=== PATIENT | male | born 1950 | race Caucasian/White ===

== ENCOUNTER 2020-03-20 08:06 | Inpatient (IN) ==
--- OUTSIDE RECORDS SUMMARY | 2020-03-20 08:11 | External Medical Summary | Continuity of Care Document ---
:1950 Author Name Alexandrea Cedillo Address Unavailable Unavailable , Care Team Providers Name Role Phone Unavailable Unavailable Unavailable GABINSKIY Unavailable Unavailable Problems Active medical history not documented Allergies and Adverse Reactions Allergy history not documented Medications Medications not documented Procedures Procedures not documented Immunizations Immunizations not documented Plan of Treatment Planned Observations Planned Goals not documented Results No Known Results Results not documented
[2020-03-20] MEDS ORDERED: FUROSEMIDE 40 MG/4 ML VIAL IV STA ×2 (08:22→10:37)
--- NOTE | 2020-03-20 08:41 | Emergency Department Note ---
Impression & Plan CHF (congestive heart failure), Atrial fibrillation, Elevated troponin I level, Acute hyperglycemia, Hyperkalemia ED Provider Note NAME: MICKEY DAWKINS AGE: 69 SEX: M : 1950 ARRIVES VIA: Ambulance INFORMANT: Patient, ED PROVIDER(S): Gurvinder Mae MD Chief Complaint: Shortness of breath HPI: He does present with shortness of breath. The patient states this is been ongoing for about 2 months. Progressively worsening over that time. The patient states it is worse with exertion and with activity. The patient does complain of mild orthopnea and lower extremity swelling as well as well as weight gain. The symptoms improved with rest. The patient has not been taking his medications for proximally 6 months. Patient states he was very depressed and just did not care. The patient denies history of DVT or PE. The patient did have a very mild nonproductive cough. It happens when he lays flat. P atient does not use any oxygen. Patient does not complain of any chest pains. He has seen Dr. Gonzalez with [facility] cardiology in the past. Patient does not present with cough, fevers, chills, coronavirus contacts, coronavirus testing, or recent travel. Patient sugar in route was greater than 400. The reason that the patient presented today is when he was bringing up a little while she got increasingly short of breath and then at rest it did not feel it would improve. Thus, he called 911. He states upon arrival he no longer felt short of breath. ROS: See HPI for pertinent positives and negatives. A total of 10 systems were reviewed and otherwise negative. Past medical history: See below Surgical history: See below Social history: See below Physical Exam: GENERAL: Well appearing, well nourished, NAD, non-toxic. Wearing glasses and a mask. EYE EXAM: Normal conjunctiva. PERRL, no anisocoria and EOM's grossly intact w/o pain. NECK: Supple, no nuchal rigidity, no adenopathy, non-tender. No signs of meningismus. LUNGS: Bibasilar crackles bilaterally. Normal chest wall mechanics. HEART: Irregularly irregular, no MRG. ABDOMEN: Abdomen soft, non-tender, normo-active bowel sounds, no masses, no rebound or guarding. BACK: No CVA TTP. SKIN: No rashes and no bruising. UPPER EXTREMITIES: Upper extremities are grossly normal. LOWER EXTREMITIES: Grossly normal, 1-2+ bilateral lower extremity edema without erythema. Negative Homans sign bilaterally. NEURO EXAM: A&O x3, cranial nerves II-XII grossly intact, normal speech, moves all 4 extremities on command w/o issue. Differential diagnoses: Reactive airway disease, pneumonia, pneumothorax, COPD, CHF, infections, cardiac ischemia, pulmonary embolism, musculoskeletal, gastrointestinal, as well as other pathologies. Course: Patient was seen and evaluated the bedside. Full history physical exam was performed. EKG: Indication: Shortness of breath Atrial fibrillation, rate of 91, borderline QRS. T wave inversion in the lateral and high lateral leads, Q waves inferiorly and anteriorly. No ST elevations. Comparison EKG December 03, 2018. The patient at that time with sinus bradycardia with first-degree AV block. The A. fib is a recurrence. The patient did have T wave inversions in the lateral and high lateral leads which appear old. Imaging Studies: Radiology results as stated below per my review in the radiologist's interpretation: Cardiac monitoring: An order was placed for continuous cardiac monitoring. The monitor shows a rate of 85 with irregularly irregular rhythm. MDM: Patient does present with concern for shortness of breath. Patient did a blood work completed along with EKG troponin chest x-ray and BNP. The patient was ordered Lasix 20 mg IV. Patient's sugar in route was greater than 400. Patient does have a normal white count H&H. Platelet count is slightly low. The patient's kidney function shows essentially BOLA versus CKD. Last creatinine was 1.2 today is 1.4. Potassium 5.2 with an elevated blood glucose of 450. Patient does have an elevated troponin and BNP. The patient is currently asymptomatic. Believe that this was likely demand. Patient does have some T wave inversions in the lateral leads. EKG G changes appear chronic with regard to the T wave inversions. A. fib is a recurrence. Heparin was ordered given the A. fib. Given the relative asymptomatic and lack of chest pain at this time will just do heparin without aspirin. Patient blood glucose was elevated so was given some IV insulin. Fluid helps at this time given the concern for CHF with A. fib. I did speak with the on-call hospitalist Dr. Sanchez MD [place] [facility] who agreed to further evaluate treat the patient. Critical Care: I have personally spent 42 minutes of critical care time in direct management of this patient. This includes bedside care, interpretation of diagnostic studies, and testing, discussion with consultants, patient, and family members, and other require inpatient management activities. This 42 minutes is in excess of all separately billable procedures. Past Med/Surg History Medical History CAD (coronary artery disease) (Chronic) "03/2009 - STEMI, s/p PTCA and stenting RCA, chronic LAD occlusion, 40% left main lesion" CVA (cerebral vascular accident) (Chronic) DM type 2 (diabetes mellitus, type 2) (Chronic) Dyslipidemia (Chronic) HTN (hypertension) (Chronic) Hypothyroidism (Chronic) Paroxysmal atrial fibrillation (Chronic) STEMI (ST elevation myocardial infarction) (Resolved) Systolic and diastolic CHF, chronic (Chronic) Thrombocytopenia (Chronic) Surgical History H/O colonoscopy (Resolved) 06/2018 - diverticulosis - Dr Samreen Suárez Hx of cardiac cath (Resolved) 2008 - multivessel disease s/p stent RCA with residual chronic occlusion LAD with collaterals and 40% narrowing left main Family History Other Coronary heart disease Diabetes Social History Preferred Language: Slovenian Communication Ability: Effective Steam Gigger Required: No Beliefs That Will Affect Care: None Current Living Situation: Alone Other Information That Helps Us Care for You: No Feels Safe at Home: Yes Safety Concerns: Feels Safe At This Time Smoking Status: Never smoker Do You Dip or Chew Tobacco: No ; Second Hand Exposure: Yes ; Tobacco Cessation Education Requested by Patient: No Hx Alcohol Use: Yes Alcohol type: beer and wine Hx Substance Use: No Allergies Allergies Allergy/AdvReac Type Severity Reaction Status Date / Time lisinopril AdvReac Intermediate COUGH Verified 03/20/20 08:26 alendronate sodium AdvReac Mild NONE Unverified 03/20/20 08:26 atorvastatin AdvReac Muscle Pain Verified 03/20/20 08:26 Home Meds Home Medications Medication Instructions Recorded Confirmed Lantus Solostar U-100 Insulin 45 unit SUBCUT HS 12/03/18 03/20/20 Tradjenta 5 mg PO DAILY 12/03/18 03/20/20 aspirin 81 mg PO DAILY 12/03/18 03/20/20 furosemide 20 mg PO DAILY 12/03/18 03/20/20 isosorbide mononitrate 60 mg PO DAILY 12/03/18 03/20/20 levothyroxine 25 mcg PO DAILY 12/03/18 03/20/20 losartan 25 mg PO DAILY 12/03/18 03/20/20 sotalol [Sotalol AF] 80 mg PO Q12H 12/03/18 03/20/20 spironolactone 12.5 mg PO DAILY 12/03/18 03/20/20 Previous Rx's Medication Instructions Recorded apixaban [Eliquis] 5 mg PO BID #60 tab 12/04/18 clopidogrel 75 mg PO QAM #30 tab 12/04/18 Results & Data (ED) Vital Signs Vital Signs - 24 hr 03/20/20 07:53 03/20/20 08:00 03/20/20 08:30 Temperature 36.7 C Temperature Source Oral Pulse Rate 94 H 88 91 H Pulse Rate from SpO2 Sensor 97 H Pulse Rhythm Irregular Irregular Respiratory Rate 18 18 20 Respiratory Effort / Characteristics Non-Labored Spontaneous Respiratory Depth Normal Respiratory Pattern Regular Blood Pressure 109/85 119/91 Blood Pressure Mean 93 96 Pulse Oximetry 97 97 95 Oxygen Delivery Method Room Air Room Air Sepsis Recent Fever Within 48 Hours No Sepsis New/Unexplained Change in Mental Status No Sepsis Action Taken by Nursing No Action Required 03/20/20 09:30 Temperature Temperature Source Pulse Rate 92 H Pulse Rate from SpO2 Sensor 97 H Pulse Rhythm Respiratory Rate 25 H Respiratory Effort / Characteristics Respiratory Depth Respiratory Pattern Blood Pressure 111/89 Blood Pressure Mean 94 Pulse Oximetry 93 Oxygen Delivery Method Sepsis Recent Fever Within 48 Hours Sepsis New/Unexplained Change in Mental Status Sepsis Action Taken by Long-Term Medications Current Medication List: was personally reviewed by me Laboratory Data Attestation: I reviewed the patient's lab results. Result diagrams: 03/20/20 08:00 03/20/20 11:50 Lab Results 03/20/20 03/20/20 03/20/20 Range/Units 08:00 08:00 08:00 WBC 9.50 (4.8-10.8) K/uL RBC 5.45 (4.7-6.1) M/uL Hgb 16.9 (14.0-18.0) g/dL Hct 49.9 (42-52) % MCV 91.6 (80-100) fL MCH 31.0 (25-34) pg MCHC 33.9 (32-36) g/dL RDW Std Deviation 47.8 H (36.4-46.3) fL RDW Coeff of Erik 14.2 (11.5-14.5) % Plt Count 103 L (130-400) K/uL Immature Gran % (Auto) 0.1 % Neut % (Auto) 60.1 % Lymph % (Auto) 28.8 % Rains % (Auto) 7.8 % Eos % (Auto) 2.7 % Baso % (Auto) 0.5 % Immature Gran # (Auto) 0.01 (0.00-0.02) K/uL Neut # (Auto) 5.70 (1.4-6.5) K/uL Lymph # (Auto) 2.74 (1.2-3.4) K/uL Rains # (Auto) 0.74 H (0.11-0.59) K/uL Eos # (Auto) 0.26 (0-0.5) K/uL Baso # (Auto) 0.05 (0-0.2) K/uL Platelet Estimate Decreased L (Normal) Giant Platelets 2+ PT 12.2 H (9.0-12.0) Seconds INR 1.2 H (0.9-1.1) APTT 25.6 (21.0-31.0) Seconds PTT Ratio 0.9 Sodium 135 L (136-145) mmol/L Potassium 5.2 H (3.5-5.1) mmol/L Chloride 103 (98-107) mmol/L Carbon Dioxide 23 (21-32) mmol/L Anion Gap 9.0 (3-11) BUN 20 H (7-18) mg/dl Creatinine 1.41 H (0.6-1.4) mg/dl Est Cr Clr Drug Dosing 58.1 ml/min Est GFR ( Amer) 57.7 Est GFR (Non-Af Amer) 49.8 BUN/Creatinine Ratio 14.0 (10-20) Glucose 455 H* (70-99) mg/dl Estimat Average Glucose mg/dl Hemoglobin A1c (4.5-5.6) % Calcium 8.3 L (8.5-10.1) mg/dl Phosphorus 3.6 (2.5-4.9) mg/dl Magnesium 1.9 (1.8-2.4) mg/dl Total Bilirubin 0.8 (0.2-1) mg/dl AST 61 H (15-37) U/L ALT 66 (12-78) U/L Alkaline Phosphatase 96 (45-117) U/L Troponin I 0.079 H* (0-0.045) ng/ml NT-Pro-B Natriuret Pep 3215 H (0-900) pg/ml Total Protein 6.6 (6.4-8.2) gm/dl Albumin 3.0 L (3.4-5.0) gm/dl Globulin 3.6 (2.5-4.0) gm/dl Albumin/Globulin Ratio 0.8 L (0.9-2) Beta-Hydroxybutyric Acd 1.75 (0.2-2.81) mg/dl TSH (0.300-4.500) uIu/ml 03/20/20 03/20/20 Range/Units 08:00 08:00 WBC (4.8-10.8) K/uL RBC (4.7-6.1) M/uL Hgb (14.0-18.0) g/dL Hct (42-52) % MCV (80-100) fL MCH (25-34) pg MCHC (32-36) g/dL RDW Std Deviation (36.4-46.3) fL RDW Coeff of Erik (11.5-14.5) % Plt Count (130-400) K/uL Immature Gran % (Auto) % Neut % (Auto) % Lymph % (Auto) % Rains % (Auto) % Eos % (Auto) % Baso % (Auto) % Immature Gran # (Auto) (0.00-0.02) K/uL Neut # (Auto) (1.4-6.5) K/uL Lymph # (Auto) (1.2-3.4) K/uL Rains # (Auto) (0.11-0.59) K/uL Eos # (Auto) (0-0.5) K/uL Baso # (Auto) (0-0.2) K/uL Platelet Estimate (Normal) Giant Platelets PT (9.0-12.0) Seconds INR (0.9-1.1) APTT (21.0-31.0) Seconds PTT Ratio Sodium (136-145) mmol/L Potassium (3.5-5.1) mmol/L Chloride (98-107) mmol/L Carbon Dioxide (21-32) mmol/L Anion Gap (3-11) BUN (7-18) mg/dl Creatinine (0.6-1.4) mg/dl Est Cr Clr Drug Dosing ml/min Est GFR ( Amer) Est GFR (Non-Af Amer) BUN/Creatinine Ratio (10-20) Glucose (70-99) mg/dl Estimat Average Glucose 335 mg/dl Hemoglobin A1c 13.3 H (4.5-5.6) % Calcium (8.5-10.1) mg/dl Phosphorus (2.5-4.9) mg/dl Magnesium (1.8-2.4) mg/dl Total Bilirubin (0.2-1) mg/dl AST (15-37) U/L ALT (12-78) U/L Alkaline Phosphatase (45-117) U/L Troponin I (0-0.045) ng/ml NT-Pro-B Natriuret Pep (0-900) pg/ml Total Protein (6.4-8.2) gm/dl Albumin (3.4-5.0) gm/dl Globulin (2.5-4.0) gm/dl Albumin/Globulin Ratio (0.9-2) Beta-Hydroxybutyric Acd (0.2-2.81) mg/dl TSH 9.110 H (0.300-4.500) uIu/ml Administered Medications Aspirin (Aspirin Chew) 81 mg PO DAILY [facility] Stop: 04/19/20 11:38 Last Admin: 03/20/20 13:00 Dose: 81 mg Documented by: [id number] Heparin Sodium/Dextrose (Heparin Sodium/Dextrose) 25,000 units in 500 mls @ 31 mls/hr IV .Q16H8M [facility]; Protocol Stop: 04/19/20 10:44 Last Admin: 03/20/20 11:50 Dose: 1,550 units/hr, 31 mls/hr Documented by: [id number] Cosigned by: [id number] Insulin Aspart (Novolog Flexpen) 0 units SC ACHS LIN; Protocol Stop: 04/19/20 11:29 Last Admin: 03/20/20 12:59 Dose: 9 units Documented by: [id number] Cosigned by: [id number] Insulin Glargine (Lantus Solostar Pen) 45 units SC DAILY LIN; Protocol Stop: 04/19/20 11:29 Last Admin: 03/20/20 12:58 Dose: 45 units Documented by: [id number] Cosigned by: [id number] Sotalol HCl (Betapace) 80 mg PO BID LIN Stop: 04/19/20 11:38 Last Admin: 03/20/20 13:00 Dose: 80 mg Documented by: [id number] Discontinued Medications Furosemide (Lasix) 20 mg IV NOW STA Stop: 03/20/20 08:23 Last Admin: 03/20/20 08:48 Dose: 20 mg Documented by: [id number] Furosemide (Lasix) 20 mg IV NOW STA Stop: 03/20/20 10:38 Last Admin: 03/20/20 10:47 Dose: 20 mg Documented by: [id number] Heparin Sodium/Dextrose () 1 ea IV ONE ONE; Protocol Stop: 03/20/20 09:14 Last Admin: 03/20/20 11:49 Dose: Not Given Documented by: [id number] Heparin Sodium/Dextrose (Heparin Sodium/Dextrose) 25,000 units in 500 mls @ 0.02 mls/hr IV .Q24H LIN; Protocol Stop: 04/19/20 09:14 Last Titration: 03/20/20 11:50 Dose: 0 units/hr, 0 mls/hr Documented by: [id number] Cosigned by: [id number] Admin: 03/20/20 10:01 Dose: 1,550 units/hr, 31 mls/hr Documented by: [id number] Cosigned by: [id number] Insulin Human Regular (Novolin R U-100 Per Unit) 5 units IV NOW STA Stop: 03/20/20 09:13 Last Admin: 03/20/20 10:02 Dose: 5 units Documented by: [id number] Cosigned by: [id number] Miscellaneous Information (Consult Glycemic Management Pharmacy) 1 ea N/A NOW STA Stop: 03/20/20 10:38 Last Admin: 03/20/20 11:50 Dose: Not Given Documented by: [id number] Blood Pressure Blood Pressure Findings: Normal blood pressure Blood Pressure Disposition: did not require urgent referral Discharge Plan Visit Data *Final* Discharge Date/Time: 03/20/20 11:15 Chief Complaint: Shortness of Breath/Dyspnea ED Provider: Gurvinder Mae Discharge Problem: CHF (congestive heart failure), Atrial fibrillation, Elevated troponin I level, Acute hyperglycemia, Hyperkalemia Patient Disposition: Admitted As Inpatient Discharge Instructions Interventions: ED Discharge Assessment Last Done: 03/20/20 11:15 Discharge Problem: CHF (congestive heart failure) Qualifiers: Heart failure type: unspecified Heart failure chronicity: acute Qualified Code(s): I50.9 - Heart failure, unspecified Atrial fibrillation Qualifiers: Atrial fibrillation type: paroxysmal Qualified Code(s): I48.0 - Paroxysmal atrial fibrillation
[2020-03-20 08:48] LABS: INR 1.2 (0.9-1.1); Partial Thromboplastin Ratio 0.9; Partial Thromboplastin Time 25.6 Seconds (21.0-31.0); Prothrombin Time 12.2 Seconds (9.0-12.0)
[2020-03-20 08:53] LABS: Hematocrit (blood only) 49.9 % (42-52); Hemoglobin 16.9 g/dL (14.0-18.0); Mean Corpuscular Hgb Conc 33.9 g/dL (32-36); Mean Corpuscular Volume 91.6 fL (80-100); Platelet Count 103 K/uL (130-400); RDW Coefficient of Variation 14.2 % (11.5-14.5); RDW Standard Deviation 47.8 fL (36.4-46.3); Red Blood Count 5.45 M/uL (4.7-6.1)
[2020-03-20 08:54] LABS: Basophils # (auto) 0.05 K/uL (0-0.2); Basophils % (auto) 0.5 %; Eosinophils # (auto) 0.26 K/uL (0-0.5); Eosinophils % (auto) 2.7 %; Giant Platelets 2+; Immature Granulocytes # (auto) 0.01 K/uL (0.00-0.02); Immature Granulocytes % (auto) 0.1 %; Lymphocytes # (auto) 2.74 K/uL (1.2-3.4); Lymphocytes % (auto) 28.8 %; Monocytes # (auto) 0.74 K/uL (0.11-0.59); Monocytes % (auto) 7.8 %; Neutrophils % (auto) 60.1 %; Platelet Estimate Decreased (Normal)
[2020-03-20 08:57] LABS: Albumin Globulin Ratio 0.8 (0.9-2); Bilirubin,Total 0.8 mg/dl (0.2-1); Calcium 8.3 mg/dl (8.5-10.1); Creatinine Clr Calc Pharmacy 58.1 ml/min; Est GFR (African American) 57.7; Est GFR (Non-African American) 49.8; Globulin 3.6 gm/dl (2.5-4.0); Magnesium 1.9 mg/dl (1.8-2.4); Phosphorus 3.6 mg/dl (2.5-4.9); Potassium 5.2 mmol/L (3.5-5.1); Total Protein 6.6 gm/dl (6.4-8.2); Troponin I 0.079 ng/ml (0-0.045)
--- NOTE | 2020-03-20 09:00 | XRay Report ---
XR chest 1V portable CLINICAL HISTORY: 69 years-old Male presenting with Dyspnea. TECHNIQUE: Portable upright AP view of the chest was obtained. COMPARISON: 09/19/2016. FINDINGS: Atherosclerosis of the aortic arch. Cardiac silhouette enlarged. Pulmonary vascular and interstitial prominence. Extensive bibasilar hazy opacities. Small pleural effusions may be present. No pneumothor ax. Degenerative changes of the thoracic spine. IMPRESSION: 1. Cardiomegaly with findings most characteristic of volume overload and advanced congestive change. 2. Bibasilar infiltrates likely represent mild to moderate pulmonary edema. Differential considerati ons include aspiration or infection. 3. Small bilateral pleural effusions. ACT 112: Negative or not required by law. Electronically signed by: Gokul Phan M.D. 03/20/2020 8:59 AM
[2020-03-20 09:11] LABS: Beta-Hydroxybutyrate 1.75 mg/dl (0.2-2.81)
[2020-03-20] MEDS ORDERED: NovoLIN-R INSULIN PER UNIT CHARGE IV STA (09:12)
[2020-03-20] MEDS ORDERED: Heparin IV Standard *NO* Bolus IV ONE (09:13)
[2020-03-20] MEDS ORDERED: HEPARIN SODIUM/DEXTROSE 25,000 UNITS/500 ML BAG IV SCH (09:15)
--- NOTE | 2020-03-20 10:23 | History & Physical Report ---
Date of Service March 20, 2020 Assessment & Plan (1) Atrial fibrillation: presented with Afib RVR has not been taking his medications for sometime HR improved after resuming Sotalol 80 mg PO BID iV heparin wt based protocol repeat ECHO cardiology consulted (2) CHF (congestive heart failure): presented with Vol overload acute decompensation of diastolic heart faillure started on IV Lasix continue diuresis ECHO to assess LV function cardiology consulted (3) Hyperkalemia: possible due to Acute renal failure given IV 10 U insulin repeat BMP started on IV lasix for diuresis (4) S/P cardiac catheterization: 12/03/18: -Status post successful coronary intervention drug-eluting stent to the proximal left circumflex. 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 presented with chest heaviness , SOB , due to decompensated CHF /vol overload , not taking meds , lack of self care ordered for echo serial cardiac markers resumed out patient cardiac meds cardiolgy consulted (5) CAD (coronary artery disease): NSTEMI elevation of troponin /NSTEMI IV heparin,cardiac meds follow serial troponin trends cardiology eval (6) HTN (hypertension): (7) Dyslipidemia: (8) DM type 2 (diabetes mellitus, type 2): Type 2 diabetes mellitus with peripheral neuropathy, insulin-dependent. presented with hyperglycemia has not taken meds for months pharmacy consulted for glycemic managment BSG > 444 , not in DKA , normal beta hydroxybutyrate , bicarb /normal anion gap (9) Thrombocytopenia: chronic cont Aspirin,plavix on IV heparin wt based protocol for NSTEMI/afib follow CBC (10) CVA (cerebral vascular accident): History of embolic cerebrovascular infarct, right basal ganglia in 04/2016. no focal deficit noted cont aspirin , plavix , statin CODE STATUS: FULL CODE DVT PROPHYLAXIS : iv heparin wt based protocol History of Present Illness Primary Care Provider: Christopher Bella, this is a 69 yo Male with past medical hx of CHF with chronic diastolic heart failure , CKD stage 3 , A fib , type 2 DM has stopped taking meds for last 6 months - pt has lost several family members became severely depressed , has not see any medical advice or treatment for depression denies suicidial ideation presented with worseing of SOB , chest heaviness , increased lower extremity swelling , Allergies Allergy/AdvReac Type Severity Reaction Status Date / Time lisinopril AdvReac Intermediate COUGH Verified 03/20/20 08:26 alendronate sodium AdvReac Mild NONE Unverified 03/20/20 08:26 atorvastatin AdvReac Muscle Pain Verified 03/20/20 08:26 Home Medications Home Medications Medication Instructions Recorded Confirmed Type Lantus Solostar U-100 Insulin 45 unit SUBCUT HS 12/03/18 03/20/20 History Tradjenta 5 mg PO DAILY 12/03/18 03/20/20 History aspirin 81 mg PO DAILY 12/03/18 03/20/20 History furosemide 20 mg PO DAILY 12/03/18 03/20/20 History isosorbide mononitrate 60 mg PO DAILY 12/03/18 03/20/20 History levothyroxine 25 mcg PO DAILY 12/03/18 03/20/20 History losartan 25 mg PO DAILY 12/03/18 03/20/20 History sotalol [Sotalol AF] 80 mg PO Q12H 12/03/18 03/20/20 History spironolactone 12.5 mg PO DAILY 12/03/18 03/20/20 History apixaban [Eliquis] 5 mg PO BID #60 tab 12/04/18 03/20/20 Rx clopidogrel 75 mg PO QAM #30 tab 12/04/18 03/20/20 Rx Past Med/Surg History Medical History CAD (coronary artery disease) (Chronic) "03/2009 - STEMI, s/p PTCA and stenting RCA, chronic LAD occlusion, 40% left main lesion" CVA (cerebral vascular accident) (Chronic) DM type 2 (diabetes mellitus, type 2) (Chronic) Dyslipidemia (Chronic) HTN (hypertension) (Chronic) Hypothyroidism (Chronic) Paroxysmal atrial fibrillation (Chronic) STEMI (ST elevation myocardial infarction) (Resolved) Systolic and diastolic CHF, chronic (Chronic) Thrombocytopenia (Chronic) Surgical History H/O colonoscopy (Resolved) 06/2018 - diverticulosis - Dr Samreen Suárez Hx of cardiac cath (Resolved) 2008 - multivessel disease s/p stent RCA with residual chronic occlusion LAD with collaterals and 40% narrowing left main Family History Other Coronary heart disease Diabetes Social History Preferred Language: Upper Sorbian Communication Ability: Effective Forensic Materials Engineer Required: No Beliefs That Will Affect Care: None marital status: Single Current Living Situation: Alone Other Information That Helps Us Care for You: No Feels Safe at Home: Yes Safety Concerns: Feels Safe At This Time Smoking Status: Never smoker Do You Dip or Chew Tobacco: No ; Second Hand Exposure: Yes ; Tobacco Cessation Education Requested by Patient: No Hx Alcohol Use: Yes Alcohol type: beer and wine Hx Substance Use: No Review of Systems Review of Systems: All systems reviewed & are unremarkable except as noted in HPI & below Constitutional: as per Subjective / HPI, + fatigue and + weakness; no fever and no chills Eyes: as per Subjective / HPI Respiratory: + cough and + dyspnea Cardiovascular: + dyspnea, + dyspnea at rest, + orthopnea, + syncope and + edema Physical Exam Constitutional: WD/WN, vitals as above + acute distress and + ill appearing Eyes: PERRL, conjunctivae normal, anicteric sclerae ENMT: external ear and nose normal, oropharynx normal Neck: trachea midline, no thyromegaly Respiratory: + cough; no respiratory distress Auscultation: + diminished lung sounds, + crackles, + rales, + rhonchi, + wheezes and + pleural rub present Cardiovascular: Rate/Rhythm: + abnormal rhythm Extremities: + pedal edema and + edema Musculoskeletal: Extremities: + abnormal strength (generalized weakness ) Neurologic: PERRL, EOMI, accommodation nl, no face palsy, no dysarthria Psychiatric: A+Ox3, euthymic affect Results & Data Results & Data ([facility]) Vital Signs (Past 12 Hours) Vital Signs Temp Pulse Resp BP Pulse Ox 03/20/20 10:14 84 20 97 03/20/20 08:30 91 H 20 119/91 95 03/20/20 08:00 88 18 97 03/20/20 07:53 36.7 C 94 H 18 109/85 97 Diagnostic Findings (1) DM type 2 (diabetes mellitus, type 2) Diabetes mellitus complication detail: with other circulatory complications Diabetes mellitus complication status: with circulatory complication Diabetes mellitus fci insulin use: with assistant terminal manager use Qualified Code(s): E11.59 - Type 2 diabetes mellitus with other circulatory complications; Z79.4 - shelter (current) use of insulin (2) CAD (coronary artery disease) Associated angina: without angina Coronary Disease-Associated Artery/Lesion type: [place] artery [place] vs. transplanted heart: [place] heart Qualified Code(s): I25.10 - Atherosclerotic heart disease of [place] coronary artery without angina pectoris (3) CHF (congestive heart failure) Heart failure chronicity: acute Heart failure type: unspecified Qualified Code(s): I50.9 - Heart failure, unspecified (4) Atrial fibrillation Atrial fibrillation type: paroxysmal Qualified Code(s): I48.0 - Paroxysmal atrial fibrillation (5) HTN (hypertension) Hypertension type: essential hypertension Qualified Code(s): I10 - Essential (primary) hypertension (6) CVA (cerebral vascular accident) CVA mechanism: embolism Precerebral and cerebral artery: basilar artery Qualified Code(s): 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
[2020-03-20] MEDS ORDERED: PHARMACY GLYCEMIC MGMT CONSULT STA (10:37)
[2020-03-20] MEDS ORDERED: Heparin IV Standard *NO* Bolus IV SCH (10:45)
--- NOTE | 2020-03-20 10:55 | Electrocardiogram Report ---
Test Reason : Blood Pressure : / mmHG Vent. Rate : 091 BPM Atrial Rate : 159 BPM P-R Int : 000 ms QRS Dur : 118 ms QT Int : 422 ms P-R-T Axes : 000 -50 129 degrees QTc Int : 519 ms Atrial fibrillation Left axis deviation Anteroseptal infarct , age undetermined T wave abnormality, consider lateral ischemia Prolonged QT Abnormal ECG When compared with ECG of 03-DEC-2018 12:49, Atrial fibrillation has replaced Sinus rhythm Vent. rate has increased BY 36 BPM Left bundle branch block is no longer Present Anteroseptal infarct is now Present Confirmed by Alex Yung ([id number]) on 03/20/2020 10:54:42 AM Referred By: ED Confirmed By:Richardson Yung
[2020-03-20 10:59] LABS: Estimated Average Glucose 335 mg/dl; Hemoglobin A1C 13.3 % (4.5-5.6)
[2020-03-20] MEDS ORDERED: PHARMACY GLYCEMIC MGMT CONSULT SCH (11:00)
--- NOTE | 2020-03-20 11:12 | Pharmacy Report ---
Glycemic Control Consultation - Date of Service March 20, 2020 - Scope Scope: Glycemic Pharmacist consulted for glycemic control and to write orders per [facility] inpatient glycemic control protocol. - Objective Weight: 104.3 kg Accuchecks BSG (last 24hrs): 03/20/20 03/20/20 08:00 10:54 Glucose 455 H* POC Glucose 327 H* Laboratory Data (last 24hrs): 03/20/20 08:00 Potassium 5.2 H Carbon Dioxide 23 Anion Gap 9.0 Creatinine 1.41 H Est Cr Clr Drug Dosing 58.1 Beta-Hydroxybutyric Acd 1.75 HbA1c: Hemoglobin A1c 13.3 % (4.5-5.6) H 03/20/20 08:00 - Recent Pertinent Medications Outpatient Anti-diabetic Regimen: * Not taking x 6 months, previously on Lantus 45 units daily and Tradjenta 5mg PO daily * A1c = 13.3 % 03/20/19 Risk Factors for Insulin Resistance: * IVF: Heparin drip * Diet: Type 2 DM - Assessment & Plan Assessment & Plan: ASSESSMENT: * 69 year old male admitted with SOB, CHF exacerbation, AF, started on Heparin drip. Type 2 diabetic, not taking medications x 6 months. * Blood sugar 455mg/dl on admission, given 5units IV x1 in ED at 1015am, now 327mg/dl. * Will begin patient on old home dose of Lantus and CF/CR based on basal needs and titrate to goal. PLAN FOR INPATIENT GLYCEMIC CONTROL: * Basal insulin * Lantus 45 units SQ daily starting now * Bolus insulin * NovoLog per scale ACHS or Q6hrs while NPO * Goal Range: Low 110 mg/dL - High 140 mg/dL * Correction Factor: 20 mg/dL/unit * Nutritional / Prandial insulin per carb ratio of 1 unit per 7 grams CHO consumed * Please note that the plan above was derived based on current level of insulin resistance and hospital stress. These recommendations are appropriate for inpatient admission only. Plan of care upon discharge will need to be reassessed to avoid potential outpatient hypo/hyperglycemia. Thank you.
[2020-03-20] MEDS ORDERED: GLUCOSE 40% GEL 15 GM TUBE PO PRN (11:15)
[2020-03-20] MEDS ORDERED: CARBOHYDRATES FOR HYPOGLYCEMIA PO PRN (11:15)
[2020-03-20] MEDS ORDERED: GLUCOSE 10 TABS/TUBE PO PRN (11:15)
[2020-03-20] MEDS ORDERED: DEXTROSE 50% 50 ML SYRINGE IV PRN (11:15)
[2020-03-20] MEDS ORDERED: GLUCAGON FOR INJ 1 MG VIAL SQ PRN (11:15)
[2020-03-20] MEDS ORDERED: POLYETHYLENE (MIRALAX) 17 GM PACK PO PRN (11:39)
[2020-03-20] MEDS ORDERED: MAGNESIUM HYDROXIDE SUSP 30 ML UDC PO PRN (11:39)
[2020-03-20] MEDS ORDERED: ALUMINUM/MAGNESIUM SUSP 30 ML UDC PO PRN (11:39)
[2020-03-20] MEDS ORDERED: NITROGLYCERIN SL 0.4 MG/TAB TAB SL PRN (11:39)
[2020-03-20] MEDS ORDERED: ACETAMINOPHEN 325 MG TAB PO PRN (11:39)
[2020-03-20] MEDS: HEPARIN SODIUM/DEXTROSE 25,000 UNITS/500 ML BAG IV SCH (11:50)
[2020-03-20 12:24] LABS: BUN Creatinine Ratio 14.6 (10-20); Calcium 8.3 mg/dl (8.5-10.1); Creatinine Clr Calc Pharmacy 59.8 ml/min; Est GFR (African American) 60.2; Potassium 4.2 mmol/L (3.5-5.1)
[2020-03-20] MEDS: INSULIN GLARGINE SOLOSTAR 100 UNITS/ML 3 ML PEN SC SCH (12:58)
[2020-03-20] MEDS: INSULIN ASPART 100 UNITS/ML 3 ML PEN SC SCH ×3 (12:59→20:15)
[2020-03-20] MEDS: ASPIRIN 81 MG CHEW PO SCH (13:00)
[2020-03-20] MEDS: SOTALOL HCL 80 MG TAB PO SCH ×2 (13:00→20:20)
[2020-03-20 14:55] LABS: Calcium 8.5 mg/dl (8.5-10.1); Creatinine Clr Calc Pharmacy 59.8 ml/min; Est GFR (African American) 60.2; Potassium 4.3 mmol/L (3.5-5.1)
[2020-03-20 15:03] LABS: Troponin I 0.058 ng/ml (0-0.045)
[2020-03-20] MEDS ORDERED: LORazepam 0.5 MG TAB PO STA (16:24)
[2020-03-20] MEDS ORDERED: LORazepam 0.5 MG TAB PO PRN (16:24)
[2020-03-20] MEDS: FUROSEMIDE 40 MG in SYRINGE 0 ML IV SCH (16:50)
[2020-03-20 20:05] LABS: Partial Thromboplastin Ratio 2.6
[2020-03-20 20:14] LABS: Partial Thromboplastin Time 72.5 Seconds (21.0-31.0)
[2020-03-21 02:37] LABS: BUN Creatinine Ratio 19.3 (10-20); Calcium 8.2 mg/dl (8.5-10.1); Creatinine Clr Calc Pharmacy 54.9 ml/min; Est GFR (African American) 54.4; Est GFR (Non-African American) 46.9; Magnesium 1.8 mg/dl (1.8-2.4); Partial Thromboplastin Ratio 3.1
[2020-03-21 02:54] LABS: Partial Thromboplastin Time 87.3 Seconds (21.0-31.0)
[2020-03-21] MEDS: HEPARIN SODIUM/DEXTROSE 25,000 UNITS/500 ML BAG IV SCH (03:03)
[2020-03-21] MEDS: LEVOTHYROXINE SODIUM 25 MCG TABLET PO SCH (06:08)
--- NOTE | 2020-03-21 08:31 | Cardiology Consultation ---
Date of Consultation March 21, 2020 Assessment & Plan (1) CHF (congestive heart failure): (2) Atrial fibrillation: (3) Elevated troponin I level: (4) Systolic and diastolic CHF, chronic: (5) CAD (coronary artery disease): (6) DM type 2 (diabetes mellitus, type 2): (7) Depression: Clinically the patient is improved. I would continue his diuretics as I believe he is still in congestive heart failure. This event may have been brought on by clinical depression and possible non-compliance with medications. I will have psychiatry see him for recommendations. His other medications should be continued including the sotalol which he takes for paroxysmal atrial fibrillation. He is currently in a rate controlled atrial fibrillation hopefully after we treat his heart failure he will convert on his own back to sinus rhythm. Troponins are most likely elevated due to stress and not ACS. His echocardiogram is essentially unchanged. He has very poor LV function due to an ischemic cardiomyopathy. In the past he has refused an ICD. History of Present Illness Attending Physician: Teetee Bradford MD History of Present Illness This is a 69-year-old patient who usually follows with Dr. Goznalez. He has a complex past cardiac history as outlined below. He has had a rough year. He has had several family members along with a good friend. 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 He admits that he has been depressed. States that life is not worth living. He may or may not have been taking his medications. Over the past several days he has noticed some increasing lower extremity edema as well as abdominal girth. He became suddenly very short of breath yesterday after climbing some stairs. He became very frightened and called a friend. He was brought to the hospital where he has been found to be in congestive heart failure. I reviewed his echocardiogram and it is essentially unchanged. He has an ischemic cardiomyopathy with an estimated left ventricular ejection fraction of around 25%. In the past he has refused an ICD. His last hospital admission was in November 2018 when he received a drug-eluting stent within the circumflex artery. After that admission from a cardiac standpoint he has done well. On admission his pro natruretic peptide is elevated. He has had borderline elevation in cardiac troponin which I do not believe is due to ACS but secondary to strain from heart failure. He has a history of paroxysmal atrial fibrillation and is currently in a controlled rate atrial fibrillation. Since being admitted he has received several doses of IV diuretics and is feeling improved. He was emotional in the room today during my exam which I believe is related to his depression. Past medical history: 1.Atherosclerotic coronary disease status post ST-elevation myocardial infarction March of 2009. 2.Catheterization at that time revealed multivessel disease, s/p PTCA and stenting of right coronary artery urgently with residual chronic occlusion of the LADwith collaterals and a 40% narrowing of the left main. 3.Paroxysmal atrial fibrillation. 4.History of embolic cerebrovascular infarct, right basal ganglia, April of 2016. 5.Decompensated acute systolic and diastolic congestive heart failure in the setting of atrial fibrillation with rapid ventricular response, 09/20/2016, s sequent hospitalization. 6.Status post synchronized electrical cardioversion, 10/31/2016. 7.Hyperlipidemia 8.Hypertension. 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 Abnormal stress testing leading to diagnostic cardiac catheterization December 03, 2018 demonstrating patent right coronary stent chronic proximal LAD occlusion and high-grade proximal circumflex stenosis receiving drug-eluting stent to circumflex Allergies Allergy/AdvReac Type Severity Reaction Status Date / Time lisinopril AdvReac Intermediate COUGH Verified 03/20/20 08:26 alendronate sodium AdvReac Mild NONE Unverified 03/20/20 08:26 atorvastatin AdvReac Muscle Pain Verified 03/20/20 08:26 Home Medications Home Medications Medication Instructions Recorded Confirmed Type Lantus Solostar U-100 Insulin 45 unit SUBCUT HS 12/03/18 03/20/20 History Tradjenta 5 mg PO DAILY 12/03/18 03/20/20 History aspirin 81 mg PO DAILY 12/03/18 03/20/20 History furosemide 20 mg PO DAILY 12/03/18 03/20/20 History isosorbide mononitrate 60 mg PO DAILY 12/03/18 03/20/20 History levothyroxine 25 mcg PO DAILY 12/03/18 03/20/20 History losartan 25 mg PO DAILY 12/03/18 03/20/20 History sotalol [Sotalol AF] 80 mg PO Q12H 12/03/18 03/20/20 History spironolactone 12.5 mg PO DAILY 12/03/18 03/20/20 History apixaban [Eliquis] 5 mg PO BID #60 tab 12/04/18 03/20/20 Rx clopidogrel 75 mg PO QAM #30 tab 12/04/18 03/20/20 Rx Patient History Medical History CAD (coronary artery disease) (Chronic) "03/2009 - STEMI, s/p PTCA and stenting RCA, chronic LAD occlusion, 40% left main lesion" CVA (cerebral vascular accident) (Chronic) DM type 2 (diabetes mellitus, type 2) (Chronic) Dyslipidemia (Chronic) HTN (hypertension) (Chronic) Hypothyroidism (Chronic) Paroxysmal atrial fibrillation (Chronic) STEMI (ST elevation myocardial infarction) (Resolved) Systolic and diastolic CHF, chronic (Chronic) Thrombocytopenia (Chronic) Surgical History H/O colonoscopy (Resolved) 06/2018 - diverticulosis - Dr Samreen Suárez Hx of cardiac cath (Resolved) 2008 - multivessel disease s/p stent RCA with residual chronic occlusion LAD with collaterals and 40% narrowing left main Family History Other Coronary heart disease Diabetes Social History Preferred Language: Citizen Of [place] Communication Ability: Effective 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 Beliefs That Will Affect Care: None marital status: Single Current Living Situation: Alone Other Information That Helps Us Care for You: No Feels Safe at Home: Yes Safety Concerns: Feels Safe At This Time Smoking Status: Never smoker Do You Dip or Chew Tobacco: No ; Second Hand Exposure: Yes ; Tobacco Cessation Education Requested by Patient: No Hx Alcohol Use: Yes Alcohol type: beer and wine Hx Substance Use: No Review of Systems Review of Systems: All systems reviewed & are unremarkable except as noted in HPI & below Nothing additional Physical Exam Physical Exam: General: no acute distress and stated age Head: normocephalic, no masses, lesions, tenderness or abnormalities Eyes: conjunctiva are pink and non-injected, sclera clear Neck: supple, no adenopathy, no bruits, normal jugular venous pulse, no hepatojugular reflux Chest: normal shape and normal respiratory effort Lungs: Rales at the bases bilaterally Cardiac Exam: -Regular rhythm, no murmurs gallops or rubs - normal S1, normal S2 Pulses: 2(+) throughout Abdomen: abdomen soft, non-tender, no abnormal masses and no hepatosplenomegaly Musculoskeletal: no gait disturbance, no joint inflammation, no deforming arthritis Extremities: Edema to the ankles bilaterally Neuro: grossly normal exam Results & Data ([facility]) Vital Signs (Past 12 Hours) Vital Signs Temp Pulse Resp BP Pulse Ox 03/21/20 07:40 36.3 C L 86 16 116/82 92 03/21/20 04:01 36.4 C L 86 16 100/56 L 98 03/20/20 23:45 36.5 C 91 H 18 117/77 96 Laboratory Results Laboratory Results - last 24 hr 03/20/20 03/20/20 03/20/20 08:00 08:00 10:54 APTT PTT Ratio Sodium Potassium Chloride Carbon Dioxide Anion Gap BUN Creatinine Est Cr Clr Drug Dosing Est GFR ( Amer) Est GFR (Non-Af Amer) BUN/Creatinine Ratio Glucose POC Glucose 327 H* Estimat Average Glucose 335 Hemoglobin A1c 13.3 H Calcium Magnesium Troponin I TSH 9.110 H Free T4 03/20/20 03/20/20 03/20/20 11:33 11:50 14:06 APTT PTT Ratio Sodium 138 137 Potassium 4.2 D 4.3 Chloride 107 105 Carbon Dioxide 24 23 Anion Gap 8.0 9.0 BUN 20 H 20 H Creatinine 1.36 1.36 Est Cr Clr Drug Dosing 59.8 59.8 Est GFR ( Amer) 60.2 60.2 Est GFR (Non-Af Amer) 52.0 52.0 BUN/Creatinine Ratio 14.6 15.0 Glucose 212 H 298 H POC Glucose 226 H Estimat Average Glucose Hemoglobin A1c Calcium 8.3 L 8.5 Magnesium Troponin I 0.058 H* TSH Free T4 03/20/20 03/20/20 03/20/20 16:15 16:29 19:19 APTT PTT Ratio Sodium Potassium Chloride Carbon Dioxide Anion Gap BUN Creatinine Est Cr Clr Drug Dosing Est GFR ( Amer) Est GFR (Non-Af Amer) BUN/Creatinine Ratio Glucose POC Glucose 184 H Estimat Average Glucose Hemoglobin A1c Calcium Magnesium Troponin I 0.061 H* TSH Free T4 0.99 03/20/20 03/20/20 03/21/20 19:19 20:05 02:04 APTT 72.5 H* PTT Ratio 2.6 Sodium Potassium Chloride Carbon Dioxide Anion Gap BUN Creatinine Est Cr Clr Drug Dosing Est GFR ( Amer) Est GFR (Non-Af Amer) BUN/Creatinine Ratio Glucose POC Glucose 133 H Estimat Average Glucose Hemoglobin A1c Calcium Magnesium Troponin I 0.056 H* TSH Free T4 03/21/20 03/21/20 03/21/20 02:04 02:04 07:35 APTT 87.3 H* PTT Ratio 3.1 Sodium 139 Potassium 4.0 Chloride 105 Carbon Dioxide 24 Anion Gap 10.0 BUN 29 H Creatinine 1.48 H Est Cr Clr Drug Dosing 54.9 Est GFR ( Amer) 54.4 Est GFR (Non-Af Amer) 46.9 BUN/Creatinine Ratio 19.3 Glucose 109 H POC Glucose 115 H Estimat Average Glucose Hemoglobin A1c Calcium 8.2 L Magnesium 1.8 Troponin I TSH Free T4 Medications Administered Current Inpatient Medications Acetaminophen (Tylenol) 650 mg PO Q4H PRN PRN Reason: Pain or Fever Stop: 04/19/20 11:38 Al Hydrox/Mg Hydrox/Simethicone (Maalox) 15 ml PO Q4H PRN PRN Reason: Dyspepsia Stop: 04/19/20 11:38 Aspirin (Aspirin Chew) 81 mg PO DAILY [facility] Stop: 04/19/20 11:38 Last Admin: 03/21/20 08:44 Dose: 81 mg Documented by: Clopidogrel Bisulfate (Plavix) 75 mg PO QAM [facility] Stop: 04/20/20 08:59 Last Admin: 03/21/20 08:45 Dose: 75 mg Documented by: Dextrose (Dextrose 50%) 25 - 50 ml IV UD PRN; Protocol PRN Reason: Hypoglycemia Protocol Stop: 04/19/20 11:14 Glucagon (Glucagen) 1 mg SQ UD PRN; Protocol PRN Reason: Hypoglycemia Protocol Stop: 04/19/20 11:14 Glucose (Glucose 40%) 15 - 30 gm PO UD PRN; Protocol PRN Reason: Hypoglycemia Protocol Stop: 04/19/20 11:14 Glucose (Dex4 Glucose) 4 - 8 tabs PO UD PRN; Protocol PRN Reason: Hypoglycemia Protocol Stop: 04/19/20 11:14 Heparin Sodium/Dextrose (Heparin Sodium/Dextrose) 25,000 units in 500 mls @ 26 mls/hr IV .[id number] [facility]; Protocol Stop: 04/19/20 10:44 Last Titration: 03/21/20 06:54 Dose: 1,300 units/hr, 26 mls/hr Documented by: Furosemide 40 mg/ Syringe 4 mls @ 4 mls/min IV [id number] [facility] Stop: 04/19/20 16:59 Last Admin: 03/21/20 08:44 Dose: 4 mls/min Documented by: Insulin Aspart (Novolog Flexpen) 0 units SC ACHS [facility]; Protocol Stop: 04/19/20 11:29 Last Admin: 03/21/20 08:44 Dose: 8 units Documented by: Insulin Glargine (Lantus Solostar Pen) 45 units SC DAILY [facility]; Protocol Stop: 04/19/20 11:29 Last Admin: 03/21/20 08:44 Dose: 45 units Documented by: Isosorbide Mononitrate (Imdur Extended Rel) 60 mg PO DAILY [facility] Stop: 04/20/20 08:59 Last Admin: 03/21/20 08:44 Dose: 60 mg Documented by: Levothyroxine Sodium (Synthroid) 25 mcg PO DAILYBB [facility] Stop: 04/20/20 06:29 Last Admin: 03/21/20 06:08 Dose: 25 mcg Documented by: Lorazepam (Ativan) 0.5 mg PO Q8 PRN PRN Reason: Anxiety Stop: 04/19/20 16:23 Magnesium Hydroxide (Milk Of Magnesia) 30 ml PO Q12H PRN PRN Reason: Constipation Stop: 04/19/20 11:38 Miscellaneous (Carbohydrates For Hypoglycemia) 15 - 30 gm PO UD PRN PRN Reason: Hypoglycemia Treatment Stop: 04/19/20 11:14 Miscellaneous Information (Consult Glycemic Management Pharmacy) 1 ea N/A UD [facility] Stop: 04/19/20 10:59 Nitroglycerin (Nitrostat) 0.4 mg SL UD PRN PRN Reason: Chest Pain Stop: 04/19/20 11:38 Polyethylene Glycol (Miralax Powder Packet) 17 gm PO DAILY PRN PRN Reason: Constipation Stop: 04/19/20 11:38 Sotalol HCl (Betapace) 80 mg PO BID [facility] Stop: 04/19/20 11:38 Last Admin: 05/17/20 08:45 Dose: 80 mg Documented by: (1) DM type 2 (diabetes mellitus, type 2) Diabetes mellitus complication detail: with other circulatory complications Diabetes mellitus complication status: with circulatory complication Diabetes mellitus fpc insulin use: with fpc use Qualified Code(s): E11.59 - Type 2 diabetes mellitus with other circulatory complications; Z79.4 - snf (current) use of insulin (2) CAD (coronary artery disease) Associated angina: without angina Coronary Disease-Associated Artery/Lesion type: [place] artery [place] vs. transplanted heart: [place] heart Qualified Code(s): I25.10 - Atherosclerotic heart disease of [place] coronary artery without angina pectoris (3) CHF (congestive heart failure) Heart failure chronicity: acute Heart failure type: unspecified Qualified Code(s): I50.9 - Heart failure, unspecified (4) Atrial fibrillation Atrial fibrillation type: paroxysmal Qualified Code(s): I48.0 - Paroxysmal atrial fibrillation
[2020-03-21] MEDS: FUROSEMIDE 40 MG in SYRINGE 0 ML IV SCH ×2 (08:44→17:46)
[2020-03-21] MEDS: INSULIN ASPART 100 UNITS/ML 3 ML PEN SC SCH ×4 (08:44→20:23)
[2020-03-21] MEDS: INSULIN GLARGINE SOLOSTAR 100 UNITS/ML 3 ML PEN SC SCH (08:44)
[2020-03-21] MEDS: ASPIRIN 81 MG CHEW PO SCH (08:44)
[2020-03-21] MEDS: ISOSORBIDE MONO EXTENDED REL 60 MG TABCR PO SCH (08:44)
[2020-03-21] MEDS: CLOPIDOGREL BISULFATE 75 MG TAB PO SCH (08:45)
[2020-03-21] MEDS: SOTALOL HCL 80 MG TAB PO SCH ×2 (08:45→20:23)
--- NOTE | 2020-03-21 10:10 | Pharmacy Report ---
Pharmacy Glycemic Short Note 2 - Date of Service March 21, 2020 - Glycemic Short BSG Results (Last 24 hours): 03/20/20 03/20/20 03/20/20 10:54 11:33 11:50 Glucose 212 H POC Glucose 327 H* 226 H 03/20/20 03/20/20 03/20/20 14:06 16:15 20:05 Glucose 298 H POC Glucose 184 H 133 H 03/21/20 03/21/20 02:04 07:35 Glucose 109 H POC Glucose 115 H OUTPATIENT ANTIDIABETIC REGIMEN: * Not taking x 6 months, previously on Lantus 45 units daily and Tradjenta 5mg PO daily * A1c = 13.3 % 03/20/19 ASSESSMENT: 03/21/20 * Blood sugars at goal, continue insulin doses. 03/20/20 * 69 year old male admitted with SOB, CHF exacerbation, AF, started on Heparin drip. Type 2 diabetic, not taking medications x 6 months. * Blood sugar 455mg/dl on admission, given 5units IV x1 in ED at 1015am, now 327mg/dl. * Will begin patient on old home dose of Lantus and CF/CR based on basal needs and titrate to goal. PLAN FOR INPATIENT GLYCEMIC CONTROL: * Basal insulin * Lantus 45 units SQ daily * Bolus insulin * NovoLog per scale ACHS or Q6hrs while NPO * Goal Range: Low 110 mg/dL - High 140 mg/dL * Correction Factor: 20 mg/dL/unit * Nutritional / Prandial insulin per carb ratio of 1 unit per 7 grams CHO consumed PLAN FOR DISCHARGE: * A1c 13.3% d/t noncompliance. * A1c is greater than or equal to 10% consider triple therapy with metformin + basal insulin + prandial insulin Recommend: oMetformin XR 500mg PO daily with evening meal. Typically the XR formulation of metformin is better tolerated than the immediate release formulation. Continue t o titrate metformin dosing upwards as recommended. Dosage increases should be made in increments of 500 mg weekly, up to 2,000 mg/day PO, given in divided doses. Doses above 2000 mg/day may be better tolerated if divided and given 3 times per day with meals. Max: 2,550 mg/day PO, in divided doses B12 supplementation may be necessary with retirement metformin oBasal insulin: Glargine 45 units SQ daily oPrandial insulin: Novolog insulin 8 units SQ with meals oCorrectional insulin per scale given in addition to prandial insulin above: Blood Sugar 70-150 administer 0 units Blood Sugar 151-200 administer 1 units Blood Sugar 201-250 administer 3 units Blood Sugar 251-300 administer 5 units Blood Sugar 301-350 administer 7 units Blood Sugar 351-400 administer 9 units Blood Sugar >400 administer 11 units and call MD
[2020-03-21 11:18] LABS: Partial Thromboplastin Ratio 2.8
[2020-03-21 11:19] LABS: Partial Thromboplastin Time 76.8 Seconds (21.0-31.0)
--- NOTE | 2020-03-21 11:19 | Electrocardiogram Report ---
Test Reason : Blood Pressure : / mmHG Vent. Rate : 091 BPM Atrial Rate : 104 BPM P-R Int : 000 ms QRS Dur : 124 ms QT Int : 444 ms P-R-T Axes : 000 -54 146 degrees QTc Int : 546 ms Atrial fibrillation Left axis deviation Left anterior fascicular block Anteroseptal infarct (cited on or before 20-MAR-2020) T wave abnormality, consider lateral ischemia Abnormal ECG When compared with ECG of 20-MAR-2020 08:14, No significant change was found Confirmed by Alex Yung ([id number]) on 03/21/2020 11:18:45 AM Referred By: REFERRED SELF Confirmed By:Richardson Yung
[2020-03-21 17:49] LABS: Partial Thromboplastin Ratio 2.4
[2020-03-21 17:52] LABS: Partial Thromboplastin Time 65.9 Seconds (21.0-31.0)
--- NOTE | 2020-03-21 18:52 | Hospitalist Progress Note ---
Date of Service March 21, 2020 Assessment & Plan (1) Atrial fibrillation: presented with Afib RVR has not been taking his medications for sometime HR improved after resuming Sotalol 80 mg PO BID at present rate controlled iV heparin wt based protocol d cardiology consulted -appreciate input (2) CHF (congestive heart failure): acute decompensation of CHF with severe LV dysfunction : ECHO shows large plural effusion , EF 20-25 % with global hypokinesis on on IV lasix clinically improved after diuresis cardiology consulted (3) Hyperkalemia: resolved (4) S/P cardiac catheterization: 12/03/18: -Status post successful coronary intervention drug-eluting stent to the proximal left circumflex. 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 presented with chest heaviness , SOB , due to decompensated CHF /vol overload , not taking meds , lack of self care due to decompensated CHF symptoms improved after diuresis serial cardiac markers -shows mild elevation with flattened trend resumed out patient cardiac meds cardiology consult appreciated , no evidence of ACS continue management for decomensated CHF (5) CAD (coronary artery disease): NSTEMI elevation of troponin /NSTEMI Type 2 -demand ischemia due to rapid Afib /decompensated CHF ECHO shows global hypokinesis with reduced EF 20-25% on IV heparin,cardiac meds : aspirin , plavix , imdur , sotalol resumed cardiology eval appreciated (6) HTN (hypertension): (7) Dyslipidemia: (8) DM type 2 (diabetes mellitus, type 2): Type 2 diabetes mellitus with peripheral neuropathy, insulin-dependent. presented with hyperglycemia has not taken meds for months pharmacy consulted for glycemic management BSG > 444 , not in DKA , normal beta hydroxybutyrate , bicarb /normal anion gap BSG improved with basal lantus and insulin SSI HB A1c> 13 poker in consulted DEPRESSION : pt reports of feeling depressed ,had multiple family members this year pt reports hopelessness, lack of interest , fatigue decreased appetite , concentration , unable to self care stopped taking meds for 6 months denies of suicidal ideation , hallucination Psych consult requested (9) Thrombocytopenia: chronic cont Aspirin,plavix on IV heparin wt based protocol for NSTEMI/afib follow CBC (10) CVA (cerebral vascular accident): History of embolic cerebrovascular infarct, right basal ganglia in 04/2016. no focal deficit noted cont aspirin , plavix , statin CODE STATUS: FULL CODE DVT PROPHYLAXIS : iv heparin wt based protocol Admission and Anticipated Discharge Date Admission Date: March 20, 2020 Subjective sitting up on chair breathing has improved denies of any sob , chest pain no fever or chills Physical Exam Constitutional: WD/WN, vitals as above + acute distress and + ill appearing Eyes: PERRL, conjunctivae normal, anicteric sclerae ENMT: external ear and nose normal, oropharynx normal Neck: trachea midline, no thyromegaly Respiratory: + cough; no respiratory distress Auscultation: + diminished lung sounds, + crackles, + rales and + wheezes Cardiovascular: Rate/Rhythm: + abnormal rhythm Extremities: + pedal edema and + edema Musculoskeletal: Extremities: + abnormal strength (generalized weakness ) Neurologic: PERRL, EOMI, accommodation nl, no face palsy, no dysarthria Psychiatric: A+Ox3, euthymic affect Results & Data Results & Data ([facility]) Vital Signs (Past 12 Hours) Vital Signs Temp Pulse Resp BP Pulse Ox 03/21/20 15:56 62 16 99/68 L 95 03/21/20 11:22 36.4 C L 52 L 18 96/62 L 93 03/21/20 07:40 36.3 C L 86 16 116/82 92 (1) DM type 2 (diabetes mellitus, type 2) Diabetes mellitus complication detail: with other circulatory complications Diabetes mellitus complication status: with circulatory complication Diabetes mellitus nursing home insulin use: with nursing home use Qualified Code(s): E11.59 - Type 2 diabetes mellitus with other circulatory complications; Z79.4 - [facility] (current) use of insulin (2) CAD (coronary artery disease) Associated angina: without angina Coronary Disease-Associated Artery/Lesion type: [place] artery [place] vs. transplanted heart: [place] heart Qualified Code(s): I25.10 - Atherosclerotic heart disease of [place] coronary artery witho ut angina pectoris (3) CHF (congestive heart failure) Heart failure chronicity: acute Heart failure type: unspecified Qualified Code(s): I50.9 - Heart failure, unspecified (4) Atrial fibrillation Atrial fibrillation type: paroxysmal Qualified Code(s): I48.0 - Paroxysmal atrial fibrillation (5) HTN (hypertension) Hypertension type: essential hypertension Qualified Code(s): I10 - Essential (primary) hypertension (6) CVA (cerebral vascular accident) CVA mechanism: embolism Precerebral and cerebral artery: basilar artery Qualified Code(s): 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
[2020-03-22] MEDS: HEPARIN SODIUM/DEXTROSE 25,000 UNITS/500 ML BAG IV SCH ×2 (00:23→20:56)
[2020-03-22 05:56] LABS: BUN Creatinine Ratio 20.9 (10-20); Calcium 8.2 mg/dl (8.5-10.1); Creatinine Clr Calc Pharmacy 52.9 ml/min; Est GFR (African American) 51.8; Est GFR (Non-African American) 44.7; Magnesium 1.8 mg/dl (1.8-2.4); Potassium 3.6 mmol/L (3.5-5.1)
[2020-03-22 06:03] LABS: Partial Thromboplastin Ratio 2.1
[2020-03-22] MEDS: LEVOTHYROXINE SODIUM 25 MCG TABLET PO SCH (06:18)
[2020-03-22 06:36] LABS: Partial Thromboplastin Time 59.2 Seconds (21.0-31.0)
[2020-03-22] MEDS: ISOSORBIDE MONO EXTENDED REL 60 MG TABCR PO SCH (08:02)
[2020-03-22] MEDS: CLOPIDOGREL BISULFATE 75 MG TAB PO SCH (08:02)
[2020-03-22] MEDS: FUROSEMIDE 40 MG in SYRINGE 0 ML IV SCH ×2 (08:03→17:09)
[2020-03-22] MEDS: ASPIRIN 81 MG CHEW PO SCH (08:03)
[2020-03-22] MEDS: SOTALOL HCL 80 MG TAB PO SCH ×2 (08:03→20:56)
[2020-03-22] MEDS: INSULIN ASPART 100 UNITS/ML 3 ML PEN SC SCH ×4 (08:34→20:56)
[2020-03-22] MEDS: INSULIN GLARGINE SOLOSTAR 100 UNITS/ML 3 ML PEN SC SCH (08:35)
[2020-03-22] MEDS ORDERED: INSULIN GLARGINE SOLOSTAR 100 UNITS/ML 3 ML PEN SC SCH (09:00)
--- NOTE | 2020-03-22 09:53 | Psychiatric Consultation ---
Date of Consultation March 22, 2020 Impression / Recommendations Impression Dr. Ivy Huerta was directly involved in review and discussion of the patient's case and participated in medical decision making regarding treatment recommendations. RECOMMENDATIONS: 03/22 - Pt reports increased sadness, anger, and anxiety in the last ~6 months, but states he has had episodes of this intermittently for most of his life. Differential includes complicated bereavement, major depressive disorder, dysthymic disorder, among other possible diagnoses. Pt admits he has rarely been "happy" with life, but does feel having several recent losses has greatly contributed to increased depression. - Pt is willing for outpatient therapy referral to process grief and other contributing stressors. Has seen Dr. John Lawler in the past, but believes this was for therapy. Will request ROIs from patient to make appropriate referrals. - Pt is agreeable with initiation of an antidepressant medication. Reviewed sertraline along with risks, benefits, and potential side effects. Pt asked appropriate questions and verbalized he was agreeable with initiation of the medication. Would suggest trial of a 25mg dose of sertraline today, then could increase to 50mg as soon as tomorrow if the medication is tolerated. Suggest ongoing outpatient psychiatric follow-up in order to make appropriate medication adjustments after discharge. - Pt denies active SI or any safety concerns. No indication for inpatient psychiatric treatment. Reviewed crisis resources, with patient verbalizing understanding and willingness to utilize if needed. - Appreciate opportunity to participate in the care of this patient. Please contact our service with any additional questions or updates. Risk Factors Assessment Do You Have Access To A Gun?: Yes ("but I don't even know where it is") Psych History Identifying Data 69-year-old male admitted medically on 03/20/2020 after presenting to the ED with shortness of breath, lower extremity swelling, and chest tightness. Pt had reportedly been noncompliant with a number of his medications for several months. Psychiatric consultation was requested to evaluate patient for depression. Chief Complaint "Pretty good actually. I slept well last night." History of Present Illness Armando Benavidez is a 69-year-old male admitted medically on 03/20/2020 after presenting to the ED with complaints of shortness of breath, lower extremity swelling, and chest tightness. Pt reports awareness that his symptoms were likely exacerbation of CHF, so he presented to the hospital. Pt states he was surprised to find that he was also in atrial fibrillation. PMH is significant for CHF, type-II diabetes, hypothyroidism, CAD, hypertension, dyslipidemia, and history of CVA. Documentation suggests the patient may not have been compliant with his medications for about 6 months, and it was questioned if depression may be contributing to this. Psychiatric consultation was requested to evaluate patient for depression. Pt is cooperative with psychiatric evaluation. He states that today he is feeling "pretty good actually", reporting that he "slept well last night." Pt states that he initially presented to the ED as "I was having trouble breathing, then I was getting anxious which made the breathing harder. When I realized I couldn't sleep if I laid flat, I realized it must have been the congestive heart failure." Pt states he presented to the ED and was subsequently admitted. Pt states that he has always been a rather busy person, but that a lot has changed for him in the past few years. Pt states "after I had my heart attack, I've had a lot of people I care about ." Pt states that within the past 1.5 - 2 years he has lost his younger brother, his mother (who had lived with him), a very close neighbor, a good friend, and some pets. Pt states "I think I was too busy to process the ." Pt becomes emotional when discussing this. 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 Pt states "I think I was angry. All these people right at the time I would have had time to spend with them." Pt admits to a lot of guilt surrounding these losses and belief that he had been "too busy" for the people in his life. Pt states he has been struggling most of his life with some level of "anger." Pt states "I always had the 'the world is my oyster' mentality, but I was never really happy. I noticed I was angry, even outraged, that I had everything I wanted but I wasn't happy with it." Pt states he began meeting with an outpatient therapist when these thoughts developed. He states therapy had been helpful for him in the past, and that even lately he has been attempting to speak with his orthodox chemical equipment controller at least once a week. Pt states, "people are noticing, people around me are saying I'm not myself. They want me to get help." Pt states that he has never been prescribed medications for his mood or anxiety in the past. He states, "I was always worried about my job. I didn't want medications to affect my judgment or my compassion for my clients." Pt does report having taken QUINTON-e in the past, but stopped the supplement after he began to notice some emotional blunting. Pt does report he would be interested in trying medication now that he is retired, but remains concerned about falls or cognitive changes related to medications. Pt states he would be willing for referrals for outpatient therapy and medication management. We discussed a trial fo sertraline to target his low mood and anxiety. Risks, benefits, and potential side effects were reviewed. Pt verbalized understanding and is agreeable with the medication trial. He denies SI, but does endorse loneliness and guilt. He denies other needs or concerns from our service at this time. Past Psychiatric History Previous Psych History: Pt does admit to outpatient therapy in the past to target "inwardly directed anger". Denies recent treatment. Outpatient Services: Denies current outpatient psychiatric services. No present therapist, but does meet occasionally with the chemical equipment controller of his orthodox. Previous Psych Admissions: Denied Do You Have Access To A Gun?: Yes ("but I don't even know where it is") History of Previous Suicide Attempt: No Past Medication Trials: Pt reports having taken QUINTON-e supplements in the past. Stopped taking the supplements when he noticed emotional blunting. Denies history of formal medication trials for anxiety or depression. Allergies Allergy/AdvReac Type Severity Reaction Status Date / Time lisinopril AdvReac Intermediate COUGH Verified 03/20/20 08:26 alendronate sodium AdvReac Mild NONE Unverified 03/20/20 08:26 atorvastatin AdvReac Muscle Pain Verified 03/20/20 08:26 Home Medications Home Medications Medication Instructions Recorded Confirmed Type Lantus Solostar U-100 Insulin 45 unit SUBCUT HS 12/03/18 03/20/20 History Tradjenta 5 mg PO DAILY 12/03/18 03/20/20 History aspirin 81 mg PO DAILY 12/03/18 03/20/20 History furosemide 20 mg PO DAILY 12/03/18 03/20/20 History isosorbide mononitrate 60 mg PO DAILY 12/03/18 03/20/20 History levothyroxine 25 mcg PO DAILY 12/03/18 03/20/20 History losartan 25 mg PO DAILY 12/03/18 03/20/20 History sotalol [Sotalol AF] 80 mg PO Q12H 12/03/18 03/20/20 History spironolactone 12.5 mg PO DAILY 12/03/18 03/20/20 History apixaban [Eliquis] 5 mg PO BID #60 tab 12/04/18 03/20/20 Rx clopidogrel 75 mg PO QAM #30 tab 12/04/18 03/20/20 Rx Family History Denies known family history of mental health conditions. Substance Abuse History Denies tobacco or alcohol use. Denies use of illicit substances. 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[employer]) Marital Status: Single Number Of Children: None Beliefs That Will Affect Care: Religion History of Legal Problems: Denied Psychological Trauma History Comment: Denied Patient History Medical History CAD (coronary artery disease) (Chronic) "03/2009 - STEMI, s/p PTCA and stenting RCA, chronic LAD occlusion, 40% left main lesion" CVA (cerebral vascular accident) (Chronic) DM type 2 (diabetes mellitus, type 2) (Chronic) Dyslipidemia (Chronic) HTN (hypertension) (Chronic) Hypothyroidism (Chronic) Paroxysmal atrial fibrillation (Chronic) STEMI (ST elevation myocardial infarction) (Resolved) Systolic and diastolic CHF, chronic (Chronic) Thrombocytopenia (Chronic) Surgical History H/O colonoscopy (Resolved) 06/2018 - diverticulosis - Dr Samreen Suárez Hx of cardiac cath (Resolved) 2008 - multivessel disease s/p stent RCA with residual chronic occlusion LAD with collaterals and 40% narrowing left main Family History Other Coronary heart disease Diabetes Social History Preferred Language: Italian Communication Ability: Effective Wool Classer Required: No Beliefs That Will Affect Care: None marital status: Single Current Living Situation: Alone Other Information That Helps Us Care for You: No Feels Safe at Home: Yes Safety Concerns: Feels Safe At This Time Smoking Status: Never smoker Do You Dip or Chew Tobacco: No ; Second Hand Exposure: Yes ; Tobacco Cessation Education Requested by Patient: No Hx Alcohol Use: Yes Alcohol type: beer and wine Hx Substance Use: No Physical Exam Psychiatric: Orientation: alert, oriented x 3 and cooperative (and pleasant) Apperance: appropriately dressed, appropriately groomed and appeared stated age Obese-appearing male, reclined in bed in no acute distress. Pt is appropriately dressed, wearing hospital gown. He appears appropriately groomed and is wearing corrective lenses. Level of hygiene appears adequate. Eye Contact: good eye contact Motor Behavior: no abnormal motor movements (observed while laying in bed ) Speech: normal rate/rhythm/volume of speech Affect: + depressed affect and + tearful affect (intermittently tearful) Mood: + depressed mood Thought Process: goal directed thought process, clear/coherent thought process and thought association intact Thought Content: reality based without delusions, + loneliness and + guilt Suicidal Thoughts: denies suicidal thoughts, denies suicidal plan and denies suicidal intent Homicidal Thoughts: denies homicidal thoughts Hallucinations: no auditory hallucinations and no visual hallucinations Cognition: recent memory grossly intact, attention grossly intact and language grossly intact Insight: + fair insight Judgement: + fair judgement Vital Signs (Past 24 Hours): Last Vital Signs Temp 36.3 C L 03/22/20 07:13 Pulse 71 03/22/20 07:22 Resp 20 03/22/20 07:13 BP 124/86 03/22/20 07:13 Pulse Ox 95 03/22/20 07:13 Review of Systems Constitutional: reports improved sleep last evening Cardiovascular: denied Respiratory: reports occasional SOB, but significant improvement since admission Gastrointestinal: denied Genitourinary: reports frequent urination (related to Lasix) Neurological: denied Psychiatric: denies symptoms other than stated above Total of at least 10 systems reviewed, pertinent positives as above and in HPI. Results & Data (PSY) Medications Administered Aspirin (Aspirin Chew) 81 mg PO DAILY LIN Stop: 04/19/20 11:38 Last Admin: 03/22/20 08:03 Dose: 81 mg Documented by: [id number] Admin: 03/21/20 08:44 Dose: 81 mg Documented by: [id number] Admin: 03/20/20 13:00 Dose: 81 mg Documented by: [id number] Cl[facility]idog[facility]) [facility] [place] Stop: 04/20/20 08:59 Last Admin: 03/22/20 08:02 Dose: 75 mg Documented by: [id number] Admin: 03/21/20 08:45 Dose: 75 mg Documented by: [id number] Heparin Sodium/Dextrose (Heparin Sodium/Dextrose) 25,000 units in 500 mls @ 23 mls/hr IV .[id number] [facility]; Protocol Stop: 04/19/20 10:44 Last Titration: 03/22/20 06:55 Dose: 1,150 units/hr, 23 mls/hr Documented by: [id number] Cosigned by: [id number] Admin: 03/22/20 00:23 Dose: 1,150 units/hr, 23 mls/hr Documented by: [id number] Cosigned by: [id number] Titration: 03/22/20 00:17 Dose: 1,150 units/hr, 23 mls/hr Documented by: [id number] Cosigned by: [id number] Titration: 03/21/20 19:02 Dose: 1,150 units/hr, 23 mls/hr Documented by: [id number] Cosigned by: [id number] Titration: 03/21/20 18:01 Dose: 1,150 units/hr, 23 mls/hr Documented by: [id number] Cosigned by: [id number] Titration: 03/21/20 11:19 Dose: 1,150 units/hr, 23 mls/hr Documented by: [id number] Cosigned by: [id number] Titration: 03/21/20 06:54 Dose: 1,300 units/hr, 26 mls/hr Documented by: [id number] Cosigned by: [id number] Titration: 03/21/20 03:37 Dose: 1,300 units/hr, 26 mls/hr Documented by: [id number] Cosigned by: [id number] Titration: 03/21/20 03:07 Dose: 0 units/hr, 0 mls/hr Documented by: [id number] Cosigned by: [id number] Admin: 03/21/20 03:03 Dose: 1,450 units/hr, 29 mls/hr Documented by: [id number] Cosigned by: [id number] Titration: 03/21/20 03:03 Dose: 0 units/hr, 0 mls/hr Documented by: [id number] Cosigned by: [id number] Titration: 03/20/20 22:55 Dose: 1,450 units/hr, 29 mls/hr Documented by: [id number] Cosigned by: [id number] Titration: 03/20/20 20:15 Dose: 1,450 units/hr, 29 mls/hr Documented by: [id number] Cosigned by: [id number] Admin: 03/20/20 11:50 Dose: 1,550 units/hr, 31 mls/hr Documented by: [id number] Cosigned by: [id number] Furosemide 40 mg/ Syringe 4 mls @ 4 mls/min IV [id number] LIN Stop: 04/19/20 16:59 Last Admin: 03/22/20 08:03 Dose: 4 mls/min Documented by: [id number] Admin: 03/21/20 17:46 Dose: 4 mls/min Documented by: [id number] Admin: 03/21/20 08:44 Dose: 4 mls/min Documented by: [id number] Admin: 03/20/20 16:50 Dose: 4 mls/min Documented by: [id number] Insulin Aspart (Novolog Flexpen) 0 units SC ACHS [facility]; Protocol Stop: 04/19/20 11:29 Last Admin: 03/22/20 08:34 Dose: 6 units Documented by: [id number] Cosigned by: [id number] Admin: 03/21/20 20:23 Dose: 3 units Documented by: [id number] Cosigned by: [id number] Admin: 03/21/20 17:45 Dose: 4 units Documented by: [id number] Cosigned by: [id number] Admin: 03/21/20 12:35 Dose: 4 units Documented by: [id number] Cosigned by: [id number] Admin: 03/21/20 08:44 Dose: 8 units Documented by: [id number] Cosigned by: [id number] Admin: 03/20/20 20:15 Dose: Not Given Documented by: [id number] Cosigned by: [id number] Admin: 03/20/20 17:27 Dose: 10 units Documented by: [id number] Cosigned by: [id number] Admin: 03/20/20 12:59 Dose: 9 units Documented by: [id number] Cosigned by: [id number] Insulin Glargine (Lantus Solostar Pen) 35 units SC DAILY [facility]; Protocol Stop: 04/21/20 08:59 Last Admin: 03/22/20 08:35 Dose: 35 units Documented by: [id number] Cosigned by: [id number] Isosorbide Mononitrate (Imdur Extended Rel) 60 mg PO DAILY [facility] Stop: 04/20/20 08:59 Last Admin: 03/22/20 08:02 Dose: 60 mg Documented by: [id number] Admin: 03/21/20 08:44 Dose: 60 mg Documented by: [id number] [facility]: 04/20/20 06:29 Last Admin: 03/22/20 06:18 Dose: 25 mcg Documented by: [id number] Admin: 03/21/20 06:08 Dose: 25 mcg Documented by: [id number] Sotalol HCl (Betapace) 80 mg PO BID [facility] Stop: 04/19/20 11:38 Last Admin: 03/22/20 08:03 Dose: 80 mg Documented by: [id number] Admin: 03/21/20 20:23 Dose: 80 mg Documented by: [id number] Admin: 03/21/20 08:45 Dose: 80 mg Documented by: [id number] Admin: 03/20/20 20:20 Dose: 80 mg Documented by: [id number] Admin: 03/20/20 13:00 Dose: 80 mg Documented by: [id number] Coding Level of Care Code 29532 U Intl Hosp Care Lvl 3
--- NOTE | 2020-03-22 10:04 | Pharmacy Report ---
Pharmacy Glycemic Short Note 2 - Date of Service March 22, 2020 - Glycemic Short BSG Results (Last 24 hours): 03/21/20 03/21/20 03/21/20 11:35 15:57 20:18 Glucose POC Glucose 112 H 74 184 H 03/22/20 03/22/20 05:24 07:01 Glucose 118 H POC Glucose 98 OUTPATIENT ANTIDIABETIC REGIMEN: * Not taking x 6 months, previously on Lantus 45 units daily and Tradjenta 5mg PO daily * A1c = 13.3 % 03/20/19 ASSESSMENT: * Fasting BSG of 98 mg/dL this morning - will decrease basal to approximately full weight-based stress of 2 dosing (i.e. 35 units) * BSGs low throughout the day yesterday - will slightly loosen CF and insulin:carb ratio * Continues on heparin gtt - currently running at 23 mL/hr PLAN FOR INPATIENT GLYCEMIC CONTROL: * Basal insulin - decrease * Lantus 35 units SQ daily * Bolus insulin - loosen * NovoLog per scale ACHS or Q6hrs while NPO * Goal Range: Low 110 mg/dL - High 140 mg/dL * Correction Factor: 25 mg/dL/unit * Nutritional / Prandial insulin per carb ratio of 1 unit per 8 grams CHO consumed PLAN FOR DISCHARGE: * A1c 13.3% d/t noncompliance. * A1c is greater than or equal to 10% consider triple therapy with metformin + basal insulin + prandial insulin Recommend: * Metformin XR 500mg PO daily with evening meal. Typically the XR formulation of metformin is better tolerated than the immediate release formulation. Continue to titrate metformin dosing upwards as recommended. Dosage increases should be made in increments of 500 mg weekly, up to 2,000 mg/day PO, given in divided doses. Doses above 2000 mg/day may be better tolerated if divided and given 3 times per day with meals. Max: 2,550 mg/day PO, in divided doses * B12 supplementation may be necessary with group home metformin * SCr slightly elevated at 1.54 mg/dL w/ estimated GFR of 44 - baseline GFR of 52 - will continue to monitor renal function * Patient will also require insulin upon discharge - insulin requirements TBD * Patient agreeable to once daily Lantus - per certified breastfeeding educator
[2020-03-22] MEDS ORDERED: SERTRALINE HCL 50 MG TABLET PO ONE (12:00)
--- NOTE | 2020-03-22 12:05 | Cardiology Progress Note ---
Date of Service March 22, 2020 Assessment & Plan (1) CHF (congestive heart failure): (2) Atrial fibrillation: (3) Elevated troponin I level: (4) Systolic and diastolic CHF, chronic: (5) CAD (coronary artery disease): (6) DM type 2 (diabetes mellitus, type 2): (7) Depression: Clinically the patient has improved. He has been restarted on antidepressants by psychiatry and I believe his mood is better. He has a history of atrial fibrillation and in the past was taking Eliquis. He states he ran out and did not restart the medicine. I think he is at risk for an embolic event. Currently he is on IV heparin which should be continued however, when he returns home he should be restarted on the Eliquis. The latest recommendations regarding triple therapy are for the patient to take Eliquis with Plavix and hold the aspirin. I will reassess him tomorrow for consideration of when the patient can be discharged. Subjective The patient is feeling improvement. Since psychiatry consult is appreciated. Review of Systems Review of Systems: All systems reviewed & are unremarkable except as noted in HPI & below Nothing additional to add. Physical Exam Physical Exam: General: no acute distress and stated age Head: normocephalic, no masses, lesions, tenderness or abnormalities Eyes: conjunctiva are pink and non-injected, sclera clear Neck: supple, no adenopathy, no bruits, normal jugular venous pulse, no hepatojugular reflux Chest: normal shape and normal respiratory effort Lungs: clear to auscultation and percussion Cardiac Exam: - irregular rate & rhythm, no murmurs gallops or rubs - normal S1, normal S2 Pulses: 2(+) throughout Abdomen: abdomen soft, non-tender, no abnormal masses and no hepatosplenomegaly Musculoskeletal: no gait disturbance, no joint inflammation, no deforming arthritis Extremities: no edema and no cyanosis Neuro: grossly normal exam Results & Data Vital Signs (Past 12 Hours) Vital Signs Temp Pulse Pulse Resp BP BP Pulse Ox 03/22/20 11:17 36.8 C 101 H 20 133/77 97 03/22/20 07:22 71 03/22/20 07:13 36.3 C L 88 20 124/86 95 03/22/20 03:52 36.9 C 78 22 104/72 93 Laboratory Results Laboratory Results - last 24 hr 03/21/20 03/21/20 03/21/20 15:57 17:10 20:18 APTT 65.9 H* PTT Ratio 2.4 Sodium Potassium Chloride Carbon Dioxide Anion Gap BUN Creatinine Est Cr Clr Drug Dosing Est GFR ( Amer) Est GFR (Non-Af Amer) BUN/Creatinine Ratio Glucose POC Glucose 74 184 H Calcium Magnesium 03/22/20 03/22/20 03/22/20 05:24 05:24 07:01 APTT 59.2 H* PTT Ratio 2.1 Sodium 141 Potassium 3.6 Chloride 104 Carbon Dioxide 29 Anion Gap 8.0 BUN 32 H Creatinine 1.54 H Est Cr Clr Drug Dosing 52.9 Est GFR ( Amer) 51.8 Est GFR (Non-Af Amer) 44.7 BUN/Creatinine Ratio 20.9 H Glucose 118 H POC Glucose 98 Calcium 8.2 L Magnesium 1.8 03/22/20 11:30 APTT PTT Ratio Sodium Potassium Chloride Carbon Dioxide Anion Gap BUN Creatinine Est Cr Clr Drug Dosing Est GFR ( Amer) Est GFR (Non-Af Amer) BUN/Creatinine Ratio Glucose POC Glucose 118 H Calcium Magnesium Medications Administered Current Inpatient Medications Acetaminophen (Tylenol) 650 mg PO Q4H PRN PRN Reason: Pain or Fever Stop: 04/19/20 11:38 Al Hydrox/Mg Hydrox/Simethicone (Maalox) 15 ml PO Q4H PRN PRN Reason: Dyspepsia Stop: 04/19/20 11:38 Aspirin (Aspirin Chew) 81 mg PO DAILY [facility] Stop: 04/19/20 11:38 Last Admin: 03/22/20 08:03 Dose: 81 mg Documented by: [facility]idog[facility] ([facility]ix) [facility] Stop: 04/20/20 08:59 Last Admin: 03/22/20 08:02 Dose: 75 mg Documented by: Dextrose (Dextrose 50%) 25 - 50 ml IV UD PRN; Protocol PRN Reason: Hypoglycemia Protocol Stop: 04/19/20 11:14 Glucagon (Glucagen) 1 mg SQ UD PRN; Protocol PRN Reason: Hypoglycemia Protocol Stop: 04/19/20 11:14 Glucose (Glucose 40%) 15 - 30 gm PO UD PRN; Protocol PRN Reason: Hypoglycemia Protocol Stop: 04/19/20 11:14 Glucose (Dex4 Glucose) 4 - 8 tabs PO UD PRN; Protocol PRN Reason: Hypoglycemia Protocol Stop: 04/19/20 11:14 Heparin Sodium/Dextrose (Heparin Sodium/Dextrose) 25,000 units in 500 mls @ 23 mls/hr IV .[id number] [facility]; Protocol Stop: 04/19/20 10:44 Last Titration: 03/22/20 06:55 Dose: 1,150 units/hr, 23 mls/hr Documented by: Furosemide 40 mg/ Syringe 4 mls @ 4 mls/min IV BID17 [facility] Stop: 04/19/20 16:59 Last Admin: 03/22/20 08:03 Dose: 4 mls/min Documented by: Insulin Aspart (Novolog Flexpen) 0 units SC ACHS [facility]; Protocol Stop: 04/19/20 11:29 Last Admin: 03/22/20 08:34 Dose: 6 units Documented by: Insulin Glargine (Lantus Solostar Pen) 35 units SC DAILY [facility]; Protocol Stop: 04/21/20 08:59 Last Admin: 03/22/20 08:35 Dose: 35 units Documented by: Isosorbide Mononitrate (Imdur Extended Rel) 60 mg PO DAILY [facility] Stop: 04/20/20 08:59 Last Admin: 03/22/20 08:02 Dose: 60 mg Documented by: Levothyroxine Sodium (Synthroid) 25 mcg PO DAILYBB [facility] Stop: 04/20/20 06:29 Last Admin: 03/22/20 06:18 Dose: 25 mcg Documented by: Lorazepam (Ativan) 0.5 mg PO Q8 PRN PRN Reason: Anxiety Stop: 04/19/20 16:23 Magnesium Hydroxide (Milk Of Magnesia) 30 ml PO Q12H PRN PRN Reason: Constipation Stop: 04/19/20 11:38 Miscellaneous (Carbohydrates For Hypoglycemia) 15 - 30 gm PO UD PRN PRN Reason: Hypoglycemia Treatment Stop: 04/19/20 11:14 Miscellaneous Information (Consult Glycemic Management Pharmacy) 1 ea N/A UD [facility] Stop: 04/19/20 10:59 Nitroglycerin (Nitrostat) 0.4 mg SL UD PRN PRN Reason: Chest Pain Stop: 04/19/20 11:38 Polyethylene Glycol (Miralax Powder Packet) 17 gm PO DAILY PRN PRN Reason: Constipation Stop: 04/19/20 11:38 Sertraline HCl (Zoloft) 50 mg PO QAM [facility] Stop: 04/22/20 08:59 Sotalol HCl (Betapace) 80 mg PO BID [facility] Stop: 04/19/20 11:38 Last Admin: 03/22/20 08:03 Dose: 80 mg Documented by: (1) DM type 2 (diabetes mellitus, type 2) Diabetes mellitus complication detail: with other circulatory complications Diabetes mellitus complication status: with circulatory complication Diabetes mellitus drafting technician insulin use: with longterm use Qualified Code(s): E11.59 - Type 2 diabetes mellitus with other circulatory complications; Z79.4 - care home (current) use of insulin (2) CAD (coronary artery disease) Associated angina: without angina Coronary Disease-Associated Artery/Lesion type: [place] artery [place] vs. transplanted heart: [place] heart Qualified Code(s): I25.10 - Atherosclerotic heart disease of [place] coronary artery without angina pectoris (3) CHF (congestive heart failure) Heart failure chronicity: acute Heart failure type: unspecified Qualified Code(s): I50.9 - Heart failure, unspecified (4) Atrial fibrillation Atrial fibrillation type: paroxysmal Qualified Code(s): I48.0 - Paroxysmal atrial fibrillation
--- NOTE | 2020-03-22 14:52 | XRay Report ---
XR chest 1V portable CLINICAL HISTORY: CHF/pleural effusion COMPARISON STUDY: Chest radiograph March 20, 2020. FINDINGS: There is no pneumothorax. Small left pleural effusion has slightly increased in size since prior exam. There is a trace right pleural effusion. Mild pulmonary edema is noted. This has slightly improved. Left basilar opacity persists. Mild cardiomegaly is again noted. IMPRESSION: 1. Persistent, but improved, pulmonary edema. 2. Slight increase in size of a small left pleural effusion. Persistent left basilar opacity which fa vors atelectasis. ACT 112: Negative or not required by law. Electronically signed by: Hong Delong M.D. 03/22/2020 2:50 PM
--- NOTE | 2020-03-22 16:56 | Electrocardiogram Report ---
Test Reason : Blood Pressure : / mmHG Vent. Rate : 084 BPM Atrial Rate : 104 BPM P-R Int : 000 ms QRS Dur : 128 ms QT Int : 450 ms P-R-T Axes : 000 -61 129 degrees QTc Int : 531 ms Atrial fibrillation Left axis deviation old anterior SC Old inferior SC Abnormal ECG Confirmed by Alex Yung ([id number]) on 03/22/2020 4:56:00 PM Referred By: REFERRED SELF Confirmed By:Richardson Yung
--- NOTE | 2020-03-22 17:13 | Hospitalist Progress Note ---
Date of Service March 22, 2020 Assessment & Plan (1) Atrial fibrillation: presented with Afib RVR has not been taking his medications for sometime HR improved after resuming Sotalol 80 mg PO BID at present rate controlled iV heparin wt based protocol d cardiology consulted -appreciate input pt remains very high risk for thromboembolic event Eliquis will be resumed on dischage (2) CHF (congestive heart failure): acute decompensation of CHF with severe LV dysfunction : ECHO shows large plural effusion , EF 20-25 % with global hypokinesis on on IV lasix clinically improved after diuresis cardiology following Cxray shows progression of left pleural effusion will D/w Pulmonology regarding role of throracenthesis hold aspirin and Plavix for now (3) Hyperkalemia: resolved (4) S/P cardiac catheterization: 12/03/18: -Status post successful coronary intervention drug-eluting stent to the proximal left circumflex. 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 presented with chest heaviness , SOB , due to decompensated CHF /vol overload , not taking meds , lack of self care due to decompensated CHF symptoms improved after diuresis serial cardiac markers -shows mild elevation with flattened trend resumed out patient cardiac meds cardiology consult appreciated , no evidence of ACS continue management for decomensated CHF (5) CAD (coronary artery disease): NSTEMI elevation of troponin /NSTEMI Type 2 -demand ischemia due to rapid Afib /decompensated CHF ECHO shows global hypokinesis with reduced EF 20-25% on IV heparin,cardiac meds : aspirin , plavix , imdur , sotalol resumed cardiology eval appreciated (6) HTN (hypertension): (7) Dyslipidemia: (8) DM type 2 (diabetes mellitus, type 2): Type 2 diabetes mellitus with peripheral neuropathy, insulin-dependent. presented with hyperglycemia has not taken meds for months pharmacy consulted for glycemic management BSG > 444 , not in DKA , normal beta hydroxybutyrate , bicarb /normal anion gap BSG improved with basal lantus and insulin SSI HB A1c> 13 certified diabetes educator consulted DEPRESSION : pt reports of feeling depressed ,had multiple family members this year pt reports hopelessness, lack of interest , fatigue decreased appetite , concentration , unable to self care stopped taking meds for 6 months denies of suicidal ideation , hallucination Psych consult appreciated started on Zoloft will need out pt Psych follow up (9) Thrombocytopenia: (10) CVA (cerebral vascular accident): History of embolic cerebrovascular infarct, right basal ganglia in 04/2016. on IV heparin CODE STATUS: FULL CODE DVT PROPHYLAXIS : iv heparin wt based protocol DISPOSITION : DC home when medically stable Admission and Anticipated Discharge Date Admission Date: March 20, 2020 Subjective pt noted to be in better spirit reports of feeling fine no cough /SOB or JANSEN lower ext edema has improved Physical Exam Constitutional: WD/WN, vitals as above + acute distress and + ill appearing Eyes: PERRL, conjunctivae normal, anicteric sclerae ENMT: external ear and nose normal, oropharynx normal Neck: trachea midline, no thyromegaly Respiratory: + cough; no respiratory distress Auscultation: + diminished lung sounds, + crackles, + rales and + wheezes Cardiovascular: Rate/Rhythm: + abnormal rhythm Extremities: + pedal edema and + edema Musculoskeletal: Extremities: + abnormal strength (generalized weakness ) Neurologic: PERRL, EOMI, accommodation nl, no face palsy, no dysarthria Psychiatric: A+Ox3, euthymic affect Results & Data Results & Data ([facility]) Vital Signs (Past 12 Hours) Vital Signs Temp Pulse Pulse Resp BP BP Pulse Ox 03/22/20 15:15 36.7 C 82 22 104/70 94 03/22/20 14:46 83 03/22/20 11:17 36.8 C 101 H 20 133/77 97 03/22/20 07:22 71 03/22/20 07:13 36.3 C L 88 20 124/86 95 (1) DM type 2 (diabetes mellitus, type 2) Diabetes mellitus complication detail: with other circulatory complications Diabetes mellitus complication status: with circulatory complication Diabetes mellitus intermediate project manager insulin use: with nursing home use Qualified Code(s): E11.59 - Type 2 diabetes mellitus with other circulatory complications; Z79.4 - longterm (current) use of insulin (2) CAD (coronary artery disease) Associated angina: without angina Coronary Disease-Associated Artery/Lesion type: [place] artery [place] vs. transplanted heart: [place] heart Qualified Code(s): I25.10 - Atherosclerotic heart disease of [place] coronary artery without angina pectoris (3) CHF (congestive heart failure) Heart failure chronicity: acute Heart failure type: unspecified Qualified Code(s): I50.9 - Heart failure, unspecified (4) Atrial fibrillation Atrial fibrillation type: paroxysmal Qualified Code(s): I48.0 - Paroxysmal atrial fibrillation (5) HTN (hypertension) Hypertension type: essential hypertension Qualified Code(s): I10 - Essential (primary) hypertension (6) CVA (cerebral vascular accident) CVA mechanism: embolism Precerebral and cerebral artery: basilar artery Qualified Code(s): 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
[2020-03-23] MEDS: LEVOTHYROXINE SODIUM 25 MCG TABLET PO SCH (05:38)
[2020-03-23 05:59] LABS: Partial Thromboplastin Ratio 2.3
[2020-03-23 06:00] LABS: Partial Thromboplastin Time 63.2 Seconds (21.0-31.0)
[2020-03-23] MEDS: ISOSORBIDE MONO EXTENDED REL 60 MG TABCR PO SCH (08:20)
[2020-03-23] MEDS: SERTRALINE HCL 50 MG TABLET PO SCH (08:20)
[2020-03-23] MEDS: SOTALOL HCL 80 MG TAB PO SCH ×2 (08:20→20:39)
[2020-03-23] MEDS: INSULIN GLARGINE SOLOSTAR 100 UNITS/ML 3 ML PEN SC SCH (08:21)
[2020-03-23] MEDS: INSULIN ASPART 100 UNITS/ML 3 ML PEN SC SCH ×4 (08:21→22:23)
--- NOTE | 2020-03-23 08:35 | Pharmacy Report ---
Pharmacy Glycemic Short Note 2 - Date of Service March 23, 2020 - Glycemic Short BSG Results (Last 24 hours): OUTPATIENT ANTIDIABETIC REGIMEN: * Not taking x 6 months, previously on Lantus 45 units daily and Tradjenta 5mg PO daily * A1c = 13.3 % 03/20/19 ASSESSMENT: * BSGs continue to be on the low side during the day - will slightly loosen CF and insulin:carb ratio * Low of 65 mg/dL observed overnight * Continues on heparin gtt - currently running at 23 mL/hr PLAN FOR INPATIENT GLYCEMIC CONTROL: * Basal insulin - continue * Lantus 35 units SQ daily * Bolus insulin - loosen * NovoLog per scale ACHS or Q6hrs while NPO * Goal Range: Low 110 mg/dL - High 140 mg/dL * Correction Factor: 30 mg/dL/unit * Nutritional / Prandial insulin per carb ratio of 1 unit per 10 grams CHO consumed PLAN FOR DISCHARGE: * A1c 13.3% d/t noncompliance. * A1c is greater than or equal to 10% consider triple therapy with metformin + basal insulin + prandial insulin Recommend: * Metformin XR 500mg PO daily with evening meal. Typically the XR formulation of metformin is better tolerated than the immediate release formulation. Continue to titrate metformin dosing upwards as recommended. Dosage increases should be made in increments of 500 mg weekly, up to 2,000 mg/day PO, given in divided doses. Doses above 2000 mg/day may be better tolerated if divided and given 3 times per day with meals. Max: 2,550 mg/day PO, in divided doses * B12 supplementation may be necessary with supervisor intermediates metformin * SCr slightly elevated at 1.54 mg/dL w/ estimated GFR of 44 - baseline GFR of 52 - will continue to monitor renal function * Patient will also require insulin upon discharge * Patient agreeable to once daily Lantus - per certified nurse informatics educator * At this point Lantus 45 units SC daily would be a reasonable place to start
[2020-03-23] MEDS: FUROSEMIDE 40 MG in SYRINGE 0 ML IV SCH ×2 (08:49→17:06)
--- NOTE | 2020-03-23 11:45 | Cardiology Progress Note ---
Date of Service March 23, 2020 Assessment & Plan (1) CHF (congestive heart failure): (2) Atrial fibrillation: (3) Elevated troponin I level: (4) Systolic and diastolic CHF, chronic: (5) CAD (coronary artery disease): (6) DM type 2 (diabetes mellitus, type 2): (7) Depression: The patient still has edema and rales at the bases of his lungs, so I would continue his IV diuretics through today. Unfortunately fluid balance and weights have not been accurate for this patient. His creatinine has been stable and I believe he can tolerate additional diuresis. We are going to stop his IV heparin and restart the Eliquis. He should return home on Eliquis and Plavix only. Aspirin should be discontinued. Subjective The patient had an event of hypoglycemia last night. He is doing better today. He states that he is unsteady on his feet and may benefit from some physical therapy. Review of Systems Review of Systems: All systems reviewed & are unremarkable except as noted in HPI & below Nothing additional to add Physical Exam Physical Exam: General: no acute distress and stated age Head: normocephalic, no masses, lesions, tenderness or abnormalities Eyes: conjunctiva are pink and non-injected, sclera clear Neck: supple, no adenopathy, no bruits, normal jugular venous pulse, no hepatojugular reflux Chest: normal shape and normal respiratory effort Lungs: Rales at the bases. Cardiac Exam: - regular rate & rhythm, no murmurs gallops or rubs - normal S1, normal S2 Pulses: 2(+) throughout Abdomen: abdomen soft, non-tender, no abnormal masses and no hepatosplenomegaly Musculoskeletal: no gait disturbance, no joint inflammation, no deforming arthritis Extremities: Still has some edema bilaterally. Neuro: grossly normal exam Results & Data Vital Signs (Past 12 Hours) Vital Signs Temp Pulse Pulse Resp BP BP Pulse Ox 03/23/20 07:48 36.5 C 83 18 126/83 95 03/23/20 07:42 77 03/23/20 03:28 36.8 C 71 18 125/81 90 03/22/20 23:50 37.0 C 70 18 112/58 L 94 Laboratory Results Laboratory Results - last 24 hr 03/22/20 03/22/20 03/23/20 16:11 20:09 01:34 APTT PTT Ratio POC Glucose 86 134 H 65 L* 03/23/20 03/23/20 03/23/20 01:47 05:27 07:40 APTT 63.2 H* PTT Ratio 2.3 POC Glucose 102 H 120 H 03/23/20 11:38 APTT PTT Ratio POC Glucose 211 H Medications Administered Current Inpatient Medications Acetaminophen (Tylenol) 650 mg PO Q4H PRN PRN Reason: Pain or Fever Stop: 04/19/20 11:38 Al Hydrox/Mg Hydrox/Simethicone (Maalox) 15 ml PO Q4H PRN PRN Reason: Dyspepsia Stop: 04/19/20 11:38 Apixaban (Eliquis) 5 mg PO BID [facility] Stop: 04/22/20 20:59 Apixaban (Eliquis) 5 mg PO NOW ONE Stop: 03/23/20 12:01 Clopidogrel Bisulfate (Plavix) 75 mg PO QAM [facility] Stop: 04/20/20 08:59 Last Admin: 03/22/20 08:02 Dose: 75 mg Documented by: Dextrose (Dextrose 50%) 25 - 50 ml IV UD PRN; Protocol PRN Reason: Hypoglycemia Protocol Stop: 04/19/20 11:14 Glucagon (Glucagen) 1 mg SQ UD PRN; Protocol PRN Reason: Hypoglycemia Protocol Stop: 04/19/20 11:14 Glucose (Glucose 40%) 15 - 30 gm PO UD PRN; Protocol PRN Reason: Hypoglycemia Protocol Stop: 04/19/20 11:14 Glucose (Dex4 Glucose) 4 - 8 tabs PO UD PRN; Protocol PRN Reason: Hypoglycemia Protocol Stop: 04/19/20 11:14 Furosemide 40 mg/ Syringe 4 mls @ 4 mls/min IV BID17 [facility] Stop: 04/19/20 16:59 Last Admin: 03/23/20 08:49 Dose: 4 mls/min Documented by: Insulin Aspart (Novolog Flexpen) 0 units SC ACHS [facility]; Protocol Stop: 04/19/20 11:29 Last Admin: 03/23/20 08:21 Dose: 6 units Documented by: Insulin Glargine (Lantus Solostar Pen) 35 units SC DAILY [facility]; Protocol Stop: 04/21/20 08:59 Last Admin: 03/23/20 08:21 Dose: 35 units Documented by: Isosorbide Mononitrate (Imdur Extended Rel) 60 mg PO DAILY [facility] Stop: 04/20/20 08:59 Last Admin: 03/23/20 08:20 Dose: 60 mg Documented by: Levothyroxine Sodium (Synthroid) 25 mcg PO DAILYBB [facility] Stop: 04/20/20 06:29 Last Admin: 03/23/20 05:38 Dose: 25 mcg Documented by: Lorazepam (Ativan) 0.5 mg PO Q8 PRN PRN Reason: Anxiety Stop: 04/19/20 16:23 Magnesium Hydroxide (Milk Of Magnesia) 30 ml PO Q12H PRN PRN Reason: Constipation Stop: 04/19/20 11:38 Miscellaneous (Carbohydrates For Hypoglycemia) 15 - 30 gm PO UD PRN PRN Reason: Hypoglycemia Treatment Stop: 04/19/20 11:14 Last Admin: 03/23/20 01:37 Dose: 15 gm Documented by: Miscellaneous Information (Consult Glycemic Management Pharmacy) 1 ea N/A UD [facility] Stop: 04/19/20 10:59 Nitroglycerin (Nitrostat) 0.4 mg SL UD PRN PRN Reason: Chest Pain Stop: 04/19/20 11:38 Polyethylene Glycol (Miralax Powder Packet) 17 gm PO DAILY PRN PRN Reason: Constipation Stop: 04/19/20 11:38 Sertraline HCl (Zoloft) 50 mg PO QAM [facility] Stop: 04/22/20 08:59 Last Admin: 03/23/20 08:20 Dose: 50 mg Documented by: Sotalol HCl (Betapace) 80 mg PO BID [facility] Stop: 04/19/20 11:38 Last Admin: 03/23/20 08:20 Dose: 80 mg Documented by: (1) DM type 2 (diabetes mellitus, type 2) Diabetes mellitus complication detail: with other circulatory complications Diabetes mellitus complication status: with circulatory complication 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 transplanted heart: [place] heart Qualified Code(s): I25.10 - Atherosclerotic heart disease of [place] coronary artery without angina pectoris (3) CHF (congestive heart failure) Heart failure chronicity: acute Heart failure type: unspecified Qualified Code(s): I50.9 - Heart failure, unspecified (4) Atrial fibrillation Atrial fibrillation type: paroxysmal Qualified Code(s): I48.0 - Paroxysmal atrial fibrillation
[2020-03-23] MEDS ORDERED: APIXABAN 5 MG TABLET PO ONE (12:00)
[2020-03-23] MEDS: HEPARIN SODIUM/DEXTROSE 25,000 UNITS/500 ML BAG IV SCH (12:09)
--- NOTE | 2020-03-23 16:45 | Hospitalist Progress Note ---
Date of Service March 23, 2020 Assessment & Plan (1) Atrial fibrillation: presented with Afib RVR has not been taking his medications for sometime HR improved after resuming Sotalol 80 mg PO BID at present rate controlled cardiology consulted -appreciate input pt remains very high risk for thromboembolic event Eliquis resumed (2) CHF (congestive heart failure): acute decompensation of CHF with severe LV dysfunction : ECHO shows large plural effusion , EF 20-25 % with global hypokinesis on IV lasix clinically improved after diuresis cardiology following (3) Hyperkalemia: resolved (4) S/P cardiac catheterization: 12/03/18: -Status post successful coronary intervention drug-eluting stent to the proximal left circumflex. 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 presented with chest heaviness , SOB , due to decompensated CHF /vol overload , not taking meds , lack of self care due to decompensated CHF symptoms improved after diuresis serial cardiac markers -shows mild elevation with flattened trend resumed out patient cardiac meds cardiology consult appreciated , no evidence of ACS continue management for decomensated CHF (5) CAD (coronary artery disease): NSTEMI elevation of troponin /NSTEMI Type 2 -demand ischemia due to rapid Afib /d ecompensated CHF ECHO shows global hypokinesis with reduced EF 20-25% ,cardiac meds : aspirin , plavix , imdur , sotalol resumed cardiology eval appreciated (6) HTN (hypertension): (7) Dyslipidemia: (8) DM type 2 (diabetes mellitus, type 2): Type 2 diabetes mellitus with peripheral neuropathy, insulin-dependent. presented with hyperglycemia has not taken meds for months pharmacy consulted for glycemic management BSG > 444 , not in DKA , normal beta hydroxybutyrate , bicarb /normal anion gap BSG improved with basal lantus and insulin SSI HB A1c> 13 certified breastfeeding educator consulted DEPRESSION : pt reports of feeling depressed ,had multiple family members this year pt reports hopelessness, lack of interest , fatigue decreased appetite , concentration , unable to self care stopped taking meds for 6 months denies of suicidal ideation , hallucination Psych consult appreciated started on Zoloft will need out pt Psych follow up (9) Thrombocytopenia: chronic cont Aspirin,plavix follow CBC (10) CVA (cerebral vascular accident): History of embolic cerebrovascular infarct, right basal ganglia in 04/2016. Eliquis CODE STATUS: FULL CODE DVT PROPHYLAXIS : Eliquis DISPOSITION : DC home when medically stable Admission and Anticipated Discharge Date Admission Date: March 20, 2020 Subjective pt sitting up on chair offers no complain no SOB , or JANSEN , vitals stable improved lower extremity edema Review of Systems Constitutional: as per Subjective / HPI, + fatigue and + weakness; no fever and no chills Eyes: as per Subjective / HPI Cardiovascular: + dyspnea, + dyspnea at rest, + orthopnea, + syncope and + edema Physical Exam Constitutional: WD/WN, vitals as above + acute distress and + ill appearing Eyes: PERRL, conjunctivae normal, anicteric sclerae ENMT: external ear and nose normal, oropharynx normal Neck: trachea midline, no thyromegaly Respiratory: + cough; no respiratory distress Auscultation: + diminished lung sounds, + crackles, + rales and + wheezes Cardiovascular: Rate/Rhythm: + abnormal rhythm Extremities: + pedal edema and + edema Musculoskeletal: Extremities: + abnormal strength (generalized weakness ) Neurologic: PERRL, EOMI, accommodation nl, no face palsy, no dysarthria Psychiatric: A+Ox3, euthymic affect Results & Data Results & Data ([facility]) Vital Signs (Past 12 Hours) Vital Signs Temp Pulse Pulse Resp BP BP Pulse Ox 03/23/20 15:45 36.6 C 61 20 109/69 97 03/23/20 13:36 96 03/23/20 11:45 36.4 C L 77 18 99/70 L 99 03/23/20 07:48 36.5 C 83 18 126/83 95 03/23/20 07:42 77 (1) DM type 2 (diabetes mellitus, type 2) Diabetes mellitus complication detail: with other circulatory complications Diabetes mellitus complication status: with circulatory complication Diabetes mellitus emt intermediate insulin use: with emt intermediate use Qualified Code(s): E11.59 - Type 2 diabetes mellitus with other circulatory complications; Z79.4 - retirement (current) use of insulin (2) CAD (coronary artery disease) Associated angina: without angina Coronary Disease-Associated Artery/Lesion type: [place] artery [place] vs. transplanted heart: [place] heart Qualified Code(s): I25.10 - Atherosclerotic heart disease of [place] coronary artery without angina pectoris (3) CHF (congestive heart failure) Heart failure chronicity: acute Heart failure type: unspecified Qualified Code(s): I50.9 - Heart failure, unspecified (4) Atrial fibrillation Atrial fibrillation type: paroxysmal Qualified Code(s): I48.0 - Paroxysmal atrial fibrillation (5) HTN (hypertension) Hypertension type: essential hypertension Qualified Code(s): I10 - Essential (primary) hypertension (6) CVA (cerebral vascular accident) CVA mechanism: embolism Precerebral and cerebral artery: basilar artery Qualified Code(s): 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
[2020-03-23] MEDS ORDERED: INSULIN ASPART 100 UNITS/ML 3 ML PEN SC SCH (20:20)
[2020-03-23] MEDS: APIXABAN 5 MG TABLET PO SCH (20:39)
[2020-03-24] MEDS: LEVOTHYROXINE SODIUM 25 MCG TABLET PO SCH (05:37)
[2020-03-24] MEDS: INSULIN ASPART 100 UNITS/ML 3 ML PEN SC SCH ×4 (08:16→20:23)
--- NOTE | 2020-03-24 08:19 | Pharmacy Report ---
Pharmacy Glycemic Short Note 2 - Date of Service March 24, 2020 - Glycemic Short BSG Results (Last 24 hours): OUTPATIENT ANTIDIABETIC REGIMEN: * Not taking x 6 months, previously on Lantus 45 units daily and Tradjenta 5mg PO daily * A1c = 13.3 % 03/20/19 ASSESSMENT: * Heparin gtt discontinued * BSGs trending down throughout the day yesterday - will loosen CF * Elevated BSG at lunchtime today - patient refused AM Novolog PLAN FOR INPATIENT GLYCEMIC CONTROL: * Basal insulin - continue * Lantus 35 units SQ daily * Bolus insulin - loosen CF * NovoLog per scale ACHS or Q6hrs while NPO * Goal Range: Low 110 mg/dL - High 150 mg/dL * Correction Factor: 35 mg/dL/unit * Nutritional / Prandial insulin per carb ratio of 1 unit per 10 grams CHO consumed PLAN FOR DISCHARGE: * A1c 13.3% d/t noncompliance. Recommend: * Metformin XR 500mg PO daily with evening meal. Typically the XR formulation of metformin is better tolerated than the immediate release formulation. Continue to titrate metformin dosing upwards as recommended. Dosage increases should be made in increments of 500 mg weekly, up to 2,000 mg/day PO, given in divided doses. Doses above 2000 mg/day may be better tolerated if divided and given 3 times per day with meals. Max: 2,550 mg/day PO, in divided doses * B12 supplementation may be necessary with feather duster winder metformin * Patient will also require insulin upon discharge * Patient agreeable to once daily Lantus - per certified coding educator * At this point Lantus 35 units SC daily would be a reasonable place to start
[2020-03-24] MEDS: SOTALOL HCL 80 MG TAB PO SCH ×2 (08:37→20:25)
[2020-03-24] MEDS: SERTRALINE HCL 50 MG TABLET PO SCH (08:37)
[2020-03-24] MEDS: CLOPIDOGREL BISULFATE 75 MG TAB PO SCH (08:37)
[2020-03-24] MEDS: APIXABAN 5 MG TABLET PO SCH ×2 (08:37→20:26)
[2020-03-24] MEDS: INSULIN GLARGINE SOLOSTAR 100 UNITS/ML 3 ML PEN SC SCH (08:38)
[2020-03-24] MEDS: FUROSEMIDE 40 MG in SYRINGE 0 ML IV SCH (09:09)
--- NOTE | 2020-03-24 10:58 | Cardiology Progress Note ---
Date of Service March 24, 2020 Assessment & Plan (1) CHF (congestive heart failure): (2) Atrial fibrillation: (3) Elevated troponin I level: (4) Systolic and diastolic CHF, chronic: (5) CAD (coronary artery disease): (6) DM type 2 (diabetes mellitus, type 2): (7) Depression: The patient I believe is no longer in congestive heart failure. I decrease his diuretics by stopping the IV Lasix and putting him on an oral dose of Lasix 40 mg twice daily for now. I believe he would benefit from an ROBERTO inhibitor however, he has a cough allergy to lisinopril and therefore I will start him on an ARB. He has been on losartan in the past and tolerated this medication. He is having difficulty with the start of insulin and I think a least 1 more day in the hospital would benefit him. Subjective The patient is still having trouble adjusting the insulin. Otherwise he is doing well and has been ambulated in the hallway by physical therapy without difficulty. Review of Systems Review of Systems: All systems reviewed & are unremarkable except as noted in HPI & below Nothing additional to add. Physical Exam Physical Exam: General: no acute distress and stated age Head: normocephalic, no masses, lesions, tenderness or abnormalities Eyes: conjunctiva are pink and non-injected, sclera clear Neck: supple, no adenopathy, no bruits, normal jugular venous pulse, no hepatojugular reflux Chest: normal shape and normal respiratory effort Lungs: clear to auscultation and percussion Cardiac Exam: - regular rate & rhythm, no murmurs gallops or rubs - normal S1, normal S2 Pulses: 2(+) throughout Abdomen: abdomen soft, non-tender, no abnormal masses and no hepatosplenomegaly Musculoskeletal: no gait disturbance, no joint inflammation, no deforming arthritis Extremities: no edema and no cyanosis Neuro: grossly normal exam Results & Data Vital Signs (Past 12 Hours) Vital Signs Temp Pulse Pulse Resp BP BP Pulse Ox 03/24/20 07:46 74 03/24/20 07:16 36.4 C L 70 16 109/81 98 03/24/20 03:36 65 19 108/69 94 03/23/20 23:28 36.4 C L 79 19 105/69 95 Laboratory Results Laboratory Results - last 24 hr 03/23/20 03/23/20 03/23/20 11:38 16:14 20:03 POC Glucose 211 H 88 89 03/23/20 03/24/20 23:22 07:28 POC Glucose 115 H 83 Medications Administered Current Inpatient Medications Acetaminophen (Tylenol) 650 mg PO Q4H PRN PRN Reason: Pain or Fever Stop: 04/19/20 11:38 Al Hydrox/Mg Hydrox/Simethicone (Maalox) 15 ml PO Q4H PRN PRN Reason: Dyspepsia Stop: 04/19/20 11:38 Apixaban (Eliquis) 5 mg PO BID [facility] Stop: 04/22/20 20:59 Last Admin: 03/24/20 08:37 Dose: 5 mg Documented by: Clopidogrel Bisulfate (Plavix) 75 mg PO QAM [facility] Stop: 04/20/20 08:59 Last Admin: 03/24/20 08:37 Dose: 75 mg Documented by: Dextrose (Dextrose 50%) 25 - 50 ml IV UD PRN; Protocol PRN Reason: Hypoglycemia Protocol Stop: 04/19/20 11:14 Furosemide (Lasix) 40 mg PO BID17 [facility] Stop: 04/23/20 16:59 Glucagon (Glucagen) 1 mg SQ UD PRN; Protocol PRN Reason: Hypoglycemia Protocol Stop: 04/19/20 11:14 Glucose (Glucose 40%) 15 - 30 gm PO UD PRN; Protocol PRN Reason: Hypoglycemia Protocol Stop: 04/19/20 11:14 Glucose (Dex4 Glucose) 4 - 8 tabs PO UD PRN; Protocol PRN Reason: Hypoglycemia Protocol Stop: 04/19/20 11:14 Insulin Aspart (Novolog Flexpen) 0 units SC ACHS [facility]; Protocol Stop: 04/19/20 11:29 Last Admin: 03/24/20 08:16 Dose: Not Given Documented by: Insulin Glargine (Lantus Solostar Pen) 35 units SC DAILY [facility]; Protocol Stop: 04/21/20 08:59 Last Admin: 03/24/20 08:38 Dose: 35 units Documented by: Isosorbide Mononitrate (Imdur Extended Rel) 60 mg PO DAILY [facility] Stop: 04/20/20 08:59 Last Admin: 03/23/20 08:20 Dose: 60 mg Documented by: Levothyroxine [facility] ([facility]throid) [facility] Stop: 04/20/20 06:29 Last Admin: 03/24/20 05:37 Dose: 25 mcg Documented by: Lorazepam (Ativan) 0.5 mg PO Q8 PRN PRN Reason: Anxiety Stop: 04/19/20 16:23 Losartan Potassium (Cozaar) 25 mg PO QAM [facility] Stop: 04/23/20 10:44 Magnesium Hydroxide (Milk Of Magnesia) 30 ml PO Q12H PRN PRN Reason: Constipation Stop: 04/19/20 11:38 Miscellaneous (Carbohydrates For Hypoglycemia) 15 - 30 gm PO UD PRN PRN Reason: Hypoglycemia Treatment Stop: 04/19/20 11:14 Last Admin: 03/23/20 01:37 Dose: 15 gm Documented by: Miscellaneous Information (Consult Glycemic Management Pharmacy) 1 ea N/A UD [facility] Stop: 04/19/20 10:59 Nitroglycerin (Nitrostat) 0.4 mg SL UD PRN PRN Reason: Chest Pain Stop: 04/19/20 11:38 Polyethylene Glycol (Miralax Powder Packet) 17 gm PO DAILY PRN PRN Reason: Constipation Stop: 04/19/20 11:38 Sertraline HCl (Zoloft) 50 mg PO QAM [facility] Stop: 04/22/20 08:59 Last Admin: 03/24/20 08:37 Dose: 50 mg Documented by: Sotalol HCl (Betapace) 80 mg PO BID [facility] Stop: 04/19/20 11:38 Last Admin: 03/24/20 08:37 Dose: 80 mg Documented by: (1) DM type 2 (diabetes mellitus, type 2) Diabetes mellitus complication detail: with other circulatory complications Diabetes mellitus complication status: with circulatory complication Diabetes mellitus jail insulin use: with termite control service representative use Qualified Code(s): E11.59 - Type 2 diabetes mellitus with other circulatory complications; Z79.4 - intermediate designer (current) use of insulin (2) CAD (coronary artery disease) Associated angina: without angina Coronary Disease-Associated Artery/Lesion type: [place] artery [place] vs. transplanted heart: [place] heart Qualified Code(s): I25.10 - Atherosclerotic heart disease of [place] coronary artery without angina pectoris (3) CHF (congestive heart failure) Heart failure chronicity: acute Heart failure type: unspecified Qualified Code(s): I50.9 - Heart failure, unspecified (4) Atrial fibrillation Atrial fibrillation type: paroxysmal Qualified Code(s): I48.0 - Paroxysmal atrial fibrillation
[2020-03-24] MEDS: LOSARTAN POTASSIUM 25 MG TAB PO SCH (11:40)
[2020-03-24] MEDS: FUROSEMIDE 40 MG TAB PO SCH (17:15)
--- NOTE | 2020-03-24 20:27 | Hospitalist Progress Note ---
Date of Service March 24, 2020 Assessment & Plan (1) Atrial fibrillation: presented with Afib RVR has not been taking his medications for sometime HR improved after resuming Sotalol 80 mg PO BID at present rate controlled cardiology consulted -appreciate input pt remains very high risk for thromboembolic event Eliquis resumed -Plan to discharge on Eliquis and Plavix per cardiology, stop aspirin (2) CHF (congestive heart failure): acute decompensation of CHF with severe LV dysfunction : ECHO shows large plural effusion , EF 20-25 % with global hypokinesis on IV lasix , now changed to p.o. Lasix 40 mg twice daily clinically improved after diuresis -started on ARB - losartan cardiology following (3) Hyperkalemia: resolved (4) S/P cardiac catheterization: 12/03/18: -Status post successful coronary intervention drug-eluting stent to the proximal left circumflex. 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 presented with chest heaviness , SOB , due to decompensated CHF /volume overload , not taking meds , lack of self care due to decompensated CHF symptoms improved after diuresis serial cardiac markers - shows mild elevation with flattened trend resumed out patient cardiac meds cardiology consult appreciated , no evidence of ACS continue management for decompensated CHF (5) CAD (coronary artery disease): NSTEMI elevation of troponin /NSTEMI Type 2 -demand ischemia due to rapid Afib /decompensated CHF ECHO shows global hypokinesis with reduced EF 20-25% cardiac meds : hold aspirin -cont. plavix , eliquis, imdur , sotalol resumed cardiology eval appreciated (6) HTN (hypertension): -Started on losartan -BP seems well controlled (7) Dyslipidemia: (8) DM type 2 (diabetes mellitus, type 2): Type 2 diabetes mellitus with peripheral neuropathy, insulin-dependent. presented with hyperglycemia has not taken meds for months pharmacy consulted for glycemic management BSG > 444 , not in DKA , normal beta hydroxybutyrate , bicarb /normal anion gap BSG improved with basal lantus and insulin SSI Hb A1c> 13 % telehealth nurse educator consulted, and pharmacy glycemic management following -Recommend to discharge patient on metformin 500 mg and Lantus 35 units daily -Patient will need close PCP follow-up -Glucose meter and strips already ordered by PCP DEPRESSION : pt reports of feeling depressed ,had multiple family members this year pt reports hopelessness, lack of interest , fatigue decreased appetite , concentration , unable to self care stopped taking meds for 6 months denies of suicidal ideation , hallucination Psych consult appreciated started on Zoloft will need out pt Psych follow up (9) Thrombocytopenia: chronic plavix -Hold aspirin as patient is on Plavix and Eliquis follow CBC (10) CVA (cerebral vascular accident): History of embolic cerebrovascular infarct, right basal ganglia in 04/2016. Continue Eliquis, plavix, hold ASA on discharge CODE STATUS: FULL CODE DVT PROPHYLAXIS : Eliquis DISPOSITION : DC home when medically stable Admission and Anticipated Discharge Date Admission Date: March 20, 2020 Subjective Patient is sitting up in chair, in no acute distress, breathing comfortably on room air. Denies any shortness of breath, chest pain, palpitations, abdominal pain, fevers or chills, abdominal pain or nausea or vomiting. Tells me that his depression is now much better, he feels well and says that he feels that he can take care of his health better now Has lower extremity/pedal edema. Review of Systems Review of Systems: All systems reviewed & are unremarkable except as noted in HPI & below Constitutional: no fever and no chills Respiratory: no cough and no dyspnea Cardiovascular: no chest pain and no palpitations Gastrointestinal: no abdominal pain, no nausea and no vomiting Physical Exam Physical Exam: Constitutional: Elderly male sitting up in chair, in no acute distress, breathing comfortably on room air, WD/WN, vitals as above, + ill appearing Eyes: EOMI, PERRL, conjunctivae normal, anicteric sclerae ENMT: external ear and nose normal, oropharynx normal Neck: trachea midline, no thyromegaly Respiratory: no respiratory distress Auscultation: + diminished lung sounds, + mild b/l crackles, no wheezing or rhonchi noted Cardiovascular: Rate/Rhythm: regular, no murmurs noted, extremities: + pedal edema and + edema Musculoskeletal: Extremities: + abnormal strength (generalized weakness ) Neurologic: PERRL, EOMI, accommodation nl, no face palsy, no dysarthria, moves extremities spontaneously Psychiatric: A+Ox3, euthymic affect, answers questions appropriately Results & Data Results & Data ([facility]) Vital Signs (Past 12 Hours) Vital Signs Temp Pulse Pulse Resp BP BP Pulse Ox 03/24/20 19:41 36.4 C L 85 19 106/56 L 94 03/24/20 16:00 64 03/24/20 15:32 36.5 C 73 19 130/82 97 03/24/20 11:33 36 C L 88 16 112/54 L 93 (1) DM type 2 (diabetes mellitus, type 2) Diabetes mellitus complication detail: with other circulatory complications Diabetes mellitus complication status: with circulatory complication Diabetes mellitus usp insulin use: with intermediate teacher use Qualified Code(s): E11.59 - Type 2 diabetes mellitus with other circulatory complications; Z79.4 - intermediate teacher (current) use of insulin (2) CAD (coronary artery disease) Associated angina: without angina Coronary Disease-Associated Artery/Lesion type: [place] artery [place] vs. transplanted heart: [place] heart Qualified Code(s): I25.10 - Atherosclerotic heart disease of [place] coronary artery without angina pectoris (3) CHF (congestive heart failure) Heart failure chronicity: acute Heart failure type: unspecified Qualified Code(s): I50.9 - Heart failure, unspecified (4) Atrial fibrillation Atrial fibrillation type: paroxysmal Qualified Code(s): I48.0 - Paroxysmal atrial fibrillation (5) HTN (hypertension) Hypertension type: essential hypertension Qualified Code(s): I10 - Essential (primary) hypertension (6) CVA (cerebral vascular accident) CVA mechanism: embolism Precerebral and cerebral artery: basilar artery Qualified Code(s): 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
[2020-03-25] MEDS: LEVOTHYROXINE SODIUM 25 MCG TABLET PO SCH (05:40)
[2020-03-25 07:49] LABS: Mean Corpuscular Hgb Conc 33.1 g/dL (32-36)
[2020-03-25 07:59] LABS: Hematocrit (blood only) 48.9 % (42-52); Hemoglobin 16.2 g/dL (14.0-18.0); Mean Corpuscular Hemoglobin 30.7 pg (25-34); Mean Corpuscular Volume 92.6 fL (80-100); RDW Coefficient of Variation 14.6 % (11.5-14.5); RDW Standard Deviation 49.7 fL (36.4-46.3); Red Blood Count 5.28 M/uL (4.7-6.1); White Blood Count 7.75 K/uL (4.8-10.8)
[2020-03-25 08:12] LABS: Platelet Count 95 K/uL (130-400)
[2020-03-25 08:21] LABS: Calcium 8.5 mg/dl (8.5-10.1); Creatinine Clr Calc Pharmacy 59.1 ml/min; Est GFR (African American) 59.7; Est GFR (Non-African American) 51.5; Magnesium 2.1 mg/dl (1.8-2.4); Phosphorus 3.8 mg/dl (2.5-4.9); Potassium 3.9 mmol/L (3.5-5.1)
[2020-03-25] MEDS: INSULIN ASPART 100 UNITS/ML 3 ML PEN SC SCH ×2 (08:40→12:25)
--- NOTE | 2020-03-25 08:41 | Hospitalist Progress Note ---
Date of Service March 25, 2020 Assessment & Plan (1) Atrial fibrillation: presented with Afib RVR has not been taking his medications for some time HR improved after resuming Sotalol 80 mg PO BID at present rate controlled cardiology consulted -appreciate input pt remains very high risk for thromboembolic event Eliquis resumed -Plan to discharge on Eliquis and Plavix per cardiology, stop aspirin (2) CHF (congestive heart failure): acute decompensation of CHF with severe LV dysfunction : ECHO shows large plural effusion , EF 20-25 % with global hypokinesis on IV lasix , now changed to p.o. Lasix, will be discharged on Lasix 40 mg daily clinically improved after diuresis -re-started on ARB - losartan 25 mg daily cardiology following, evaluated today, feel that the patient is ready for discharge (3) Hyperkalemia: resolved (4) S/P cardiac catheterization: 12/03/18: -Status post successful coronary intervention drug-eluting stent to the proximal left circumflex. 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 presented with chest heaviness , SOB , due to decompensated CHF /volume overload , not taking meds , lack of self care due to decompensated CHF symptoms improved after diuresis serial cardiac markers - shows mild elevation with flattened trend resumed out patient cardiac meds cardiology consult appreciated , no evidence of ACS continued management for decompensated CHF (5) CAD (coronary artery disease): NSTEMI elevation of troponin /NSTEMI Type 2 -demand ischemia due to rapid Afib /decompensated CHF ECHO shows global hypokinesis with reduced EF 20-25% cardiac meds : hold aspirin -cont. plavix , eliquis, imdur , sotalol resumed cardiology eval appreciated (6) HTN (hypertension): -re-started on losartan -BP seems well controlled -Recommend to follow on blood pressure as outpatient (7) Dyslipidemia: (8) DM type 2 (diabetes mellitus, type 2): Type 2 diabetes mellitus with peripheral neuropathy, insulin-dependent. presented with hyperglycemia has not taken meds for months pharmacy consulted for glycemic management BSG > 444 , not in DKA , normal beta hydroxybutyrate , bicarb /normal anion gap BSG improved with basal lantus and insulin SSI Hb A1c> 13 % critical care educator consulted, and pharmacy glycemic management following -Recommend to discharge patient on metformin 500 mg and Lantus 35 units daily -Patient will need close PCP follow-up -Glucose meter and strips already ordered by PCP (per primary special educator) DEPRESSION : pt reports of feeling depressed ,had multiple family members this year pt reports hopelessness, lack of interest , fatigue decreased appetite , concentration , unable to self care stopped taking meds for 6 months denies of suicidal ideation , hallucination Psych consult appreciated started on Zoloft 50 mg daily will need out pt Psych follow up (9) Thrombocytopenia: chronic plavix -Hold aspirin as patient is on Plavix and Eliquis follow CBC (10) CVA (cerebral vascular accident): History of embolic cerebrovascular infarct, right basal ganglia in 04/2016. Continue Eliquis, plavix, hold ASA on discharge CODE STATUS: FULL CODE DVT PROPHYLAXIS : Eliquis DISPOSITION : DC home today Follow-up scheduled with PCP on March 31 Cardiology follow-up is being arranged Admission and Anticipated Discharge Date Admission Date: March 20, 2020 Subjective No acute issues overnight. Patient is sitting up in a chair, eating lunch, in no acute distress. Denies any fevers, chills, chest pain, shortness of breath, abdominal pain, nausea or vomiting. Seen by cardiology earlier today, agree that patient can be discharged home today. Discussed medications with the patient, says that he does not have any medications currently at home. Sent all his medications to [facility]. All the medications were transferred electronically, except for losartan, therefore I called personally and made sure that he has prescription for losartan 25 mg as well. Review of Systems Review of Systems: All systems reviewed & are unremarkable except as noted in HPI & below Constitutional: no fever and no chills Respiratory: no cough and no dyspnea Cardiovascular: no chest pain and no palpitations Gastrointestinal: no abdominal pain, no nausea and no vomiting Genitourinary: no dysuria Physical Exam Physical Exam: Constitutional: Elderly male sitting up in chair, in no acute distress, breathing comfortably on room air, WD/WN, vitals as above, + ill appearing Eyes: EOMI, PERRL, conjunctivae normal, anicteric sclerae ENMT: external ear and nose normal, oropharynx normal Neck: trachea midline, no thyromegaly Respiratory: no respiratory distress Auscultation: CTAB no wheezing, rhonchi or crackles Cardiovascular: Rate/Rhythm: regular, no murmurs noted, extremities: + only trace LE edema (improved) Musculoskeletal: Extremities: + abnormal strength (generalized weakness ) Neurologic: PERRL, EOMI, accommodation nl, no face palsy, no dysarthria, moves extremities spontaneously Psychiatric: A+Ox3, euthymic affect, answers questions appropriately Results & Data Results & Data ([facility]) Vital Signs (Past 12 Hours) Vital Signs Temp Pulse Pulse Resp BP BP Pulse Ox 03/25/20 07:37 36.8 C 74 18 152/69 H 95 03/25/20 04:00 36.5 C 78 16 106/74 95 03/25/20 00:00 70 03/24/20 23:12 36.6 C 77 16 95/68 L 95 Laboratory Results 03/25/20 03/25/20 03/25/20 Range/Units 07:26 07:26 07:20 WBC 7.75 (4.8-10.8) K/uL RBC 5.28 (4.7-6.1) M/uL Hgb 16.2 (14.0-18.0) g/dL Hct 48.9 (42-52) % MCV 92.6 (80-100) fL MCH 30.7 (25-34) pg MCHC 33.1 (32-36) g/dL RDW Std Deviation 49.7 H (36.4-46.3) fL RDW Coeff of Erik 14.6 H (11.5-14.5) % Plt Count 95 L (130-400) K/uL Sodium 140 (136-145) mmol/L Potassium 3.9 (3.5-5.1) mmol/L Chloride 106 (98-107) mmol/L Carbon Dioxide 26 (21-32) mmol/L Anion Gap 9.0 (3-11) BUN 30 H (7-18) mg/dl Creatinine 1.37 (0.6-1.4) mg/dl Est Cr Clr Drug Dosing 59.1 ml/min Est GFR ( Amer) 59.7 Est GFR (Non-Af Amer) 51.5 BUN/Creatinine Ratio 22.0 H (10-20) Glucose 114 H (70-99) mg/dl POC Glucose 124 H (70-99) mg/dl Calcium 8.5 (8.5-10.1) mg/dl Phosphorus 3.8 (2.5-4.9) mg/dl Magnesium 2.1 (1.8-2.4) mg/dl 03/25/20 03/24/20 03/24/20 Range/Units 00:09 20:04 16:26 WBC (4.8-10.8) K/uL RBC (4.7-6.1) M/uL Hgb (14.0-18.0) g/dL Hct (42-52) % MCV (80-100) fL MCH (25-34) pg MCHC (32-36) g/dL RDW Std Deviation (36.4-46.3) fL RDW Coeff of Erik (11.5-14.5) % Plt Count (130-400) K/uL Sodium (136-145) mmol/L Potassium (3.5-5.1) mmol/L Chloride (98-107) mmol/L Carbon Dioxide (21-32) mmol/L Anion Gap (3-11) BUN (7-18) mg/dl Creatinine (0.6-1.4) mg/dl Est Cr Clr Drug Dosing ml/min Est GFR ( Amer) Est GFR (Non-Af Amer) BUN/Creatinine Ratio (10-20) Glucose (70-99) mg/dl POC Glucose 118 H 220 H 140 H (70-99) mg/dl Calcium (8.5-10.1) mg/dl Phosphorus (2.5-4.9) mg/dl Magnesium (1.8-2.4) mg/dl 03/24/20 Range/Units 11:27 WBC (4.8-10.8) K/uL RBC (4.7-6.1) M/uL Hgb (14.0-18.0) g/dL Hct (42-52) % MCV (80-100) fL MCH (25-34) pg MCHC (32-36) g/dL RDW Std Deviation (36.4-46.3) fL RDW Coeff of Erik (11.5-14.5) % Plt Count (130-400) K/uL Sodium (136-145) mmol/L Potassium (3.5-5.1) mmol/L Chloride (98-107) mmol/L Carbon Dioxide (21-32) mmol/L Anion Gap (3-11) BUN (7-18) mg/dl Creatinine (0.6-1.4) mg/dl Est Cr Clr Drug Dosing ml/min Est GFR ( Amer) Est GFR (Non-Af Amer) BUN/Creatinine Ratio (10-20) Glucose (70-99) mg/dl POC Glucose 242 H (70-99) mg/dl Calcium (8.5-10.1) mg/dl Phosphorus (2.5-4.9) mg/dl Magnesium (1.8-2.4) mg/dl Medications Administered Current Inpatient Medications Acetaminophen (Tylenol) 650 mg PO Q4H PRN PRN Reason: Pain or Fever Stop: 04/19/20 11:38 Al Hydrox/Mg Hydrox/Simethicone (Maalox) 15 ml PO Q4H PRN PRN Reason: Dyspepsia Stop: 04/19/20 11:38 Apixaban (Eliquis) 5 mg PO BID [facility] Stop: 04/22/20 20:59 Last Admin: 03/24/20 20:26 Dose: 5 mg Documented by: Clopidogrel Bisulfate (Plavix) 75 mg PO QAM [facility] Stop: 04/20/20 08:59 Last Admin: 03/24/20 08:37 Dose: 75 mg Documented by: Dextrose (Dextrose 50%) 25 - 50 ml IV UD PRN; Protocol PRN Reason: Hypoglycemia Protocol Stop: 04/19/20 11:14 Furosemide (Lasix) 40 mg PO BID17 [facility] Stop: 04/23/20 16:59 Last Admin: 03/24/20 17:15 Dose: 40 mg Documented by: Glucagon (Glucagen) 1 mg SQ UD PRN; Protocol PRN Reason: Hypoglycemia Protocol Stop: 04/19/20 11:14 Glucose (Glucose 40%) 15 - 30 gm PO UD PRN; Protocol PRN Reason: Hypoglycemia Protocol Stop: 04/19/20 11:14 Glucose (Dex4 Glucose) 4 - 8 tabs PO UD PRN; Protocol PRN Reason: Hypoglycemia Protocol Stop: 04/19/20 11:14 Insulin Aspart (Novolog Flexpen) 0 units SC ACHS [facility]; Protocol Stop: 04/19/20 11:29 Last Admin: 03/24/20 20:23 Dose: 5 units Documented by: Insulin Glargine (Lantus Solostar Pen) 35 units SC DAILY [facility]; Protocol Stop: 04/21/20 08:59 Last Admin: 03/24/20 08:38 Dose: 35 units Documented by: Isosorbide Mononitrate (Imdur Extended Rel) 60 mg PO DAILY [facility] Stop: 04/20/20 08:59 Last Admin: 03/23/20 08:20 Dose: 60 mg Documented by: Levothyroxine Sodium (Synthroid) 25 mcg PO DAILYBB [facility] Stop: 04/20/20 06:29 Last Admin: 03/25/20 05:40 Dose: 25 mcg Documented by: Lorazepam (Ativan) 0.5 mg PO Q8 PRN PRN Reason: Anxiety Stop: 04/19/20 16:23 Losartan Potassium (Cozaar) 25 mg PO QAM [facility] Stop: 04/23/20 10:44 Last Admin: 03/24/20 11:40 Dose: 25 mg Documented by: Magnesium Hydroxide (Milk Of Magnesia) 30 ml PO Q12H PRN PRN Reason: Constipation Stop: 04/19/20 11:38 Miscellaneous (Carbohydrates For Hypoglycemia) 15 - 30 gm PO UD PRN PRN Reason: Hypoglycemia Treatment Stop: 04/19/20 11:14 Last Admin: 03/23/20 01:37 Dose: 15 gm Documented by: Miscellaneous Information (Consult Glycemic Management Pharmacy) 1 ea N/A UD [facility] Stop: 04/19/20 10:59 Nitroglycerin (Nitrostat) 0.4 mg SL UD PRN PRN Reason: Chest Pain Stop: 04/19/20 11:38 Polyethylene Glycol (Miralax Powder Packet) 17 gm PO DAILY PRN PRN Reason: Constipation Stop: 04/19/20 11:38 Sertraline HCl (Zoloft) 50 mg PO QAM [facility] Stop: 04/22/20 08:59 Last Admin: 03/24/20 08:37 Dose: 50 mg Documented by: Sotalol HCl (Betapace) 80 mg PO BID [facility] Stop: 04/19/20 11:38 Last Admin: 03/24/20 20:25 Dose: 80 mg Documented by: (1) DM type 2 (diabetes mellitus, type 2) Diabetes mellitus complication detail: with other circulatory complications Diabetes mellitus complication status: with circulatory complication Diabetes mellitus fpc insulin use: with exterminator termite use Qualified Code(s): E11.59 - Type 2 diabetes mellitus with other circulatory complications; Z79.4 - FDC (current) use of insulin (2) CAD (coronary artery disease) Associated angina: without angina Coronary Disease-Associated Artery/Lesion type: [place] artery [place] vs. transplanted heart: [place] heart Qualified Code(s): I25.10 - Atherosclerotic heart disease of [place] coronary artery without angina pectoris (3) CHF (congestive heart failure) Heart failure chronicity: acute Heart failure type: unspecified Qualified Code(s): I50.9 - Heart failure, unspecified (4) Atrial fibrillation Atrial fibrillation type: paroxysmal Qualified Code(s): I48.0 - Paroxysmal atrial fibrillation (5) HTN (hypertension) Hypertension type: essential hypertension Qualified Code(s): I10 - Essential (primary) hypertension (6) CVA (cerebral vascular accident) CVA mechanism: embolism Precerebral and cerebral artery: basilar artery Qualified Code(s): 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
[2020-03-25] MEDS: APIXABAN 5 MG TABLET PO SCH (08:43)
[2020-03-25] MEDS: LOSARTAN POTASSIUM 25 MG TAB PO SCH (08:43)
[2020-03-25] MEDS: CLOPIDOGREL BISULFATE 75 MG TAB PO SCH (08:44)
[2020-03-25] MEDS: SERTRALINE HCL 50 MG TABLET PO SCH (08:44)
[2020-03-25] MEDS: SOTALOL HCL 80 MG TAB PO SCH (08:44)
[2020-03-25] MEDS: FUROSEMIDE 40 MG TAB PO SCH (08:44)
[2020-03-25] MEDS: INSULIN GLARGINE SOLOSTAR 100 UNITS/ML 3 ML PEN SC SCH (08:46)
--- NOTE | 2020-03-25 11:16 | Cardiology Progress Note ---
Date of Service March 25, 2020 Assessment & Plan (1) CHF (congestive heart failure): (2) Atrial fibrillation: (3) Elevated troponin I level: (4) Systolic and diastolic CHF, chronic: (5) CAD (coronary artery disease): (6) DM type 2 (diabetes mellitus, type 2): (7) Depression: The patient is doing well. At this point I think he is capable of being discharged with outpatient follow-up. I will arrange follow-up through our office. I have decreased his Lasix to 40 mg p.o. daily. Remainder of his medications should be the same. He should not go home on aspirin. He should only be on Eliquis and Plavix. Subjective Patient with no new complaints today. All questions were answered. Review of Systems Review of Systems: All systems reviewed & are unremarkable except as noted in HPI & below Nothing additional to add. Physical Exam Physical Exam: General: no acute distress and stated age Head: normocephalic, no masses, lesions, tenderness or abnormalities Eyes: conjunctiva are pink and non-injected, sclera clear Neck: supple, no adenopathy, no bruits, normal jugular venous pulse, no hepatojugular reflux Chest: normal shape and normal respiratory effort Lungs: clear to auscultation and percussion Cardiac Exam: - regular rate & rhythm, no murmurs gallops or rubs - normal S1, normal S2 Pulses: 2(+) throughout Abdomen: abdomen soft, non-tender, no abnormal masses and no hepatosplenomegaly Musculoskeletal: no gait disturbance, no joint inflammation, no deforming arthritis Extremities: no edema and no cyanosis Neuro: grossly normal exam Results & Data Vital Signs (Past 12 Hours) Vital Signs Temp Pulse Pulse Resp BP Pulse Ox 03/25/20 08:00 68 03/25/20 07:37 36.8 C 74 18 152/69 H 95 03/25/20 04:00 36.5 C 78 16 106/74 95 03/25/20 00:00 70 Laboratory Results Laboratory Results - last 24 hr 03/24/20 03/24/20 03/24/20 11:27 16:26 20:04 WBC RBC Hgb Hct MCV MCH MCHC RDW Std Deviation RDW Coeff of Erik Plt Count Sodium Potassium Chloride Carbon Dioxide Anion Gap BUN Creatinine Est Cr Clr Drug Dosing Est GFR ( Amer) Est GFR (Non-Af Amer) BUN/Creatinine Ratio Glucose POC Glucose 242 H 140 H 220 H Calcium Phosphorus Magnesium 03/25/20 03/25/20 03/25/20 00:09 07:20 07:26 WBC RBC Hgb Hct MCV MCH MCHC RDW Std Deviation RDW Coeff of Erik Plt Count Sodium 140 Potassium 3.9 Chloride 106 Carbon Dioxide 26 Anion Gap 9.0 BUN 30 H Creatinine 1.37 Est Cr Clr Drug Dosing 59.1 Est GFR ( Amer) 59.7 Est GFR (Non-Af Amer) 51.5 BUN/Creatinine Ratio 22.0 H Glucose 114 H POC Glucose 118 H 124 H Calcium 8.5 Phosphorus 3.8 Magnesium 2.1 03/25/20 07:26 WBC 7.75 RBC 5.28 Hgb 16.2 Hct 48.9 MCV 92.6 MCH 30.7 MCHC 33.1 RDW Std Deviation 49.7 H RDW Coeff of Erik 14.6 H Plt Count 95 L Sodium Potassium Chloride Carbon Dioxide Anion Gap BUN Creatinine Est Cr Clr Drug Dosing Est GFR ( Amer) Est GFR (Non-Af Amer) BUN/Creatinine Ratio Glucose POC Glucose Calcium Phosphorus Magnesium Medications Administered Current Inpatient Medications Acetaminophen (Tylenol) 650 mg PO Q4H PRN PRN Reason: Pain or Fever Stop: 04/19/20 11:38 Al Hydrox/Mg Hydrox/Simethicone (Maalox) 15 ml PO Q4H PRN PRN Reason: Dyspepsia Stop: 04/19/20 11:38 Apixaban (Eliquis) 5 mg PO BID [facility] Stop: 04/22/20 20:59 Last Admin: 03/25/20 08:43 Dose: 5 mg Documented by: Clopidogrel Bisulfate (Plavix) 75 mg PO QAM [facility] Stop: 04/20/20 08:59 Last Admin: 03/25/20 08:44 Dose: 75 mg Documented by: Dextrose (Dextrose 50%) 25 - 50 ml IV UD PRN; Protocol PRN Reason: Hypoglycemia Protocol Stop: 04/19/20 11:14 Furosemide (Lasix) 40 mg PO DAILY [facility] Stop: 04/25/20 08:59 Glucagon (Glucagen) 1 mg SQ UD PRN; Protocol PRN Reason: Hypoglycemia Protocol Stop: 04/19/20 11:14 Glucose (Glucose 40%) 15 - 30 gm PO UD PRN; Protocol PRN Reason: Hypoglycemia Protocol Stop: 04/19/20 11:14 Glucose (Dex4 Glucose) 4 - 8 tabs PO UD PRN; Protocol PRN Reason: Hypoglycemia Protocol Stop: 04/19/20 11:14 Insulin Aspart (Novolog Flexpen) 0 units SC ACHS [facility]; Protocol Stop: 04/19/20 11:29 Last Admin: 03/25/20 08:40 Dose: 7 units Documented by: Insulin Glargine (Lantus Solostar Pen) 35 units SC DAILY [facility]; Protocol Stop: 04/21/20 08:59 Last Admin: 03/25/20 08:46 Dose: 35 units Documented by: Isosorbide Mononitrate (Imdur Extended Rel) 60 mg PO DAILY [facility] Stop: 04/20/20 08:59 Last Admin: 03/23/20 08:20 Dose: 60 mg Documented by: Levothyroxine Sodium (Synthroid) 25 mcg PO DAILYBB [facility] Stop: 04/20/20 06:29 Last Admin: 03/25/20 05:40 Dose: 25 mcg Documented by: Lorazepam (Ativan) 0.5 mg PO Q8 PRN PRN Reason: Anxiety Stop: 04/19/20 16:23 Losartan Potassium (Cozaar) 25 mg PO [facility] Stop: 04/23/20 10:44 Last Admin: 03/25/20 08:43 Dose: 25 mg Documented by: Magnesium Hydroxide (Milk Of Magnesia) 30 ml PO Q12H PRN PRN Reason: Constipation Stop: 04/19/20 11:38 Miscellaneous (Carbohydrates For Hypoglycemia) 15 - 30 gm PO UD PRN PRN Reason: Hypoglycemia Treatment Stop: 04/19/20 11:14 Last Admin: 03/23/20 01:37 Dose: 15 gm Documented by: Miscellaneous Information (Consult Glycemic Management Pharmacy) 1 ea N/A UD [facility] Stop: 04/19/20 10:59 Nitroglycerin (Nitrostat) 0.4 mg SL UD PRN PRN Reason: Chest Pain Stop: 04/19/20 11:38 Polyethylene Glycol (Miralax Powder Packet) 17 gm PO DAILY PRN PRN Reason: Constipation Stop: 04/19/20 11:38 Sertraline HCl (Zoloft) 50 mg PO QAM [facility] Stop: 04/22/20 08:59 Last Admin: 03/25/20 08:44 Dose: 50 mg Documented by: Sotalol HCl (Betapace) 80 mg PO BID [facility] Stop: 04/19/20 11:38 Last Admin: 03/25/20 08:44 Dose: 80 mg Documented by: (1) CHF (congestive heart failure) Heart failure chronicity: acute Heart failure type: unspecified Qualified Code(s): I50.9 - Heart failure, unspecified (2) Atrial fibrillation Atrial fibrillation type: paroxysmal Qualified Code(s): I48.0 - Paroxysmal atrial fibrillation (3) CAD (coronary artery disease) Coronary Disease-Associated Artery/Lesion type: [place] artery [place] vs. transplanted heart: [place] heart Associated angina: without angina Qualified Code(s): I25.10 - Atherosclerotic heart disease of [place] coronary artery w ithout angina pectoris (4) DM type 2 (diabetes mellitus, type 2) Diabetes mellitus skilled nursing insulin use: with skilled nursing use Diabetes mellitus complication status: with circulatory complication Diabetes mellitus complication detail: with other circulatory complications Qualified Code(s): E11.59 - Type 2 diabetes mellitus with other circulatory complications; Z79.4 - correction (current) use of insulin
--- NOTE | 2020-03-25 13:00 | Discharge Summary ---
Date of Service March 25, 2020 Admission HPI Per Admitting Provider this is a 69 yo Male with past medical hx of CHF with chronic diastolic heart failure , CKD stage 3 , A fib , type 2 DM has stopped taking meds for last 6 months - pt has lost several family members became severely depressed , has not see any medical advice or treatment for depression denies suicidial ideation presented with worseing of SOB , chest heaviness , increased lower extremity swelling , Admission Exam Per Admitting Provider Constitutional: WD/WN, vitals as above + acute distress and + ill appearing Eyes: PERRL, conjunctivae normal, anicteric sclerae ENMT: external ear and nose normal, oropharynx normal Neck: trachea midline, no thyromegaly Respiratory: + cough; no respiratory distress Auscultation: + diminished lung sounds, + crackles, + rales, + rhonchi, + wheezes and + pleural rub present Cardiovascular: Rate/Rhythm: + abnormal rhythm Extremities: + pedal edema and + edema Musculoskeletal: Extremities: + abnormal strength (generalized weakness ) Neurologic: PERRL, EOMI, accommodation nl, no face palsy, no dysarthria Psychiatric: A+Ox3, euthymic affect Principal Diagnosis Acute on chronic systolic CHF Atrial fibrillation with RVR Depression Uncontrolled diabetes mellitus type 2 Discharge Exam Constitutional: Elderly male sitting up in chair, in no acute distress, breathing comfortably on room air, WD/WN, vitals as above, + ill appearing Eyes: EOMI, PERRL, conjunctivae normal, anicteric sclerae ENMT: external ear and nose normal, oropharynx normal Neck: trachea midline, no thyromegaly Respiratory: no respiratory distress Auscultation: CTAB no wheezing, rhonchi or crackles Cardiovascular: Rate/Rhythm: regular, no murmurs noted, extremities: + only trace LE edema (improved) Musculoskeletal: Extremities: + abnormal strength (generalized weakness ) Neurologic: PERRL, EOMI, accommodation nl, no face palsy, no dysarthria, moves extremities spontaneously Psychiatric: A+Ox3, euthymic affect, answers questions appropriately Discharge Data Allergies Allergy/AdvReac Type Severity Reaction Status Date / Time lisinopril AdvReac Intermediate COUGH Verified 03/20/20 08:26 alendronate sodium AdvReac Mild NONE Unverified 03/20/20 08:26 atorvastatin AdvReac Muscle Pain Verified 03/20/20 08:26 Consultations 03/20/20 09:59 ED Decision to Admit Stat 03/20/20 11:39 Consult Cardiology Routine Consult Case Management - Discharge Planning Routine 03/21/20 10:41 Consult Psychiatry Routine Hospital Course (1) Atrial fibrillation: presented with Afib RVR has not been taking his medications for some time HR improved after resuming Sotalol 80 mg PO BID at present rate controlled cardiology consulted -appreciate input pt remains very high risk for thromboembolic event Eliquis resumed -Plan to discharge on Eliquis and Plavix per cardiology, stop aspirin (2) CHF (congestive heart failure): acute decompensation of CHF with severe LV dysfunction : ECHO shows large plural effusion , EF 20-25 % with global hypokinesis on IV lasix , now changed to p.o. Lasix, will be discharged on Lasix 40 mg daily clinically improved after diuresis -re-started on ARB - losartan 25 mg daily cardiology following, evaluated today, feel that the patient is ready for discharge (3) Hyperkalemia: resolved (4) S/P cardiac catheterization: 12/03/18: -Status post successful coronary intervention drug-eluting stent to the proximal left circumflex. 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 presented with chest heaviness , SOB , due to decompensated CHF /volume overload , not taking meds , lack of self care due to decompensated CHF symptoms improved after diuresis serial cardiac markers - shows mild elevation with flattened trend resumed out patient cardiac meds cardiology consult appreciated , no evidence of ACS continued management for decompensated CHF (5) CAD (coronary artery disease): NSTEMI elevation of troponin /NSTEMI Type 2 -demand ischemia due to rapid Afib /decompensated CHF ECHO shows global hypokinesis with reduced EF 20-25% cardiac meds : hold aspirin -cont. plavix , eliquis, imdur , sotalol resumed cardiology eval appreciated (6) HTN (hypertension): -re-started on losartan -BP seems well controlled -Recommend to follow on blood pressure as outpatient (7) Dyslipidemia: (8) DM type 2 (diabetes mellitus, type 2): Type 2 diabetes mellitus with peripheral neuropathy, insulin-dependent. presented with hyperglycemia has not taken meds for months pharmacy consulted for glycemic management BSG > 444 , not in DKA , normal beta hydroxybutyrate , bicarb /normal anion gap BSG improved with basal lantus and insulin SSI Hb A1c> 13 % inclusion paraeducator consulted, and pharmacy glycemic management following -Recommend to discharge patient on metformin 500 mg and Lantus 35 units daily -Patient will need close PCP follow-up -Glucose meter and strips already ordered by PCP (per childbirth educator) DEPRESSION : pt reports of feeling depressed ,had multiple family members this year pt reports hopelessness, lack of interest , fatigue decreased appetite , concentration , unable to self care stopped taking meds for 6 months denies of suicidal ideation , hallucination Psych consult appreciated started on Zoloft 50 mg daily will need out pt Psych follow up (9) Thrombocytopenia: chronic plavix -Hold aspirin as patient is on Plavix and Eliquis follow CBC (10) CVA (cerebral vascular accident): History of embolic cerebrovascular infarct, right basal ganglia in 04/24 16. Continue Eliquis, plavix, hold ASA on discharge CODE STATUS: FULL CODE DVT PROPHYLAXIS : Eliquis DISPOSITION : DC home today Follow-up scheduled with PCP on March 31 Cardiology follow-up is being arranged All the medications were sent electronically to patient's pharmacy except for losartan, called personally to his pharmacy to make sure that losartan was also on his prescription list. Total Time Total Time Spent Total Time Spent (In Minutes): 40 Total Time Includes: Examination of the Patient, Discharge Planning, Medication Reconciliation and Communication With Other Providers Discharge Plan Discharge Items Patient Disposition: Home - Self-Care Reason For Visit: SHORTNESS OF BREATH Discharge Diagnosis: Acute on chronic systolic CHF Atrial fibrillation with RVR Depression Uncontrolled diabetes mellitus type 2 Activity: Resume your previous activity Non-emergency contact: Primary Care Provider and Marine Gear Keeper Call non-emergency contact if: you have any medication questions Follow-up/Referrals: Christopher Bella DO [Primary Care Provider] - 03/31/20 11:20 am (03/31/2020 11:20 AM Provider Vivek Avendaño PA-C Department [facility] ) Diet: Carb Consistent or DM2 and Heart Healthy Addtl Attending Provider Instructions: Stop taking aspirin, continue to take Eliquis and Plavix as discussed with cardiology. Continue to take your home losartan, please take it daily. Recommend to monitor your blood pressure and keep a log of these numbers. Let your primary care doctor and/or your dental lab technician know these numbers. Also take furosemide/Lasix, take 40 mg daily. As described in the section below in detail, make sure to check your weight daily in the morning and keep a log of these numbers. Make sure you make your primary care doctor and/ or your dental lab technician aware of these numbers, especially if you are gaining weight. Cardiology follow-up will be arranged for you, we also recommend to follow-up with your primary care physician within a week of discharge from hospital. The appointment with primary care doctor was scheduled for you for March 31. As discussed with childbirth educator, use insulin Lantus 35 units daily, and check your blood sugar levels at home (you should check at least twice or 3 times a day). Make sure to write down your blood sugar levels and show this to your primary care provider so insulin can be adjusted further. Also recommended that you take metformin 500 mg daily in addition to insulin Lantus. Recommend to take metformin daily with evening meal. You were also evaluated by psychiatry here for your depression. You were started on Zoloft 50 mg daily. Please take it as prescribed and follow-up with your primary care doctor, we also recommend follow-up with psychiatry, the follow-up appointment with psychiatry is being arranged for you. Recommend to bring this discharge paperwork to your next primary care doctor appointment for review. Addtl Supervisor [employer] Provider Instructions: Call your Primary Care doctor if any of the following symptoms or problems start or get worse: * Shortness of breath or difficulty breathing * Wake up at night short of breath * Chest pain * Cough * Swelling of your hands, feet, or legs * More fatigued or tired with your normal activity * Palpitations - sudden fast heart beats WEIGHT * Weigh yourself every morning after using the bathroom. * Use the same scale. * Wear the same amount of clothing. * Write your weight down on a chart. * Call your Primary Care doctor if you gain more than 2-3 pounds in 1-2 days. MEDICATIONS * Use this discharge instruction sheet for medication instructions. * Take your medications at the time your doctor ordered. * Do not skip a dose of your medicines. * If you miss a dose of medicine, take it as soon as possible, but DO NOT DOUBLE A DOSE. * Read your medicine information when you get home. * Know all of the side effects of your medicine. If in doubt, ask your pharmacist * Call your Primary Care doctor's office if you have any side effects. * Be sure all of your doctors know what medicine and herbs you take (including cold, flu, and herbal medicine). Take the following with you to your follow-up doctor appointments: * Weight Chart * Medication List * List of questions Do not drink excessive alcohol, beer or wine. Pending Studies at Discharge: No Stand-Alone Forms: My [facility] [employer], Smoking Cessation Medications and DC Order Prescriptions: New sertraline 50 mg Tablet 50 mg PO QAM 30 Days Qty: 30 RF: 0 metformin 500 mg tablet extended release 24 hr 500 mg PO DAILY Qty: 30 RF: 0 furosemide 40 mg tablet 40 mg PO DAILY Qty: 30 RF: 0 sotalol 80 mg tablet 80 mg PO Q12H Qty: 30 RF: 0 Lantus Solostar U-100 Insulin 100 unit/mL (3 mL) insulin pen 35 units SQ DAILY Qty: 3 RF: 0 Eliquis 5 mg Tablet 5 mg PO BID 30 Days Qty: 60 RF: 0 clopidogrel 75 mg Tablet 75 mg PO QAM 30 Days Qty: 30 RF: 0 Continued isosorbide mononitrate 60 mg Tablet Extended Release 24 Hr 60 mg PO DAILY RF: 0 sotalol [Sotalol AF] 80 mg Tablet 80 mg PO Q12H RF: 0 levothyroxine 25 mcg Tablet 25 mcg PO DAILY RF: 0 clopidogrel 75 mg Tablet 75 mg PO QAM Qty: 30 RF: 0 Eliquis 5 mg Tablet 5 mg PO BID Qty: 60 RF: 3 losartan 25 mg Tablet 25 mg PO DAILY 30 Days Qty: 30 RF: 0 Changed Lantus Solostar U-100 Insulin 100 unit/mL (3 mL) Insulin Pen 35 unit SUBCUT HS Qty: 0 RF: 0 furosemide 20 mg Tablet 40 mg PO DAILY 30 Days Qty: 60 RF: 0 Discontinued Tradjenta 5 mg Tablet 5 mg PO DAILY RF: 0 aspirin 81 mg Tablet,Chewable 81 mg PO DAILY RF: 0 spironolactone 25 mg Tablet 12.5 mg PO DAILY RF: 0 Discharge Orders: Discharge Order (Routine); Ordered 03/25/20 Ordered By: Cipriano Ybarra/Other Patient Handouts: Diabetes and Heart Disease, Diabetes Spanish Speaking Babysitter Complications, Diabetes Resources, Diabetes Healthy Meals, Diabetes Exercise Benefits, Diabetes Manage A1C Test, AFib Admission Data Admit Date/Time: 03/20/20 10:05 Attending Provider: Cipriano Segura Admit Provider: Teetee Bradford Primary Care Provider: Christopher Bella V. Other Providers: Teetee Bradford ; Diogenes Yarbrough ; Last Carranza ; Mark Gonzalez ; Jozef Flores ; Morgan Nelson ; Robert Arguelles ; Nati Muro ; Dang Woodruff ; Jimenez Russell ; Ivy Huerta Other Interventions: Discharge Summary Assessment (RN) Last Done: 03/25/20 12:03 PSY Interdisciplinary Discharge Planning Last Done: 03/25/20 11:13
--- NOTE | 2020-03-25 13:33 | Pharmacy Report ---
Pharmacy Glycemic Short Note 2 - Date of Service March 25, 2020 - Glycemic Short BSG Results (Last 24 hours): 03/24/20 03/24/20 03/25/20 16:26 20:04 00:09 Glucose POC Glucose 140 H 220 H 118 H 03/25/20 03/25/20 03/25/20 07:20 07:26 11:26 Glucose 114 H POC Glucose 124 H 186 H OUTPATIENT ANTIDIABETIC REGIMEN: * Not taking x 6 months, previously on Lantus 45 units daily and Tradjenta 5mg PO daily * A1c = 13.3 % 03/20/19 INPATIENT INSULIN REGIMEN AND CAUSES OF INSULIN RESISTANCE: ASSESSMENT: 03/25 * Patient received 57 units of insulin yesterday * Continued to have elevated postprandial BSGs yesterday 03/24 * Heparin gtt discontinued * BSGs trending down throughout the day yesterday - will loosen CF * Elevated BSG at lunchtime today - patient refused AM Novolog PLAN FOR INPATIENT GLYCEMIC CONTROL: * Basal insulin - continue * Lantus 35 units SQ daily * Bolus insulin - tighten CR * NovoLog per scale ACHS or Q6hrs while NPO * Goal Range: Low 110 mg/dL - High 150 mg/dL * Correction Factor: 35 mg/dL/unit * Nutritional / Prandial insulin per carb ratio of 1 unit per 8 grams CHO consumed PLAN FOR DISCHARGE: * A1c 13.3% d/t noncompliance. Recommend: * Metformin XR 500mg PO daily with evening meal. Typically the XR formulation of metformin is better tolerated than the immediate release formulation. Continue to titrate metformin dosing upwards as recommended. Dosage increases should be made in increments of 500 mg weekly, up to 2,000 mg/day PO, given in divided doses. Doses above 2000 mg/day may be better tolerated if divided and given 3 times per day with meals. Max: 2,550 mg/day PO, in divided doses * B12 supplementation may be necessary with jail metformin * Patient will also require insulin upon discharge * Patient agreeable to once daily Lantus - per certified life educator * At this point Lantus 35 units SC daily would be a reasonable place to start
[2020-03-26] MEDS ORDERED: FUROSEMIDE 40 MG TAB PO SCH (09:00)
== END 2020-03-25 14:48 | disposition home or self-care (01) | DRG 282 ==
LOC: ED 08:06 → SUATTDRO 10:05 → 2S 10:05

== ENCOUNTER 2020-12-18 18:59 | Inpatient (IN) ==
[2020-12-18 19:54] LABS: Hematocrit (blood only) 46.7 % (42-52); Hemoglobin 15.4 g/dL (14.0-18.0); INR 1.4 (0.9-1.1); Mean Corpuscular Hemoglobin 26.7 pg (25-34); Mean Corpuscular Volume 80.9 fL (80-100); Partial Thromboplastin Time 25.6 Seconds (21.0-31.0); Prothrombin Time 13.7 Seconds (9.0-12.0); RDW Coefficient of Variation 16.9 % (11.5-14.5); RDW Standard Deviation 49.7 fL (36.4-46.3); Red Blood Count 5.77 M/uL (4.7-6.1); White Blood Count 8.24 K/uL (4.8-10.8)
--- NOTE | 2020-12-18 19:59 | Emergency Department Note ---
Impression & Plan Cellulitis, CHF (congestive heart failure), Atrial fibrillation with rapid ventricular response, Elevated troponin I level ED Provider Note With IVNAME: MICKEY DAWKINS AGE: 70 SEX: M : 1950 ARRIVES VIA: Walk-In INFORMANT: Patient, ED PROVIDER(S): Fabien Cote DO CHIEF COMPLAINT: Weakness HPI: The patient is a 70-year-old male who presented to the emergency department with multiple complaints. The patient has a history of diabetes as well as atrial fibrillation. He states that recently he has been noticing generalized weakness and fatigue. He is also noticed dyspnea on exertion. The patient denies having any black or bloody bowel movements. He states that he has noticed recently that he has had swelling in both legs but notices it more in the left leg. He denies have any recent injury or falls. He did not see his family doctor for the symptoms. The patient states that he has been compliant with his medications otherwise. He is also noticed nausea when he tries to eat as well as loose bowel movements. He states that he has not been as ambulatory as usual. He states he was concerned that his blood sugar was out of control and this is why he came to the emergency department this evening. He also has been taking more of his Lasix to try to combat the lower extremity swelling. ROS: See above HPI for pertinent positives & negatives. A total of [10] systems reviewed and were otherwise negative. PAST MEDICAL HISTORY: See Below PAST SURGICAL HISTORY: See Below FAMILY HISTORY: See Below SOCIAL HISTORY: See Below HOME MEDICATIONS: See Below ALLERGIES: See Below VITALS: See Below PHYSICAL EXAMINATION: GENERAL: Patient is awake alert in no acute distress patient is resting comfortably and showing no signs of anxiety EYES: The conjunctivae are clear. The pupils are round and reactive. EARS, NOSE, MOUTH AND THROAT: The nose is without any evidence of any deformity. Mucous membranes are moist. Tongue is midline. NECK: The neck is nontender and supple. RESPIRATORY: Diminished breath sounds are noted at both bases. There were rales at both bases. CARDIOVASCULAR: Tachycardic and irregular rhythm was noted to auscultation. There was no definite murmur. GASTROINTESTINAL: The abdomen is soft. Abdomen is nontender. PELVIS: The Pelvis is stable. No tenderness to palpation is noted. BACK: No midline tenderness or or step-off noted range of motion in flexion extension as well as rotation no signs of muscle spasm noted MUSCULOSKELETAL/EXTREMITIES: There is no evidence of gross deformity full range of motion is noted in the hips and shoulders. SKIN: Pedal edema was noted bilaterally left greater than right. There was erythema in the right lower extremity. NEUROLOGIC: Patient is awake alert and oriented x 3. MEDICAL DECISION MAKING: The patient is a 70-year-old male who presented to the emergency department for an evaluation of lower extremity swelling and generalized weakness. The patient has a history of atrial fibrillation and was found to be in rapid atrial fibrillation. He was also found to be in volume overload. It was difficult to manage him with IV fluid hydration. [facility] emergency department for presumed cellulitis in his left lower extremity. Clinically this did appear to be cons istent with cellulitis however Dopplers were obtained to ensure the patient did not have DVT. I discussed the patient's laboratory and radiographic studies with him. I also discussed this case with the on-call [facility] hospitalist group. They have agreed to evaluate the patient in the emergency department for further management and disposition's. Triage Nursing notes reviewed. Prior medical records reviewed Vital Signs: reviewed and remarkable for tachycardia. Differential diagnosis: DVT, musculoskeletal, infection, joint effusion, trauma, lymphedema, idiopathic, CHF, as well as other pathologies. ER treatment provided: See below Diagnostics interpreted by me: ECG: EKG was obtained in the emergency department. My interpretation is sinus tachycardia at 160 bpm. Anterior Q waves were noted. Left bundle branch block pattern was suggested. This was compared to a tracing from February 202019. No significant changes were noted. Cardiac Monitoring: An order was placed for continuous cardiac monitoring. The monitor shows a rate of 115 bpm with atrial fibrillation with RVR rhythm. Laboratory studies: As stated above and show below. Imaging studies: See below Consultation(s): 3138: I discussed this case with Dr. Maki. Past Med/Surg History Medical History (Updated 12/18/20 @ 22:05 by Fabien Cote DO) CAD (coronary artery disease) "03/2009 - STEMI, s/p PTCA and stenting RCA, chronic LAD occlusion, 40% left main lesion" CVA (cerebral vascular accident) DM type 2 (diabetes mellitus, type 2) Dyslipidemia HTN (hypertension) Hypothyroidism Paroxysmal atrial fibrillation STEMI (ST elevation myocardial infarction) Systolic and diastolic CHF, chronic Thrombocytopenia Uncontrolled type 2 diabetes mellitus Surgical History H/O colonoscopy 06/2018 - diverticulosis - Dr Samreen Suárez Hx of cardiac cath 2008 - multivessel disease s/p stent RCA with residual chronic occlusion LAD with collaterals and 40% narrowing left main Family History Other Coronary heart disease Diabetes Social History Smoking Status: Never smoker Second Hand Exposure: Yes; Hx Alcohol Use: Yes Alcohol type: beer and wine Hx Substance Use: No Preferred Language: Kinyarwanda Communication Ability: Effective 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 Required: No Beliefs That Will Affect Care: Rastafari marital status: Single Current Living Situation: Alone Feels Safe at Home: Yes Assistive Devices: None Allergies Allergies Allergy/AdvReac Type Severity Reaction Status Date / Time lisinopril AdvReac Intermediate COUGH Verified 12/18/20 20:39 atorvastatin AdvReac Muscle Pain Verified 12/18/20 20:39 Home Meds Home Medications Medication Instructions Recorded Confirmed clopidogrel [Plavix] 75 mg PO DAILY 12/18/20 12/18/20 furosemide [Lasix] 20 mg PO BID 12/18/20 12/18/20 losartan 25 mg PO DAILY 12/18/20 12/18/20 metformin [Glucophage XR] 500 mg PO BID 12/18/20 12/18/20 nitroglycerin [Nitrostat] 0.4 mg SUBLINGUAL UD PRN 12/18/20 12/18/20 sotalol [Betapace] 80 mg PO BID 12/18/20 12/18/20 trazodone 50 mg PO HS PRN 12/18/20 12/18/20 warfarin 5 mg PO DAILY 12/18/20 12/18/20 Results & Data (ED) Vital Signs Vital Signs - 24 hr 12/18/20 19:03 12/18/20 19:34 12/18/20 19:40 Temperature 36.0 C L Temperature Source Temporal Artery Scan Pulse Rate 116 H 116 H 115 H Pulse Rhythm Regular Respiratory Rate 21 18 22 Respiratory Effort / Characteristics Non-Labored Respiratory Depth Normal Blood Pressure 146/92 H 127/99 Blood Pressure Mean 110 108 Pulse Oximetry 96 96 97 Oxygen Delivery Method Room Air Room Air Sepsis Recent Fever Within 48 Hours No Sepsis New/Unexplained Change in Mental Status No Sepsis Action Taken by Nursing No Action Required 12/18/20 19:44 12/18/20 19:52 12/18/20 20:00 Temperature Temperature Source Pulse Rate 115 H 116 H Pulse Rhythm Respiratory Rate 24 20 Respiratory Effort / Characteristics Non-Labored Spontaneous Respiratory Depth Blood Pressure 131/101 H 139/99 Blood Pressure Mean 111 112 Pulse Oximetry 95 94 Oxygen Delivery Method Sepsis Recent Fever Within 48 Hours Sepsis New/Unexplained Change in Mental Status Sepsis Action Taken by Nursing 12/18/20 21:24 12/18/20 21:30 Temperature Temperature Source Pulse Rate 114 H 114 H Pulse Rhythm Respiratory Rate 20 16 Respiratory Effort / Characteristics Respiratory Depth Blood Pressure 133/87 132/103 H Blood Pressure Mean 102 112 Pulse Oximetry 95 96 Oxygen Delivery Method Sepsis Recent Fever Within 48 Hours Sepsis New/Unexplained Change in Mental Status Sepsis Action Taken by Longterm Medications Current Medication List: was personally reviewed by me Laboratory Data Attestation: I reviewed the patient's lab results. Result diagrams: 12/18/20 19:30 12/18/20 19:30 Lab Results 12/18/20 12/18/20 12/18/20 Range/Units 19:30 19:30 19:30 WBC 8.24 (4.8-10.8) K/uL RBC 5.77 (4.7-6.1) M/uL Hgb 15.4 (14.0-18.0) g/dL Hct 46.7 (42-52) % MCV 80.9 (80-100) fL MCH 26.7 (25-34) pg MCHC 33.0 (32-36) g/dL RDW Std Deviation 49.7 H (36.4-46.3) fL RDW Coeff of Erik 16.9 H (11.5-14.5) % Plt Count 126 L (130-400) K/uL Immature Gran % (Auto) 0.1 % Neut % (Auto) 66.4 % Lymph % (Auto) 25.1 % [place] % (Auto) 5.9 % Eos % (Auto) 1.7 % Baso % (Auto) 0.8 % Neut # (Auto) 5.46 (1.4-6.5) K/uL Lymph # (Auto) 2.07 (1.2-3.4) K/uL [place] # (Auto) 0.49 (0.11-0.59) K/uL Eos # (Auto) 0.14 (0-0.5) K/uL Baso # (Auto) 0.07 (0-0.2) K/uL Immature Gran # (Auto) 0.01 (0.00-0.02) K/uL Platelet Estimate Decreased L (Normal) Giant Platelets 1+ Polychromasia 1+ PT 13.7 H (9.0-12.0) Seconds INR 1.4 H (0.9-1.1) APTT 25.6 (21.0-31.0) Seconds PTT Ratio 1.0 Sodium 136 (136-145) mmol/L Potassium 4.5 (3.5-5.1) mmol/L Chloride 103 (98-107) mmol/L Carbon Dioxide 26 (21-32) mmol/L Anion Gap 7.0 (3-11) BUN 28 H (7-18) mg/dl Creatinine 1.60 H (0.6-1.4) mg/dl Est Cr Clr Drug Dosing 65.6 ml/min Est GFR ( Amer) 49.2 Est GFR (Non-Af Amer) 42.4 BUN/Creatinine Ratio 17.7 (10-20) Glucose 365 H* (70-99) mg/dl POC Glucose (70-99) mg/dl Lactate (0.4-2.0) mmol/L Calcium 8.6 (8.5-10.1) mg/dl Magnesium 1.9 (1.8-2.4) mg/dl Total Bilirubin 1.1 H (0.2-1) mg/dl AST 39 H (15-37) U/L ALT 40 (12-78) U/L Alkaline Phosphatase 119 H (45-117) U/L Troponin I 0.082 H* (0-0.045) ng/ml Total Protein 7.1 (6.4-8.2) gm/dl Albumin 2.9 L (3.4-5.0) gm/dl Globulin 4.2 H (2.5-4.0) gm/dl Albumin/Globulin Ratio 0.7 L (0.9-2) Beta-Hydroxybutyric Acd (0.2-2.81) mg/dl Procalcitonin (0-0.5) ng/ml COVID-19 Eval Order SARS-CoV-2, RNA, NAAT (NEGATIVE) 12/18/20 12/18/20 12/18/20 Range/Units 19:30 19:35 19:35 WBC (4.8-10.8) K/uL RBC (4.7-6.1) M/uL Hgb (14.0-18.0) g/dL Hct (42-52) % MCV (80-100) fL MCH (25-34) pg MCHC (32-36) g/dL RDW Std Deviation (36.4-46.3) fL RDW Coeff of Erik (11.5-14.5) % Plt Count (130-400) K/uL Immature Gran % (Auto) % Neut % (Auto) % Lymph % (Auto) % [place] % (Auto) % Eos % (Auto) % Baso % (Auto) % Neut # (Auto) (1.4-6.5) K/uL Lymph # (Auto) (1.2-3.4) K/uL [place] # (Auto) (0.11-0.59) K/uL Eos # (Auto) (0-0.5) K/uL Baso # (Auto) (0-0.2) K/uL Immature Gran # (Auto) (0.00-0.02) K/uL Platelet Estimate (Normal) Giant Platelets Polychromasia PT (9.0-12.0) Seconds INR (0.9-1.1) APTT (21.0-31.0) Seconds PTT Ratio Sodium (136-145) mmol/L Potassium (3.5-5.1) mmol/L Chloride (98-107) mmol/L Carbon Dioxide (21-32) mmol/L Anion Gap (3-11) BUN (7-18) mg/dl Creatinine (0.6-1.4) mg/dl Est Cr Clr Drug Dosing ml/min Est GFR ( Amer) Est GFR (Non-Af Amer) BUN/Creatinine Ratio (10-20) Glucose (70-99) mg/dl POC Glucose (70-99) mg/dl Lactate (0.4-2.0) mmol/L Calcium (8.5-10.1) mg/dl Magnesium (1.8-2.4) mg/dl Total Bilirubin (0.2-1) mg/dl AST (15-37) U/L ALT (12-78) U/L Alkaline Phosphatase (45-117) U/L Troponin I (0-0.045) ng/ml Total Protein (6.4-8.2) gm/dl Albumin (3.4-5.0) gm/dl Globulin (2.5-4.0) gm/dl Albumin/Globulin Ratio (0.9-2) Beta-Hydroxybutyric Acd (0.2-2.81) mg/dl Procalcitonin < 0.05 (0-0.5) ng/ml COVID-19 Eval [facility] SARS-CoV-2, RNA, NAAT NEGATIVE (NEGATIVE) 12/18/20 12/18/20 12/18/20 Range/Units 19:40 19:45 19:47 WBC (4.8-10.8) K/uL RBC (4.7-6.1) M/uL Hgb (14.0-18.0) g/dL Hct (42-52) % MCV (80-100) fL MCH (25-34) pg MCHC (32-36) g/dL RDW Std Deviation (36.4-46.3) fL RDW Coeff of Erik (11.5-14.5) % Plt Count (130-400) K/uL Immature Gran % (Auto) % Neut % (Auto) % Lymph % (Auto) % [place] % (Auto) % Eos % (Auto) % Baso % (Auto) % Neut # (Auto) (1.4-6.5) K/uL Lymph # (Auto) (1.2-3.4) K/uL [place] # (Auto) (0.11-0.59) K/uL Eos # (Auto) (0-0.5) K/uL Baso # (Auto) (0-0.2) K/uL Immature Gran # (Auto) (0.00-0.02) K/uL Platelet Estimate (Normal) Giant Platelets Polychromasia PT (9.0-12.0) Seconds INR (0.9-1.1) APTT (21.0-31.0) Seconds PTT Ratio Sodium (136-145) mmol/L Potassium (3.5-5.1) mmol/L Chloride (98-107) mmol/L Carbon Dioxide (21-32) mmol/L Anion Gap (3-11) BUN (7-18) mg/dl Creatinine (0.6-1.4) mg/dl Est Cr Clr Drug Dosing ml/min Est GFR ( Amer) Est GFR (Non-Af Amer) BUN/Creatinine Ratio (10-20) Glucose (70-99) mg/dl POC Glucose 353 H* 355 H* (70-99) mg/dl Lactate 2.4 H* (0.4-2.0) mmol/L Calcium (8.5-10.1) mg/dl Magnesium (1.8-2.4) mg/dl Total Bilirubin (0.2-1) mg/dl AST (15-37) U/L ALT (12-78) U/L Alkaline Phosphatase (45-117) U/L Troponin I (0-0.045) ng/ml Total Protein (6.4-8.2) gm/dl Albumin (3.4-5.0) gm/dl Globulin (2.5-4.0) gm/dl Albumin/Globulin Ratio (0.9-2) Beta-Hydroxybutyric Acd (0.2-2.81) mg/dl Procalcitonin (0-0.5) ng/ml COVID-19 Eval Order SARS-CoV-2, RNA, NAAT (NEGATIVE) Imaging Data Radiologist's Impression: Patient: MICKEY DAWKINS Admit Date: 12/18/20 MR#: [id number] Address1: [address] [place] [address] Acct ID:[id number] Address2: Date: 1950 [facility] Zip: [place] [address] Age: 70 Location: ED Sex: M Room/Bed: Att Phy: Diagnosis: vomiting for 4 days, hyperglycemia Kendy Phy: Christopher Bella DO Service Date: 12/18/20 Fam Phy: Interpreting Phy: Isiah Raymond MD Admit Phy: Ordering Phy: Fabien Cote DO cc: ~ ULTRASOUND BILATERAL LOWER EXTREMITY VENOUS CLINICAL HISTORY: Lower extremity edema. COMPARISON STUDY: No priors. TECHNIQUE: Real-time, grayscale, and color Doppler sonography of the deep veins of the right and left lower extremity was performed from the inguinal crease to the calf. Compression and augmentation were utilized. FINDINGS: There is no sonographic evidence of deep venous thrombosis identified in the right or left lower extremity. The common femoral, superficial femoral, and popliteal veins are patent and normally compressible bilaterally. The greater saphenous vein and the profunda femoris vein at the junction with the common femoral vein are clear in both legs. The visualized calf veins are patent bilaterally. Soft tissue edema is noted in both legs. IMPRESSION: There is no sonographic evidence of deep venous thrombosis identified in the right or left lower extremity. ACT 112: Negative or not required by law. Electronically signed by: Isiah Raymond M.D. 12/18/2020 9:10 PM Dictated: 12/18/202108 Transcribed: 12/18/202108 Patient: MICKEY DAWKINS Admit Date: 12/18/20 MR#: [id number] Address1: [address] [place] [address] Acct ID:[id number] Address2: Date: 1950 [facility] Zip: [place] [address] Age: 70 Location: ED Sex: M Room/Bed: Att Phy: Diagnosis: vomiting for 4 days, hyperglycemia Kendy Phy: Christopher Bella DO Service Date: 12/18/20 [facility] Phy: Interpreting Phy: Isiah Raymond MD Admit Phy: Ordering Phy: Fabien Cote DO cc: ~ SINGLE VIEW CHEST CLINICAL HISTORY: Sepsis. FINDINGS: 2 AP, portable, upright chest radiographs are compared to study dated 03/22/2020. The examination is degraded by portable technique and patient rotation. The heart is enlarged. There is mild pulmonary vascular congestion. There are small pleural effusions with bibasilar consolidation. The skeletal structures are osteopenic. The bony thorax is grossly intact. IMPRESSION: 1. Cardiomegaly with evidence of congestive failure. 2. Small pleural effusions with bibasilar consolidation. This likely represents atelectasis. Correlate clinically for evidence of superimposed pneumonia. Radiographic follow-up to resolution is recommended. ACT 112: Negative or not required by law. Electronically signed by: Isiah Raymond M.D. 12/18/2020 8:27 PM Dictated: 12/18/202024 Transcribed: 12/18/202024 Discharge Plan Visit Data Chief Complaint: Illness Stated Complaint: vomiting for 4 days, hyperglycemia ED Provider: Fabien Cote Discharge Problem: Cellulitis, CHF (congestive heart failure), Atrial fibrillation with rapid ventricular response, Elevated troponin I level Patient Disposition: Being Evaluated by Hospitalist Condition: Good Forms Stand Alone Forms: [facility] [employer] Prescriptions Prescriptions: No Action trazodone 50 mg Tablet 50 mg PO HS PRN (Reason: Sleep) RF: 0 sotalol [Betapace] 80 mg tablet 80 mg PO BID RF: 0 clopidogrel [Plavix] 75 mg tablet 75 mg PO DAILY RF: 0 warfarin 5 mg Tablet 5 mg PO DAILY RF: 0 losartan 25 mg Tablet 25 mg PO DAILY RF: 0 nitroglycerin [Nitrostat] 0.4 mg Tablet, Sublingual 0.4 mg sublingual UD PRN (Reason: Chest Pain) RF: 0 furosemide [Lasix] 20 mg Tablet 20 mg PO BID RF: 0 metformin [Glucophage XR] 500 mg tablet extended release 24 hr 500 mg PO BID RF: 0 Referrals Referrals: Christopher Bella DO [Primary Care Provider] - Discharge Problem: Cellulitis Qualifiers: Site of cellulitis: extremity Site of cellulitis of extremity: lower extremity Laterality: left Qualified Code(s): L03.116 - Cellulitis of left lower limb CHF (congestive heart failure) Qualifiers: Heart failure type: unspecified Heart failure chronicity: acute on chronic Qualified Code(s): I50.9 - Heart failure, unspecified
[2020-12-18 20:09] LABS: Albumin Globulin Ratio 0.7 (0.9-2); Albumin Level 2.9 gm/dl (3.4-5.0); BUN Creatinine Ratio 17.7 (10-20); Bilirubin,Total 1.1 mg/dl (0.2-1); Calcium 8.6 mg/dl (8.5-10.1); Creatinine Clr Calc Pharmacy 65.6 ml/min; Est GFR (African American) 49.2; Est GFR (Non-African American) 42.4; Globulin 4.2 gm/dl (2.5-4.0); Magnesium 1.9 mg/dl (1.8-2.4); Potassium 4.5 mmol/L (3.5-5.1); Total Protein 7.1 gm/dl (6.4-8.2); Troponin I 0.082 ng/ml (0-0.045)
--- NOTE | 2020-12-18 20:28 | XRay Report ---
SINGLE VIEW CHEST CLINICAL HISTORY: Sepsis. FINDINGS: 2 AP, portable, upright chest radiographs are compared to study dated 03/22/2020. The examin ation is degraded by portable technique and patient rotation. The heart is enlarged. There is mild pu lmonary vascular congestion. There are small pleural effusions with bibasilar consolidation. The skel etal structures are osteopenic. The bony thorax is grossly intact. IMPRESSION: 1. Cardiomegaly with evidence of congestive failure. 2. Small pleural effusions with bibasilar consolidation. This likely represents atelectasis. Correlat e clinically for evidence of superimposed pneumonia. Radiographic follow-up to resolution is recommen ded. ACT 112: Negative or not required by law. Electronically signed by: Isiah Raymond M.D. 12/18/2020 8:27 PM
[2020-12-18 20:35] LABS: Platelet Count 126 K/uL (130-400)
[2020-12-18 20:37] LABS: Basophils # (auto) 0.07 K/uL (0-0.2); Basophils % (auto) 0.8 %; Eosinophils # (auto) 0.14 K/uL (0-0.5); Eosinophils % (auto) 1.7 %; Giant Platelets 1+; Immature Granulocytes # (auto) 0.01 K/uL (0.00-0.02); Immature Granulocytes % (auto) 0.1 %; Lymphocytes # (auto) 2.07 K/uL (1.2-3.4); Lymphocytes % (auto) 25.1 %; Monocytes # (auto) 0.49 K/uL (0.11-0.59); Monocytes % (auto) 5.9 %; Neutrophils # (auto) 5.46 K/uL (1.4-6.5); Neutrophils % (auto) 66.4 %; Platelet Estimate Decreased (Normal); Polychromasia 1+
--- NOTE | 2020-12-18 21:11 | Ultrasound Report ---
ULTRASOUND BILATERAL LOWER EXTREMITY VENOUS CLINICAL HISTORY: Lower extremity edema. COMPARISON STUDY: No priors. TECHNIQUE: Real-time, grayscale, and color Doppler sonography of the deep veins of the right and left lower extremity was performed from the inguinal crease to the calf. Compression and augmentation wer e utilized. FINDINGS: There is no sonographic evidence of deep venous thrombosis identified in the right or left lower extremity. The common femoral, superficial femoral, and popliteal veins are patent and normally compressible bilaterally. The greater saphenous vein and the profunda femoris vein at the junction w ith the common femoral vein are clear in both legs. The visualized calf veins are patent bilaterally. Soft tissue edema is noted in both legs. IMPRESSION: There is no sonographic evidence of deep venous thrombosis identified in the right or lef t lower extremity. ACT 112: Negative or not required by law. Electronically signed by: Isiah Raymond M.D. 12/18/2020 9:10 PM
[2020-12-18] MEDS ORDERED: cefTRIAXone SODIUM 1,000 MG/50 ML BAG IV STA (21:36)
[2020-12-18] MEDS ORDERED: DOXYCYCLINE HYCLATE 100 MG in DEXTROSE 5% 100 ML IV STA (21:47)
[2020-12-18] MEDS ORDERED: INSULIN HUMAN REGULAR PER UNIT 10 UNITS in SYRINGE 9.9 ML IV STA (21:54)
[2020-12-18] MEDS ORDERED: SOTALOL HCL 80 MG TAB PO STA (22:02)
[2020-12-18] MEDS ORDERED: INSULIN GLARGINE SOLOSTAR 100 UNITS/ML 3 ML PEN SC STA (22:19)
[2020-12-18] MEDS ORDERED: FUROSEMIDE 40 MG/4 ML VIAL IV STA (22:20)
--- NOTE | 2020-12-18 22:21 | History & Physical Report ---
Date of Service December 18, 2020 Assessment & Plan (1) Decompensated heart failure: hx chronic systolic heart failure (EF 25 to 30%, TTE 2019) secondary to ischemic cardiomyopathy Multifactorial : Uncontrolled heart rate from missed Sotalol doses the last 2 weeks OTC NSAID intake ARF on CKD secondary to illness, NSAID intake contributory Troponin elevation secondary to CHF in the setting of kidney dysfunction Left leg cellulitis, no sepsis for now hx CAD status post stent PAF on Coumadin, sinus tachycardia, INR subtherapeutic hypertension, stable hyperlipidemia, statin intolerance hypothyroidism, recent outpatient TSH noted to be elevated at 12 DM2 insulin requiring, suboptimal control as of recent outpatient hemoglobin A1c of 21 December 2020 Suspect medication noncompliance Possible functional disability chronic thrombocytopenia PCU Lasix albumin Monitor renal function daily Strict I/Os, daily weights, CHF education, fluid restriction Facilitate Sotalol Patient counseled about hazards of OTC NSAID intake given comorbidities. Cardiology consult RE decompensated heart failure Follow troponin Doxycycline for left leg cellulitis Recheck TSH Basal insulin, ISS BG goal [id number], carb count coverage, DM education PT OT eval DVT prophylaxis. Coumadin INR goal between 2 and 3 Full code Text document was generated using [employer] voice recognition software. It may contain grammatical or spelling errors. Kindly contact undersigned for clarification of any documentation item in question. History of Present Illness Chief Complaint: Shortness of breath, leg swelling Primary Care Provider: Dr. Ayala History obtained from patient and records. Medical history significant for chronic systolic heart failure (EF 25 to 30%, TTE 2019) secondary to ischemic cardiomyopathy, CAD status post stent, A. fib on Coumadin, hypertension, hyperlipidemia, hypothyroidism, DM2 insulin requiring, CRI (baseline creatinine 1.3), chronic thrombocytopenia. Last confinement March 2020 for decompensated heart failure. 2 weeks ago, patient ran out of of sotalol prescription. Subsequent generalized weakness and fatigue. Some nausea symptoms. No chest pain. No unusual cough symptoms. Increased fluid retention and weight gain. Patient claims to be compliant with home diuretic regimen. Patient not on fluid restriction as per her account. Increase left leg redness with pruritus noted with pain. Intermittent OTC NSAID intake at home for left leg pain. Patient evaluated at the ER. 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 Allergies Allergy/AdvReac Type Severity Reaction Status Date / Time lisinopril AdvReac Intermediate COUGH Verified 12/18/20 20:39 atorvastatin AdvReac Muscle Pain Verified 12/18/20 20:39 Home Medications Medication Instructions Recorded Confirmed Type clopidogrel [Plavix] 75 mg PO DAILY 12/18/20 12/18/20 History furosemide [Lasix] 20 mg PO BID 12/18/20 12/18/20 History insulin glargine [Lantus Solostar 35 unit SUBCUT DAILY 12/18/20 12/18/20 History U-100 Insulin] losartan 25 mg PO DAILY 12/18/20 12/18/20 History metformin [Glucophage XR] 500 mg PO BID 12/18/20 12/18/20 History nitroglycerin [Nitrostat] 0.4 mg SUBLINGUAL UD PRN 12/18/20 12/18/20 History sotalol [Betapace] 80 mg PO BID 12/18/20 12/18/20 History trazodone 50 mg PO HS PRN 12/18/20 12/18/20 History warfarin 5 mg PO DAILY 12/18/20 12/18/20 History Past Med/Surg History Medical History (Updated 12/19/20 @ 13:51 by Diogenes Yarbrough DO) CAD (coronary artery disease) "03/2009 - STEMI, s/p PTCA and stenting RCA, chronic LAD occlusion, 40% left main lesion" CVA (cerebral vascular accident) DM type 2 (diabetes mellitus, type 2) Dyslipidemia HTN (hypertension) Hypothyroidism Paroxysmal atrial fibrillation STEMI (ST elevation myocardial infarction) Systolic and diastolic CHF, chronic Thrombocytopenia Uncontrolled type 2 diabetes mellitus Surgical History H/O colonoscopy 06/2018 - diverticulosis - Dr Samreen Suárez Hx of cardiac cath 2008 - multivessel disease s/p stent RCA with residual chronic occlusion LAD with collaterals and 40% narrowing left main Family History Other Coronary heart disease Diabetes Social History Smoking Status: Never smoker Second Hand Exposure: Yes; Hx Alcohol Use: Yes Alcohol type: wine Hx Substance Use: No Preferred Language: Wallisian Communication Ability: Effective Ultrasound Technol Required: No Beliefs That Will Affect Care: None marital status: Single Current Living Situation: Alone Other Information That Helps Us Care for You: No Feels Safe at Home: Yes Safety Concerns: Feels Safe At This Time Assistive Devices: Cane and Glasses Review of Systems Review of Systems: As per HPI, all 10 systems reviewed, all other ROS negative Physical Exam Physical Exam: GENERAL: Comfortable, obese, no respiratory distress SKIN: Normal color, warm HEENT: Bespectacled, Coleman palpebral conjunctivae, no ptosis, moist buccal mucosa NECK : Supple, short neck, no tenderness CHEST : Decreased breath sounds, bibasilar crackles, no tenderness HEART : Tachycardic, diminished S1-S2, no obvious murmurs ABDOMEN: distention, nontender EXTREMITIES : Bilateral LE swelling/tenderness, LLE erythema, rash LLE > RLE with some excoriations, no other conspicuous deformities noted NEUROLOGIC : Coherent, no facial asymmetry, no other gross focality Results & Data Results & Data ([facility]) Vital Signs (Past 12 Hours) Vital Signs Temp Pulse Resp BP Pulse Ox 12/18/20 22:16 113 H 24 154/101 H 94 12/18/20 22:00 114 H 22 139/111 H 95 12/18/20 21:30 114 H 16 132/103 H 96 12/18/20 21:24 114 H 20 133/87 95 12/18/20 20:00 116 H 20 139/99 94 12/18/20 19:44 115 H 24 131/101 H 95 12/18/20 19:40 115 H 22 97 12/18/20 19:34 116 H 18 127/99 96 12/18/20 19:03 36.0 C L 116 H 21 146/92 H 96 Laboratory Results Laboratory Results WBC 8.24 K/uL (4.8-10.8) 12/18/20 19:30 RBC 5.77 M/uL (4.7-6.1) 12/18/20 19:30 Hgb 15.4 g/dL (14.0-18.0) 12/18/20 19:30 Hct 46.7 % (42-52) 12/18/20 19:30 MCV 80.9 fL (80-100) 12/18/20 19:30 MCH 26.7 pg (25-34) 12/18/20 19: MCHC 33.0 g/dL (32-36) 12/18/20: RDW Std Deviation 49.7 fL (36.4-46.3) H 12/18/20: RDW Coeff of Erik 16.9 % (11.5-14.5) H 12/18/20: Plt Count 126 K/uL (130-400) L 12/18/20: Immature Gran % (Auto) 0.1 % 12/18/20: Neut % (Auto) 66.4 % 12/18/20: Lymph % (Auto) 25.1 % 12/18/20: Young % (Auto) 5.9 % 12/18/20: Eos % (Auto) 1.7 % 12/18/20 Baso % (Auto) 0.8 % 12/18/20: Neut # (Auto) 5.46 K/uL (1.4-6.5) 12/18/20: Lymph # (Auto) 2.07 K/uL (1.2-3.4) 12/18/20 19:30 Young # (Auto) 0.49 K/uL (0.11-0.59) 12/18/20: Eos # (Auto) 0.14 K/uL (0-0.5) 12/18/20 Baso # (Auto) 0.07 K/uL (0-0.2) 12/18/20: Immature Gran # (Auto) 0.01 K/uL (0.00-0.02) 12/18/20: Platelet Estimate Decreased (Normal) L 12/18/20: Giant Platelets 1+ 12/18/20: Polychromasia 1+ 12/18/20: PT 13.7 Seconds (9.0-12.0) H 12/18/20: INR 1.4 (0.9-1.1) H 12/18/20: APTT 25.6 Seconds (21.0-31.0) 12/18/20: PTT Ratio 1.0 12/18/20 19: Sodium 136 mmol/L (136-145) 12/18/20 19:30 Potassium 4.5 mmol/L (3.5-5.1) 12/18/20 19:30 Chloride 103 mmol/L (98-107) 12/18/20 19:30 Carbon Dioxide 26 mmol/L (21-32) 12/18/20 19:30 Anion Gap 7.0 (3-11) 12/18/20 19:30 BUN 28 mg/dl (7-18) H 12/18/20 19:30 Creatinine 1.60 mg/dl (0.6-1.4) H 12/18/20 19:30 Est Cr Clr Drug Dosing 65.6 ml/min 12/18/20 19:30 Est GFR ( Amer) 49.2 12/18/20 19:30 Est GFR (Non-Af Amer) 42.4 12/18/20 19:30 BUN/Creatinine Ratio 17.7 (10-20) 12/18/20 19:30 Glucose 365 mg/dl (70-99) H* 12/18/20 19:30 POC Glucose 355 mg/dl (70-99) H* 12/18/20 19:47 Lactate 2.0 mmol/L (0.4-2.0) 12/18/20 21:34 Calcium 8.6 mg/dl (8.5-10.1) 12/18/20 19:30 Magnesium 1.9 mg/dl (1.8-2.4) 12/18/20 19:30 Total Bilirubin 1.1 mg/dl (0.2-1) H 12/18/20 19:30 AST 39 U/L (15-37) H 12/18/20 19:30 ALT 40 U/L (12-78) 12/18/20 19:30 Alkaline Phosphatase 119 U/L (45-117) H 12/18/20 19:30 Troponin I 0.082 ng/ml (0-0.045) H* 12/18/20 19:30 Total Protein 7.1 gm/dl (6.4-8.2) 12/18/20 19:30 Albumin 2.9 gm/dl (3.4-5.0) L 12/18/20 19:30 Globulin 4.2 gm/dl (2.5-4.0) H 12/18/20 19:30 Albumin/Globulin Ratio 0.7 (0.9-2) L 12/18/20 19:30 Beta-Hydroxybutyric Acd mg/dl (0.2-2.81) 12/18/20 19:30 Procalcitonin < 0.05 ng/ml (0-0.5) 12/18/20 19:30 [facility]19 [facility] 12/18/20 19:35 SARS-CoV-2, RNA, NAAT NEGATIVE (NEGATIVE) 12/18/20 19:35 Diagnostic Findings Chest x-ray : 1. Cardiomegaly with evidence of congestive failure. 2. Small pleural effusions with bibasilar consolidation. This likely represents atelectasis. Correlate clinically for evidence of superimposed pneumonia. Radiographic follow-up to resolution is recommended. Ascites abdominal ultrasound: 1. Small volume abdominopelvic ascites. 2. Small pleural effusions. LE venous Dopplers: There is no sonographic evidence of deep venous thrombosis identified in the right or left lower extremity. EKG as per my interpretation : Rate 115, sinus tachycardia, LAD, LAFB, inferior infarct, T wave inversion, lateral leads
[2020-12-18] MEDS ORDERED: WARFARIN SOD 5 MG TAB PO STA (22:30)
[2020-12-18] MEDS: ALBUMIN 25% 12.5 GM/50 ML VIAL IV SCH (22:44)
[2020-12-18] MEDS ORDERED: DEXTROSE 50% 50 ML SYRINGE IV PRN (23:21)
[2020-12-18] MEDS ORDERED: GLUCOSE 40% GEL 15 GM TUBE PO PRN (23:21)
[2020-12-18] MEDS ORDERED: traZODone HCL 50 MG TAB PO PRN (23:21)
[2020-12-18] MEDS ORDERED: HYDROmorphone INJ 0.5 MG/0.5 ML SYR IV PRN (23:21)
[2020-12-18] MEDS ORDERED: traMADol HCL 50 MG TABLET PO PRN (23:21)
[2020-12-18] MEDS ORDERED: GLUCAGON FOR INJ 1 MG VIAL SQ PRN (23:21)
[2020-12-18] MEDS ORDERED: NITROGLYCERIN SL 0.4 MG/TAB TAB SL PRN ×2 (23:21)
[2020-12-18] MEDS ORDERED: PROMETHAZINE HCL 12.5 MG in SODIUM CHLORIDE 0.9% 50 ML IV PRN (23:21)
[2020-12-18] MEDS ORDERED: GLUCOSE 10 TABS/TUBE PO PRN (23:21)
[2020-12-18] MEDS ORDERED: CARBOHYDRATES FOR HYPOGLYCEMIA PO PRN (23:21)
--- NOTE | 2020-12-18 23:43 | Ultrasound Report ---
ULTRASOUND ASCITES CHECK CLINICAL HISTORY: Abdominal distention. COMPARISON STUDY: No priors. FINDINGS: Real-time grayscale sonography of all 4 quadrants of the abdomen is performed to assess for abdominal ascites. There is a small volume of abdominopelvic ascites seen all 4 quadrants. This is i nsufficient for paracentesis. Small pleural effusions are noted. IMPRESSION: 1. Small volume abdominopelvic ascites. 2. Small pleural effusions. Electronically signed by: Isiah Raymond M.D. 12/18/2020 11:42 PM
[2020-12-19] MEDS: ALBUMIN 25% 12.5 GM/50 ML VIAL IV SCH ×3 (00:22→20:37)
[2020-12-19 00:23] LABS: Appearance Urine Clear (Clear); Bacteria Urine Automated Negative (Negative); Bilirubin Urine Negative (Negative); Blood Urine Negative (Negative); Color Urine Yellow; Glucose Urine UA 3+ (Negative); Ketones Urine Negative (Negative); Leukocyte Esterase Urine Negative (Negative); Nitrite Urine Negative (Negative); Protein Urine 2+ (Negative); RBC Urine Automated 0-4 /hpf (0-4); Specific Gravity Urine 1.019 (1.000-1.030); Urobilinogen Urine Negative (Negative)
[2020-12-19] MEDS: INSULIN ASPART 100 UNITS/ML 3 ML PEN SC SCH ×5 (00:26→21:23)
[2020-12-19 06:47] LABS: Mean Corpuscular Hgb Conc 32.4 g/dL (32-36)
[2020-12-19 06:56] LABS: INR 1.6 (0.9-1.1); Prothrombin Time 15.5 Seconds (9.0-12.0)
[2020-12-19 06:58] LABS: Hematocrit (blood only) 42.9 % (42-52); Hemoglobin 13.9 g/dL (14.0-18.0); Mean Corpuscular Volume 80.3 fL (80-100); RDW Coefficient of Variation 16.9 % (11.5-14.5); RDW Standard Deviation 49.1 fL (36.4-46.3); Red Blood Count 5.34 M/uL (4.7-6.1); White Blood Count 8.58 K/uL (4.8-10.8)
[2020-12-19 07:16] LABS: Platelet Count 135 K/uL (130-400)
[2020-12-19 07:17] LABS: Basophils # (auto) 0.06 K/uL (0-0.2); Basophils % (auto) 0.7 %; Eosinophils # (auto) 0.24 K/uL (0-0.5); Eosinophils % (auto) 2.8 %; Giant Platelets 2+; Immature Granulocytes # (auto) 0.01 K/uL (0.00-0.02); Immature Granulocytes % (auto) 0.1 %; Lymphocytes # (auto) 2.14 K/uL (1.2-3.4); Lymphocytes % (auto) 24.9 %; Monocytes # (auto) 0.68 K/uL (0.11-0.59); Monocytes % (auto) 7.9 %; Neutrophils # (auto) 5.45 K/uL (1.4-6.5); Neutrophils % (auto) 63.6 %; Platelet Estimate Decreased (Normal)
[2020-12-19 07:20] LABS: BUN Creatinine Ratio 19.9 (10-20); Calcium 8.3 mg/dl (8.5-10.1); Creatinine Clr Calc Pharmacy 55.1 ml/min; Est GFR (African American) 53.6; Est GFR (Non-African American) 46.2
[2020-12-19 07:25] LABS: Troponin I 0.079 ng/ml (0-0.045)
[2020-12-19] MEDS: CLOPIDOGREL BISULFATE 75 MG TAB PO SCH (08:17)
[2020-12-19] MEDS: INSULIN GLARGINE SOLOSTAR 100 UNITS/ML 3 ML PEN SC SCH ×2 (08:18→21:26)
[2020-12-19] MEDS: FUROSEMIDE 40 MG in SYRINGE 0 ML IV SCH ×2 (08:18→17:11)
[2020-12-19] MEDS ORDERED: SOTALOL HCL 80 MG TAB PO SCH (09:00)
[2020-12-19] MEDS ORDERED: FUROSEMIDE 40 MG/4 ML VIAL IV SCH (09:00)
[2020-12-19] MEDS ORDERED: DOXYCYCLINE HYCLATE 100 MG CAP PO SCH (10:00)
--- NOTE | 2020-12-19 10:16 | Cardiology Consultation ---
Date of Consultation December 19, 2020 Assessment & Plan (1) Decompensated heart failure: (2) Cellulitis: (3) Uncontrolled type 2 diabetes mellitus: (4) Depression: (5) Hyperkalemia: (6) Hx of cardiac cath: (7) Dementia: (8) Prolonged QT interval: (9) Ischemic cardiomyopathy: The patient presents with acute cellulitis and decompensated systolic heart failure. He is also been noncompliant with his sotalol but despite this his QTC remains prolonged. He is in atrial flutter at this time with variable rate response and examines is volume overloaded. Agree with continued diuresis We will hold off on reinitiation of sotalol at this time given the prolonged QT interval and will follow closely. Metoprolol will be added as necessary for rate control. His INR is also subtherapeutic and his Coumadin will be continued. Echocardiogram will also be repeated during hospitalization. Continue to follow on telemetry. History of Present Illness Attending Physician: Patt Brito, DO History of Present Illness It was my pleasure to see Dr. Benavidez in cardiac consultation today. He is followed sporadically with us as an outpatient but has not shown for his last 2 outpatient follow-ups. He presented to [facility] on 12/18/2020 with complaints of leg pain and shortness of breath. He states that for the last 3 weeks he is just not been feeling well. He developed cellulitis of his left lower extremity and since then he feels as though his blood sugars have been uncontrolled. He stopped taking his sotalol approximately 2 weeks ago after he ran out and did not refill the medication. He does carry history of medication noncompliance coinciding with episodes of depression. Upon arrival to the emergency department he was found to be in atrial flutter and his sotalol was resumed. He was also initiated on treatment for his cellulitis. Currently states he just feels tired and rundown. He denies chest pain, shortness of breath, lightheadedness or dizziness. Past medical history as per most recent outpatient cardiology visit: 1. Atherosclerotic coronary disease status post ST-elevation myocardial infarction March of 2009. 2. Catheterization at that time revealed multivessel disease, s/p PTCA and stenting of right coronary artery urgently with residual chronic occlusion of the LADwith collaterals and a 40% narrowing of the left main. 3. Paroxysmal atrial fibrillation. 4. History of embolic cerebrovascular infarct, right basal ganglia, April of 2016. 5. Decompensated acute systolic and diastolic congestive heart failure in the setting of atrial fibrillation with rapid ventricular response, 09/20/2016, subsequent hospitalization. 6. Status post synchronized electrical cardioversion, 10/31/2016. 7. Hyperlipidemia 8. Hypertension. 9. 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 Abnormal stress testing leading to diagnostic cardiac catheterization December 03, 2018 demonstrating patent right coronary stent chronic proximal LAD occlusion and high-grade proximal circumflex stenosis receiving drug-eluting stent to circumflex 11. Acute decompensated systolic heart failure secondary to lab some medical therapies March 20, 2020 with recurrence of atrial fibrillation Allergies Allergy/AdvReac Type Severity Reaction Status Date / Time lisinopril AdvReac Intermediate COUGH Verified 12/18/20 20:39 atorvastatin AdvReac Muscle Pain Verified 12/18/20 20:39 Home Medications Medication Instructions Recorded Confirmed Type clopidogrel [Plavix] 75 mg PO DAILY 12/18/20 12/18/20 History furosemide [Lasix] 20 mg PO BID 12/18/20 12/18/20 History insulin glargine [Lantus Solostar 35 unit SUBCUT DAILY 12/18/20 12/18/20 History U-100 Insulin] losartan 25 mg PO DAILY 12/18/20 12/18/20 History metformin [Glucophage XR] 500 mg PO BID 12/18/20 12/18/20 History nitroglycerin [Nitrostat] 0.4 mg SUBLINGUAL UD PRN 12/18/20 12/18/20 History sotalol [Betapace] 80 mg PO BID 12/18/20 12/18/20 History trazodone 50 mg PO HS PRN 12/18/20 12/18/20 History warfarin 5 mg PO DAILY 12/18/20 12/18/20 History Patient History Medical History (Updated 12/19/20 @ 13:51 by Diogenes Yarbrough DO) CAD (coronary artery disease) "03/2009 - STEMI, s/p PTCA and stenting RCA, chronic LAD occlusion, 40% left main lesion" CVA (cerebral vascular accident) DM type 2 (diabetes mellitus, type 2) Dyslipidemia HTN (hypertension) Hypothyroidism Paroxysmal atrial fibrillation STEMI (ST elevation myocardial infarction) Systolic and diastolic CHF, chronic Thrombocytopenia Uncontrolled type 2 diabetes mellitus Surgical History H/O colonoscopy 06/2018 - diverticulosis - Dr Samreen Suárez Hx of cardiac cath 2008 - multivessel disease s/p stent RCA with residual chronic occlusion LAD with collaterals and 40% narrowing left main Family History Other Coronary heart disease Diabetes Social History Smoking Status: Never smoker Second Hand Exposure: Yes; Hx Alcohol Use: Yes Alcohol type: wine Hx Substance Use: No Preferred Language: Kenyan Communication Ability: Effective 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 No acute distress. HEENT: Normocephalic, atraumatic. Pupils equal, round and reactive to light and accommodation. Extraocular muscles are intact. Anicteric sclera. Moist mucous membranes. Neck: No JVD. No bruit. Cardiovascular: irregularly irregular, unable to appreciate murmur, rub or gallop. Pulmonary: Clear to auscultation bilaterally. No rales, rhonchi, or wheezing. Abdomen: Bowel sounds x 4, soft. No rebound, guarding or tenderness. No organomegaly. Extremities: No clubbing, cyanosis or edema. +2 pedal pulses bilaterally. Skin: Warm and dry. Results & Data ([facility]) Vital Signs (Past 12 Hours) Vital Signs Temp Pulse Pulse Resp BP BP BP 12/19/20 07:03 36.5 C 87 20 125/87 12/19/20 05:47 36.5 C 92 H 20 134/89 12/19/20 03:56 36.7 C 93 H 20 100/64 12/18/20 23:25 36.5 C 116 H 20 135/93 12/18/20 23:00 112 H 20 129/103 H 12/18/20 22:30 112 H 22 132/107 H Pulse Ox 12/19/20 07:03 96 02/14/21 05:47 97 12/19/20 03:56 92 12/18/20 23:25 97 12/18/20 23:00 96 12/18/20 22:30 92 (1) Cellulitis Laterality: left Site of cellulitis: extremity Site of cellulitis of extremity: lower extremity Qualified Code(s): L03.116 - Cellulitis of left lower limb
[2020-12-19] MEDS ORDERED: LIDOCAINE 2% JELLY 5 ML TUBE EXT PRN (15:46)
--- NOTE | 2020-12-19 15:53 | Hospitalist Progress Note ---
Date of Service December 19, 2020 Assessment & Plan (1) Acute systolic heart failure: History of ejection fraction 25 to 30% on prior echo in 2020 secondary to ischemic cardiomyopathy. Recent decompensation likely multifactorial including uncontrolled heart rate from the sotalol doses in the last 2 weeks along with likely noncompliance with other medications including furosemide. He also has an apparent infection on his right lower extremity that he has no recollection of. He does not remember how the current wound got there. Cardiology was consulted and recommends holding sotalol and using metoprolol as needed for any elevated heart rates at this time in the setting of prolonged QTC. We will also hold trazodone for the same reason. Continue IV Lasix twice daily as ordered, strict I's nose with Barrett in place, daily weights, fluid restriction, low-salt diet. (2) Prolonged QT interval: Hold sotalol and trazodone per plan above. Will utilize metoprolol per cardiology recommendation as needed if heart rate rises overnight or this admission. Long-term plan per cardiology regarding rate control versus rhythm control strategy for atrial fibrillation. (3) Cellulitis of left lower extremity: Warm hot red right lower extremity present under the bandage with a vertical wound present and slight purulent drainage. Wound culture ordered and doxycycline switch to IV Rocephin. Patient is not septic and does not have a fever or white count at this time. Wound care (4) Uncontrolled type 2 diabetes mellitus: Blood sugar has improved overnight with current insulin regimen. Continue basal bolus insulin while hospitalized and adjust as needed. A1c pending. (5) Elevated troponin I level: Likely related to demand ischemia with tachycardia persistent on arrival in the setting of acute heart failure. No ACS is present. Cardiology following. (6) Atrial fibrillation with rapid ventricular response: He is in atrial flutter per cardiology at this time with variable rate response. He was given sotalol 80 mg p.o. twice today in addition to IV diuretics to help with rate control. Current heart rate is within normal limits. Anticoagulated with warfarin with subtherapeutic INR. (7) Noncompliance with medications: (8) DVT prophylaxis: Warfarin, consider Lovenox for DVT prophylaxis if INR persist less than 2 Full code Disposition-pending further insight into patient's home life and capabilities during this hospitalization. PT and OT have been consulted. Appreciate case management assistance. Patt Brito DO [facility] Hospitalist Admission and Anticipated Discharge Date Admission Date: December 18, 2020 Subjective The patient is a 70-year-old man who presented to the ER with generalized weakness and fatigue. Dyspnea on exertion was also present as well as swelling in both legs more so in the left. Chest x-ray demonstrated volume overload and small pleural effusions. Bibasilar atelectasis was present with negative procalcitonin and no admitted cough fever or chills. He was admitted to the hospitalist service and placed on Lasix therapy. He was able to diurese approximately 1 L out overnight. He feels somewhat better today. Denies chest pain. He has had some noncompliance with medication in recent weeks. It appears he has had significant difficulties as his neighbors have mentioned to nursing staff that he takes frequent meals with them and has recently been vomiting his food and acting somewhat inappropriately. They expressed concerns that he cannot live on his own any longer. The patient is reporting depressive feelings over recent political news and is tearful over this. No suicidal ideations reported. He appears somewhat overwhelmed and is focused on it expressing his concern for growing old and being a burden on others. Nursing staff informed me that he did vomit his food after just a few bites this evening. Review of Systems Review of Systems: All systems reviewed & are unremarkable except as noted in Subjective Physical Exam Physical Exam: CONSTITUTIONAL: WNWD, vitals as above, generally well- appearing EYES: normal conjunctivae, no scleral icterus ENT: external ear and nose normal, oropharynx clear, MMM NECK: trachea midline RESPIRATORY: clear to auscultation bilaterally, no crackles, rales or wheezes, normal respiratory effort CARDIOVASCULAR: regular rate and rhythm, S1 and 2 heard without murmurs, gallops or rubs, no JVD, no peripheral edema CHEST: inspection of chest was normal GASTROINTESTINAL: soft, nontender, nondistended MUSCULOSKELETAL: strength 5/5 throughout, head is normocephalic and atraumatic SKIN: warm and dry, lower right leg has a vertical leg wound with some ?purulent material present on the medial lower side. There is some surrounding erythema here. NEUROLOGIC: No facial palsy, no dysarthria. CN 2-12 grossly intact, normal cognition, normal speech PSYCHIATRIC: alert cooperative answers questions appropriately Results & Data Results & Data ([facility]) Vital Signs (Past 12 Hours) Vital Signs Temp Pulse Resp BP BP Pulse Ox 12/19/20 15:22 36.4 C L 79 20 122/86 97 12/19/20 11:29 36.4 C L 87 17 107/74 98 12/19/20 07:03 36.5 C 87 20 125/87 96 12/19/20 05:47 36.5 C 92 H 20 134/89 97 12/19/20 03:56 36.7 C 93 H 20 100/64 92 Laboratory Results Short CBC 12/18/20 12/19/20 Range/Units 19:30 06:25 WBC 8.24 8.58 (4.8-10.8) K/uL Hgb 15.4 13.9 L (14.0-18.0) g/dL Hct 46.7 42.9 (42-52) % Plt Count 126 L 135 (130-400) K/uL BMP 12/18/20 12/19/20 19:30 06:25 Sodium 136 139 Potassium 4.5 4.0 Chloride 103 105 Carbon Dioxide 26 28 BUN 28 H 30 H Creatinine 1.60 H 1.49 H Glucose 365 H* 197 H Calcium 8.6 8.3 L Cardiac Enzymes 12/18/20 12/18/20 12/19/20 Range/Units 19:30 23:41 06:25 Troponin I 0.082 H* 0.090 H* 0.079 H* (0-0.045) ng/ml Liver Function 12/18/20 Range/Units 19:30 Total Bilirubin 1.1 H (0.2-1) mg/dl AST 39 H (15-37) U/L ALT 40 (12-78) U/L Alkaline Phosphatase 119 H (45-117) U/L Albumin 2.9 L (3.4-5.0) gm/dl Urine 12/18/20 Range/Units 23:25 Urine Color Yellow Urine Appearance Clear (Clear) Urine pH 5.0 (4.5-7.5) Ur Specific [place] 1.019 (1.000-1.030) Urine Protein 2+ H (Negative) Urine Glucose (UA) 3+ H (Negative) Medications Administered Current Inpatient Medications Clopidogrel Bisulfate (Clopidogrel Bisulfate 75 Mg Tab) 75 mg PO DAILY LIN Stop: 01/18/21 08:59 Last Admin: 12/19/20 08:17 Dose: 75 mg Documented by: Dextrose (Dextrose 50% 50 Ml Syringe) 25 - 50 ml IV UD PRN; Protocol PRN Reason: Hypoglycemia Protocol Stop: 01/17/21 23:20 Glucagon (Glucagon For Inj 1 Mg Vial) 1 mg SQ UD PRN; Protocol PRN Reason: Hypoglycemia Protocol Stop: 01/17/21 23:20 Glucose (Glucose 10 Tabs/Tube) 4 - 8 tabs PO UD PRN; Protocol PRN Reason: Hypoglycemia Protocol Stop: 01/17/21 23:20 Glucose (Glucose 40% Gel 15 Gm Tube) 15 - 30 gm PO UD PRN; Protocol PRN Reason: Hypoglycemia Protocol Stop: 01/17/21 23:20 Hydromorphone HCl (Hydromorphone Inj 0.5 Mg/0.5 Ml Syr) 0.5 mg IV Q3H PRN PRN Reason: Pain Stop: 01/01/21 23:20 Albumin Human (Albumin 25%) 12.5 gm in 50 mls @ 50 mls/hr IV BID LIN Stop: 12/19/20 21:59 Last Infusion: 12/19/20 09:26 Dose: Infused Documented by: Furosemide 40 mg/ Syringe 4 mls @ 4 mls/min IV [id number] LIN Stop: 12/19/20 17:00 Last Admin: 12/19/20 08:18 Dose: 4 mls/min Documented by: Insulin Aspart (Insulin Aspart 100 Units/Ml 3 Ml Pen) 0 units SC ACHS LIN Stop: 01/17/21 23:44 Last Admin: 12/19/20 11:48 Dose: 4 units Documented by: Insulin Glargine (Insulin Glargine Solostar 100 Units/Ml 3 Ml Pen) 15 units SC BID LIN Stop: 01/18/21 08:59 Last Admin: 12/19/20 08:18 Dose: 15 units Documented by: Lidocaine HCl (Lidocaine 2% Jelly 5 Ml Tube) 15 ml EXT Q8H PRN PRN Reason: urethral Barrett discomfort Stop: 01/18/21 15:59 Miscellaneous (Carbohydrates For Hypoglycemia ) 15 - 30 gm PO UD PRN PRN Reason: Hypoglycemia Protocol Stop: 01/17/21 23:20 Nitroglycerin (Nitroglycerin Sl 0.4 Mg/Tab Tab) 0.4 mg SL UD PRN PRN Reason: Chest Pain Stop: 01/17/21 23:20 Sotalol HCl (Sotalol Hcl 80 Mg Tab) 80 mg PO BID LIN Stop: 01/18/21 08:59 Last Admin: 12/19/20 08:17 Dose: 80 mg Documented by: Tramadol HCl (Tramadol Hcl 50 Mg Tablet) 25 - 50 mg PO Q4H PRN PRN Reason: Pain Stop: 01/17/21 23:20 Trazodone HCl (Trazodone Hcl 50 Mg Tab) 50 mg PO HS PRN PRN Reason: Sleep Stop: 01/17/21 23:20 Warfarin Sodium (Warfarin Sod 5 Mg Tab) 5 mg PO DAILY@1600 [facility] Stop: 01/18/21 15:59
[2020-12-19] MEDS: WARFARIN SOD 5 MG TAB PO SCH (17:11)
[2020-12-19] MEDS: cefTRIAXone SODIUM 2,000 MG in DEXTROSE 5% 50 ML IV SCH (20:38)
--- NOTE | 2020-12-20 05:24 | Electrocardiogram Report ---
Test Reason : Blood Pressure : / mmHG Vent. Rate : 116 BPM Atrial Rate : 116 BPM P-R Int : 112 ms QRS Dur : 122 ms QT Int : 362 ms P-R-T Axes : 000 -55 131 degrees QTc Int : 503 ms Poor data quality, interpretation may be adversely affected Possible Sinus tachycardia with Premature ventricular complexes or Fusion complexes (P waves not wel l visualized; difficult to determine rhythm) Left axis deviation Inferior infarct , age undetermined Anteroseptal infarct , age undetermined Non-specific intra-ventricular conduction block Abnormal ECG When compared with ECG of 22-MAR-2020 06:41, Atrial fibrillation is no longer present Confirmed by Baljeet Baez ([id number]) on 12/20/2020 5:24:05 AM Referred By: REFERRED SELF Confirmed By:Baljeet Baez
--- NOTE | 2020-12-20 05:38 | Electrocardiogram Report ---
Test Reason : Blood Pressure : / mmHG Vent. Rate : 110 BPM Atrial Rate : 227 BPM P-R Int : 000 ms QRS Dur : 126 ms QT Int : 388 ms P-R-T Axes : 000 -69 144 degrees QTc Int : 525 ms Atrial flutter with variable A-V block with premature ventricular or aberrantly conducted complexes Left axis deviation Non-specific intra-ventricular conduction block Minimal voltage criteria for LVH, may be normal variant Inferior infarct Cannot rule out Septal infarct (cited on or before 18-DEC-2020) T wave abnormality, consider lateral ischemia Abnormal ECG When compared with ECG of 18-DEC-2020 19:32, Flutter waves are seen on current ECG Confirmed by Baljeet Baez ([id number]) on 12/20/2020 5:38:12 AM Referred By: REFERRED SELF Confirmed By:Baljeet Baez
[2020-12-20 05:58] LABS: Mean Corpuscular Hgb Conc 32.8 g/dL (32-36)
[2020-12-20 06:06] LABS: INR 1.7 (0.9-1.1); Prothrombin Time 16.9 Seconds (9.0-12.0)
[2020-12-20 06:12] LABS: Hemoglobin 15.4 g/dL (14.0-18.0); Mean Corpuscular Hemoglobin 26.2 pg (25-34); Mean Corpuscular Volume 80.1 fL (80-100); RDW Coefficient of Variation 17.2 % (11.5-14.5); RDW Standard Deviation 49.5 fL (36.4-46.3); Red Blood Count 5.87 M/uL (4.7-6.1); White Blood Count 9.72 K/uL (4.8-10.8)
[2020-12-20 06:21] LABS: Estimated Average Glucose 435 mg/dl; Hemoglobin A1C 16.8 % (4.5-5.6)
[2020-12-20 06:27] LABS: BUN Creatinine Ratio 24.1 (10-20); Calcium 8.8 mg/dl (8.5-10.1); Est GFR (African American) 55.8; Est GFR (Non-African American) 48.2; Magnesium 1.8 mg/dl (1.8-2.4); Potassium 3.6 mmol/L (3.5-5.1)
[2020-12-20 06:28] LABS: Platelet Count 150 K/uL (130-400); Platelet Estimate Decreased (Normal)
[2020-12-20] MEDS: CLOPIDOGREL BISULFATE 75 MG TAB PO SCH (08:01)
[2020-12-20] MEDS: INSULIN GLARGINE SOLOSTAR 100 UNITS/ML 3 ML PEN SC SCH ×2 (08:01→20:42)
[2020-12-20] MEDS: INSULIN ASPART 100 UNITS/ML 3 ML PEN SC SCH ×4 (08:02→20:42)
[2020-12-20] MEDS: METOPROLOL SUCC 50MG EXT REL TAB PO SCH (11:20)
--- NOTE | 2020-12-20 13:12 | Hospitalist Progress Note ---
Date of Service December 20, 2020 Assessment & Plan (1) Acute systolic heart failure: Patient is 70-year-old male who presented with a shortness of breath. His most recent EF of 25 to 30% due to ischemic cardiomyopathy. Cardiology is on board. Patient does take Lasix at home. Will order IV Lasix 40 mg now. Continue to monitor ins and outs along with daily weights. Transthoracic echo is pending. Continue holding sotalol in the setting of prolonged QTC. Continue holding trazodone as well. Patient is started on Lopressor. Barrett catheter in place for accurate ins and outs. (2) Prolonged QT interval: Continue holding sotalol and trazodone. Continue with Toprol-XL 50 mg daily. (3) Cellulitis of left lower extremity: Patient remains afebrile. White count is within normal limit. We will continue with IV ceftriaxone at this time. Wound care has been consulted. (4) Uncontrolled type 2 diabetes mellitus: Continue basal bolus insulin while hospitalized and adjust as needed. Hemoglobin A1c of 16.8. Will need clearing distribution clerk. (5) Elevated troponin I level: Likely related to demand ischemia with tachycardia persistent on arrival in the setting of acute heart failure. ACS ruled out. Cardiology is on board. (6) Atrial fibrillation with rapid ventricular response: Currently rate controlled. Continue with Coumadin. INR at 1.7 today. (7) Noncompliance with medications: (8) DVT prophylaxis: C/W coumadin Full code Disposition-pending further insight into patient's home life and capabilities during this hospitalization. PT and OT have been consulted. Appreciate case management assistance. Admission and Anticipated Discharge Date Admission Date: December 18, 2020 Subjective Patient is resting comfortably on the recliner. Reports shortness of breath is okay. Denies any cough. Denies any chest pain or any abdominal pain. Did have a bowel movement. Reports feeling nauseous and having a episode of vomiting last night. Review of Systems Review of Systems: All systems reviewed & are unremarkable except as noted in HPI & below Physical Exam Physical Exam: General: Wake and alert, oriented to person HENT: NCAT, MMM, EOMI Eyes: PERRLA Neck: Supple, normal range of motion CVS: normal rate and rhythm Resp: b/l creased breath sounds Abdomen: Soft, nondistended nontender Extremities: 2+ lower extremity edema Neuro: face symmetric, no gross focal deficit identified Skin: Left lower extremity dressings intact Results & Data Results & Data ([facility]) Vital Signs (Past 12 Hours) Vital Signs Temp Pulse Resp BP Pulse Ox 12/20/20 11:12 36.7 C 55 L 20 131/91 97 12/20/20 07:44 36.7 C 87 19 143/98 H 91 12/20/20 03:24 36.3 C L 96 H 18 134/91 98
[2020-12-20] MEDS: WARFARIN SOD 5 MG TAB PO SCH (16:47)
--- NOTE | 2020-12-20 16:55 | Cardiology Progress Note ---
Date of Service December 20, 2020 Assessment & Plan (1) Decompensated heart failure: (2) Cellulitis: (3) Uncontrolled type 2 diabetes mellitus: (4) Depression: (5) Hyperkalemia: (6) Hx of cardiac cath: (7) Dementia: (8) Prolonged QT interval: (9) Ischemic cardiomyopathy: The patient presents with acute cellulitis and decompensated systolic heart failure. He is also been noncompliant with his sotalol but despite this his QTC remains prolonged. He is in atrial flutter at this time with variable rate response and examines is volume overloaded. Agree with continued diuresis We will hold off on reinitiation of sotalol at this time given the prolonged QT interval and will follow closely. Believe he would benefit more from evidence-based beta-roseann and metoprolol succinate initiated. Echocardiogram shows further decline of LV systolic function, EF now less than 15% and now new RV systolic failure as well. Likely tachycardia induced given his uncontrolled atrial flutter without sotalol It appears that he will require help with his medications as an outpatient and home health should be considered Palliative care consult would also be in order given his end-stage disease Admission and Anticipated Discharge Date Admission Date: December 18, 2020 Subjective Patient seen and examined, out of bed in chair. Chart reviewed. States he is feeling a little bit better today. Breathing while still dyspneic when walking to the bathroom somewhat improved from presentation. Denies any chest pain, palpitations, lightheadedness or dizziness. Telemetry reviewed: Atrial fibrillation in the 100s to 120s. Review of Systems Review of Systems: All systems reviewed & are unremarkable except as noted in HPI & below Physical Exam Physical Exam: General: Awake, alert and oriented x 3. No acute distress. HEENT: Normocephalic, atraumatic. Pupils equal, round and reactive to light and accommodation. Extraocular muscles are intact. Anicteric sclera. Moist mucous membranes. Neck: No JVD. No bruit. Cardiovascular: irregularly irregular, unable to appreciate murmur, rub or gallop. Pulmonary: Clear to auscultation bilaterally. No rales, rhonchi, or wheezing. Abdomen: Bowel sounds x 4, soft. No rebound, guarding or tenderness. No organomegaly. Extremities: No clubbing, cyanosis or edema. +2 pedal pulses bilaterally. Skin: Warm and dry. Results & Data ([facility]) Vital Signs (Past 12 Hours) Vital Signs Temp Pulse Resp BP Pulse Ox 12/20/20 15:10 36.6 C 80 19 126/88 93 12/20/20 11:12 36.7 C 55 L 20 131/91 97 12/20/20 07:44 36.7 C 87 19 143/98 H 91 (1) Cellulitis Laterality: left Site of cellulitis: extremity Site of cellulitis of extremity: lower extremity Qualified Code(s): L03.116 - Cellulitis of left lower limb
[2020-12-20] MEDS: FUROSEMIDE 40 MG in SYRINGE 0 ML IV SCH (20:42)
[2020-12-20] MEDS: cefTRIAXone SODIUM 2,000 MG in DEXTROSE 5% 50 ML IV SCH (20:42)
--- NOTE | 2020-12-21 05:56 | Electrocardiogram Report ---
Test Reason : Blood Pressure : / mmHG Vent. Rate : 078 BPM Atrial Rate : 220 BPM P-R Int : 000 ms QRS Dur : 128 ms QT Int : 448 ms P-R-T Axes : 082 -81 117 degrees QTc Int : 510 ms Atrial flutter with variable A-V block Left axis deviation Non-specific intra-ventricular conduction block Poor R wave progression, consider anterior [place] vs. lead placement vs. LVH Possible Inferior infarct Abnormal ECG When compared with ECG of 19-DEC-2020 07:44, No significant change Confirmed by Baljeet Baez ([id number]) on 12/21/2020 5:56:10 AM Referred By: REFERRED SELF Confirmed By:Baljeet Baez
[2020-12-21 06:17] LABS: Mean Corpuscular Hgb Conc 32.5 g/dL (32-36)
[2020-12-21 06:26] LABS: INR 2.1 (0.9-1.1); Prothrombin Time 19.9 Seconds (9.0-12.0)
[2020-12-21 06:28] LABS: Hematocrit (blood only) 48.3 % (42-52); Hemoglobin 15.7 g/dL (14.0-18.0); Mean Corpuscular Hemoglobin 26.3 pg (25-34); Mean Corpuscular Volume 80.8 fL (80-100); RDW Coefficient of Variation 17.8 % (11.5-14.5); RDW Standard Deviation 50.6 fL (36.4-46.3); Red Blood Count 5.98 M/uL (4.7-6.1); White Blood Count 7.71 K/uL (4.8-10.8)
[2020-12-21 06:41] LABS: BUN Creatinine Ratio 23.7 (10-20); Calcium 8.4 mg/dl (8.5-10.1); Creatinine Clr Calc Pharmacy 55.9 ml/min; Est GFR (African American) 54.9; Est GFR (Non-African American) 47.4; Magnesium 1.7 mg/dl (1.8-2.4); Phosphorus 4.3 mg/dl (2.5-4.9); Potassium 3.7 mmol/L (3.5-5.1)
[2020-12-21 07:36] LABS: Platelet Count 147 K/uL (130-400)
[2020-12-21 08:34] LABS: Basophils # (auto) 0.05 K/uL (0-0.2); Basophils % (auto) 0.6 %; Eosinophils # (auto) 0.18 K/uL (0-0.5); Eosinophils % (auto) 2.3 %; Lymphocytes # (auto) 2.12 K/uL (1.2-3.4); Lymphocytes % (auto) 27.5 %; Monocytes % (auto) 10.4 %; Neutrophils # (auto) 4.56 K/uL (1.4-6.5); Neutrophils % (auto) 59.2 %
[2020-12-21] MEDS: METOPROLOL SUCC 50MG EXT REL TAB PO SCH (08:49)
[2020-12-21] MEDS: FUROSEMIDE 40 MG in SYRINGE 0 ML IV SCH ×2 (08:49→19:32)
[2020-12-21] MEDS: INSULIN ASPART 100 UNITS/ML 3 ML PEN SC SCH ×4 (08:49→20:39)
[2020-12-21] MEDS: CLOPIDOGREL BISULFATE 75 MG TAB PO SCH (08:49)
[2020-12-21] MEDS: INSULIN GLARGINE SOLOSTAR 100 UNITS/ML 3 ML PEN SC SCH ×2 (08:50→20:39)
--- NOTE | 2020-12-21 11:07 | Hospitalist Progress Note ---
Date of Service December 21, 2020 Assessment & Plan (1) Acute systolic heart failure: Patient is 70-year-old male who presented with a shortness of breath. His most recent EF of 25 to 30% due to ischemic cardiomyopathy. Cardiology is on board. Patient does take Lasix at home. Continue with IV Lasix 40 mg now. Continue to monitor ins and outs along with daily weights. Urine output of 2.8 L in the last 24 h. Transthoracic echo today with a EF of 15%. Continue holding sotalol in the setting of prolonged QTC. Continue holding trazodone as well. Patient is started on Lopressor. Barrett catheter in place for accurate ins and outs. Given his end-stage disease, would also consult palliative medicine for goals of care discussion. (2) Prolonged QT interval: Continue holding sotalol and trazodone. Continue with Toprol-XL 50 mg daily. QTC of 487 today. (3) Cellulitis of left lower extremity: Patient remains afebrile. White count is within normal limit. We will continue with IV ceftriaxone at this time. Wound care has been consulted. (4) Uncontrolled type 2 diabetes mellitus: Continue basal bolus insulin while hospitalized and adjust as needed. Hem oglobin A1c of 16.8. certified lactation educator has been consulted. Have had episodes of hypoglycemia. (5) Elevated troponin I level: Likely related to demand ischemia with tachycardia persistent on arrival in the setting of acute heart failure. ACS ruled out. Cardiology is on board. (6) Atrial fibrillation with rapid ventricular response: Currently rate controlled. Continue with Coumadin. INR at 2.1 today. (7) Noncompliance with medications: (8) DVT prophylaxis: C/W coumadin Full code Disposition-pending further insight into patient's home life and capabilities during this hospitalization. PT and OT have been consulted. Appreciate case management assistance. Admission and Anticipated Discharge Date Admission Date: December 18, 2020 Subjective Patient is doing okay. Currently remains on room air. Reports he feels better today. Urine output of 2.8 L in the last 24 h. States that shortness of breath is improved. He has been out of the bed and walked in the hallway. Denies any chest pain. Denies any abdominal pain or diarrhea. Rest of the review of system is negative. Review of Systems Review of Systems: All systems reviewed & are unremarkable except as noted in HPI & below Physical Exam Physical Exam: General: Wake and alert, oriented to person HENT: NCAT, MMM, EOMI Eyes: PERRLA Neck: Supple, normal range of motion CVS: normal rate and rhythm Resp: b/l creased breath sounds Abdomen: Soft, nondistended nontender Extremities: 2+ lower extremity edema Neuro: face symmetric, no gross focal deficit identified Skin: Left lower extremity dressings intact Results & Data Results & Data ([facility]) Vital Signs (Past 12 Hours) Vital Signs Temp Pulse Pulse Resp BP Pulse Ox 12/21/20 07:13 36.2 C L 73 18 126/88 96 12/21/20 04:29 36.4 C L 90 18 117/91 94 12/21/20 00:00 88 12/20/20 23:35 36.5 C 76 20 133/92 90
[2020-12-21] MEDS: POTASSIUM CHLORIDE CRTAB 20 MEQ TABCR PO SCH (12:15)
[2020-12-21] MEDS: SACUBITRIL-VALSARTAN 24-26 MG TAB PO SCH ×2 (13:19→19:32)
--- NOTE | 2020-12-21 13:36 | Palliative Care Consultation ---
Date of Consultation December 21, 2020 Assessment & Plan (1) Depression: He has multiple symptoms of depression, including social withdraw, labile mood, excessive somnolence, poor diet and even thoughts of being better off . He denies a suicidal plan or intent. He tells me that he cared for his mother at home until her within the last couple years. He is also mourning the loss of his previous functional status and being able to do activities that he enjoyed. He does have social support with a neighbor who cooks for him and looks in on him, a close friend and good pastoral and sikhism support. We discussed the possibility of antidepressant medications and he declines those at this time. (2) Palliative care encounter: We discussed what quality of life means to Armando and he wants to be able to care for himself and his pets. We discussed his thoughts about resuscitation. He tells me that he would not want CPR or intubation if he were not likely to be better than he feels right now, he would not want resuscitation. We reviewed statistics on survival and outcomes with CPR and he would not want to have CPR or intubation. Code status was changed to reflect this. I also asked him about who would make decisions for him if he were unable to do so and he indicated that his friend, Jozef Myers, would be his surrogate decision maker. I was not able to reach Mr. Myers but palliative care will follow and try to reach out to him. (3) Cellulitis of left lower extremity: (4) Ischemic cardiomyopathy: (5) Decompensated heart failure: (6) Atrial fibrillation with rapid ventricular response: (7) Uncontrolled type 2 diabetes mellitus: History of Present Illness Reason for Consultation: goals of care Requesting Physician: Dr. 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 He has a h/o ischemic cardiomyopathy and heart failure. Echo on this admission shows EF decreased to 15% with increased right pressure. He also has uncontrolled diabetes with an A1C of 16.8. He attributes the uncontrolled diabetes to cellulitis in his lower extremity though it seems clear that he has not been particularly compliant with a carbohydrate controlled diet at home. He reports that he feels better with diuresis and antibiotic treatment and has met with the lithographic artist and feels like glucose control is more doable at home. He is very emotionally labile and frequently tearful during our visit. Allergies Allergy/AdvReac Type Severity Reaction Status Date / Time lisinopril AdvReac Intermediate COUGH Verified 12/18/20 20:39 atorvastatin AdvReac Muscle Pain Verified 12/18/20 20:39 Home Medications Medication Instructions Recorded Confirmed Type clopidogrel [Plavix] 75 mg PO DAILY 12/18/20 12/18/20 History furosemide [Lasix] 20 mg PO BID 12/18/20 12/18/20 History insulin glargine [Lantus Solostar 35 unit SUBCUT DAILY 12/18/20 12/18/20 History U-100 Insulin] losartan 25 mg PO DAILY 12/18/20 12/18/20 History metformin [Glucophage XR] 500 mg PO BID 12/18/20 12/18/20 History nitroglycerin [Nitrostat] 0.4 mg SUBLINGUAL UD PRN 12/18/20 12/18/20 History sotalol [Betapace] 80 mg PO BID 12/18/20 12/18/20 History trazodone 50 mg PO HS PRN 12/18/20 12/18/20 History warfarin 5 mg PO DAILY 12/18/20 12/18/20 History Patient History Medical History (Updated 12/21/20 @ 13:55 by Nely Ge MD) CAD (coronary artery disease) "03/2009 - STEMI, s/p PTCA and stenting RCA, chronic LAD occlusion, 40% left main lesion" CVA (cerebral vascular accident) DM type 2 (diabetes mellitus, type 2) Dyslipidemia HTN (hypertension) Hypothyroidism Paroxysmal atrial fibrillation STEMI (ST elevation myocardial infarction) Systolic and diastolic CHF, chronic Thrombocytopenia Uncontrolled type 2 diabetes mellitus Surgical History H/O colonoscopy 06/2018 - diverticulosis - Dr Samreen Suárez Hx of cardiac cath 2008 - multivessel disease s/p stent RCA with residual chronic occlusion LAD with collaterals and 40% narrowing left main Family History Other Coronary heart disease Diabetes Social History Smoking Status: Never smoker Second Hand Exposure: Yes; Hx Alcohol Use: Yes Alcohol type: wine Hx Substance Use: No Preferred Language: Wolof Communication Ability: Effective Elephant Keeper Required: No Beliefs That Will Affect Care: None marital status: Single Current Living Situation: Alone Other Information That Helps Us Care for You: No Feels Safe at Home: Yes Safety Concerns: Feels Safe At This Time Assistive Devices: None Review of Systems Review of Systems: [place] Symptom Assessment Scale Pain 0/3 Dyspnea 0/3 Nausea 1/3 Anorexia 1/3 Fatigue 2/3 Depression 2/3 Drowsiness 0/3 Palliative Performance Score 50% Physical Exam Constitutional: no acute distress Respiratory: normal respiratory effort; no labored breathing Cardiovascular: Rate/Rhythm: + irregularly irregular Gastrointestinal (Abdomen): Inspection/Auscultation: abdomen not distended Neurologic: no focal motor deficits Psychiatric: Orientation: alert and oriented x 3 Affect: + labile affect Mood: + depressed mood Results & Data ([facility]) Vital Signs (Past 12 Hours) Vital Signs Temp Pulse Resp BP Pulse Ox 12/21/20 11:20 97.7 F 84 20 137/83 96 12/21/20 07:13 97.2 F L 73 18 126/88 96 12/21/20 04:29 97.5 F L 90 18 117/91 94 PG Care Time/CCT Total # of Minutes Spent Total Time Spent with Patient: Total time spent is greater than 50% in coordination of care (as documented) at patient's floor/unit and/or counseling patient: Total time spent 75 minutes with more than 50% of time spent on symptom management, support and goals of care with code status and surrogate decision maker. Coding Level of Care Code 14995 Inpt Consult Level 4 Diagnoses Depression F32.9 Palliative care encounter Z51.5 Cellulitis of left lower extremity L03.116 Ischemic cardiomyopathy I25.5 Decompensated heart failure I50.9 Atrial fibrillation with rapid ventricular response I48.91 Uncontrolled type 2 diabetes mellitus E11.65 Time Spent (min) 75
--- NOTE | 2020-12-21 13:38 | Cardiology Progress Note ---
Date of Service December 21, 2020 Assessment & Plan (1) Decompensated heart failure: (2) Cellulitis: (3) Uncontrolled type 2 diabetes mellitus: (4) Depression: (5) Hyperkalemia: (6) Hx of cardiac cath: (7) Dementia: (8) Prolonged QT interval: (9) Ischemic cardiomyopathy: The patient presents with acute cellulitis and decompensated systolic heart failure. He is also been noncompliant with his sotalol but despite this his QTC remains prolonged. He is in atrial flutter at this time with variable rate response and examines is volume overloaded. Agree with continued diuresis overnight but will hold in the a.m. and follow volume status clinically. We will hold off on reinitiation of sotalol at this time given the prolonged QT interval and will follow closely. Rate significantly improved with addition of metoprolol succinate. Echocardiogram shows further decline of LV systolic function, EF now less than 15% and now new RV systolic failure as well. Likely tachycardia induced given his uncontrolled atrial flutter without sotalol Will also take this opportunity to initiate Entresto to further support LV systolic function Would also recommend initiation SGLT2 inhibitor given his reduced systolic function and uncontrolled diabetes It appears that he will require help with his medications as an outpatient and home health should be considered Palliative care consult would also be in order given his end-stage disease Admission and Anticipated Discharge Date Admission Date: December 18, 2020 Subjective Patient seen and examined, out of bed in chair. Chart reviewed. States he is feeling much better today. Energy has improved as has his breathing. Denies any chest pain, palpitations, lightheadedness or dizziness. Telemetry reviewed: Atrial fibrillation in the 80s to 90s. Review of Systems Review of Systems: All systems reviewed & are unremarkable except as noted in HPI & below Physical Exam Physical Exam: General: Awake, alert and oriented x 3. No acute distress. HEENT: Normocephalic, atraumatic. Pupils equal, round and reactive to light and accommodation. Extraocular muscles are intact. Anicteric sclera. Moist mucous membranes. Neck: No JVD. No bruit. Cardiovascular: irregularly irregular, unable to appreciate murmur, rub or gallop. Pulmonary: Clear to auscultation bilaterally. No rales, rhonchi, or wheezing. Abdomen: Bowel sounds x 4, soft. No rebound, guarding or tenderness. No organomegaly. Extremities: No clubbing, cyanosis or edema. +2 pedal pulses bilaterally. Skin: Warm and dry. Results & Data ([facility]) Vital Signs (Past 12 Hours) Vital Signs Temp Pulse Resp BP Pulse Ox 12/21/20 11:20 36.5 C 84 20 137/83 96 12/21/20 07:13 36.2 C L 73 18 126/88 96 12/21/20 04:29 36.4 C L 90 18 117/91 94 (1) Cellulitis Laterality: left Site of cellulitis: extremity Site of cellulitis of extremity: lower extremity Qualified Code(s): L03.116 - Cellulitis of left lower limb
[2020-12-21] MEDS: WARFARIN SOD 5 MG TAB PO SCH (17:31)
[2020-12-21] MEDS: cefTRIAXone SODIUM 2,000 MG in DEXTROSE 5% 50 ML IV SCH (19:31)
--- NOTE | 2020-12-22 06:02 | Electrocardiogram Report ---
Test Reason : Blood Pressure : / mmHG Vent. Rate : 096 BPM Atrial Rate : 214 BPM P-R Int : 000 ms QRS Dur : 132 ms QT Int : 386 ms P-R-T Axes : 000 -79 108 degrees QTc Int : 487 ms Atrial flutter with variable A-V block with premature ventricular or aberrantly conducted complexes Left axis deviation Left bundle branch block Abnormal ECG When compared with ECG of 20-DEC-2020 07:18, No significant change was found Confirmed by Baljeet Baez ([id number]) on 12/22/2020 6:01:30 AM Referred By: REFERRED SELF Confirmed By:Baljeet Baez
[2020-12-22 06:43] LABS: INR 2.5 (0.9-1.1); Prothrombin Time 23.8 Seconds (9.0-12.0)
[2020-12-22] MEDS: SACUBITRIL-VALSARTAN 24-26 MG TAB PO SCH ×2 (09:05→20:50)
[2020-12-22] MEDS: FUROSEMIDE 40 MG in SYRINGE 0 ML IV SCH (09:05)
[2020-12-22] MEDS: POTASSIUM CHLORIDE CRTAB 20 MEQ TABCR PO SCH (09:06)
[2020-12-22] MEDS: METOPROLOL SUCC 50MG EXT REL TAB PO SCH (09:06)
[2020-12-22] MEDS: CLOPIDOGREL BISULFATE 75 MG TAB PO SCH (09:07)
[2020-12-22] MEDS: INSULIN GLARGINE SOLOSTAR 100 UNITS/ML 3 ML PEN SC SCH ×2 (09:08→20:50)
[2020-12-22] MEDS: INSULIN ASPART 100 UNITS/ML 3 ML PEN SC SCH ×4 (09:10→20:54)
--- NOTE | 2020-12-22 14:33 | Palliative Care Progress Note ---
Date of Service December 22, 2020 Assessment & Plan (1) Palliative care encounter: I spoke to John Myers, Mr. Benavidez's POA. He has a copy of his living will and confirms that the wishes that he expressed in there are consistent with what we've talked about it. He is comfortable with making decisions if Armando is unable to do so and is interested in supporting him with his diabetes management when he is discharged. Admission and Anticipated Discharge Date Admission Date: December 18, 2020 Subjective Feels better today. Still emotionally labile. Had some postprandial nausea earlier. Denies symptoms now. Review of Systems Review of Systems: [place] Symptom Assessment Scale Pain 0/3 Dyspnea 0/3 Nausea 1/3 Anxiety 0/3 Depression 2/3 Anorexia 1/3 Drowsiness 0/3 Palliative Performance Score 50% Physical Exam Constitutional: comfortable; no acute distress ENMT: Mouth: oral mucous membranes not dry Respiratory: normal respiratory effort; no labored breathing Gastrointestinal (Abdomen): Inspection/Auscultation: abdomen not distended Musculoskeletal: Extremities: extremities normal to inspection Neurologic: no focal motor deficits Psychiatric: Orientation: alert and oriented x 3 Affect: + labile affect Mood: + depressed mood Results & Data ([facility]) Vital Signs (Past 12 Hours) Vital Signs Temp Pulse Pulse Resp BP Pulse Ox 12/22/20 11:06 97.7 F 90 17 101/61 95 12/22/20 10:10 95 H 12/22/20 06:58 97.5 F L 94 H 17 116/79 93 12/22/20 04:17 97.7 F 84 16 114/80 91 PG Care Time/CCT Total # of Minutes Spent Total Time Spent with Patient: Total time spent is greater than 50% in coordination of care (as documented) at patient's floor/unit and/or counseling patient: Coding Level of Care Code 57122 Subseq Hosp Care Lvl 2 Diagnoses Palliative care encounter Z51.5
--- NOTE | 2020-12-22 15:42 | Hospitalist Progress Note ---
Date of Service December 22, 2020 Assessment & Plan (1) Acute systolic heart failure: Patient is 70-year-old male who presented with a shortness of breath. His most recent EF of 25 to 30% due to ischemic cardiomyopathy. Appreciate cardiology input and recommendation Continue with IV Lasix 40 mg now. Transthoracic echo: On 12/20/2020 showed LV systolic function has further declined and RV systolic function is now reduced to, mildly dilated LV chamber size with mild concentric LVH, severely reduced LV systolic function with severe global hypokinesis with EF less than 15%, grade 3 diastolic dysfunction with restrictive physiology, mild tricuspid regurgitation and severe biatrial enlargement. Continue holding sotalol in the setting of prolonged QTC. Continue holding trazodone as well. Patient is started on Lopressor. Barrett catheter in place for accurate ins and outs. Given his end-stage disease, would also consult palliative medicine for goals of care discussion. Palliative care encounter Appreciate input and recommendation (2) Prolonged QT interval: Continue holding sotalol and trazodone. Continue with Toprol-XL 50 mg daily. QTC of 487 today. (3) Cellulitis of left lower extremity: Patient remains afebrile. White count is within normal limit. We will continue with IV ceftriaxone at this time. Wound care has been consulted. (4) Uncontrolled type 2 diabetes mellitus: Continue basal bolus insulin while hospitalized and adjust as needed. Hemoglobin A1c of 16.8. wellness educator has been consulted. Have had episodes of hypoglycemia. (5) Elevated troponin I level: Likely related to demand ischemia with tachycardia persistent on arrival in the setting of acute heart failure. ACS ruled out. Cardiology is on board. (6) Atrial fibrillation with rapid ventricular response: Currently rate controlled. Continue with Coumadin. INR therapeutic (7) Noncompliance with medications: (8) DVT prophylaxis: C/W coumadin Full code Disposition-pending further insight into patient's home life and capabilities during this hospitalization. PT and OT have been consulted. Appreciate case management assistance with discharge planning. Admission and Anticipated Discharge Date Admission Date: December 18, 2020 Subjective 12/22/2020 The patient was seen and examined in telemetry unit He has decompensated heart failure secondary to ischemic cardiomyopathy with generalized weakness He remains stable and feeling a little bit better Complains to have weakness Review of Systems Review of Systems: All systems reviewed and are unremarkable except as noted below Respiratory: no dyspnea Cardiovascular: no chest pain and no palpitations Neurologic: + generalized weakness Alert, awake and oriented Physical Exam Physical Exam: Lying in bed comfortably Constitutional: well developed, well nourished, + ill appearing and + obese Eyes: PERRL, conjunctivae normal, anicteric sclerae ENMT: external ear and nose normal, oropharynx normal Neck: trachea midline, no thyromegaly Respiratory: no respiratory distress (At rest) Auscultation: + diminished lung sounds and + crackles (Minimal crackles at the bases) Cardiovascular: Rate/Rhythm: + irregularly irregular Heart Sounds: no murmur Extremities: + edema (1-2+ edema bilaterally) Gastrointestinal (Abdomen): Inspection/Auscultation: normal bowel sounds; abdomen not distended Percussion/Palpation: abdomen soft; abdomen nontender Musculoskeletal: No acute arthritis in any joint Neurologic: Alert, awake and oriented x3, generally very weak and lethargic Psychiatric: A+Ox3, euthymic affect Lymphatic: no cervical or axillary lymphadenopathy Results & Data Results & Data ([facility]) Vital Signs (Past 12 Hours) Vital Signs Temp Pulse Pulse Resp BP Pulse Ox 12/22/20 11:06 36.5 C 90 17 101/61 95 12/22/20 10:10 95 H 12/22/20 06:58 36.4 C L 94 H 17 116/79 93 12/22/20 04:17 36.5 C 84 16 114/80 91 Medications Administered Current Inpatient Medications Clopidogrel Bisulfate (Clopidogrel Bisulfate 75 Mg Tab) 75 mg PO DAILY LIN Stop: 01/18/21 08:59 Last Admin: 12/22/20 09:07 Dose: 75 mg Documented by: Dextrose (Dextrose 50% 50 Ml Syringe) 25 - 50 ml IV UD PRN; Protocol PRN Reason: Hypoglycemia Protocol Stop: 01/17/21 23:20 Glucagon (Glucagon For Inj 1 Mg Vial) 1 mg SQ UD PRN; Protocol PRN Reason: Hypoglycemia Protocol Stop: 01/17/21 23:20 Glucose (Glucose 10 Tabs/Tube) 4 - 8 tabs PO UD PRN; Protocol PRN Reason: Hypoglycemia Protocol Stop: 01/17/21 23:20 Glucose (Glucose 40% Gel 15 Gm Tube) 15 - 30 gm PO UD PRN; Protocol PRN Reason: Hypoglycemia Protocol Stop: 01/17/21 23:20 Hydromorphone HCl (Hydromorphone Inj 0.5 Mg/0.5 Ml Syr) 0.5 mg IV Q3H PRN PRN Reason: Pain Stop: 01/01/21 23:20 Ceftriaxone Sodium 2,000 mg/ (Dextrose) 70 mls @ 100 mls/hr IV Q24H [facility]; Protocol Stop: 12/26/20 19:59 Last Infusion: 12/21/20 21:01 Dose: Infused Documented by: Furosemide 40 mg/ Syringe 4 mls @ 4 mls/min IV BID [facility] Stop: 01/19/21 20:59 Last Admin: 12/22/20 09:05 Dose: 4 mls/min Documented by: Insulin Aspart (Insulin Aspart 100 Units/Ml 3 Ml Pen) 0 units SC ACHS [facility] Stop: 01/17/21 23:44 Last Admin: 12/22/20 11:58 Dose: Not Given Documented by: Insulin Glargine (Insulin Glargine Solostar 100 Units/Ml 3 Ml Pen) 15 units SC BID [facility] Stop: 01/18/21 08:59 Last Admin: 12/22/20 09:08 Dose: 15 units Documented by: Lidocaine HCl (Lidocaine 2% Jelly 5 Ml Tube) 15 ml EXT Q8H PRN PRN Reason: urethral Barrett discomfort Stop: 01/18/21 15:59 Metoprolol Succinate (Metoprolol Succ 50mg Ext Rel Tab) 50 mg PO QAM [facility] Stop: 01/19/21 10:29 Last Admin: 12/22/20 09:06 Dose: 50 mg Documented by: Miscellaneous (Carbohydrates For Hypoglycemia ) 15 - 30 gm PO UD PRN PRN Reason: Hypoglycemia Protocol Stop: 01/17/21 23:20 Nitroglycerin (Nitroglycerin Sl 0.4 Mg/Tab Tab) 0.4 mg SL UD PRN PRN Reason: Chest Pain Stop: 01/17/21 23:20 Potassium Chloride (Potassium Chloride Crtab 20 Meq Tabcr) 40 meq PO QAM [facility] Stop: 01/20/21 10:44 Last Admin: 12/22/20 09:06 Dose: 40 meq Documented by: Sacubitril/Valsartan (Sacubitril-Valsartan 24-26 Mg Tab) 1 tab PO BID [facility] Stop: 01/20/21 11:59 Last Admin: 12/22/20 09:05 Dose: 1 tab Documented by: Sotalol HCl (Sotalol Hcl 80 Mg Tab) 80 mg PO BID [facility] Stop: 01/18/21 08:59 Last Admin: 12/19/20 08:17 Dose: 80 mg Documented by: Tramadol HCl (Tramadol Hcl 50 Mg Tablet) 25 - 50 mg PO Q4H PRN PRN Reason: Pain Stop: 01/17/21 23:20 Trazodone HCl (Trazodone Hcl 50 Mg Tab) 50 mg PO HS PRN PRN Reason: Sleep Stop: 01/17/21 23:20 Warfarin Sodium (Warfarin Sod 5 Mg Tab) 5 mg PO DAILY@1600 [facility] Stop: 01/18/21 15:59 Last Admin: 12/21/20 17:31 Dose: 5 mg Documented by:
[2020-12-22] MEDS: WARFARIN SOD 5 MG TAB PO SCH (17:13)
[2020-12-22] MEDS: cefTRIAXone SODIUM 2,000 MG in DEXTROSE 5% 50 ML IV SCH (20:49)
[2020-12-23 06:17] LABS: Mean Corpuscular Hgb Conc 32.1 g/dL (32-36)
[2020-12-23 06:27] LABS: Hematocrit (blood only) 49.9 % (42-52); Mean Corpuscular Hemoglobin 26.2 pg (25-34); Mean Corpuscular Volume 81.7 fL (80-100); RDW Coefficient of Variation 17.8 % (11.5-14.5); RDW Standard Deviation 51.9 fL (36.4-46.3); Red Blood Count 6.11 M/uL (4.7-6.1); White Blood Count 8.95 K/uL (4.8-10.8)
[2020-12-23 06:43] LABS: BUN Creatinine Ratio 22.3 (10-20); Calcium 8.1 mg/dl (8.5-10.1); Creatinine Clr Calc Pharmacy 62.1 ml/min; Est GFR (African American) 63.8; Magnesium 1.9 mg/dl (1.8-2.4); Potassium 3.9 mmol/L (3.5-5.1)
[2020-12-23 06:44] LABS: Phosphorus 2.8 mg/dl (2.5-4.9)
[2020-12-23 06:47] LABS: INR 2.4 (0.9-1.1); Prothrombin Time 22.7 Seconds (9.0-12.0)
[2020-12-23 07:17] LABS: Platelet Count 156 K/uL (130-400)
[2020-12-23 07:20] LABS: Anisocytosis Present; Basophils # (auto) 0.06 K/uL (0-0.2); Basophils % (auto) 0.7 %; Eosinophils # (auto) 0.27 K/uL (0-0.5); Giant Platelets 1+; Immature Granulocytes # (auto) 0.01 K/uL (0.00-0.02); Immature Granulocytes % (auto) 0.1 %; Lymphocytes # (auto) 3.66 K/uL (1.2-3.4); Lymphocytes % (auto) 40.9 %; Monocytes # (auto) 0.71 K/uL (0.11-0.59); Monocytes % (auto) 7.9 %; Neutrophils # (auto) 4.24 K/uL (1.4-6.5); Neutrophils % (auto) 47.4 %; Platelet Estimate Decreased (Normal)
[2020-12-23] MEDS: INSULIN ASPART 100 UNITS/ML 3 ML PEN SC SCH (07:48)
[2020-12-23] MEDS: SACUBITRIL-VALSARTAN 24-26 MG TAB PO SCH (07:50)
[2020-12-23] MEDS: POTASSIUM CHLORIDE CRTAB 20 MEQ TABCR PO SCH (07:50)
[2020-12-23] MEDS: CLOPIDOGREL BISULFATE 75 MG TAB PO SCH (07:50)
[2020-12-23] MEDS: INSULIN GLARGINE SOLOSTAR 100 UNITS/ML 3 ML PEN SC SCH (07:52)
[2020-12-23] MEDS: METOPROLOL SUCC 50MG EXT REL TAB PO SCH (07:52)
[2020-12-23] MEDS ORDERED: TORSEMIDE 10 MG TAB PO SCH (09:00)
[2020-12-23] MEDS ORDERED: DIGOXIN 0.125 MG TAB PO ONE (09:32)
--- NOTE | 2020-12-23 12:44 | Hospitalist Progress Note ---
Date of Service December 23, 2020 Assessment & Plan (1) Acute systolic heart failure: Patient is 70-year-old male who presented with a shortness of breath. His most recent EF of 25 to 30% due to ischemic cardiomyopathy. Appreciate cardiology input and recommendation Continue with IV Lasix 40 mg now. Transthoracic echo: On 12/20/2020 showed LV systolic function has further declined and RV systolic function is now reduced to, mildly dilated LV chamber size with mild concentric LVH, severely reduced LV systolic function with severe global hypokinesis with EF less than 15%, grade 3 diastolic dysfunction with restrictive physiology, mild tricuspid regurgitation and severe biatrial enlargement. Continue holding sotalol in the setting of prolonged QTC. Continue holding trazodone as well. Patient is started on Lopressor. Barrett catheter in place for accurate ins and outs. Given his end-stage disease, would also consult palliative medicine for goals of care discussion. Cardiac medications have been adjusted-denies any symptoms as of today except weakness Will be discharged home this afternoon Palliative care encounter Appreciate input and recommendation (2) Prolonged QT interval: Continue holding sotalol and trazodone. Continue with Toprol-XL 50 mg daily. QTC of 487 today. (3) Cellulitis of left lower extremity: Patient remains afebrile. White count is within normal limit. We will continue with IV ceftriaxone at this time. Wound care has been consulted. Will give Keflex on discharge to continue total of 10 days (4) Uncontrolled type 2 diabetes mellitus: Continue basal bolus insulin while hospitalized and adjust as needed. Hemoglobin A1c of 16.8. plant operations vice president has been consulted. Have had episodes of hypoglycemia. (5) Elevated troponin I level: Likely related to demand ischemia with tachycardia persistent on arrival in the setting of acute heart failure. ACS ruled out. Cardiology is on board. (6) Atrial fibrillation with rapid ventricular response: Currently rate controlled. Continue with Coumadin. INR therapeutic The heart rate is controlled. Digoxin added (7) Noncompliance with medications: (8) DVT prophylaxis: C/W coumadin Full code Disposition-pending further insight into patient's home life and capabilities during this hospitalization. PT and OT have been consulted. Will be discharged home this afternoon Admission and Anticipated Discharge Date Admission Date: December 18, 2020 Subjective / The patient was seen and examined in telemetry unit He has decompensated heart failure secondary to ischemic cardiomyopathy with generalized weakness He remains stable and feeling a little bit better Complains to have weakness 12/23/2020 Patient was seen and examined in telemetry unit He is out of bed on a chair and has been feeling a lot better He is ready to go home this afternoon Denies any symptoms except weakness Review of Systems Review of Systems: All systems reviewed and are unremarkable except as noted below Neurologic: + generalized weakness Alert, awake and oriented Physical Exam Physical Exam: Sitting on a chair without any acute distress Constitutional: well developed, well nourished, + ill appearing and + obese Eyes: PERRL, conjunctivae normal, anicteric sclerae ENMT: external ear and nose normal, oropharynx normal Neck: trachea midline, no thyromegaly Respiratory: no respiratory distress (At rest) Auscultation: + diminished lung sounds and + crackles (Minimal crackles at the bases) Cardiovascular: Rate/Rhythm: + irregularly irregular Heart Sounds: no murmur Extremities: + edema (1-2+ edema bilaterally) Gastrointestinal (Abdomen): Inspection/Auscultation: normal bowel sounds; abdomen not distended Percussion/Palpation: abdomen soft; abdomen nontender Musculoskeletal: No acute arthritis involving any joint Neurologic: Alert, awake and oriented x3. Generally very weak without any focal localizing signs Psychiatric: A+Ox3, euthymic affect Lymphatic: no cervical or axillary lymphadenopathy Results & Data Results & Data ([facility]) Vital Signs (Past 12 Hours) Vital Signs Temp Pulse Pulse Resp BP BP Pulse Ox 12/23/20 11:29 36.9 C 108 H 18 141/60 H 98 12/23/20 10:18 130 H 12/23/20 09:56 36.8 C 135 H 16 134/89 137/66 96 12/23/20 08:00 104 H 12/23/20 07:36 36.8 C 135 H 16 137/66 96 12/23/20 04:00 36.4 C L 109 H 20 130/86 95 Laboratory Results Short CBC 12/23/20 Range/Units 05:31 WBC 8.95 (4.8-10.8) K/uL Hgb 16.0 (14.0-18.0) g/dL Hct 49.9 (42-52) % Plt Count 156 (130-400) K/uL [facility] 12/23/20 05:31 Sodium 142 Potassium 3.9 Chloride 106 Carbon Dioxide 29 BUN 29 H Creatinine 1.29 Glucose 85 Calcium 8.1 L Medications Administered Current Inpatient Medications Clopidogrel Bisulfate (Clopidogrel Bisulfate 75 Mg Tab) 75 mg PO DAILY [facility] Stop: 01/18/21 08:59 Last Admin: 12/23/20 07:50 Dose: 75 mg Documented by: Dextrose (Dextrose 50% 50 Ml Syringe) 25 - 50 ml IV UD PRN; Protocol PRN Reason: Hypoglycemia Protocol Stop: 01/17/21 23:20 Digoxin (Digoxin 0.125 Mg Tab) 0.125 mg PO DAILY@1600 [facility] Stop: 01/22/21 15:59 Glucagon (Glucagon For Inj 1 Mg Vial) 1 mg SQ UD PRN; Protocol PRN Reason: Hypoglycemia Protocol Stop: 01/17/21 23:20 Glucose (Glucose 10 Tabs/Tube) 4 - 8 tabs PO UD PRN; Protocol PRN Reason: Hypoglycemia Protocol Stop: 01/17/21 23:20 Glucose (Glucose 40% Gel 15 Gm Tube) 15 - 30 gm PO UD PRN; Protocol PRN Reason: Hypoglycemia Protocol Stop: 01/17/21 23:20 Hydromorphone HCl (Hydromorphone Inj 0.5 Mg/0.5 Ml Syr) 0.5 mg IV Q3H PRN PRN Reason: Pain Stop: 01/01/21 23:20 Ceftriaxone Sodium 2,000 mg/ (Dextrose) 70 mls @ 100 mls/hr IV Q24H [facility]; Protocol Stop: 12/26/20 19:59 Last Infusion: 12/22/20 21:35 Dose: Infused Documented by: Insulin Aspart (Insulin Aspart 100 Units/Ml 3 Ml Pen) 0 units SC ACHS [facility] Stop: 01/17/21 23:44 Last Admin: 12/23/20 07:48 Dose: 1 units Documented by: Insulin Glargine (Insulin Glargine Solostar 100 Units/Ml 3 Ml Pen) 15 units SC BID [facility] Stop: 01/18/21 08:59 Last Admin: 12/23/20 07:52 Dose: 15 units Documented by: Lidocaine HCl (Lidocaine 2% Jelly 5 Ml Tube) 15 ml EXT Q8H PRN PRN Reason: urethral Barrett discomfort Stop: 01/18/21 15:59 Metoprolol Succinate (Metoprolol Succ 50mg Ext Rel Tab) 50 mg PO QAM [facility] Stop: 01/19/21 10:29 Last Admin: 12/23/20 07:52 Dose: 50 mg Documented by: Miscellaneous (Carbohydrates For Hypoglycemia ) 15 - 30 gm PO UD PRN PRN Reason: Hypoglycemia Protocol Stop: 01/17/21 23:20 Nitroglycerin (Nitroglycerin Sl 0.4 Mg/Tab Tab) 0.4 mg SL UD PRN PRN Reason: Chest Pain Stop: 01/17/21 23:20 Potassium Chloride (Potassium Chloride Crtab 20 Meq Tabcr) 40 meq PO QAM [facility] Stop: 01/20/21 10:44 Last Admin: 12/23/20 07:50 Dose: 40 meq Documented by: Sacubitril/Valsartan (Sacubitril-Valsartan 24-26 Mg Tab) 1 tab PO BID [facility] Stop: 01/20/21 11:59 Last Admin: 12/23/20 07:50 Dose: 1 tab Documented by: Sotalol HCl (Sotalol Hcl 80 Mg Tab) 80 mg PO BID [facility] Stop: 01/18/21 08:59 Last Admin: 12/19/20 08:17 Dose: 80 mg Documented by: Torsemide (Torsemide 10 Mg Tab) 20 mg PO QAM [facility] Stop: 01/22/21 08:59 Last Admin: 12/23/20 07:51 Dose: 20 mg Documented by: Tramadol HCl (Tramadol Hcl 50 Mg Tablet) 25 - 50 mg PO Q4H PRN PRN Reason: Pain Stop: 01/17/21 23:20 Trazodone HCl (Trazodone Hcl 50 Mg Tab) 50 mg PO HS PRN PRN Reason: Sleep Stop: 01/17/21 23:20 Warfarin Sodium (Warfarin Sod 5 Mg Tab) 5 mg PO DAILY@1600 [facility] Stop: 01/18/21 15:59 Last Admin: 12/22/20 17:13 Dose: 5 mg Documented by:
[2020-12-23] MEDS ORDERED: DIGOXIN 0.125 MG TAB PO SCH (16:00)
--- NOTE | 2020-12-23 18:33 | Discharge Summary ---
Date of Service December 23, 2020 Admission HPI Per Admitting Provider Chief Complaint: Shortness of breath, leg swelling Primary Care Provider: Dr. Ayala History obtained from patient and records. Medical history significant for chronic systolic heart failure (EF 25 to 30%, TTE 2019) secondary to ischemic cardiomyopathy, CAD status post stent, A. fib on Coumadin, hypertension, hyperlipidemia, hypothyroidism, DM2 insulin requiring, CRI (baseline creatinine 1.3), chronic thrombocytopenia. Last confinement March 2020 for decompensated heart failure. 2 weeks ago, patient ran out of of sotalol prescription. Subsequent generalized weakness and fatigue. Some nausea symptoms. No chest pain. No unusual cough symptoms. Increased fluid retention and weight gain. Patient claims to be compliant with home diuretic regimen. Patient not on fluid restriction as per her account. Increase left leg redness with pruritus noted with pain. Intermittent OTC NSAID intake at home for left leg pain. Patient evaluated at the ER. Admission Exam Per Admitting Provider Physical Exam: GENERAL: Comfortable, obese, no respiratory distress SKIN: Normal color, warm HEENT: Bespectacled, [place] palpebral conjunctivae, no ptosis, moist buccal mucosa NECK : Supple, short neck, no tenderness CHEST : Decreased breath sounds, bibasilar crackles, no tenderness HEART : Tachycardic, diminished S1-S2, no obvious murmurs ABDOMEN: distention, nontender EXTREMITIES : Bilateral LE swelling/tenderness, LLE erythema, rash LLE > RLE with some excoriations, no other conspicuous deformities noted NEUROLOGIC : Coherent, no facial asymmetry, no other gross focality Principal Diagnosis Acute systolic heart failure, cellulitis of the left lower extremity, atrial fibrillation with RVR, generalized weakness, type 2 diabetes Discharge Exam Constitutional well developed, well nourished, + ill appearing and + obese Eyes PERRL, conjunctivae normal, anicteric sclerae ENMT external ear and nose normal, oropharynx normal Neck trachea midline, no thyromegaly Respiratory no respiratory distress (At rest) Auscultation: + diminished lung sounds and + crackles (Minimal crackles at the bases) Cardiovascular Rate/Rhythm: + irregularly irregular Heart Sounds: no murmur Extremities: + edema (1-2+ edema bilaterally) Gastrointestinal (Abdomen) Inspection/Auscultation: normal bowel sounds; abdomen not distended Percussion/Palpation: abdomen soft; abdomen nontender Psychiatric A+Ox3, euthymic affect Lymphatic no cervical or axillary lymphadenopathy Discharge Data Allergies Allergy/AdvReac Type Severity Reaction Status Date / Time lisinopril AdvReac Intermediate COUGH Verified 12/18/20 20:39 atorvastatin AdvReac Muscle Pain Verified 12/18/20 20:39 Consultations 12/18/20 21:44 ED Decision to Admit Stat 12/18/20 23:21 Consult Cardiology Routine Consult Case Management - Discharge Planning Routine 12/21/20 11:05 Consult Palliative Care Routine Ordered Studies 12/18/20 19:26 US venous doppler LE BI Stat 12/18/20 22:20 US abdomen ltd ascites Urgent Diabetes Follow up Diabetes Follow-up Needed for HgbA1c >9% Hospital Course (1) Acute systolic heart failure: Patient is 70-year-old male who presented with a shortness of breath. His most recent EF of 25 to 30% due to ischemic cardiomyopathy. Appreciate cardiology input and recommendation Continue with IV Lasix 40 mg now. Transthoracic echo: On 12/20/2020 showed LV systolic function has further declined and RV systolic function is now reduced to, mildly dilated LV chamber size with mild concentric LVH, severely reduced LV systolic function with severe global hypokinesis with EF less than 15%, grade 3 diastolic dysfunction with restrictive physiology, mild tricuspid regurgitation and severe biatrial enlargement. Continue holding sotalol in the setting of prolonged QTC. Continue holding trazodone as well. Patient is started on Lopressor. Barrett catheter in place for accurate ins and outs. Given his end-stage disease, would also consult palliative medicine for goals of care discussion. Cardiac medications have been adjusted-denies any symptoms as of today except weakness Will be discharged home this afternoon Palliative care encounter Appreciate input and recommendation (2) Prolonged QT interval: Continue holding sotalol and trazodone. Continue with Toprol-XL 50 mg daily. QTC of 487 today. (3) Cellulitis of left lower extremity: Patient remains afebrile. White count is within normal limit. We will continue with IV ceftriaxone at this time. Wound care has been consulted. Will give Keflex on discharge to continue total of 10 days (4) Uncontrolled type 2 diabetes mellitus: Continue basal bolus insulin while hospitalized and adjust as needed. Hemoglobin A1c of 16.8. coding educator has been consulted. Have had episodes of hypoglycemia. (5) Elevated troponin I level: Likely related to demand ischemia with tachycardia persistent on arrival in the setting of acute heart failure. ACS ruled out. Cardiology is on board. (6) Atrial fibrillation with rapid ventricular response: Currently rate controlled. Continue with Coumadin. INR therapeutic The heart rate is controlled. Digoxin added (7) Noncompliance with medications: (8) DVT prophylaxis: C/W coumadin Full code Disposition-pending further insight into patient's home life and capabilities during this hospitalization. PT and OT have been consulted. Will be discharged home this afternoon Total Time Total Time Spent Total Time Spent (In Minutes): 40 minutes Total Time Includes: Examination of the Patient, Discharge Planning, Medication Reconciliation and Communication With Other Providers Discharge Plan Discharge Items Patient Disposition: Home - Home Health Services Reason For Visit: CHF Discharge Diagnosis: Acute systolic heart failure, cellulitis of the left lower extremity, atrial fibrillation with RVR, generalized weakness, type 2 diabetes Condition on Discharge: Fair Activity: As commented below Activity Comment: Take precaution to avoid falls. Try to use assisting devices while ambulat Non-emergency contact: Primary Care Provider Call non-emergency contact if: you have any medication questions and your symptoms worsen Follow-up/Referrals: Christopher Bella DO [Primary Care Provider] - (Date & Time 12/28/2020 1:40 PM Provider Regis Ayala DO Department [facility] ) Diet: Carb Consistent or DM2 and Heart Healthy Fluids: 1500ml (6 cups) Addtl Attending Provider Instructions: Please take precaution to avoid falls Please take your medications as directed Please have regular follow-up with your coagulation clinic You can have the Covid vaccine after finishing the course of antibiotic Pending Studies at Discharge: No Stand-Alone Forms: My [employer], Smoking Cessation Medications and DC Order Prescriptions: New digoxin [Digitek] 125 mcg (0.125 mg) Tablet 125 mcg PO DAILY@1600 30 Days Qty: 30 RF: 0 metoprolol succinate 50 mg Tablet Extended Release 24 Hr 50 mg PO QAM Qty: 30 RF: 0 Entresto 24-26 mg Tablet 1 tab PO BID 30 Days Qty: 60 RF: 0 potassium chloride [Klor-Con M20] 20 mEq Tablet,Er Particles/Crystals 40 meq PO QAM 30 Days Qty: 30 RF: 0 torsemide 10 mg Tablet 20 mg PO QAM 30 Days Qty: 60 RF: 0 cephalexin 500 mg capsule 500 mg PO Q8H 5 Days Qty: 15 RF: 0 pantoprazole [Protonix] 40 mg tablet,delayed release (DR/EC) 40 mg PO DAILY 28 Days Qty: 28 RF: 0 Continued trazodone 50 mg Tablet 50 mg PO HS PRN (Reason: Sleep) RF: 0 sotalol [Betapace] 80 mg tablet 80 mg PO BID RF: 0 clopidogrel [Plavix] 75 mg tablet 75 mg PO DAILY RF: 0 warfarin 5 mg Tablet 5 mg PO DAILY RF: 0 nitroglycerin [Nitrostat] 0.4 mg Tablet, Sublingual 0.4 mg sublingual UD PRN (Reason: Chest Pain) RF: 0 metformin [Glucophage XR] 500 mg tablet extended release 24 hr 500 mg PO BID RF: 0 Lantus Solostar U-100 Insulin 100 unit/mL (3 mL) insulin pen 35 unit SUBCUT DAILY RF: 0 Discontinued losartan 25 mg Tablet 25 mg PO DAILY RF: 0 furosemide [Lasix] 20 mg Tablet 20 mg PO BID RF: 0 Discharge Orders: Discharge Order (Routine); Ordered 12/23/20 Ordered By: Gloria Chahal Admission Data Admit Date/Time: 12/18/20 22:27 Attending Provider: Gloria Chahal Admit Provider: Regis Regalado Primary Care Provider: Christopher Bella V. Other Providers: Regis Regalado ; Diogenes Yarborugh ; Last Carranza ; Mark Gonzalez ; Jozef Flores ; Morgan Nelson ; Robert Arguelles ; Nati Muro ; Dang Woodruff ; Jimenez Russell ; [facility] ; Nely Ge ; Noni Palomo. Other Interventions: Discharge Summary Assessment (RN) Last Done: 12/23/20 09:56
--- NOTE | 2020-12-30 09:46 | Coding Query ---
CODING QUERY FOR UNCONTROLLED DIABETES To promote full compliance with coding requirements relating to patient care, provider participation is requested in all cases of remote coders uncertainty. Please assist us with the question(s) below: Coding Question: The term uncontrolled Diabetes was used throughout the record. To be able to code this diagnosis properly, could you please clarify the diagnosis below: ( ) Uncontrolled Diabetes meaning hypoglycemia ( ) Uncontrolled Diabetes meaning hyperglycemia ( x ) Other (please specify) _Uncontrolled Diabetes.Hyperglycemia can turn into Hypoglycemia with treatment.HbA1c was high >9, so it was uncontrolled. Thank You, Adonis Shrestha Principal Diagnosis: "that condition established after study, to be chiefly responsible for occasioning the admission of the patient to the hospital for care." Co-Existing Principal Diagnosis: "when two or more diagnoses equally meet the criteria for principal diagnosis as determined by the circumstances of admission, diagnostic work up, and/or therapy provided, and the Alphabetic Index, Tabular List, or another coding guideline does not provide sequencing direction, any one of the diagnoses may be sequenced first." "When the physician has documented what appears to be a current diagnosis in the body of the record, but has not included the diagnosis in the final diagnostic statement, the physician should be asked whether the diagnosis should be added." (Source [facility]oding [facility] 2 QTR90. p3-4) DELANEY
== END 2020-12-23 15:00 | disposition home health service (06) | DRG 291 ==
LOC: ED 18:59 → SUATTDRO 22:27 → 2S 22:27

== ENCOUNTER 2022-02-11 10:10 | Inpatient (IN) ==
--- NOTE | 2022-02-11 10:43 | Emergency Department Note ---
Impression & Plan CHF (congestive heart failure), Abdominal pain, BOLA (acute kidney injury), Elevated troponin, Moderate sized pleural effusion, Vomiting ED Provider Note NAME: MICKEY DAWKINS AGE: 71 SEX: M : 1950 ARRIVES VIA: Walk-In INFORMANT: Patient ED PROVIDER(S): Bert Bright DO CHIEF COMPLAINT: abdominal pain, N/V HPI: Patient is a 71-year-old male who presents to the ER for GI symptoms which have been present for the past 2 weeks. He was seen here on . His pain is now in the right lower quadrant and still in the epigastric region. He notes its much more sharper in nature than it was initially. He is vomiting about 5 times since the left ear. He has been unable to keep anything down. He admits to increased swelling of his legs. He has been trying to take his Lasix. His pain is an 8 out of 10. He is unable to eat or drink. No dysuria, urgency, or frequency. No other exacerbating or remitting factors. Has become more short of breath when he is up walking around. ROS: See above HPI for pertinent positives & negatives. A total of 10 systems reviewed and were otherwise negative. PAST MEDICAL HISTORY:See Below PAST SURGICAL HISTORY:See Below FAMILY HISTORY:See Below SOCIAL HISTORY:See Below HOME MEDICATIONS:See Below ALLERGIES:See Below VITALS:See Below PHYSICAL EXAMINATION: GENERAL: Sitting up in bed, alert, chronically ill-appearing, disheveled EYE EXAM: normal conjunctiva. PERRL and EOM's grossly intact. OROPHARYNX: no exudate, no erythema, lips, buccal mucosa, and tongue normal and mucous membranes are moist NECK: +JVD LUNGS: Diminished bilaterally. Normal chest wall mechanics HEART: no murmurs, S1 normal and S2 normal ABDOMEN: abdomen soft, non-tender, normo-active bowel sounds, no masses, no rebound or guarding. UPPER EXTREMITIES: upper extremities are grossly normal. LOWER EXTREMITIES: +4 pitting edema bilaterally NEURO EXAM: Normal sensorium, cranial nerves II-XII grossly intact, normal speech, no gross weakness of arms, no gross weakness of legs. MEDICAL DECISION MAKING: Patient is a 31-year-old male who presents the ER for nausea vomiting abdominal pain which he notes is getting worse. IV was established blood work was obtained. Labs show mild leukocytosis of 12,000. Mild thrombocytopenia at 78. BMP with mild hyperkalemia at 5.3. Creatinine 1.9 up from 1.3. Troponin was elevated 0.36. Troponin is always elevated but slightly higher than usual. T bili has significantly elevated at 6.1 with an AST of 78 and ALT of 52. Question if he has choledocholithiasis although this not supported by CT. CT does show some fluid around his gallbladder which could be secondary to ascites. Patient was given IV Zosyn and discussed with the hospitalist for further evaluation will need ultrasound and HIDA scan he was updated at bedside. Do not believe that this primary cardiac in origin. Triage Nursing notes reviewed. Limited review of prior medical records performed Vital Signs: reviewed and remarkable for no significant abnormalities Differential diagnosis: Differential diagnoses includes but is not limited to gastritis, peptic ulcer disease, GERD, gallbladder disease, pancreatitis, small bowel obstruction, acute coronary syndrome, pericarditis, ischemic bowel, irritable bowel disease, irritable bowel syndrome, appendicitis, diverticulitis, malignancy, hernia, urinary tract infection, torsion, perforation, trauma, infectious. ER treatment provided: See below Diagnostics interpreted by me: ECG: A. fib rate of 99 Left axis PVCs present QTC 490 Cardiac Monitoring: An order was placed for continuous cardiac monitoring. The monitor shows a rate of 101 with Afib rhythm. Laboratory studies: As stated above and show below. Imaging studies: CT abdomen pelvis as described above Consultation(s): Discussed with [facility] hospitalist Dr. Navarro Procedures: none Critical Care: None Past Med/Surg History Medical History (Updated 02/11/22 @ 15:18 by Bert Bright DO) CAD (coronary artery disease) "03/2009 - STEMI, s/p PTCA and stenting RCA, chronic LAD occlusion, 40% left main lesion" CVA (cerebral vascular accident) DM type 2 (diabetes mellitus, type 2) Dyslipidemia HTN (hypertension) Hypothyroidism Paroxysmal atrial fibrillation STEMI (ST elevation myocardial infarction) Systolic and diastolic CHF, chronic Thrombocytopenia Uncontrolled type 2 diabetes mellitus Surgical History H/O colonoscopy 06/2018 - diverticulosis - Dr Samreen Suárez Hx of cardiac cath 2008 - multivessel disease s/p stent RCA with residual chronic occlusion LAD with collaterals and 40% narrowing left main Family History Other Coronary heart disease Diabetes Social History Smoking Status: Never smoker Second Hand Exposure: Yes; Hx Alcohol Use: Yes Alcohol type: wine Hx Substance Use: No Preferred Language: Latvian Communication Ability: Effective Certified Legal Secretary Specialist Required: No Beliefs That Will Affect Care: None marital status: Single Current Living Situation: Alone Feels Safe at Home: Yes Assistive Devices: None Allergies Allergies Allergy/AdvReac Type Severity Reaction Status Date / Time lisinopril AdvReac Intermediate COUGH Verified 02/11/22 11:34 atorvastatin AdvReac Muscle Pain Verified 02/11/22 11:34 Home Meds Home Medications Medication Instructions Recorded Confirmed insulin glargine 100 unit/mL (3 35 unit SUBCUT QAM 12/18/20 02/11/22 mL) subcutaneous pen (Lantus Solostar U-100 Insulin) nitroglycerin 0.4 mg sublingual 0.4 mg SUBLINGUAL UD PRN 12/18/20 02/11/22 tablet (Nitrostat) sotalol 80 mg tablet (Betapace) 80 mg PO BID 12/18/20 02/11/22 warfarin 5 mg tablet 5 mg PO QAM 12/18/20 02/11/22 furosemide 20 mg tablet 20 mg PO QAM 02/09/22 02/11/22 metoprolol succinate 100 mg 100 mg PO QAM 02/09/22 02/11/22 tablet,extended release 24 hr sacubitril 24 mg-valsartan 26 mg 1 tab PO BID 02/09/22 02/11/22 tablet (Entresto) Results & Data (ED) Vital Signs Vital Signs - 24 hr 02/11/22 10:21 02/11/22 10:31 02/11/22 10:39 Temperature 36.2 C L Temperature Source Skin Pulse Rate 95 H 101 H 98 H Pulse Rate [Apical] Pulse Rate from SpO2 Sensor Pulse Rhythm Pulse Rhythm [Apical] Pulse Strength [Apical] Respiratory Rate 20 28 H 31 H Respiratory Effort / Characteristics Non-Labored Spontaneous Respiratory Depth Normal Respiratory Pattern Regular Blood Pressure 131/91 119/89 Blood Pressure [Right Arm] Blood Pressure Mean 104 99 Blood Pressure Mean [Right Arm] Blood Pressure Position [Right Arm] Pulse Oximetry 99 Oxygen Delivery Method Room Air Sepsis Recent Fever Within 48 Hours No Sepsis New/Unexplained Change in Mental Status N/A Sepsis Action Taken by Nursing No Action Required 02/11/22 10:40 02/11/22 10:41 02/11/22 11:00 Temperature Temperature Source Pulse Rate 96 H 93 H Pulse Rate [Apical] 98 H Pulse Rate from SpO2 Sensor 95 H Pulse Rhythm Irregular Pulse Rhythm [Apical] Regular Pulse Strength [Apical] Normal Respiratory Rate 24 24 4 L Respiratory Effort / Characteristics Non-Labored Spontaneous Respiratory Depth Normal Respiratory Pattern Regular Blood Pressure 127/94 Blood Pressure [Right Arm] 119/89 Blood Pressure Mean 105 Blood Pressure Mean [Right Arm] 99 Blood Pressure Position [Right Arm] Lying Pulse Oximetry 96 96 94 Oxygen Delivery Method Room Air Room Air Sepsis Recent Fever Within 48 Hours Sepsis New/Unexplained Change in Mental Status Sepsis Action Taken by Nursing 02/11/22 11:30 02/11/22 12:00 02/11/22 12:11 Temperature Temperature Source Pulse Rate 94 H 98 H Pulse Rate [Apical] 102 H Pulse Rate from SpO2 Sensor 93 H 99 H Pulse Rhythm Pulse Rhythm [Apical] Irregular Pulse Strength [Apical] Respiratory Rate 7 L 19 18 Respiratory Effort / Characteristics Respiratory Depth Normal Respiratory Pattern Blood Pressure 139/89 123/100 Blood Pressure [Right Arm] 126/90 Blood Pressure Mean 105 107 Blood Pressure Mean [Right Arm] 102 Blood Pressure Position [Right Arm] Pulse Oximetry 90 89 L 95 Oxygen Delivery Method Room Air Sepsis Recent Fever Within 48 Hours Sepsis New/Unexplained Change in Mental Status Sepsis Action Taken by Nursing 02/11/22 12:30 02/11/22 13:00 Temperature Temperature Source Pulse Rate 96 H 104 H Pulse Rate [Apical] Pulse Rate from SpO2 Sensor 97 H 99 H Pulse Rhythm Pulse Rhythm [Apical] Pulse Strength [Apical] Respiratory Rate 26 H 27 H Respiratory Effort / Characteristics Respiratory Depth Respiratory Pattern Blood Pressure 139/101 H 126/90 Blood Pressure [Right Arm] Blood Pressure Mean 113 102 Blood Pressure Mean [Right Arm] Blood Pressure Position [Right Arm] Pulse Oximetry 93 92 Oxygen Delivery Method Sepsis Recent Fever Within 48 Hours Sepsis New/Unexplained Change in Mental Status Sepsis Action Taken by Nursing Laboratory Data Result diagrams: 02/11/22 10:39 02/11/22 11:56 Lab Results 02/11/22 02/11/22 02/11/22 Range/Units 10:39 10:39 10:45 WBC 12.48 H (4.8-10.8) K/uL RBC 5.46 (4.7-6.1) M/uL Hgb 17.3 (14.0-18.0) g/dL Hct 50.3 (42-52) % MCV 92.1 (80-100) fL MCH 31.7 (25-34) pg MCHC 34.4 (32-36) g/dL RDW Std Deviation 54.4 H (36.4-46.3) fL RDW Coeff of Erik 16.2 H (11.5-14.5) % Plt Count 78 L (130-400) K/uL Immature Gran % (Auto) 0.6 % Neut % (Auto) 88.9 % Lymph % (Auto) 4.7 % Morton % (Auto) 5.5 % Eos % (Auto) 0.1 % Baso % (Auto) 0.2 % Neut # (Auto) 11.10 H (1.4-6.5) K/uL Lymph # (Auto) 0.59 L (1.2-3.4) K/uL Morton # (Auto) 0.69 H (0.11-0.59) K/uL Eos # (Auto) 0.01 (0-0.5) K/uL Baso # (Auto) 0.02 (0-0.2) K/uL Immature Gran # (Auto) 0.07 H (0.00-0.02) K/uL Giant Platelets 1+ Echinocytes 1+ Sodium 132 L (136-145) mmol/L Potassium TNP Chloride 100 (98-107) mmol/L Carbon Dioxide 20 L (21-32) mmol/L Anion Gap 12 H (3-11) BUN 42 H (6-23) mg/dl Creatinine 1.97 H (0.6-1.4) mg/dl Est Cr Clr Drug Dosing 39.9 ml/min Est GFR ( Amer) 38.0 ml/min Est GFR (Non-Af Amer) 32.7 ml/min BUN/Creatinine Ratio 21.3 H (10-20) Glucose 205 H (70-99(Fasting)) mg/dl Calcium 8.9 (8.5-10.1) mg/dl Total Bilirubin 6.7 H (0.2-1.0) mg/dl AST TNP ALT 52 (7-52) U/L Alkaline Phosphatase 140 H (34-104) U/L Troponin I 0.36 H* (0-0.04) ng/ml Total Protein 6.8 (6.0-8.3) gm/dl Albumin 3.2 L (3.4-5.0) gm/dl Globulin 3.6 (2.5-4.0) gm/dl Albumin/Globulin Ratio 0.9 (0.9-2) Lipase 7 L (11-82) U/L SARS-CoV-2, RNA, NAAT NEGATIVE (NEGATIVE) 02/11/22 Range/Units 11:56 WBC (4.8-10.8) K/uL RBC (4.7-6.1) M/uL Hgb (14.0-18.0) g/dL Hct (42-52) % MCV (80-100) fL MCH (25-34) pg MCHC (32-36) g/dL RDW Std Deviation (36.4-46.3) fL RDW Coeff of Erik (11.5-14.5) % Plt Count (130-400) K/uL Immature Gran % (Auto) % Neut % (Auto) % Lymph % (Auto) % Morton % (Auto) % Eos % (Auto) % Baso % (Auto) % Neut # (Auto) (1.4-6.5) K/uL Lymph # (Auto) (1.2-3.4) K/uL Morton # (Auto) (0.11-0.59) K/uL Eos # (Auto) (0-0.5) K/uL Baso # (Auto) (0-0.2) K/uL Immature Gran # (Auto) (0.00-0.02) K/uL Giant Platelets Echinocytes Sodium (136-145) mmol/L Potassium 5.3 H Chloride (98-107) mmol/L Carbon Dioxide (21-32) mmol/L Anion Gap (3-11) BUN (6-23) mg/dl Creatinine (0.6-1.4) mg/dl Est Cr Clr Drug Dosing ml/min Est GFR ( Amer) ml/min Est GFR (Non-Af Amer) ml/min BUN/Creatinine Ratio (10-20) Glucose (70-99(Fasting)) mg/dl Calcium (8.5-10.1) mg/dl Total Bilirubin (0.2-1.0) mg/dl AST 78 H ALT (7-52) U/L Alkaline Phosphatase (34-104) U/L Troponin I (0-0.04) ng/ml Total Protein (6.0-8.3) gm/dl Albumin (3.4-5.0) gm/dl Globulin (2.5-4.0) gm/dl Albumin/Globulin Ratio (0.9-2) Lipase (11-82) U/L SARS-CoV-2, RNA, NAAT (NEGATIVE) Administered Medications Discontinued Medications Aspirin (Aspirin Chew 324 Mg) 324 mg PO NOW STA Stop: 02/11/22 12:42 Last Admin: 02/11/22 13:11 Dose: 324 mg Documented by: [id number] Piperacillin Sod/Tazobactam Sod (Zosyn) 4.5 gm in 120 mls @ 240 mls/hr IV NOW ONE Stop: 02/11/22 13:10 Last Infusion: 02/11/22 13:40 Dose: 0 mls/hr Documented by: [id number] Admin: 02/11/22 13:11 Dose: 240 mls/hr Documented by: [id number] Morphine Sulfate (Morphine Sulfate 4 Mg/Ml 1 Ml Carp\\Vial) 4 mg IV NOW STA Stop: 02/11/22 10:45 Last Admin: 02/11/22 11:07 Dose: 4 mg Documented by: [id number] Ondansetron HCl (Ondansetron Inj 2 Mg/Ml 2 Ml Vial) 4 mg IV NOW STA Stop: 02/11/22 10:45 Last Admin: 02/11/22 11:07 Dose: 4 mg Documented by: [id number] Imaging Data Radiologist's Impression: Chest X-Ray 02/11/22 10:18 XR chest 1V portable HISTORY: Pleural effusions. Shortness of breath. COMPARISON: Chest 12/18/2020. FINDINGS: No pneumothorax. Small bilateral pleural effusions and bibasilar densities have progressed. The heart remains mildly enlarged. There is mild central pulmonary vascular congestion without overt edema. IMPRESSION: 1. Small bilateral pleural effusions and bibasilar densities have slightly progressed. This favors atelectasis from the pleural effusions. A developing pneumonia could also have a similar appearance. 2. Cardiomegaly with mild congestive change. ACT 112: Negative or not required by law. Electronically signed by: Diallo Johnson M.D. 02/11/2022 11:04 AM Abdomen/Pelvis CT 02/11/22 10:[address] WITHOUT CONTRAST CT DOSE: 905.17 mGy.cm HISTORY: worsening pain in right lower quadrant and epigastric pain cant dri TECHNIQUE: Multiaxial CT images of the abdomen and pelvis were performed without contrast. A dose lowering technique was utilized adhering to the principles of ALARA. COMPARISON STUDY: Abdomen and pelvis CT 02/09/2022. FINDINGS: The heart remains mildly enlarged. Trace pericardial effusion and moderate bilateral pleural effusions persist. Groundglass densities within the lungs posteriorly remain unchanged. This is nonspecific but favors dependent change/atelectasis. No pneumoperitoneum. No pneumatosis. No fractures within the visualized osseous structures. Small fat-containing umbilical hernia. Moderate body wall edema has slightly progressed. There is a small fat-containing left inguinal hernia. The prostate gland remains mildly enlarged. Bladder wall thickening/trabeculation persists. Contrast within the bladder from the recent CT examination. Small of contrast seen within the bilateral renal collecting systems from the prior CT examination. No hydronephrosis. Bilateral perinephric edema and trace ascites remains unchanged. The unenhanced liver, spleen, adrenal glands, and pancreas unremarkable. There are multiple small gallstones. Questionable mild pericholecystic inflammatory change versus edema. No retroperitoneal lymphadenopathy. Mild calcified plaque within the normal caliber abdominal aorta. Suboptimal evaluation for bowel pathology due to the lack of intravenous and oral contrast. There is extensive colonic diverticulosis. No evidence for acute diverticulitis. No definite bowel obstruction. The visualized appendix is unremarkable. Questionable thickening within the ascending colon hepatic flexure of the colon is likely due to underdistention and the patient's diffuse edematous state. A low-grade proximal colitis is considered less likely but not entirely excluded. IMPRESSION: 1. Diffuse anasarca with trace ascites. This has slightly progressed in the interval. 2. Small gallstones with questionable mild pericholecystic inflammatory change. This could be due to the patient's diffuse edematous state. A developing acute cholecystitis is also considered in the differential diagnosis. Consider follow-up right upper quadrant ultrasound or HIDA scan for further evaluation. 3. Questionable thickening within the ascending colon hepatic flexure of the colon is likely due to underdistention and the patient's diffuse edematous state. A low-grade proximal colitis is considered less likely but not entirely excluded. 4. Moderate bilateral pleural fusions, unchanged. 5. Additional findings as described above. ACT 112: Negative or not required by law. Electronically signed by: Diallo Johnson M.D. 02/11/2022 12:24 PM Liver Ultrasound 02/11/22 14:18 ABDOMINAL ULTRASOUND, RIGHT UPPER QUADRANT HISTORY: r/o cholecystitis, abnormal CT. COMPARISON: Abdomen and pelvis CT 02/11/2022. FINDINGS: Pancreas: Obscured by overlying bowel gas. Liver: Unremarkable. Gallbladder: Multiple small stones/sludge within the gallbladder. No significant gallbladder wall thickening. Negative sonographic Hubbard sign. CBD: 4 mm. Right kidney: No hydronephrosis. Miscellaneous: Small right pleural effusion. IMPRESSION: 1. Multiple small gallstones/sludge. No definite gallbladder wall thickening. 2. Normal caliber common bile duct. 3. Small right pleural effusion. ACT 112: Negative or not required by law. Electronically signed by: Diallo Johnson M.D. 02/11/2022 2:56 PM Discharge Plan Visit Data Chief Complaint: Abdominal Pain Stated Complaint: ABD PAIN GETTING WORSE, VOMITING ED Provider: Bert Bright Discharge Problem: CHF (congestive heart failure), Abdominal pain, BOLA (acute kidney injury), Elevated troponin, Moderate sized pleural effusion, Vomiting Patient Disposition: Admitted As Inpatient Forms Stand Alone Forms: [facility] Prescriptions Prescriptions: No Action sotalol [Betapace] 80 mg tablet 80 mg PO BID RF: 0 warfarin 5 mg Tablet 5 mg PO QAM RF: 0 nitroglycerin [Nitrostat] 0.4 mg Tablet, Sublingual 0.4 mg sublingual UD PRN (Reason: Chest Pain) RF: 0 Lantus Solostar U-100 Insulin 100 unit/mL (3 mL) insulin pen 35 unit SUBCUT QAM RF: 0 metoprolol succinate 100 mg tablet extended release 24 hr 100 mg PO QAM RF: 0 furosemide 20 mg tablet 20 mg PO QAM RF: 0 Entresto 24-26 mg tablet 1 tab PO BID RF: 0 Referrals Referrals: PCP,NO [Primary Care Provider] - Discharge Problem: CHF (congestive heart failure) Qualifiers: Heart failure type: unspecified Heart failure chronicity: unspecified Qualified Code(s): I50.9 - Heart failure, unspecified Abdominal pain Qualifiers: Abdominal location: unspecified location Qualified Code(s): R10.9 - Unspecified abdominal pain Vomiting Qualifiers: Vomiting type: unspecified Nausea presence: unspecified Qualified Code(s): R11.10 - Vomiting, unspecified
[2022-02-11] MEDS ORDERED: MoRPHine SULFATE 4 MG/ML 1 ML CARP\\VIAL IV STA (10:44)
[2022-02-11] MEDS ORDERED: ONDANSETRON INJ 2 MG/ML 2 ML VIAL IV STA (10:44)
[2022-02-11 10:52] LABS: Mean Corpuscular Hgb Conc 34.4 g/dL (32-36)
--- NOTE | 2022-02-11 11:06 | XRay Report ---
XR chest 1V portable HISTORY: Pleural effusions. Shortness of breath. COMPARISON: Chest 12/18/2020. FINDINGS: No pneumothorax. Small bilateral pleural effusions and bibasilar densities have progressed. The heart remains mildly enlarged. There is mild central pulmonary vascular congestion without overt edema. IMPRESSION: 1. Small bilateral pleural effusions and bibasilar densities have slightly progressed. This favors at electasis from the pleural effusions. A developing pneumonia could also have a similar appearance. 2. Cardiomegaly with mild congestive change. ACT 112: Negative or not required by law. Electronically signed by: Diallo Johnson M.D. 02/11/2022 11:04 AM
[2022-02-11 11:08] LABS: Hematocrit (blood only) 50.3 % (42-52); Hemoglobin 17.3 g/dL (14.0-18.0); Mean Corpuscular Hemoglobin 31.7 pg (25-34); Mean Corpuscular Volume 92.1 fL (80-100); RDW Coefficient of Variation 16.2 % (11.5-14.5); RDW Standard Deviation 54.4 fL (36.4-46.3); Red Blood Count 5.46 M/uL (4.7-6.1); White Blood Count 12.48 K/uL (4.8-10.8)
[2022-02-11 11:17] LABS: Basophils # (auto) 0.02 K/uL (0-0.2); Basophils % (auto) 0.2 %; Echinocytes 1+; Eosinophils # (auto) 0.01 K/uL (0-0.5); Eosinophils % (auto) 0.1 %; Giant Platelets 1+; Immature Granulocytes # (auto) 0.07 K/uL (0.00-0.02); Immature Granulocytes % (auto) 0.6 %; Lymphocytes # (auto) 0.59 K/uL (1.2-3.4); Lymphocytes % (auto) 4.7 %; Monocytes # (auto) 0.69 K/uL (0.11-0.59); Monocytes % (auto) 5.5 %; Neutrophils % (auto) 88.9 %
[2022-02-11 11:18] LABS: Platelet Count 78 K/uL (130-400)
[2022-02-11 11:44] LABS: Troponin I 0.36 ng/ml (0-0.04)
[2022-02-11 11:46] LABS: Alanine Aminotransferase 52 U/L (7-52); Albumin Globulin Ratio 0.9 (0.9-2); Albumin Level 3.2 gm/dl (3.4-5.0); Alkaline Phosphatase 140 U/L (34-104); BUN Creatinine Ratio 21.3 (10-20); Bilirubin,Total 6.7 mg/dl (0.2-1.0); Blood Urea Nitrogen 42 mg/dl (6-23); Calcium 8.9 mg/dl (8.5-10.1); Chloride 100 mmol/L (98-107); Creatinine Clr Calc Pharmacy 39.9 ml/min; Est GFR (Non-African American) 32.7 ml/min; Globulin 3.6 gm/dl (2.5-4.0); Glucose 205 mg/dl (70-99(Fasting)); Lipase 7 U/L (11-82); Sodium 132 mmol/L (136-145); Total Protein 6.8 gm/dl (6.0-8.3)
[2022-02-11 11:53] LABS: Anion Gap 12 (3-11); Carbon Dioxide 20 mmol/L (21-32)
--- NOTE | 2022-02-11 12:27 | CT Scan Report ---
ABDOMEN AND PELVIS CT WITHOUT CONTRAST CT DOSE: 905.17 mGy.cm HISTORY: worsening pain in right lower quadrant and epigastric pain cant dri TECHNIQUE: Multiaxial CT images of the abdomen and pelvis were performed without contrast. A dose lo wering technique was utilized adhering to the principles of ALARA. COMPARISON STUDY: Abdomen and pelvis CT 02/09/2022. FINDINGS: The heart remains mildly enlarged. Trace pericardial effusion and moderate bilateral pleura l effusions persist. Groundglass densities within the lungs posteriorly remain unchanged. This is non specific but favors dependent change/atelectasis. No pneumoperitoneum. No pneumatosis. No fractures w ithin the visualized osseous structures. Small fat-containing umbilical hernia. Moderate body wall ed thomas has slightly progressed. There is a small fat-containing left inguinal hernia. The prostate gland remains mildly enlarged. Bladder wall thickening/trabeculation persists. Contrast within the bladder from the recent CT examination. Small of contrast seen within the bilateral renal collecting systems from the prior CT examination. No hydronephrosis. Bilateral perinephric edema and trace ascites charisse ins unchanged. The unenhanced liver, spleen, adrenal glands, and pancreas unremarkable. There are mul tiple small gallstones. Questionable mild pericholecystic inflammatory change versus edema. No retrop eritoneal lymphadenopathy. Mild calcified plaque within the normal caliber abdominal aorta. Suboptima l evaluation for bowel pathology due to the lack of intravenous and oral contrast. There is extensive colonic diverticulosis. No evidence for acute diverticulitis. No definite bowel obstruction. The vis ualized appendix is unremarkable. Questionable thickening within the ascending colon hepatic flexure of the colon is likely due to underdistention and the patient's diffuse edematous state. A low-grade proximal colitis is considered less likely but not entirely excluded. IMPRESSION: 1. Diffuse anasarca with trace ascites. This has slightly progressed in the interval. 2. Small gallstones with questionable mild pericholecystic inflammatory change. This could be due to the patient's diffuse edematous state. A developing acute cholecystitis is also considered in the dif ferential diagnosis. Consider follow-up right upper quadrant ultrasound or HIDA scan for further eval uation. 3. Questionable thickening within the ascending colon hepatic flexure of the colon is likely due to u nderdistention and the patient's diffuse edematous state. A low-grade proximal colitis is considered less likely but not entirely excluded. 4. Moderate bilateral pleural fusions, unchanged. 5. Additional findings as described above. ACT 112: Negative or not required by law. Electronically signed by: Diallo Johnson M.D. 02/11/2022 12:24 PM
[2022-02-11] MEDS ORDERED: ASPIRIN CHEW 324 MG PO STA (12:41)
[2022-02-11] MEDS ORDERED: PIPERACILL/TAZOBAC CONSULT ACTIVE PRN (12:41)
[2022-02-11] MEDS ORDERED: PIPERACILLIN/TAZOBACTAM 4.5 GM/120 ML BAG IV ONE (12:41)
[2022-02-11 13:38] LABS: Potassium 5.3 mmol/L (3.5-5.1)
--- NOTE | 2022-02-11 14:09 | History & Physical Report ---
Date of Service February 11, 2022 Assessment & Plan (1) Abdominal pain with vomiting: (2) Pleural effusion: (3) Elevated troponin I level: (4) Atrial fibrillation: (5) Systolic and diastolic CHF, chronic: Plan: Abdominal pain with vomiting- Ongoing for the past 2-3 weeks. Unclear etiology, CT A/P reviewed- diffuse anasarca with questionable cholecystitis or proximal colitis. Tenderness in RUQ +. Can not get HIDA scan over weekend, will get RUQ US. Continue zosyn, gentle ivf, npo, antiemetics and analgesics prn. GI consult. Labs in AM. Monitor for QTc while on antiemetics- repeat EKG ordered for am. BOLA- likely prerenal due to poor oral intake and vomiting, coupled by diuretics and entresto. Hold diuretics, entresto, gentle IVF for limited time. Avoid nephrotoxics, Recheck in am Hyponatremia- mild, recheck in am. Thrombocytopenia- mild, likely from acute illness, Recheck in am Hyperkalemia- mild, recheck in am. no intervention needed currently Elevated troponin- likely demand ischemia. no chest pain. EKG without ischemic changes. Trend for completeness, EKG in am, tele Hyperbilirubinemia- Bili significantly elevated compared to other LFTs. Possible Gilbert's in setting of acute illness. Recheck in am. Bilateral pleural effusion- seen in CT, currently asymptomatic. Diurese when able. Consider thoracentesis if becomes symptomatic. Chronic systolic diastolic CHF- will hold diuretics in setting of poor oral intake and BOLA despite edema and pleural effusion. Currently asymptomatic, with no shortness of breath. Resume when able. DM-2- A1c 14. Taking insulin intermittently at home in setting of poor oral intake. Will continue SSI for now as npo. Very low dose lantus for now, uptitrate when eating. PAF- continue lopressor, sotalol. Check dig level, hold if elevated, bj in setting of BOLA. Continue coumadin, dose based on INR. Takes 5 mg daily at home. DVT prophylaxis- on coumadin- adjust with INR Code status- Ok with limited CPR but does not want intubation Dispo- Medsurg with tele History of Present Illness Chief Complaint: Abdominal pain, vomiting Primary Care Provider: NO PCP 41 year old male with h/o CHF, cardiomyopathy, DM-2, Afib who presented to the ED with abdominal pain and vomiting for 2-3 weeks. States he was in normal health until 3 weeks back when he developed RLQ abdominal pain which has since moved up. Pain is dull but intermittently sharp, it is there all the time and even hinders his sleep. Also had vomiting for the past 2 weeks with any oral intake, and even with pills. States 2-3 times vomiting per day. Has intermittent chills but no fever. Soft bowel movements but no diarrhea. No sick contacts. He was seen in the ED 2 days back and was seen by his doctor at [facility] yesterday and recommended admission but he declined. He again had an episode of vomiting this morning and had pills in the vomitus. No bleeding. Denies any worsening shortness of breath (short of breath with exertion for the past year which has not changed). Had dry cough 3 weeks back which is improved. Also had runny nose which is improved. In the ED, he was afebrile, hemodynamically stable. Work up reviewed. He was given zosyn and morphine in the ED. Fairly comfortable during my encounter. Allergies Allergy/AdvReac Type Severity Reaction Status Date / Time lisinopril AdvReac Intermediate COUGH Verified 02/11/22 11:34 atorvastatin AdvReac Muscle Pain Verified 02/11/22 11:34 Home Medications Medication Instructions Recorded Confirmed Type insulin glargine 100 unit/mL (3 35 unit SUBCUT QAM 12/18/20 02/11/22 History mL) subcutaneous pen (Lantus Solostar U-100 Insulin) nitroglycerin 0.4 mg sublingual 0.4 mg SUBLINGUAL UD PRN 12/18/20 02/11/22 History tablet (Nitrostat) sotalol 80 mg tablet (Betapace) 80 mg PO BID 12/18/20 02/11/22 History warfarin 5 mg tablet 5 mg PO QAM 12/18/20 02/11/22 History furosemide 20 mg tablet 20 mg PO QAM 02/09/22 02/11/22 History metoprolol succinate 100 mg 100 mg PO QAM 02/09/22 02/11/22 History tablet,extended release 24 hr sacubitril 24 mg-valsartan 26 mg 1 tab PO BID 02/09/22 02/11/22 History tablet (Entresto) Past Med/Surg History Medical History (Updated 02/11/22 @ 13:57 by Jae Barboza MD) CAD (coronary artery disease) "03/2009 - STEMI, s/p PTCA and stenting RCA, chronic LAD occlusion, 40% left main lesion" CVA (cerebral vascular accident) DM type 2 (diabetes mellitus, type 2) Dyslipidemia HTN (hypertension) Hypothyroidism Paroxysmal atrial fibrillation STEMI (ST elevation myocardial infarction) Systolic and diastolic CHF, chronic Thrombocytopenia Uncontrolled type 2 diabetes mellitus Surgical History H/O colonoscopy 06/2018 - diverticulosis - Dr Samreen Suárez Hx of cardiac cath 2008 - multivessel disease s/p stent RCA with residual chronic occlusion LAD with collaterals and 40% narrowing left main Family History Other Coronary heart disease Diabetes Social History Smoking Status: Never smoker Second Hand Exposure: Yes; Hx Alcohol Use: Yes Alcohol type: wine Hx Substance Use: No Preferred Language: Pashto Communication Ability: Effective 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 Beliefs That Will Affect Care: None marital status: Single Current Living Situation: Alone Feels Safe at Home: Yes Assistive Devices: None Review of Systems Review of Systems: All systems reviewed & are unremarkable except as noted in Subjective Physical Exam Physical Exam: General: Not well looking, Lying in bed, not in acute distress, on room air HEENT: EOMI, ELMER, MMM Chest: Fair breath sounds bilaterally decreased at bases CVS: Irregular, normal heart sounds, no murmur Abdomen: Soft, tenderness in RUQ, periumbilical and LLQ region, not distended, normal bowel sounds Neuro: Awake, alert, oriented, conversing well, non focal Extremities: No cyanosis, clubbing, 2+ edema Results & Data Results & Data ([facility]) Vital Signs (Past 12 Hours) Vital Signs Temp Pulse Pulse Resp BP BP Pulse Ox 02/11/22 13:00 104 H 27 H 126/90 92 02/11/22 12:30 96 H 26 H 139/101 H 93 02/11/22 12:11 102 H 18 126/90 95 02/11/22 12:00 98 H 19 123/100 89 L 02/11/22 11:30 94 H 7 L 139/89 90 02/11/22 11:00 93 H 4 L 127/94 94 02/11/22 10:41 96 H 24 96 02/11/22 10:40 98 H 24 119/89 96 02/11/22 10:39 98 H 31 H 119/89 02/11/22 10:31 101 H 28 H 02/11/22 10:21 36.2 C L 95 H 20 131/91 99 Laboratory Results Short CBC 02/11/22 02/11/22 Range/Units 10:39 10:39 WBC 12.48 H (4.8-10.8) K/uL Hgb 17.3 (14.0-18.0) g/dL Hct 50.3 (42-52) % Plt Count 78 L (130-400) K/uL Sodium 132 L (136-145) mmol/L Creatinine 1.97 H (0.6-1.4) mg/dl Troponin I 0.36 H* (0-0.04) ng/ml BMP 02/11/22 02/11/22 10:39 11:56 Sodium 132 L Potassium TNP 5.3 H Chloride 100 Carbon Dioxide 20 L BUN 42 H Creatinine 1.97 H Glucose 205 H Calcium 8.9 Cardiac Enzymes 02/11/22 Range/Units 10:39 Troponin I 0.36 H* (0-0.04) ng/ml Liver Function 02/11/22 02/11/22 Range/Units 10:39 11:56 Total Bilirubin 6.7 H (0.2-1.0) mg/dl AST TNP 78 H ALT 52 (7-52) U/L Alkaline Phosphatase 140 H (34-104) U/L Albumin 3.2 L (3.4-5.0) gm/dl Diagnostic Findings Chest X-Ray 02/11/22 10:18 XR chest 1V portable HISTORY: Pleural effusions. Shortness of breath. COMPARISON: Chest 12/18/2020. FINDINGS: No pneumothorax. Small bilateral pleural effusions and bibasilar densities have progressed. The heart remains mildly enlarged. There is mild central pulmonary vascular congestion without overt edema. IMPRESSION: 1. Small bilateral pleural effusions and bibasilar densities have slightly progressed. This favors atelectasis from the pleural effusions. A developing pneumonia could also have a similar appearance. 2. Cardiomegaly with mild congestive change. ACT 112: Negative or not required by law. Electronically signed by: Diallo Johnson M.D. 02/11/2022 11:04 AM Abdomen/Pelvis CT 02/11/22 10:[address] WITHOUT CONTRAST CT DOSE: 905.17 mGy.cm HISTORY: worsening pain in right lower quadrant and epigastric pain cant dri TECHNIQUE: Multiaxial CT images of the abdomen and pelvis were performed without contrast. A dose lowering technique was utilized adhering to the principles of ALARA. COMPARISON STUDY: Abdomen and pelvis CT 02/09/2022. FINDINGS: The heart remains mildly enlarged. Trace pericardial effusion and moderate bilateral pleural effusions persist. Groundglass densities within the lungs posteriorly remain unchanged. This is nonspecific but favors dependent change/atelectasis. No pneumoperitoneum. No pneumatosis. No fractures within the visualized osseous structures. Small fat-containing umbilical hernia. Moderate body wall edema has slightly progressed. There is a small fat-containing left inguinal hernia. The prostate gland remains mildly enlarged. Bladder wall thickening/trabeculation persists. Contrast within the bladder from the recent CT examination. Small of contrast seen within the bilateral renal collecting systems from the prior CT examination. No hydronephrosis. Bilateral perinephric edema and trace ascites remains unchanged. The unenhanced liver, spleen, adrenal glands, and pancreas unremarkable. There are multiple small gallstones. Questionable mild pericholecystic inflammatory change versus edema. No retroperitoneal lymphadenopathy. Mild calcified plaque within the normal caliber abdominal aorta. Suboptimal evaluation for bowel pathology due to the lack of intravenous and oral contrast. There is extensive colonic diverticulosis. No evidence for acute diverticulitis. No definite bowel obstruction. The visualized appendix is unremarkable. Questionable thickening within the ascending colon hepatic flexure of the colon is likely due to underdistention and the patient's diffuse edematous state. A low-grade proximal colitis is considered less likely but not entirely excluded. IMPRESSION: 1. Diffuse anasarca with trace ascites. This has slightly progressed in the interval. 2. Small gallstones with questionable mild pericholecystic inflammatory change. This could be due to the patient's diffuse edematous state. A developing acute cholecystitis is also considered in the differential diagnosis. Consider follow- up right upper quadrant ultrasound or HIDA scan for further evaluation. 3. Questionable thickening within the ascending colon hepatic flexure of the colon is likely due to underdistention and the patient's diffuse edematous state. A low-grade proximal colitis is considered less likely but not entirely excluded. 4. Moderate bilateral pleural fusions, unchanged. 5. Additional findings as described above. ACT 112: Negative or not required by law. Electronically signed by: Diallo Johnson M.D. 02/11/2022 12:24 PM (1) Atrial fibrillation Atrial fibrillation type: paroxysmal Qualified Code(s): I48.0 - Paroxysmal atrial fibrillation
[2022-02-11] MEDS ORDERED: MoRPHine SULFATE 4 MG/ML 1 ML CARP\\VIAL IV PRN (14:22)
--- NOTE | 2022-02-11 14:57 | Ultrasound Report ---
ABDOMINAL ULTRASOUND, RIGHT UPPER QUADRANT HISTORY: r/o cholecystitis, abnormal CT. COMPARISON: Abdomen and pelvis CT 02/11/2022. FINDINGS: Pancreas: Obscured by overlying bowel gas. Liver: Unremarkable. Gallbladder: Multiple small stones/sludge within the gallbladder. No significant gallbladder wall thi ckening. Negative sonographic Hubbard sign. CBD: 4 mm. Right kidney: No hydronephrosis. Miscellaneous: Small right pleural effusion. IMPRESSION: 1. Multiple small gallstones/sludge. No definite gallbladder wall thickening. 2. Normal caliber common bile duct. 3. Small right pleural effusion. ACT 112: Negative or not required by law. Electronically signed by: Diallo Johnson M.D. 02/11/2022 2:56 PM
[2022-02-11] MEDS ORDERED: GLUCOSE 40% GEL 15 GM TUBE PO PRN (15:45)
[2022-02-11] MEDS ORDERED: GLUCAGON FOR INJ 1 MG VIAL SQ PRN (15:45)
[2022-02-11] MEDS ORDERED: CARBOHYDRATES FOR HYPOGLYCEMIA PO PRN (15:45)
[2022-02-11] MEDS ORDERED: DEXTROSE 50% 50 ML SYRINGE IV PRN (15:45)
[2022-02-11] MEDS ORDERED: GLUCOSE 10 TABS/TUBE PO PRN (15:45)
[2022-02-11] MEDS: SODIUM CHLORIDE 0.9% 1000ML 1,000 ML IV SCH (16:00)
[2022-02-11] MEDS: INSULIN ASPART PER UNIT SC SCH ×2 (16:10→22:16)
[2022-02-11] MEDS: PIPERACILLIN/TAZOBACTAM 3.375 GM in DEXTROSE 5% 100 ML IV SCH (17:30)
[2022-02-11] MEDS: ONDANSETRON INJ 2 MG/ML 2 ML VIAL IV PRN ×2 (17:42→23:47)
[2022-02-11 22:02] LABS: Appearance Urine Turbid (Clear); Bacteria Urine Automated Negative (Negative); Blood Urine Negative (Negative); Color Urine Orange; Epithelial Cell Urine Auto >30 /lpf (0-5); Glucose Urine UA Trace (Negative); Ketones Urine Trace (Negative); Leukocyte Esterase Urine 1+ (Negative); Nitrite Urine Positive (Negative); Protein Urine 2+ (Negative); Specific Gravity Urine 1.038 (1.000-1.030); Urobilinogen Urine Negative (Negative)
[2022-02-11] MEDS: INSULIN GLARGINE SOLOSTAR 100 UNITS/ML 3 ML PEN SC SCH (22:11)
[2022-02-11] MEDS: DIGOXIN 0.125 MG TAB PO SCH (22:11)
[2022-02-11] MEDS: SOTALOL HCL 80 MG TAB PO SCH (22:12)
[2022-02-11 22:35] LABS: Bilirubin Urine 3+ (Negative)
[2022-02-11 23:01] LABS: RBC Urine Automated 0-4 /hpf (0-4)
[2022-02-12] MEDS: PIPERACILLIN/TAZOBACTAM 3.375 GM in DEXTROSE 5% 100 ML IV SCH ×3 (01:49→17:37)
[2022-02-12] MEDS: SODIUM CHLORIDE 0.9% 1000ML 1,000 ML IV SCH (06:47)
[2022-02-12 07:45] LABS: Mean Corpuscular Hgb Conc 34.7 g/dL (32-36)
[2022-02-12 07:52] LABS: INR 2.3 (0.9-1.1); Prothrombin Time 23.9 Seconds (9.0-12.0)
[2022-02-12 08:09] LABS: Albumin Level 2.9 gm/dl (3.4-5.0); BUN Creatinine Ratio 23.2 (10-20); Bilirubin Direct 3.3 mg/dl (0-0.2); Bilirubin,Total 4.8 mg/dl (0.2-1.0); Calcium 8.7 mg/dl (8.5-10.1); Creatinine Clr Calc Pharmacy 37.1 ml/min; Est GFR (African American) 34.9 ml/min; Est GFR (Non-African American) 30.1 ml/min; Magnesium 1.7 mg/dl (1.7-2.4); Phosphorus 3.9 mg/dl (2.5-4.9); Potassium 4.9 mmol/L (3.5-5.1); Total Protein 6.3 gm/dl (6.0-8.3)
[2022-02-12 08:11] LABS: Hematocrit (blood only) 48.1 % (42-52); Hemoglobin 16.7 g/dL (14.0-18.0); Mean Corpuscular Hemoglobin 31.5 pg (25-34); Mean Corpuscular Volume 90.6 fL (80-100); RDW Coefficient of Variation 16.5 % (11.5-14.5); Red Blood Count 5.31 M/uL (4.7-6.1); White Blood Count 11.04 K/uL (4.8-10.8)
[2022-02-12 08:20] LABS: Basophils # (auto) 0.02 K/uL (0-0.2); Basophils % (auto) 0.2 %; Eosinophils # (auto) 0.04 K/uL (0-0.5); Eosinophils % (auto) 0.4 %; Immature Granulocytes # (auto) 0.03 K/uL (0.00-0.02); Immature Granulocytes % (auto) 0.3 %; Lymphocytes # (auto) 1.01 K/uL (1.2-3.4); Lymphocytes % (auto) 9.1 %; Monocytes # (auto) 0.74 K/uL (0.11-0.59); Monocytes % (auto) 6.7 %; Neutrophils % (auto) 83.3 %; Platelet Count 91 K/uL (130-400); Platelet Estimate Decreased (Normal)
[2022-02-12] MEDS: SOTALOL HCL 80 MG TAB PO SCH ×2 (09:40→20:57)
[2022-02-12] MEDS: INSULIN ASPART PER UNIT SC SCH ×4 (09:40→20:56)
[2022-02-12] MEDS: METOPROLOL SUCC 50MG EXT REL TAB PO SCH (09:40)
--- NOTE | 2022-02-12 10:38 | Electrocardiogram Report ---
Test Reason : Blood Pressure : / mmHG Vent. Rate : 099 BPM Atrial Rate : 108 BPM P-R Int : 000 ms QRS Dur : 124 ms QT Int : 382 ms P-R-T Axes : 000 -54 131 degrees QTc Int : 490 ms Probable Atrial flutter with variable A-V block with premature ventricular or aberrantly conducted co mplexes Left axis deviation Left bundle branch block Anterolateral infarct , age undetermined Abnormal ECG When compared with ECG of 21-DEC-2020 06:46, No significant change Confirmed by Christopher Mc ([id number]) on 02/12/2022 10:38:28 AM Referred By: REFERRED SELF Confirmed By:Christopher Mc
--- NOTE | 2022-02-12 11:26 | Electrocardiogram Report ---
Test Reason : Blood Pressure : / mmHG Vent. Rate : 096 BPM Atrial Rate : 094 BPM P-R Int : 000 ms QRS Dur : 134 ms QT Int : 354 ms P-R-T Axes : 000 -63 123 degrees QTc Int : 447 ms Atrial tachycardia vs atrial flutter with variable AV conduction Left axis deviation Left bundle branch block Abnormal ECG When compared with ECG of 11-FEB-2022 10:58, (unconfirmed) Premature ventricular complexes are no longer Present Confirmed by Christopher Mc ([id number]) on 02/12/2022 11:25:56 AM Referred By: REFERRED SELF Confirmed By:Christopher Mc
[2022-02-12] MEDS: ADVANCED PROBIOTIC 1250 MG CAPSULE PO SCH (12:35)
--- NOTE | 2022-02-12 14:13 | Hospitalist Progress Note ---
Date of Service February 12, 2022 Assessment & Plan (1) Abdominal pain with vomiting: (2) Pleural effusion: (3) Elevated troponin I level: (4) Atrial fibrillation: (5) Systolic and diastolic CHF, chronic: Plan: 71-year-old male with PMH of CHF, CM, DM2, A. fib presented to the ED 02/11 with abdominal pain and vomiting for 2 to 3 weeks. He reports having developed RLQ abdominal pain to begin with which has moved up. Lately the dull aching pain has become intermittently sharp, associated with nausea and vomiting; and patient reports loose stool. He is being managed for the following: #. Likely colitis #. Likely pneumonia/ bilateral pleural effusion #. 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 Patient reports not drinking or eating anything due to having belly pain 2 hours after taking anything p.o. Admitting CXR: Small bilateral pleural effusion, suggestive of developing pneumonia, cardiomegaly with mild congestive changes Admitting CTAP: Diffuse anasarca with trace ascites, moderate bilateral pleural effusion, suggestive of ascending colon hepatic flexure colitis. Admitting RUQ ultrasound: Multiple small gallstones/Sludge, no definite gall bladder wall thickening. currently asymptomatic. Diurese as able. Consider Pulm/thoracentesis if becomes symptomatic. No PA tenderness on exam, patient reports improving belly pain, is tolerating cl ear liquid diet, continue with Zosyn 02/11. GI consulted, await recommendations. Pain management, antiemetic. #. BOLA over CKD stage III #. Ascites/anasarca: GI consulted, await recs #. Hyponatremia #. Possible congestive hepatopathy Admitting creatinine of 1.97, likely secondary to decreased p.o. intake with possible contribution from hepatorenal component. Continue to hold Entresto, nephrology consult, patient received gentle IV fluids, has 2+ BLE pitting edema. Avoid nephrotoxins. Pt appears SOB with minimal movement, no crackles on auscultation. Has ascites. Small dose of iv lasix, Await nephrology recommendations. Low sodium diet, ?? fluid restriction, Increase protein content in diet, Monitor BMP daily. #. Possible Acute on chronic diastolic CHF BLE edema at admission and admitting imaging s/o mild congestive changes. Albumin level fairly ok. 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 Diurese as able, complicated by BOLA Consider Cardiology consult Pt becomes SOB with movement and has 2+ pitting edema on exam. #. Transaminitis #. Hyperbilirubinemia AST and Bili elevated at presentation, trending down Could be Gilbert in acute setting vs congestive hepatopathy Await GI recs. #. Thrombocytopenia- mild, likely from acute illness, improving, follow. #. Elevated troponin- likely demand ischemia. no chest pain. EKG without ischemic changes. trops trended down, tele #. Other chronic medical conditions: DM-2; PAF c/w SSI insulin c/w home meds as and when appropriate. c/w coumadin DVT prophylaxis- on coumadin- adjust with INR Code status- Ok with limited CPR but does not want intubation Dispo- Medsurg with tele Admission and Anticipated Discharge Date Admission Date: February 11, 2022 Subjective Patient seen and examined at bedside as a follow-up of abdominal pain with vomiting, pleural effusion, elevated troponin level. Patient was lying in bed, on room air, looking tired, NAD, no new acute events overnight, reports improvement in his nausea and vomiting, has been able to eat and tolerate diet in the form of clear liquid, has been having soft bowel movements lately, denies fever/chills/chest pain/palpitation/sore throat/cough/o ther review of symptoms. Physical Exam Physical Exam: GENERAL: Alert and oriented x3. NAD, on RA. Appears tired and ill looking. HEENT: No pallor, + icterus. Pupils equal, round and reactive to light. Oral mucosa moist. NECK: No JVD, no neck masses. HEART: S1 and S2 heard. Regular rate and rhythm. No murmur, no gallop. RESPIRATORY SYSTEM: Normal AP diameter. No accessory muscle use. No wheezing, no crackles. ABDOMEN: Soft, bowel sounds present, nontender, no distention. CENTRAL NERVOUS SYSTEM: No facial droop. Speech is clear. Obeys simple commands. Moves extremities. EXTREMITIES: 2+ BLE edema, no erythema seen. Results & Data Results & Data ([facility]) Vital Signs (Past 12 Hours) Vital Signs Temp Pulse Pulse Resp BP Pulse Ox 02/12/22 12:44 36.5 C 96 H 20 110/78 90 02/12/22 07:00 103 H 02/12/22 06:45 36.4 C L 85 18 124/86 91 02/12/22 04:00 36.4 C L 89 18 125/97 96 (1) Atrial fibrillation Atrial fibrillation type: paroxysmal Qualified Code(s): I48.0 - Paroxysmal atrial fibrillation
[2022-02-12] MEDS ORDERED: FUROSEMIDE INJ 20 MG/2 ML VIAL IV ONE (14:29)
[2022-02-12] MEDS: DIGOXIN 0.125 MG TAB PO SCH (15:42)
[2022-02-12] MEDS ORDERED: WARFARIN SOD 5 MG TAB PO SCH (16:00)
--- NOTE | 2022-02-12 19:57 | Gastrointestinal Consultation ---
Date of Consultation February 12, 2022 Assessment & Plan (1) BOLA (acute kidney injury): (2) Moderate sized pleural effusion: (3) Abdominal pain with vomitin yo male with severe ischemic CM with EF 15% admitted with nausea and vomiting and signs of hemoconcentration and decreased PO intake. LFT elevation likely related to congestion. Pain is better with conservative measures. No evidence of biliary obstructiosnon imaging. ?viral gastroenteritis then perpetuated by dehydration in the setting of gross anasarca. Follow conservatively. (4) CHF (congestive heart failure): History of Present Illness Reason for Consultation: abd pain, nausea and vomiting, elevated LFTs Attending Physician: Freeman Morales MD History of Present Illness 71 yo male with severe ischemic CM with EF 15%, decompensated CHF, AF, and uncontrolled DM who presented with complaints of abd pain and vomiting and decreased PO. He has anasarca and bilateral pleural effusions. Imaging of the abd/pelvis and liver showed small stones in the gallbladder with normal size CBD. Labs are significant for elevated bilirubin of 6 with direct of 3.8 and AP of 140 (were relatively normal prior to yesterday). Some improvement today. His abd pain is better. He is receiving IVF and has not had any further vomiting. Stools are soft but denies diarrhea. Labs also show worsening in renal function from baseline Allergies Allergy/AdvReac Type Severity Reaction Status Date / Time lisinopril AdvReac Intermediate COUGH Verified 02/11/22 11:34 atorvastatin AdvReac Muscle Pain Verified 02/11/22 11:34 Home Medications Medication Instructions Recorded Confirmed Type insulin glargine 100 unit/mL (3 35 unit SUBCUT QA 12/18/20 02/11/22 History mL) subcutaneous pen (Lantus Solostar U-100 Insulin) nitroglycerin 0.4 mg sublingual 0.4 mg SUBLINGUAL UD PRN 12/18/20 02/11/22 History tablet (Nitrostat) sotalol 80 mg tablet (Betapace) 80 mg PO BID 12/18/20 02/11/22 History warfarin 5 mg tablet 5 mg PO QAM 12/18/20 02/11/22 History furosemide 20 mg tablet 20 mg PO QAM 02/09/22 02/11/22 History metoprolol succinate 100 mg 100 mg PO QAM 02/09/22 02/11/22 History tablet,extended release 24 hr sacubitril 24 mg-valsartan 26 mg 1 tab PO BID 02/09/22 02/11/22 History tablet (Entresto) Patient History Medical History (Updated 02/11/22 @ 15:18 by Bert Bright DO) CAD (coronary artery disease) "03/2009 - STEMI, s/p PTCA and stenting RCA, chronic LAD occlusion, 40% left main lesion" CVA (cerebral vascular accident) DM type 2 (diabetes mellitus, type 2) Dyslipidemia HTN (hypertension) Hypothyroidism Paroxysmal atrial fibrillation STEMI (ST elevation myocardial infarction) Systolic and diastolic CHF, chronic Thrombocytopenia Uncontrolled type 2 diabetes mellitus Surgical History H/O colonoscopy 06/2018 - diverticulosis - Dr Samreen Suárez Hx of cardiac cath 2008 - multivessel disease s/p stent RCA with residual chronic occlusion LAD with collaterals and 40% narrowing left main Family History Other Coronary heart disease Diabetes Social History Smoking Status: Never smoker Hx Alcohol Use: Yes Alcohol type: wine Hx Substance Use: No Preferred Language: Afghan Communication Ability: Effective 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 Other Information That Helps Us Care for You: No Feels Safe at Home: Yes Assistive Devices: Glasses Review of Systems Review of Systems: All systems reviewed & are unremarkable except as noted in HPI & below Physical Exam Constitutional: WD/WN, vitals as above Respiratory: normal respiratory effort Auscultation: + diminished lung sounds and + crackles Cardiovascular: RRR, no murmur, no edema Extremities: + pedal edema and + edema Gastrointestinal (Abdomen): normal bowel sounds, soft, nontender, no hepatosplenomegaly Results & Data ([facility]) Vital Signs (Past 12 Hours) Vital Signs Temp Pulse Pulse Resp BP BP Pulse Ox 02/12/22 19:10 36.3 C L 118 H 20 133/86 90 02/12/22 15:59 36.1 C L 95 H 20 119/75 97 02/12/22 15:42 96 H 02/12/22 14:20 96 H 02/12/22 12:44 36.5 C 96 H 20 110/78 90 (1) CHF (congestive heart failure) Heart failure chronicity: unspecified Heart failure type: unspecified Qualified Code(s): I50.9 - Heart failure, unspecified
[2022-02-12] MEDS: INSULIN GLARGINE SOLOSTAR 100 UNITS/ML 3 ML PEN SC SCH (20:56)
[2022-02-12] MEDS ORDERED: MELATONIN 3 MG TAB PO ONE (21:00)
[2022-02-13] MEDS: PIPERACILLIN/TAZOBACTAM 3.375 GM in DEXTROSE 5% 100 ML IV SCH ×3 (01:12→18:27)
[2022-02-13] MEDS ORDERED: HYDROmorphone INJ 0.5 MG/0.5 ML SYR IV PRN (01:21)
[2022-02-13] MEDS ORDERED: OLANZapine 10 MG/2.1 ML SDV IM PRN (01:21)
[2022-02-13 07:19] LABS: Estimated Average Glucose 275 mg/dl; Hemoglobin A1C 11.2 % (4.5-5.6)
[2022-02-13 07:30] LABS: Albumin Globulin Ratio 0.8 (0.9-2); Albumin Level 2.4 gm/dl (3.4-5.0); BUN Creatinine Ratio 25.6 (10-20); Bilirubin,Total 3.9 mg/dl (0.2-1.0); Calcium 8.2 mg/dl (8.5-10.1); Creatinine Clr Calc Pharmacy 37.1 ml/min; Est GFR (African American) 34.9 ml/min; Est GFR (Non-African American) 30.1 ml/min; Globulin 3.1 gm/dl (2.5-4.0); Magnesium 1.6 mg/dl (1.7-2.4); Phosphorus 3.8 mg/dl (2.5-4.9); Potassium 4.4 mmol/L (3.5-5.1); Total Protein 5.5 gm/dl (6.0-8.3)
[2022-02-13 07:35] LABS: INR 3.7 (0.9-1.1); Prothrombin Time 36.5 Seconds (9.0-12.0)
--- NOTE | 2022-02-13 08:22 | Cardiology Consultation ---
Date of Consultation February 13, 2022 History of Present Illness Reason for Consultation: CHF Requesting Physician: Raymond Castro Attending Physician: Freeman Morales MD History of Present Illness 71 year old male. Follows with Dr. Gonzalez as an outpatient. Last seen by Robert Arguelles PA-C on 08/24/2021. Presented to ED due to RLQ abdominal pain x2-3 weeks. Admitting RUQ ultrasound: Multiple small gallstones/Sludge, no definite gallbladder wall thickening. GI following, questionable viral gastritis. CT Abdomen showed diffuse anasarca with trace ascites, moderate bilateral pleural effusion, suggestive of ascending colon hepatic flexure colitis. CXR showed BL pleural effusions. Labs showed BOLA- diuretics and Entresto was held and gentle IVF was given. Tropin mildly elevated but now trending down (0.36, 0.19), EKG stable without acute changes. Echo pending Tele: I&O: +3L Weight: 1.1 kg Today Problem List: 1. Atherosclerotic coronary disease status post ST-elevation myocardial infarction March of 2009. 2. Catheterization at that time revealed multivessel disease, s/p PTCA and stenting of right coronary artery urgently with residual chronic occlusion of the LADwith collaterals and a 40% narrowing of the left main. 3. Paroxysmal atrial fibrillation, Status post synchronized electrical cardiov ersion, 10/31/2016. 4. History of embolic cerebrovascular infarct, right basal ganglia, April of 2016. 5. Decompensated acute systolic and diastolic congestive heart failure in the setting of atrial fibrillation with rapid ventricular response, 09/20/2016, subsequent hospitalization. 7. Hyperlipidemia 8. Hypertension. 9. 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 Acute decompensated systolic heart failure secondary to lab some medical therapies March 20, 2020 with recurrence of atrial fibrillation 12. Left bundle-branch block 13. Known medication non-compliance Allergies Allergy/AdvReac Type Severity Reaction Status Date / Time lisinopril AdvReac Intermediate COUGH Verified 02/11/22 11:34 atorvastatin AdvReac Muscle Pain Verified 02/11/22 11:34 Home Medications Medication Instructions Recorded Confirmed Type insulin glargine 100 unit/mL (3 35 unit SUBCUT QAM 12/18/20 02/11/22 History mL) subcutaneous pen (Lantus Solostar U-100 Insulin) nitroglycerin 0.4 mg sublingual 0.4 mg SUBLINGUAL UD PRN 12/18/20 02/11/22 History tablet (Nitrostat) sotalol 80 mg tablet (Betapace) 80 mg PO BID 12/18/20 02/11/22 History warfarin 5 mg tablet 5 mg PO QAM 12/18/20 02/11/22 History furosemide 20 mg tablet 20 mg PO QAM 02/09/22 02/11/22 History metoprolol succinate 100 mg 100 mg PO QAM 02/09/22 02/11/22 History tablet,extended release 24 hr sacubitril 24 mg-valsartan 26 mg 1 tab PO BID 02/09/22 02/11/22 History tablet (Entresto) Patient History Medical History (Updated 02/11/22 @ 15:18 by Bert Bright DO) CAD (coronary artery disease) "03/2009 - STEMI, s/p PTCA and stenting RCA, chronic LAD occlusion, 40% left main lesion" CVA (cerebral vascular accident) DM type 2 (diabetes mellitus, type 2) Dyslipidemia HTN (hypertension) Hypothyroidism Paroxysmal atrial fibrillation STEMI (ST elevation myocardial infarction) Systolic and diastolic CHF, chronic Thrombocytopenia Uncontrolled type 2 diabetes mellitus Surgical History H/O colonoscopy 06/2018 - diverticulosis - Dr Samreen Suárez Hx of cardiac cath 2008 - multivessel disease s/p stent RCA with residual chronic occlusion LAD with collaterals and 40% narrowing left main Family History Other Coronary heart disease Diabetes Social History Smoking Status: Never smoker Hx Alcohol Use: Yes Alcohol type: wine Hx Substance Use: No Preferred Language: Qatari Communication Ability: Effective Keyboard Operator Required: No Beliefs That Will Affect Care: Buddhism Buddhism Beliefs: Oriental Orthodox marital status: Single Current Living Situation: Other Current Living Situation Comment: Lives w/ six friends w/ no relations. Other Information That Helps Us Care for You: No Feels Safe at Home: Yes Assistive Devices: Glasses Results & Data ([facility]) Vital Signs (Past 12 Hours) Vital Signs Pulse 02/13/22 07:43 88 02/12/22 22:17 100 H Laboratory Results Cardiac Enzymes 02/12/22 02/13/22 Range/Units 15:26 06:56 AST 59 H (13-39) U/L B-Natriuretic Peptide 1739 H (0-100) pg/ml Coagulation 02/12/22 02/13/22 Range/Units 15:26 06:56 PT 36.5 H (9.0-12.0) Seconds B-Natriuretic Peptide 1739 H (0-100) pg/ml Comprehensive Metabolic Panel 02/13/22 Range/Units 06:56 Sodium 133 L (136-145) mmol/L Potassium 4.4 (3.5-5.1) mmol/L Chloride 104 (98-107) mmol/L Carbon Dioxide 20 L (21-32) mmol/L BUN 54 H (6-23) mg/dl Creatinine 2.11 H (0.6-1.4) mg/dl Glucose 85 (70-99(Fasting)) mg/dl Calcium 8.2 L (8.5-10.1) mg/dl AST 59 H (13-39) U/L ALT 40 (7-52) U/L Alkaline Phosphatase 146 H (34-104) U/L Total Protein 5.5 L (6.0-8.3) gm/dl Albumin 2.4 L (3.4-5.0) gm/dl Intake and Output 02/12/22 02/13/22 02/13/22 22:59 06:59 14:59 Intake Total 450 / 1755 1000 / 1000 Output Total 200 / 500 Balance 250 / 1255 1000 / 1000 Intake: IV 230 / 345 1000 / 1000 Piperacillin/Tazobactam 3.375 230 / 345 gm In Dextrose 5% 100 ml @ 28. 75 mls/hr IV Q8H LIN Rx#: [id number] Sodium Chloride 0.9% 1000ML 1, 1000 / 1000 000 ml @ 70 mls/hr IV .[id number] LIN Rx#:[id number] Oral 220 / 1410 Output: Urine 200 / 500 Other: # Unmeasured Voids 1 Diagnostic Findings Echo 02/13/2022 PENDING Echo 12/2020 Mild LVH EF less than 15% Grade 3 diastolic dysfunction with restrictive physiology Mild TR Severe biatrial enlargement
[2022-02-13] MEDS: METOPROLOL SUCC 50MG EXT REL TAB PO SCH (08:41)
[2022-02-13] MEDS: SOTALOL HCL 80 MG TAB PO SCH ×2 (08:41→21:24)
[2022-02-13] MEDS: INSULIN ASPART PER UNIT SC SCH ×4 (08:41→21:23)
[2022-02-13] MEDS: ADVANCED PROBIOTIC 1250 MG CAPSULE PO SCH (08:42)
[2022-02-13] MEDS ORDERED: MELATONIN 3 MG TAB PO PRN (08:50)
--- NOTE | 2022-02-13 09:08 | Ultrasound Report ---
US duplex portal hepatic veins CLINICAL HISTORY: Evaluate for clot/? congestive hepatopathy TECHNIQUE: Grayscale, color and spectral waveform Doppler examination of the abdomen was performed. Comparison: None available at the time of this dictation. FINDINGS: The hepatic veins, portal veins, and IVC are patent with no thrombus identified. The splenic vein can not be imaged in its entirety due to the overlying bowel gas. Flow is in the correct direction. Peak systolic velocity in the hepatic artery measures 56 cm/sec. Peak systolic velocity in the main portal vein measures 14 cm/sec. No ascites is seen. IMPRESSION: No portal vein thrombosis. ACT 112: Negative or not required by law. Electronically signed by: Gaurang Hughes M.D. 02/13/2022 9:05 AM
[2022-02-13] MEDS: MAGNESIUM SULFATE / D5W 1 GM/100 ML BAG IV SCH ×2 (09:48→11:31)
--- NOTE | 2022-02-13 10:22 | Gastroenterology Progress Note ---
Date of Service February 13, 2022 Assessment & Plan (1) Abdominal pain: (2) Elevated LFTs: Plan: He has biliary colic type pain, worse after eating and elevated LFTs. Thus far imaging w/o bile duct abnormalities so low suspicion for choledocholithiasis or cholangitis but will r/o choledocholithiasis with MRCP. Surgical consult placed to consider acute cholecystitis. If not acute cholecystitis or choledocholithiasis then elevated LFTs likely secondary to congestive hepatopathy. LFTs do seem to be improving as diuretics have been given and CHF tx is optimized. Recheck LFTs tomorrow. Will continue to follow. Admission and Anticipated Discharge Date Admission Date: February 11, 2022 Supervising Physician Co-Signing Physician Notes Attending attestation I have seen, examined this patient, and agree with the findings and above by our mid-level provider ELOY Hutchinson, with the following additions: - Biliary colic symptoms with eating over last 2-3 weeks, abdominal exam with epigastric and ruq tenderness without rebound - MR to more definitively r/o biliary obstruction - GB with sludge/stones on imaging - Surgical consult - Diff includes infectious/obstructive pathology/possibly congestive hepatopathy - Will follow Subjective 71, male, CHF (EF 15%), presented 02/11 for diffuse abd pain. GI consulted for elevated LFTs. Pt reports about 2 wks of diffuse abd pain, worse after eating, more upper than lower abdomen, not associated with defecation, no change in bowels. Pain is currently rated as a 4 of 10. Has had nausea, occasional vomiting of small amts, most recently yesterday per pt. LFTs remain elevated but are improving. Edema improving. Pt able to walk in his room. He c/o increasing fatigue/sleepinness today compared to yesterday. Review of Systems Review of Systems: ROS: Gen: + weakness; No fevers, unsure if weight loss Eyes: + yellow eyes. No eye redness, or pain, no recent vision changes Resp: + chronic SOB w exertion but not worsening Cardio: No palpitations/irregular beats, no chest pain; no cough GI: As per HPI, otherwise (-) : Denies pain on urination Skin: No jaundice, itching or new rashes Physical Exam Constitutional: well developed, + ill appearing and cooperative Eyes: PERRL and EOM intact bilaterally + icterus ENMT: external ear and nose normal, oropharynx normal Neck: trachea midline, no thyromegaly Respiratory: no cough Auscultation: + crackles (Rt base > left base); no rhonchi and no wheezes Cardiovascular: Rate/Rhythm: regular rate and regular rhythm Heart Sounds: no murmur 2+ bilat lower leg edema Gastrointestinal (Abdomen): Inspection/Auscultation: abdomen normal to inspection and normal bowel sounds (hypoacitve); abdomen not distended and no abdominal edema Percussion/Palpation: + abdomen tender (diffusely, upper > lower) and abdomen soft Musculoskeletal: no cyanosis or clubbing, extremities motor strength 5/5 Skin: mild jaundice; Lower leg skin shiny, thin, no hair Neurologic: PERRL, EOMI, accommodation nl, no face palsy, no dysarthria awake; not confused Psychiatric: A+Ox3, euthymic affect Orientation: cooperative Results & Data ([facility]) Vital Signs (Past 12 Hours) Vital Signs Pulse 02/13/22 07:43 88 02/12/22 22:17 100 H Laboratory Results WBC 11, Hb 16, Hct 48, Plts 91, PT 36, INR 3.7, Na 133, K 4.4, Cl 104, CO2 20, BUn 54, Cr 21. plts 85 T Bili 3.9, AST 59, ALT 40, Alk Phos 146 Diagnostic Findings PV doppler US 02/12/22: No portal vein thrombosis. RUQ US 02/11/22: 1. Multiple small gallstones/sludge. No definite gallbladder wall thickening. 2. Normal caliber common bile duct. 3. Small right pleural effusion. CTAP on contrast 02/11/22: 1. Diffuse anasarca with trace ascites. This has slightly progressed in the interval. 2. Small gallstones with questionable mild pericholecystic inflammatory change. This could be due to the patient's diffuse edematous state. A developing acute cholecystitis is also considered in the differential diagnosis. Consider follow- up right upper quadrant ultrasound or HIDA scan for further evaluation. 3. Questionable thickening within the ascending colon hepatic flexure of the colon is likely due to underdistention and the patient's diffuse edematous state. A low-grade proximal colitis is considered less likely but not entirely excluded. 4. Moderate bilateral pleural fusions, unchanged. 5. Additional findings as described above. CXR 02/11/22: 1. Small bilateral pleural effusions and bibasilar densities have slightly progressed. This favors atelectasis from the pleural effusions. A developing pneumonia could also have a similar appearance. 2. Cardiomegaly with mild congestive change. (1) Abdominal pain Abdominal location: unspecified location Qualified Code(s): R10.9 - Unspecified abdominal pain
--- NOTE | 2022-02-13 10:50 | Surgery Consultation ---
Date of Consultation February 13, 2022 Assessment & Plan (1) Elevated LFTs: Equivocal CT finding of pericholecystic fluid, U/S did not suggest cholecystitis. Recommend HIDA although MRCP is already scheduled for this afternoon. Significant cardiac risk for any procedure and INR currently 3.7. Co jacques Rodriguez. Supervising Physician Co-Signing Physician Notes I personally saw and evaluated the patient with Adonis Castaneda PA-C and agree with the assessment and plan. 71-year-old male with generalized abdominal pain, elevated LFTs, history of CHF with ejection fraction less than 15%, imaging findings equivocal for ch olecystitis CT and ultrasound images reviewed by me, on CT he does have some slight stranding around the gallbladder but is also has diffuse anasarca He has a negative Hubbard sign and physical exam not consistent with cholecystitis We will order a HIDA scan to rule this out We will follow up the results of the HIDA scan, but is unlikely a surgical candidate due to his significant heart history, anticoagulation and thrombocytopenia History of Present Illness Attending Physician: Freeman Morales MD History of Present Illness 71 y/o male admitted two days ago for epigastric and right sided pain with vomiting. Had 2-3 weeks of postprandial N/V 1-2 times daily which then increased and prompted him to come to ER. He is somnolent now, has been pulling at lines and trying to leave the hospital at times. Has cardiomyopathy, EF was <15% in 12/26. Also on coumadin. We were asked to see for elevated LFTs, ? cholecystitis. Allergies Allergy/AdvReac Type Severity Reaction Status Date / Time lisinopril AdvReac Intermediate COUGH Verified 02/11/22 11:34 atorvastatin AdvReac Muscle Pain Verified 02/11/22 11:34 Home Medications Medication Instructions Recorded Confirmed Type insulin glargine 100 unit/mL (3 35 unit SUBCUT QAM 12/18/20 02/11/22 History mL) subcutaneous pen (Lantus Solostar U-100 Insulin) nitroglycerin 0.4 mg sublingual 0.4 mg SUBLINGUAL UD PRN 12/18/20 02/11/22 History tablet (Nitrostat) sotalol 80 mg tablet (Betapace) 80 mg PO BID 12/18/20 02/11/22 History warfarin 5 mg tablet 5 mg PO QAM 12/18/20 02/11/22 History furosemide 20 mg tablet 20 mg PO QAM 02/09/22 02/11/22 History metoprolol succinate 100 mg 100 mg PO QAM 02/09/22 02/11/22 History tablet,extended release 24 hr sacubitril 24 mg-valsartan 26 mg 1 tab PO BID 02/09/22 02/11/22 History tablet (Entresto) Patient History Medical History CAD (coronary artery disease) "03/2009 - STEMI, s/p PTCA and stenting RCA, chronic LAD occlusion, 40% left main lesion" CVA (cerebral vascular accident) DM type 2 (diabetes mellitus, type 2) Dyslipidemia HTN (hypertension) Hypothyroidism Paroxysmal atrial fibrillation STEMI (ST elevation myocardial infarction) Systolic and diastolic CHF, chronic Thrombocytopenia Uncontrolled type 2 diabetes mellitus Surgical History H/O colonoscopy 06/2018 - diverticulosis - Dr Samreen Suárez Hx of cardiac cath 2008 - multivessel disease s/p stent RCA with residual chronic occlusion LAD with collaterals and 40% narrowing left main Family History Other Coronary heart disease Diabetes Social History Smoking Status: Never smoker Hx Alcohol Use: Yes Alcohol type: wine Hx Substance Use: No Preferred Language: Chinese Communication Ability: Effective Architectural Technologist Required: No Beliefs That Will Affect Care: Moravian Moravian Beliefs: Buddhist marital status: Single Current Living Situation: Other Current Living Situation Comment: Lives w/ six friends w/ no relations. Other Information That Helps Us Care for You: No Feels Safe at Home: Yes Assistive Devices: Glasses Review of Systems Review of Systems: Unobtainable due to reduced consciousness Physical Exam Constitutional: WD/WN, vitals as above Gastrointestinal (Abdomen): Inspection/Auscultation: abdomen not distended Percussion/Palpation: + abdomen tender (minimal RUQ), + guarding and abdomen soft Results & Data ([facility]) Vital Signs (Past 12 Hours) Vital Signs Pulse 02/13/22 07:43 88 PG Care Time/CCT Total # of Minutes Spent Total Time Spent with Patient: Total time spent is greater than 50% in coordination of care (as documented) at patient's floor/unit and/or counseling patient: Coding Level of Care Code 16141 Initial Inpt Care Lvl 1 Diagnoses Elevated LFTs R79.89
--- NOTE | 2022-02-13 12:45 | Medical Student Consultation ---
Date of Consultation February 13, 2022 Assessment & Plan 1) Abdominal pain with nausea and vomiting * GI and surgery consulted * No evidence of abdominal aortic aneurism on CT abdomen * Warfarin held due to possible ERCP. Patient's low cardiac function places him at high risk for any procedure. Consider transfer to higher level care/[place] for high risk procedures. 2) Acute on chronic CHF exacerbation * Patient last seen at [facility] cardiology on 08/24/21 for follow up after restarting metoprolol succinate, digoxin, entresto and furosemide after a period of nonadherence to medication regimen. Unclear if the patient was taking his medications regularly previous to this episode of abdominal pain with n/v. Patient no showed last few cardiology appointments and has a history of not taking medications at home. * Echo from 12/20/20 showed EF<15%, severe global hypokinesis, grade 3 diastolic dysfunction, restrictive, and severe biatrial enlargement * Chest x-ray on admission showed progressing small bilateral pleural effusions and bibasilar densities favoring atelectasis or developing pneumonia and cardiomegaly with mild congestive change. * Cr today 2.11. Will need to be diuresed due to poor cardiac function and fluid overload. * Echo done today pending read. 3) Chronic afib with RVR * rate controlled in the 80s with metoprolol succinate 100mg 4) DM2: manage per primary team History of Present Illness Attending Physician: Freeman Morales MD History of Present Illness Unable to obtain a history from the patient as he is not able to stay awake long enough to answer a question. History obtained through review of medical records. Patient is a 71 year old male with past medical history of CHF (EF of <15% in Dec 2020), DM2, afib with RVR, STEMI and 2 catheterizations with stents, who presented on SundayFebruary 11 with 2 to 3 weeks of abdominal pain, vomiting and loose stools. The pain started dull and achy in the RLQ and became sharp, worse after eating. He was not able to tolerate any food or drink at home and was not able to successfully take and keep medications down without vomiting for 2 weeks. Per the nursing aid, the patient has been confused, trying to leave his bed to go downstairs and is not aware he is in the hospital. Allergies Allergy/AdvReac Type Severity Reaction Status Date / Time lisinopril AdvReac Intermediate COUGH Verified 02/11/22 11:34 atorvastatin AdvReac Muscle Pain Verified 02/11/22 11:34 Home Medications Medication Instructions Recorded Confirmed Type insulin glargine 100 unit/mL (3 35 unit SUBCUT QAM 12/18/20 02/11/22 History mL) subcutaneous pen (Lantus Solostar U-100 Insulin) nitroglycerin 0.4 mg sublingual 0.4 mg SUBLINGUAL UD PRN 12/18/20 02/11/22 History tablet (Nitrostat) sotalol 80 mg tablet (Betapace) 80 mg PO BID 12/18/20 02/11/22 History warfarin 5 mg tablet 5 mg PO QAM 12/18/20 02/11/22 History furosemide 20 mg tablet 20 mg PO QAM 02/09/22 02/11/22 History metoprolol succinate 100 mg 100 mg PO QAM 02/09/22 02/11/22 History tablet,extended release 24 hr sacubitril 24 mg-valsartan 26 mg 1 tab PO BID 02/09/22 02/11/22 History tablet (Entresto) Patient History Medical History CAD (coronary artery disease) "03/2009 - STEMI, s/p PTCA and stenting RCA, chronic LAD occlusion, 40% left main lesion" CVA (cerebral vascular accident) DM type 2 (diabetes mellitus, type 2) Dyslipidemia HTN (hypertension) Hypothyroidism Paroxysmal atrial fibrillation STEMI (ST elevation myocardial infarction) Systolic and diastolic CHF, chronic Thrombocytopenia Uncontrolled type 2 diabetes mellitus Surgical History H/O colonoscopy 06/2018 - diverticulosis - Dr Samreen Suárez Hx of cardiac cath 2008 - multivessel disease s/p stent RCA with residual chronic occlusion LAD with collaterals and 40% narrowing left main Family History Other Coronary heart disease Diabetes Social History Smoking Status: Never smoker Hx Alcohol Use: Yes Alcohol type: wine Hx Substance Use: No Preferred Language: Tristanian Communication Ability: Effective Installer Interior Assemblies Required: No Beliefs That Will Affect Care: Catholic Catholic Beliefs: Scientology marital status: Single Current Living Situation: Other Current Living Situation Comment: Lives w/ six friends w/ no relations. Other Information That Helps Us Care for You: No Feels Safe at Home: Yes Assistive Devices: Assistive Devices Comment: walking stick Review of Systems Review of Systems: unable to obtain. Patient was not able to stay awake long enough to answer questions with repeated waking. Physical Exam Constitutional: appears somnolent but in no acute distress Eyes: scleral icterus Respiratory: normal respiratory effort, patient was snoring and laying on his back at time of exam, limiting accurate auscultation. No crackles heard on frontal lung fish. Cardiovascular: Irregularly irregular rhythm, no murmurs or gallops appreciated. 2 to 3+ pitting edema bilaterally up to hips. Faint radial pulses, no pedal or posterior tibial pulses felt, feet cold to the touch. Gastrointestinal (Abdomen): no active bowel sounds heard, abdomen soft with no guarding Neurologic: Patient is confused, thinks he is on a couch in a hotel room. Arousable but falls asleep mid question. Oriented to name and date of but not to date, place or current president. Results & Data ([facility]) Vital Signs (Past 12 Hours) Vital Signs Temp Pulse Pulse Resp BP Pulse Ox 02/13/22 11:37 36.3 C L 78 18 104/78 96 02/13/22 07:43 88 Diagnostic Findings Laboratory Results WBC 11.04 K/uL (4.8-10.8) H 02/12/22 06:51 RBC 5.31 M/uL (4.7-6.1) 02/12/22 06:51 Hgb 16.7 g/dL (14.0-18.0) 02/12/22 06:51 Hct 48.1 % (42-52) 02/12/22 06:51 MCV 90.6 fL (80-100) 02/12/22 06:51 MCH 31.5 pg (25-34) 02/12/22 06:51 MCHC 34.7 g/dL (32-36) 02/12/22 06:51 RDW Std Deviation 55.0 fL (36.4-46.3) H 02/12/22 06:51 RDW Coeff of Erik 16.5 % (11.5-14.5) H 02/12/22 06:51 Plt Count 91 K/uL (130-400) L 02/12/22 06:51 Immature Gran % (Auto) 0.3 % 02/12/22 06:51 Neut % (Auto) 83.3 % 02/12/22 06:51 Lymph % (Auto) 9.1 % 02/12/22 06:51 [place] % (Auto) 6.7 % 02/12/22 06:51 Eos % (Auto) 0.4 % 02/12/22 06:51 Baso % (Auto) 0.2 % 02/12/22 06:51 Neut # (Auto) 9.20 K/uL (1.4-6.5) H 02/12/22 06:51 Lymph # (Auto) 1.01 K/uL (1.2-3.4) L 02/12/22 06:51 [place] # (Auto) 0.74 K/uL (0.11-0.59) H 02/12/22 06:51 Eos # (Auto) 0.04 K/uL (0-0.5) 02/12/22 06:51 Baso # (Auto) 0.02 K/uL (0-0.2) 02/12/22 06:51 Immature Gran # (Auto) 0.03 K/uL (0.00-0.02) H 02/12/22 06:51 Platelet Estimate Decreased (Normal) L 02/12/22 06:51 Giant Platelets 1+ 02/11/22 10:39 Echinocytes 1+ 02/11/22 10:39 PT 36.5 Seconds (9.0-12.0) H 02/13/22 06:56 INR 3.7 (0.9-1.1) H 02/13/22 06:56 Sodium 133 mmol/L (136-145) L 02/13/22 06:56 Potassium 4.4 mmol/L (3.5-5.1) 02/13/22 06:56 Chloride 104 mmol/L (98-107) 02/13/22 06:56 Carbon Dioxide 20 mmol/L (21-32) L 02/13/22 06:56 Anion Gap 9 (3-11) 02/13/22 06:56 BUN 54 mg/dl (6-23) H 02/13/22 06:56 Creatinine 2.11 mg/dl (0.6-1.4) H 02/13/22 06:56 Est Cr Clr Drug Dosing 37.1 ml/min 02/13/22 06:56 Est GFR ( Amer) 34.9 ml/min 02/13/22 06:56 Est GFR (Non-Af Amer) 30.1 ml/min 02/13/22 06:56 BUN/Creatinine Ratio 25.6 (10-20) H 02/13/22 06:56 Glucose 85 mg/dl (70-99(Fasting)) 02/13/22 06:56 POC Glucose 102 mg/dl (70-99) H 02/13/22 11:31 Estimat Average Glucose 275 mg/dl 02/12/22 06:51 Hemoglobin A1c 11.2 % (4.5-5.6) H 02/12/22 06:51 Calcium 8.2 mg/dl (8.5-10.1) L 02/13/22 06:56 Phosphorus 3.8 mg/dl (2.5-4.9) 02/13/22 06:56 Magnesium 1.6 mg/dl (1.7-2.4) L 02/13/22 06:56 Total Bilirubin 3.9 mg/dl (0.2-1.0) H 02/13/22 06:56 Direct Bilirubin 3.3 mg/dl (0-0.2) H 02/12/22 06:51 AST 59 U/L (13-39) H 02/13/22 06:56 ALT 40 U/L (7-52) 02/13/22 06:56 Alkaline Phosphatase 146 U/L (34-104) H 02/13/22 06:56 Ammonia 48.0 umol/L (18-72) 02/13/22 06:56 Troponin I 0.19 ng/ml (0-0.04) H* 02/11/22 20:26 B-Natriuretic Peptide 1739 pg/ml (0-100) H 02/12/22 15:26 Total Protein 5.5 gm/dl (6.0-8.3) L 02/13/22 06:56 Albumin 2.4 gm/dl (3.4-5.0) L 02/13/22 06:56 Globulin 3.1 gm/dl (2.5-4.0) 02/13/22 06:56 Albumin/Globulin Ratio 0.8 (0.9-2) L 02/13/22 06:56 Lipase 7 U/L (11-82) L 02/11/22 10:39 Procalcitonin 11.10 ng/ml (0-0.5) H 02/12/22 06:51 Urine Color Sunflower 02/11/22 Unknown Urine Appearance Turbid (Clear) A 02/11/22 Unknown Urine pH 5.0 (4.5-7.5) 02/11/22 Unknown Ur Specific [place] 1.038 (1.000-1.030) H 02/11/22 Unknown Urine Protein 2+ (Negative) H 02/11/22 Unknown Urine Glucose (UA) Trace (Negative) H 02/11/22 Unknown Urine Ketones Trace (Negative) H 02/11/22 Unknown Urine Blood Negative (Negative) 02/11/22 Unknown Urine Nitrite Positive (Negative) A 02/11/22 Unknown Urine Bilirubin 3+ (Negative) H 02/11/22 Unknown Urine Urobilinogen Negative (Negative) 02/11/22 Unknown Ur Leukocyte Esterase 1+ (Negative) H 02/11/22 Unknown Urine WBC (Auto) 10-30 /hpf (0-5) H 02/11/22 Unknown Urine RBC (Auto) 0-4 /hpf (0-4) 02/11/22 Unknown U Hyaline Cast (Auto) 1-5 /lpf (0-5) 02/11/22 Unknown U Epithel Cells (Auto) >30 /lpf (0-5) H 02/11/22 Unknown Urine Bacteria (Auto) Negative (Negative) 02/11/22 Unknown Ur Renal Epithelial Cell Not Reportable 02/11/22 Unknown Urine Yeast Not Reportable 02/11/22 Unknown Digoxin 0.3 ng/ml (0.8-2.0) L 02/11/22 15:57 SARS-CoV-2, RNA, NAAT NEGATIVE (NEGATIVE) 02/11/22 10:45 Impressions Chest X-Ray 02/11/22 10:18 XR chest 1V portable HISTORY: Pleural effusions. Shortness of breath. COMPARISON: Chest 12/18/2020. FINDINGS: No pneumothorax. Small bilateral pleural effusions and bibasilar densities have progressed. The heart remains mildly enlarged. There is mild central pulmonary vascular congestion without overt edema. IMPRESSION: 1. Small bilateral pleural effusions and bibasilar densities have slightly progressed. This favors atelectasis from the pleural effusions. A developing pneumonia could also have a similar appearance. 2. Cardiomegaly with mild congestive change. Abdomen/Pelvis CT 02/11/22 10:[address] WITHOUT CONTRAST COMPARISON STUDY: Abdomen and pelvis CT 02/09/2022. IMPRESSION: 1. Diffuse anasarca with trace ascites. This has slightly progressed in the interval. 2. Small gallstones with questionable mild pericholecystic inflammatory change. This could be due to the patient's diffuse edematous state. A developing acute cholecystitis is also considered in the differential diagnosis. Consider follow- up right upper quadrant ultrasound or HIDA scan for further evaluation. 3. Questionable thickening within the ascending colon hepatic flexure of the colon is likely due to underdistention and the patient's diffuse edematous state. A low-grade proximal colitis is considered less likely but not entirely excluded. 4. Moderate bilateral pleural fusions, unchanged. 5. Additional findings as described above. Liver Ultrasound 02/11/22 14:18 ABDOMINAL ULTRASOUND, RIGHT UPPER QUADRANT HISTORY: r/o cholecystitis, abnormal CT. COMPARISON: Abdomen and pelvis CT 02/11/2022. IMPRESSION: 1. Multiple small gallstones/sludge. No definite gallbladder wall thickening. 2. Normal caliber common bile duct. 3. Small right pleural effusion. Portal Vein US 02/12/22 15:25 US duplex portal hepatic veins CLINICAL HISTORY: Evaluate for clot/? congestive hepatopathy TECHNIQUE: Grayscale, color and spectral waveform Doppler examination of the abdomen was performed. Comparison: None available at the time of this dictation. FINDINGS: The hepatic veins, portal veins, and IVC are patent with no thrombus identified. The splenic vein cannot be imaged in its entirety due to the overlying bowel gas. Flow is in the correct direction. Peak systolic velocity in the hepatic artery measures 56 cm/sec. Peak systolic velocity in the main portal vein regina ures 14 cm/sec. No ascites is seen. IMPRESSION: No portal vein thrombosis.
--- NOTE | 2022-02-13 13:14 | Magnetic Resonance Report ---
MRCP CLINICAL HISTORY: Biliary colic. COMPARISON STUDY: Abdominal CT dated 02/11/2022. Abdominal ultrasound dated 02/11/2022. TECHNIQUE: Abdominal MRCP is performed utilizing various T2-weighted sequences in the axial and coron al planes. IV contrast was not administered for this examination. 3-D reformats are created and asses sed. The examination is significantly compromised by motion artifact. FINDINGS: The gallbladder is distended, and filled with gallstones and sludge. The gallbladder wall appears mil dly thickened. There is no intra or extrahepatic biliary ductal dilatation. The common bile duct regina ures up to 7 mm in diameter. There are tiny intraluminal filling defects suggested, such that choledo cholithiasis is not excluded. The pancreatic duct is normal in caliber. The liver is cirrhotic in morphology and heterogeneous in signal intensity. The unenhanced liver is o therwise grossly unremarkable. The unenhanced spleen, adrenal glands, and pancreas are grossly normal . The kidneys are normal in size and without hydronephrosis. The abdominal aorta is normal in caliber . There is no bowel obstruction. Ascites is seen in the right upper quadrant. There are moderate bila teral pleural effusions. The heart is enlarged, noting a small pericardial effusion. IMPRESSION: 1. The gallbladder is distended and contains stones and sludge. 2. Mild gallbladder wall thickening is nonspecific and could be related to adjacent hepatocellular di sease and ascites. Cholecystitis is not excluded. If there is strong clinical concern for cholecystit is, a nuclear hepatobiliary scan should be considered. 3. There is no intra or extrahepatic biliary ductal dilatation. 4. Tiny filling defects are suggested in the common bile duct and are suspicious for choledocholithia sis. 5. Cirrhotic liver morphology and ascites. 6. Cardiomegaly and pericardial effusion. 7. Moderate bilateral pleural effusions. Dictated: 02/13/2022 12:52 PM Transcribed: 02/13/2022 1:03 PM Dang [id number] LUZ ELENA_Estiven Electronically signed by: Isiah Raymond M.D. 02/13/2022 1:13 PM
[2022-02-13] MEDS ORDERED: PHYTONADIONE 5 MG TAB PO STA (13:30)
--- NOTE | 2022-02-13 13:38 | Cardiology Consultation ---
Date of Consultation February 13, 2022 Assessment & Plan (1) Acute systolic heart failure: (2) Noncompliance with medications: (3) Abdominal pain with vomiting: (4) Moderate sized pleural effusion: (5) BOLA (acute kidney injury): (6) Abdominal pain: (7) Elevated LFTs: (8) CAD (coronary artery disease): (9) Paroxysmal atrial fibrillation: (10) CVA (cerebral vascular accident): (11) Thrombocytopenia: (12) DM type 2 (diabetes mellitus, type 2): (13) HTN (hypertension): Unfortunately, the patient has not been compliant with medical follow-up and has no showed for her last 2 outpatient evaluations. Admits to not keeping any pills down for the last 2 weeks but given severe reduction of LV systolic function I am highly suspicious that he is been noncompliant with medications for longer than this. In terms of preop risk assessment for any procedures deemed necessary I would place him as a very high risk of any adverse perioperative cardiovascular event. If it is determined by our GI colleagues intervention is necessary then I would recommend transfer to a tertiary care center for higher level of care given his advanced risk. Patient currently states he wishes to leave AMA, I explained that that would likely prove fatal. History of Present Illness Reason for Consultation: CHF Requesting Physician: RAHAT Attending Physician: Freeman Morales MD History of Present Illness Patient is a 71 year old male with past medical history of CHF (EF of ), DM2, afib with RVR, STEMI and 2 catheterizations with stents, who presented on SundayFebruary 11 with 2 to 3 weeks of abdominal pain, vomiting and loose stools. The pain started dull and achy in the RLQ and became sharp, worse after eating. He was not able to tolerate any food or drink at home and was not able to successfully take and keep medications down without vomiting for 2 weeks. Per the nursing aid, the patient has been confused, trying to leave his bed to go downstairs and is not aware he is in the hospital. PAST MEDICAL HISTORY: 1. Atherosclerotic coronary disease status post ST-elevation myocardial infarction March of 2009. 2. Catheterization at that time revealed multivessel disease, s/p PTCA and stenting of right coronary artery urgently with residual chronic occlusion of the LADwith collaterals and a 40% narrowing of the left main. 3. Paroxysmal atrial fibrillation. 4. History of embolic cerebrovascular infarct, right basal ganglia, April of 2016. 5. Decompensated acute systolic and diastolic congestive heart failure in the setting of atrial fibrillation with rapid ventricular response, 09/20/2016, subsequent hospitalization. 6. Status post synchronized electrical cardioversion, 10/31/2016. 7. Hyperlipidemia 8. Hypertension. 9. 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 Abnormal stress testing leading to diagnostic cardiac catheterization December 03, 2018 demonstrating patent right coronary stent chronic proximal LAD occlusion and high-grade proximal circumflex stenosis receiving drug-eluting stent to circumflex 11. Acute decompensated systolic heart failure secondary to lab some medical therapies March 20, 2020 with recurrence of atrial fibrillation Allergies Allergy/AdvReac Type Severity Reaction Status Date / Time lisinopril AdvReac Intermediate COUGH Verified 02/11/22 11:34 atorvastatin AdvReac Muscle Pain Verified 02/11/22 11:34 Home Medications Medication Instructions Recorded Confirmed Type insulin glargine 100 unit/mL (3 35 unit SUBCUT QAM 12/18/20 02/11/22 History mL) subcutaneous pen (Lantus Solostar U-100 Insulin) nitroglycerin 0.4 mg sublingual 0.4 mg SUBLINGUAL UD PRN 12/18/20 02/11/22 History tablet (Nitrostat) sotalol 80 mg tablet (Betapace) 80 mg PO BID 12/18/20 02/11/22 History warfarin 5 mg tablet 5 mg PO QAM 12/18/20 02/11/22 History furosemide 20 mg tablet 20 mg PO QAM 02/09/22 02/11/22 History metoprolol succinate 100 mg 100 mg PO QAM 02/09/22 02/11/22 History tablet,extended release 24 hr sacubitril 24 mg-valsartan 26 mg 1 tab PO BID 02/09/22 02/11/22 History tablet (Entresto) Patient History Medical History CAD (coronary artery disease) "03/2009 - STEMI, s/p PTCA and stenting RCA, chronic LAD occlusion, 40% left main lesion" CVA (cerebral vascular accident) DM type 2 (diabetes mellitus, type 2) Dyslipidemia HTN (hypertension) Hypothyroidism Paroxysmal atrial fibrillation STEMI (ST elevation myocardial infarction) Systolic and diastolic CHF, chronic Thrombocytopenia Uncontrolled type 2 diabetes mellitus Surgical History H/O colonoscopy 06/2018 - diverticulosis - Dr Samreen Suárez Hx of cardiac cath 2008 - multivessel disease s/p stent RCA with residual chronic occlusion LAD with collaterals and 40% narrowing left main Family History Other Coronary heart disease Diabetes Social History Smoking Status: Never smoker Hx Alcohol Use: Yes Alcohol type: wine Hx Substance Use: No Preferred Language: Occitan Communication Ability: Effective Agile Scrum Coach Required: No Beliefs That Will Affect Care: Adventism Adventism Beliefs: Nondenominational marital status: Single Current Living Situation: Other Current Living Situation Comment: Lives w/ six friends w/ no relations. Other Information That Helps Us Care for You: No Feels Safe at Home: Yes Assistive Devices: Assistive Devices Comment: walking stick Results & Data ([facility]) Vital Signs (Past 12 Hours) Vital Signs Temp Pulse Pulse Resp BP Pulse Ox 02/13/22 11:37 36.3 C L 78 18 104/78 96 02/13/22 07:43 88 Diagnostic Findings Stress echo 11/19/19 Interpretation Summary The examination is adequate to evaluate the referral indication. The stress echo is positive for inducible ischemia. Exercise capacity is average . There is an attenuated heart rate response to exercise due to medical therapies achieving 80% age predicted maximum Blood pressure response to exercise was normal. The stress EKG response was uninterpretable. At rest, there is moderate hypokinesis of the apex and distal septum. All other wall segments contracted normally With stress the apex expanded mildly and the basal and mid septum failed to augment The left ventricular ejection fraction is unchanged with stress. The left ventricular cavity size is normal. The LV wall thickness is moderately increased (concentric). The qualitative LV ejection fraction is 45-49% (mildly reduced). The left ventricular diastolic function is moderately abnormal (grade II). Repeat echocardiogram performed today. Shows significant reduction of LV systolic function, EF now severely reduced at 15%. (1) Abdominal pain Abdominal location: unspecified location Qualified Code(s): R10.9 - Unspecified abdominal pain (2) CAD (coronary artery disease) Coronary Disease-Associated Artery/Lesion type: [place] artery [place] vs. 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
[2022-02-13] MEDS ORDERED: MoRPHine SULFATE 2 MG/ML CARP ONE (15:19)
--- NOTE | 2022-02-13 16:13 | Nuclear Medicine Report ---
NUCLEAR HEPATOBILIARY SCAN CLINICAL HISTORY: Cholelithiasis. Abnormal gallbladder. Right upper quadrant abdominal pain. COMPARISON STUDY: Abdominal CT and ultrasound dated 02/11/2022. MRCP dated 02/13/2022. TECHNIQUE: Dynamic images of the liver and anterior abdomen were obtained every 5 minutes for a total of 35 minutes following the IV administration of 5.17 mCi of technetium 99m Mebrofenin. An additiona l static imaging was obtained at 60 minutes with nonvisualization of the gallbladder. 2 mg of IV morp alfa was administered with additional delayed imaging performed at 90 minutes. FINDINGS: The hepatobiliary scan shows prompt and homogeneous hepatic uptake. There is visualized act ivity within the intra and extrahepatic biliary tree at 15 minutes. There is normal biliary to bowel transit, with small bowel visualized by 20 minutes. The gallbladder was not visualized by 60 minutes . The gallbladder was also not visualized at 90 minutes following morphine administration. IMPRESSION: Nonvisualization of the gallbladder. Scintigraphic findings are compatible with acute cho lecystitis. ACT 112: Negative or not required by law. Electronically signed by: Isiah Raymond M.D. 02/13/2022 4:11 PM
--- NOTE | 2022-02-13 16:29 | Hospitalist Progress Note ---
Date of Service February 13, 2022 Assessment & Plan (1) Abdominal pain with vomiting: (2) Pleural effusion: (3) Elevated troponin I level: (4) Atrial fibrillation: (5) Systolic and diastolic CHF, chronic: Plan: 71-year-old male with PMH of CHF, CM, DM2, A. fib presented to the ED 02/11 with abdominal pain and vomiting for 2 to 3 weeks. He reports having developed RLQ abdominal pain to begin with which has moved up. Lately the dull aching pain has become intermittently sharp, associated with nausea and vomiting; and patient reports loose stool. He is being managed for the following: #. Likely colitis #. Likely pneumonia/ bilateral pleural effusion #. 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 Patient reports not drinking or eating anything due to having belly pain 2 hours after taking anything p.o. Admitting CXR: Small bilateral pleural effusion, suggestive of developing pneumonia, cardiomegaly with mild congestive changes Admitting CTAP: Diffuse anasarca with trace ascites, moderate bilateral pleural effusion, suggestive of ascending colon hepatic flexure colitis. Admitting RUQ ultrasound: Multiple small gallstones/Sludge, no definite gall bladder wall thickening. Pleural effusion currently asymptomatic. Diurese as able. Consider Pulm/thoracentesis if becomes symptomatic. No PA tenderness on exam, patient reports no belly pain, is tolerating clear liquid diet, continue with Zosyn 02/11. GI consulted, await recommendations. Pain management, antiemetic. #. Distended GB with stone and sludge #. Possible Cholecystitis #. Choledocholithiasis MRCP and HIDA Scan reviewed d/w GI, needs IR drainage of GB due to being high risk for Surgery (d/w Cardio who thinks same), Pt with EF of <15%. Pt consented for transfer, initiated the process for [facility], paperwork done. d/w Dr. Chanel at [facility] transfer line. Pt was meaning to leave AMA multiple times yesterday, hopefully he continues to agree with transfer process. Pt on Zosyn Pt received vit K 10 mg PO in anticipation for procedure, will continue to hold coumadin #. BOLA over CKD stage III #. Ascites/anasarca: GI consulted, await recs #. Hyponatremia #. Possible congestive hepatopathy Admitting creatinine of 1.97, likely secondary to decreased p.o. intake with possible contribution from hepatorenal component. Continue to hold Entresto, nephrology consult, patient received gentle IV fluids, has 2+ BLE pitting edema. Avoid nephrotoxins. Pt appears SOB with minimal movement, no crackles on auscultation. Has ascites. Await nephrology recommendations. Low sodium diet, ?? fluid restriction, Increase protein content in diet, Monitor BMP daily. #. Possible Acute on chronic diastolic CHF BLE edema at admission and admitting imaging s/o mild congestive changes. Albumin level fairly ok. 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 Diurese as able, complicated by BOLA d/w cardio, pt with <15% EF on ECHO, high risk for surgery Pt becomes SOB with movement and has 2+ pitting edema on exam. Diuresis per Cardio and or nephro. #. Transaminitis #. Hyperbilirubinemia AST and Bili elevated at presentation, trending down likely obstructive given gallstone and choledocholithiasis vs congestive hepatopathy #. Thrombocytopenia- mild, likely from acute illness, improving, follow. #. Elevated troponin- likely demand ischemia. no chest pain. EKG without ischemic changes. trops trended down, tele #. Other chronic medical conditions: DM-2; PAF c/w SSI insulin c/w home meds as and when appropriate. c/w coumadin DVT prophylaxis- on coumadin- adjust with INR Code status- Ok with limited CPR but does not want intubation Dispo- Medsurg with tele Admission and Anticipated Discharge Date Admission Date: February 11, 2022 Subjective Patient seen and examined at bedside as a follow-up of abdominal pain with vomiting, pleural effusion, elevated troponin level. Patient was lying in bed, on room air, looking tired/sleepy, NAD, no new acute events overnight, oriented x 1, reports tired but no bella discomfort or pain. ROS limited due to patient being lethargic and sleepy. Per RN, he has been lethargic. Physical Exam Physical Exam: GENERAL: Drowsy/lethargic, oriented x1. NAD, on RA. Appears tired and ill looking. HEENT: No pallor, + icterus. Pupils equal, round and reactive to light. Oral mucosa moist. NECK: No JVD, no neck masses. HEART: S1 and S2 heard. Regular rate and rhythm. No murmur, no gallop. RESPIRATORY SYSTEM: Normal AP diameter. No accessory muscle use. No wheezing, no crackles. ABDOMEN: Soft, bowel sounds present, nontender, no distention. CENTRAL NERVOUS SYSTEM: No facial droop. Speech is clear. Obeys simple commands. Moves extremities. EXTREMITIES: 2+ BLE edema, no erythema seen. Results & Data Results [facility] ([facility] Vital Signs (Past 12 Hours) Vital Signs Temp Pulse Pulse Resp BP Pulse Ox 02/13/22 11:37 36.3 C L 78 18 104/78 96 02/13/22 07:43 88 (1) Atrial fibrillation Atrial fibrillation type: paroxysmal Qualified Code(s): I48.0 - Paroxysmal atrial fibrillation
[2022-02-13] MEDS: DIGOXIN 0.125 MG TAB PO SCH (16:47)
[2022-02-13] MEDS ORDERED: DIGOXIN IV ONE (17:22)
[2022-02-13] MEDS ORDERED: PHYTONADIONE 2.5 MG in DEXTROSE 5% 50 ML IV ONE (17:38)
--- NOTE | 2022-02-13 19:34 | Nephrology Consultation ---
Date of Consultation February 13, 2022 Assessment & Plan (1) Acute kidney injury superimposed on CKD: he was already heading toward [facility] on 02/09 based on urine sediment; then he recieved IV contrast in the setting of a significantly dehydrated state and now w/ contrast induced nephropathy and EF < 15%, severe volume overload as well as CBD stones/ inflammation. His chemistries are by and large acceptable. intermittent thrombocytopenia w/ plts. He has had no diuretics since admission. NPO currently and with decreasing uop; he has a fasting ketoacidosis. High risk in this clinical context to need dialysis and to need CRRT if he is even a candidate. -daily bmp -hold further IVF -hold lasix for now while NPO unless respiratory status decompensates, in which case give 40 mg IV x 1 (2) Decompensated heart failure: entresto and daily torsemide 20 mg on hold; not clear he was taking these prior to admission in any case -cont to hold entresto -as above re diuretics (3) Abdominal pain: -distended GB w/ sludge, concern for choledocholithiasis > [place] [facility] [place] History of Present Illness Reason for Consultation: volume overload, BOLA on CKD Requesting Physician: Dr Morales Attending Physician: Freeman Morales MD History of Present Illness 71 y/o M with advanced systolic HF (EF <15%) whom I'm asked to evaluate for BOLA on CKD and volume overload was admitted 02/11 for management of 2-3 weeks of abdominal pain with emesis. Work up today concerning for common bile duct stones; under consideration for ERCP w/ GB drainage versus percutaneous GB drainage. 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 Also w/ CKD 3 (baseline creatinine 1.3-1.5). He was admitted here in Dec 2020 for acute systolic HF and LLE cellulitis. He had been seen in ER 02/09 with similar abdominal pain; d/c home after CT scan w/ contrast as well as 1.5L NS and IV lasix [address] scan was unremarkable. also some inconsistent comments at that time about brown urine. He presented 02/11 w/ RUQ pain but describes BL lower quadrant pain to me today. Abd pain non radiating, sharp; worse w/ mvt. Not tolerating PO intake. He was also needing a sitter when I evaluated him. + edema, + N. some dsypnea; no cough or wheeze; no dysuria but + darker urine. creatinine on presentation was 2 and has remained in this range ever since. Cardiology recommends transfer to tertiary care center if surgical intervention planned. Transfer is in process; pt has however also been threatening per chart to leave AMA. Allergies Allergy/AdvReac Type Severity Reaction Status Date / Time lisinopril AdvReac Intermediate COUGH Verified 02/11/22 11:34 atorvastatin AdvReac Muscle Pain Verified 02/11/22 11:34 Home Medications Medication Instructions Recorded Confirmed Type insulin glargine 100 unit/mL (3 35 unit SUBCUT QAM 12/18/20 02/11/22 History mL) subcutaneous pen (Lantus Solostar U-100 Insulin) nitroglycerin 0.4 mg sublingual 0.4 mg SUBLINGUAL UD PRN 12/18/20 02/11/22 History tablet (Nitrostat) sotalol 80 mg tablet (Betapace) 80 mg PO BID 12/18/20 02/11/22 History warfarin 5 mg tablet 5 mg PO QAM 12/18/20 02/11/22 History furosemide 20 mg tablet 20 mg PO QAM 02/09/22 02/11/22 History metoprolol succinate 100 mg 100 mg PO QAM 02/09/22 02/11/22 History tablet,extended release 24 hr sacubitril 24 mg-valsartan 26 mg 1 tab PO BID 02/09/22 02/11/22 History tablet (Entresto) Patient History Medical History (Updated 02/13/22 @ 19:52 by Paulina Cardoza MD, PhD) CAD (coronary artery disease) "03/2009 - STEMI, s/p PTCA and stenting RCA, chronic LAD occlusion, 40% left main lesion" CKD (chronic kidney disease) stage 3, GFR 30-59 ml/min CVA (cerebral vascular accident) DM type 2 (diabetes mellitus, type 2) Dyslipidemia HTN (hypertension) Hypothyroidism Paroxysmal atrial fibrillation STEMI (ST elevation myocardial infarction) Systolic and diastolic CHF, chronic Thrombocytopenia Uncontrolled type 2 diabetes mellitus Surgical History H/O colonoscopy 06/2018 - diverticulosis - Dr Samreen Suárez Hx of cardiac cath 2008 - multivessel disease s/p stent RCA with residual chronic occlusion LAD with collaterals and 40% narrowing left main Family History Other Coronary heart disease Diabetes Social History Smoking Status: Never smoker Hx Alcohol Use: Yes Alcohol type: wine Hx Substance Use: No Preferred Language: Indonesian Communication Ability: Effective 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 Other Information That Helps Us Care for You: No Feels Safe at Home: Yes Assistive Devices: Assistive Devices Comment: walking stick Review of Systems Review of Systems: All systems reviewed & are unremarkable except as noted in HPI & below (limited by mental status) Physical Exam 2 Constitutional: well developed, well nourished, + obese and + lethargic; no acute distress lying in bed on RA Eyes: EOM intact bilaterally ENMT: Ears: no external ear abnormality Nose: no external nose abnormality Mouth: + dry oral mucous membranes Neck: no nuchal rigidity Respiratory: normal respiratory effort Auscultation: + diminished lung sounds Cardiovascular: Rate/Rhythm: regular rate and regular rhythm Extremities: + edema (2-3+) Gastrointestinal (Abdomen): Inspection/Auscultation: + abdomen distended, normal bowel sounds and + abdominal edema Percussion/Palpation: + abdomen tender, + guarding and abdomen soft Musculoskeletal: Extremities: strength 5/5 throughout Skin: no rashes, warm and dry Neurologic: heredia, fluent speech, no tremor Results & Data ([facility]) Vital Signs (Past 12 Hours) Vital Signs Temp Pulse Pulse Resp BP BP Pulse Ox 02/13/22 16:52 36.4 C L 54 L 18 115/85 93 02/13/22 11:37 36.3 C L 78 18 104/78 96 02/13/22 07:43 88 Laboratory Results 02/12/22 06:51 02/13/22 06:56 T BI 3.9 alb 2.4 UACM 4/7> ketones; blood protein granular casts UACM 4/9 > turbid orange urine 1038; 2+ protein; trace glucose and ketones; >30 epi thel cells; Diagnostic Findings CT A/P no con FINDINGS: The heart remains mildly enlarged. Trace pericardial effusion and moderate bilateral pleural effusions persist. Groundglass densities within the lungs posteriorly remain unchanged. This is nonspecific but favors dependent change/atelectasis. No pneumoperitoneum. No pneumatosis. No fractures within the visualized osseous structures. Small fat-containing umbilical hernia. Moderate body wall edema has slightly progressed. There is a small fat-containing left inguinal hernia. The prostate gland remains mildly enlarged. Bladder wall thickening/trabeculation persists. Contrast within the bladder from the recent CT examination. Small of contrast seen within the bilateral renal collecting systems from the prior CT examination. No hydronephrosis. Bilateral perinephric edema and trace ascites remains unchanged. The unenhanced liver, spleen, adrenal glands, and pancreas unremarkable. There are multiple small gallstones. Ques tionable mild pericholecystic inflammatory change versus edema. No retroperitoneal lymphadenopathy. Mild calcified plaque within the normal caliber abdominal aorta. Suboptimal evaluation for bowel pathology due to the lack of intravenous and oral contrast. There is extensive colonic diverticulosis. No evidence for acute diverticulitis. No definite bowel obstruction. The visualized appendix is unremarkable. Questionable thickening within the ascending colon hepatic flexure of the colon is likely due to underdistention and the patient's diffuse edematous state. A low-grade proximal colitis is considered less likely but not entirely excluded. IMPRESSION: 1. Diffuse anasarca with trace ascites. This has slightly progressed in the interval. 2. Small gallstones with questionable mild pericholecystic inflammatory change. This could be due to the patient's diffuse edematous state. A developing acute cholecystitis is also considered in the differential diagnosis. Consider follow- up right upper quadrant ultrasound or HIDA scan for further evaluation. 3. Questionable thickening within the ascending colon hepatic flexure of the colon is likely due to underdistention and the patient's diffuse edematous state. A low-grade proximal colitis is considered less likely but not entirely excluded. 4. Moderate bilateral pleural fusions, unchanged. 5. Additional findings as described above. MRCP 1. The gallbladder is distended and contains stones and sludge. 2. Mild gallbladder wall thickening is nonspecific and could be related to adjacent hepatocellular disease and ascites. Cholecystitis is not excluded. If there is strong clinical concern for cholecystitis, a nuclear hepatobiliary scan should be considered. 3. There is no intra or extrahepatic biliary ductal dilatation. 4. Tiny filling defects are suggested in the common bile duct and are suspicious for choledocholithiasis. 5. Cirrhotic liver morphology and ascites. 6. Cardiomegaly and pericardial effusion. 7. Moderate bilateral pleural effusions. CXR 02/11 1. Small bilateral pleural effusions and bibasilar densities have slightly progressed. This favors atelectasis from the pleural effusions. A developing pne umonia could also have a similar appearance. 2. Cardiomegaly with mild congestive change. TTE 12/2020 EF further dcelined w/ severely reduced LV function EF <15% and severe global hypokinesis,, grade 3 D dysfunction/restrictive; severe biatrial enlargement; (1) Abdominal pain Abdominal location: unspecified location Qualified Code(s): R10.9 - Unspecified abdominal pain
[2022-02-13] MEDS: INSULIN GLARGINE SOLOSTAR 100 UNITS/ML 3 ML PEN SC SCH (21:24)
[2022-02-14] MEDS: INSULIN ASPART PER UNIT SC SCH ×5 (00:12→20:48)
[2022-02-14] MEDS: PIPERACILLIN/TAZOBACTAM 3.375 GM in DEXTROSE 5% 100 ML IV SCH ×3 (01:32→17:55)
[2022-02-14 07:09] LABS: Mean Corpuscular Hgb Conc 35.1 g/dL (32-36)
[2022-02-14 07:29] LABS: Hematocrit (blood only) 49.3 % (42-52); Hemoglobin 17.3 g/dL (14.0-18.0); Mean Corpuscular Hemoglobin 31.6 pg (25-34); RDW Coefficient of Variation 16.2 % (11.5-14.5); Red Blood Count 5.48 M/uL (4.7-6.1)
[2022-02-14 07:31] LABS: Albumin Globulin Ratio 0.8 (0.9-2); Albumin Level 2.3 gm/dl (3.4-5.0); BUN Creatinine Ratio 26.1 (10-20); Bilirubin,Total 3.6 mg/dl (0.2-1.0); Calcium 7.9 mg/dl (8.5-10.1); Est GFR (African American) 33.6 ml/min; Potassium 4.3 mmol/L (3.5-5.1); Total Protein 5.3 gm/dl (6.0-8.3)
[2022-02-14 07:40] LABS: INR 2.9 (0.9-1.1); Prothrombin Time 29.1 Seconds (9.0-12.0)
[2022-02-14 08:06] LABS: Platelet Count 102 K/uL (130-400); Platelet Estimate Decreased (Normal)
[2022-02-14] MEDS ORDERED: PHYTONADIONE 2.5 MG in DEXTROSE 5% 50 ML IV ONE (08:30)
--- NOTE | 2022-02-14 08:40 | Surgery Progress Note ---
Date of Service February 14, 2022 Assessment & Plan (1) Choledocholithiasis: Plan: MRCP and HIDA results and images personally viewed He does have filling defects consistent with choledocholithiasis and nonvisualization of the gallbladder on his HIDA scan HIDA scan results could be due to cholecystitis or primary liver malfunction Either way he is not a surgical candidate due to his heart failure and cirrhosis of the liver I think the best choice in this patient would be transferred to a tertiary care center where an ERCP and possible Axios stent placement could be performed as this would take care of both problems having to do with his gallbladder Surgery will sign off at this time please call with any questions or concerns (2) Cholecystitis: Admission and Anticipated Discharge Date Admission Date: February 11, 2022 Subjective Patient seen and examined. No acute events overnight. Minimal abdominal pain. Review of Systems Constitutional: no fever and no chills Physical Exam Constitutional: WD/WN, vitals as above Gastrointestinal (Abdomen): Inspection/Auscultation: abdomen normal to inspection; abdomen not distended Percussion/Palpation: + abdomen tender (Minimal generalized) and abdomen soft; no guarding, abdomen not rigid and no hernia Negative [facility] Results & Data ([facility]) Vital Signs (Past 12 Hours) Vital Signs Temp Pulse Pulse Resp BP BP Pulse Ox 02/14/22 06:54 36.6 C 75 18 102/56 L 92 02/14/22 06:15 76 02/14/22 04:39 36.6 C 79 20 110/78 94 02/13/22 23:20 36.4 C L 76 18 105/68 92 02/13/22 22:18 79 PG Care Time/CCT Total # of Minutes Spent Total Time Spent with Patient: Total time spent is greater than 50% in coordination of care (as documented) at patient's floor/unit and/or counseling patient: Coding Level of Care Code 56831 Subseq Hosp Care Lvl 2 Diagnoses Choledocholithiasis K80.50 Cholecystitis K81.9
--- NOTE | 2022-02-14 09:37 | Gastroenterology Progress Note ---
Date of Service February 14, 2022 Assessment & Plan (1) Cholecystitis: (2) Choledocholithiasis: Plan: Cholecystitis and choledocholithiasis, w/o signs of cholangitis but is covered with Zosyn. After discussion with cardiology - not a good candidate for sedation for ERCP or surgery. Plan is for transfer to [place] for perc drain of the gallbladder when a bed is available. Would continue to hold warfarin. Clear liquids if not procedure planned for today - but will defer to primary. Cont to follow WBC, LFTs, vitals closely. For now seems stable. Will continue to follow. Admission and Anticipated Discharge Date Admission Date: February 11, 2022 Supervising Physician Co-Signing Physician Notes Slightly somnolent this am but arousable Abd exam- non distended but obese, soft no wincing with palpation labs/imaging reviewed Given chf, plan is for transfer to [place] for likely percutatenous drain mgmt of cholecystitis. Agree with abx and continued hold of coumadin. Subjective 71, male, CAD, Systolic heart failure, DM-2, on warfarin for A-fib (held). Admitted 02/11 for abd pain. Imaging with gallbladder stones and HIDA w acute cholecystitis and MRCP with small CBD stones. WBC normal on Zosyn. LFTs improving: T bili 3.6, AST 45, ALT 33, Alk Phos 147. Sleepy but awakes and provides his name. Not oriented to time, place. Review of Systems Review of Systems: ROS: Gen: + weakness; No fevers or weight loss. No c/o hunger. Denies pain today Remainder of the ROS not obtainable from the pt. Physical Exam Constitutional: well developed, + ill appearing and cooperative Eyes: PERRL and EOM intact bilaterally ENMT: external ear and nose normal, oropharynx normal Neck: trachea midline, no thyromegaly Respiratory: no cough Auscultation: + crackles (Rt base > left base); no rhonchi and no wheezes Cardiovascular: Rate/Rhythm: regular rate and regular rhythm Heart Sounds: no murmur Gastrointestinal (Abdomen): Inspection/Auscultation: abdomen normal to inspection and + hypoactive bowel sounds; abdomen not distended and no abdominal edema Percussion/Palpation: abdomen soft; abdomen nontender Musculoskeletal: no cyanosis or clubbing, extremities motor strength 5/5 Skin: normal turgor and + jaundice (mild) Neurologic: PERRL, EOMI, accommodation nl, no face palsy, no dysarthria awake (minimally arousable but wakens and attempts to answer questions w mumbled v); not confused Psychiatric: Orientation: cooperative Motor Behavior: n tremor Speech: + mute Lymphatic: no cervical or axillary lymphadenopathy Results & Data ([facility]) Vital Signs (Past 12 Hours) Vital Signs Temp Pulse Pulse Resp BP BP Pulse Ox 02/14/22 06:54 36.6 C 75 18 102/56 L 92 02/14/22 06:15 76 02/14/22 04:39 36.6 C 79 20 110/78 94 02/13/22 23:20 36.4 C L 76 18 105/68 92 02/13/22 22:18 79 Laboratory Results WBC 9, Hb 17.3, Hct 49, plts 102, PT 29, INR 2.9, Hussein 134, K 4.3, Cl 102, CO2 22, BUN 57, Cr 2.18, glucose 101. Diagnostic Findings HIDA 02/13/22: Nonvisualization of the gallbladder. Scintigraphic findings are compatible with acute cholecystitis. MRCP 02/13/22: 1. The gallbladder is distended and contains stones and sludge. 2. Mild gallbladder wall thickening is nonspecific and could be related to adjacent hepatocellular disease and ascites. Cholecystitis is not excluded. If t here is strong clinical concern for cholecystitis, a nuclear hepatobiliary scan should be considered. 3. There is no intra or extrahepatic biliary ductal dilatation. 4. Tiny filling defects are suggested in the common bile duct and are suspicious for choledocholithiasis. 5. Cirrhotic liver morphology and ascites. 6. Cardiomegaly and pericardial effusion. 7. Moderate bilateral pleural effusions. Portal Vein Doppler US 02/12/22: no portal vein thrombosis Liver US 02/11/22 1. Multiple small gallstones/sludge. No definite gallbladder wall thickening. 2. Normal caliber common bile duct. 3. Small right pleural effusion. CTAP w/o contrast 02/11/22: 1. Diffuse anasarca with trace ascites. This has slightly progressed in the interval. 2. Small gallstones with questionable mild pericholecystic inflammatory change. This could be due to the patient's diffuse edematous state. A developing acute cholecystitis is also considered in the differential diagnosis. Consider follow- up right upper quadrant ultrasound or HIDA scan for further evaluation. 3. Questionable thickening within the ascending colon hepatic flexure of the colon is likely due to underdistention and the patient's diffuse edematous state. A low-grade proximal colitis is considered less likely but not entirely excluded. 4. Moderate bilateral pleural fusions, unchanged. 5. Additional findings as described above.
[2022-02-14] MEDS: ADVANCED PROBIOTIC 1250 MG CAPSULE PO SCH (10:22)
[2022-02-14] MEDS: METOPROLOL SUCC 50MG EXT REL TAB PO SCH (12:39)
[2022-02-14] MEDS: SOTALOL HCL 80 MG TAB PO SCH ×2 (12:39→20:44)
--- NOTE | 2022-02-14 13:12 | Nephrology Progress Note ---
Date of Service February 14, 2022 Assessment & Plan (1) Acute kidney injury superimposed on CKD: Plan: stable oligoanuric BOLA stage I from [facility]; he was already heading toward [facility] on 02/09 based on urine sediment; then he recieved IV contrast in the setting of a significantly dehydrated state and now w/ contrast induced nephropathy and EF < 15%, severe volume overload as well as CBD stones/ inflammation. His chemistries remain acceptable. intermittent thrombocytopenia noted, newer issue for him. He has had no diuretics since admission. on clears currently and with minimal uop. High risk in this clinical context to need dialysis and to need CRRT if he is even a candidate. -daily bmp -hold further IVF -hold lasix for now while taking minimal po unless respiratory status decompensates, in which case give 40 mg IV x 1 (2) Decompensated heart failure: Plan: entresto and daily torsemide 20 mg on hold; not clear he was taking these prior to admission in any case -cont to hold entresto -as above re diuretics (3) Abdominal pain: Plan: -distended GB w/ sludge, concern for choledocholithiasis > transfer to [facility] in process Admission and Anticipated Discharge Date Admission Date: February 11, 2022 Subjective more lethargic today; on clears but taking minimal po; abdominal pain from yesterday resolved; denies sob or orthopnea; awaiting [facility] transfer Review of Systems Review of Systems: All systems reviewed & are unremarkable except as noted in Subjective Physical Exam Constitutional: well developed, well nourished, + obese and + lethargic; no acute distress Eyes: EOM intact bilaterally ENMT: Ears: no external ear abnormality Nose: no external nose abnormality Mouth: + dry oral mucous membranes Neck: no nuchal rigidity Respiratory: normal respiratory effort Auscultation: + diminished lung sounds Cardiovascular: Rate/Rhythm: regular rate and regular rhythm Extremities: + edema (2+) Gastrointestinal (Abdomen): Inspection/Auscultation: + abdomen distended, normal bowel sounds and + abdominal edema Percussion/Palpation: abdomen soft; abdomen nontender Musculoskeletal: Extremities: strength 5/5 throughout Skin: no rashes, warm and dry Neurologic: heredia, limited but fluent/appropriate speech, no tremor Psychiatric: Orientation: oriented to person and oriented to place; + not alert Results & Data ([place]) Vital Signs (Past 12 Hours) Vital Signs Temp Pulse Pulse Resp BP BP Pulse Ox 02/14/22 11:19 36.4 C L 80 18 103/72 92 02/14/22 06:54 36.6 C 75 18 102/56 L 92 02/14/22 06:15 76 02/14/22 04:39 36.6 C 79 20 110/78 94 Laboratory Results 02/14/22 06:11 02/14/22 06:11 (1) Abdominal pain Abdominal location: unspecified location Qualified Code(s): R10.9 - Unspecified abdominal pain
[2022-02-14 13:47] LABS: HBSAG NON-REACTIVE (NON-REACTIVE); Hepatitis A Antibody IgM NON-REACTIVE (NON-REACTIVE); Hepatitis B Core Antibody IgM NON-REACTIVE (NON-REACTIVE)
[2022-02-14] MEDS ORDERED: Nursing to Pharmacy Communication SCH (15:15)
--- NOTE | 2022-02-14 15:33 | Hospitalist Progress Note ---
Date of Service February 14, 2022 Assessment & Plan (1) Abdominal pain with vomiting: (2) Pleural effusion: (3) Elevated troponin I level: (4) Atrial fibrillation: (5) Systolic and diastolic CHF, chronic: Plan: 71-year-old male with PMH of CHF, CM, DM2, A. fib presented to the ED 02/11 with abdominal pain and vomiting for 2 to 3 weeks. He reports having developed RLQ abdominal pain to begin with which has moved up. Lately the dull aching pain has become intermittently sharp, associated with nausea and vomiting; and patient reports loose stool. He is being managed for the following: #. Likely colitis #. Likely pneumonia/ bilateral pleural effusion #. 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 Patient reports not drinking or eating anything due to having belly pain 2 hours after taking anything p.o. Admitting CXR: Small bilateral pleural effusion, suggestive of developing pneumonia, cardiomegaly with mild congestive changes Admitting CTAP: Diffuse anasarca with trace ascites, moderate bilateral pleural effusion, suggestive of ascending colon hepatic flexure colitis. Admitting RUQ ultrasound: Multiple small gallstones/Sludge, no definite gall bladder wall thickening. Pleural effusion currently asymptomatic. Diurese as able. Consider Pulm/thoracentesis if becomes symptomatic. No PA tenderness on exam, c/w full liquid diet, continue with Zosyn 02/11. GI consulted, appreciate recommendations. Pain management, antiemetic. #. Distended GB with stone and sludge #. Possible Cholecystitis #. Choledocholithiasis MRCP and HIDA Scan reviewed 02/13 d/w GI 02/13, needs IR drainage of GB due to being high risk for Surgery (d/w Cardio who thinks same), Pt with EF of <15%. Pt consented for transfer 02/13, initiated the process for [facility], paperwork done. d/w Dr. Chanel at [place] transfer line. Pt was meaning to leave [facility] multiple times 02/12, hopefully he continues to agree with transfer process. Pt on Zosyn Will continue to hold coumadin in anticipation for transfer and procedure as soon as he reaches there. #. BOLA over CKD stage III #. Ascites/anasarca: GI consulted, await recs #. Hyponatremia #. Possible congestive hepatopathy Admitting creatinine of 1.97, likely secondary to decreased p.o. intake with possible contribution from hepatorenal component. Continue to hold Entresto, nephrology consult, has 2+ BLE pitting edema. Avoid nephrotoxins. hold further IVF and hold lasix for now; if desaturation then can use 40 mg iv lasix x 1 #. Possible Acute on chronic diastolic CHF BLE edema at admission and admitting imaging s/o mild congestive changes. Albumin level fairly ok. 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 Diurese per Nephro, complicated by BOLA d/w cardio 02/13, pt with <15% EF on ECHO, high risk for surgery Diuresis per Cardio and or nephro. #. Transaminitis #. Hyperbilirubinemia AST and Bili elevated at presentation, trending down likely obstructive given gallstone and choledocholithiasis vs congestive hepatopathy Will need GB drain and ERCP #. Thrombocytopenia- mild, likely from acute illness, improving, follow. #. Elevated troponin- likely demand ischemia. no chest pain. EKG without ischemic changes. trops trended down, tele #. Other chronic medical conditions: DM-2; PAF c/w SSI insulin c/w home meds as and when appropriate. c/w coumadin DVT prophylaxis- on coumadin- adjust with INR Code status- Ok with limited CPR but does not want intubation Dispo- Medsurg with tele, awaiting transfer to [place]. Admission and Anticipated Discharge Date Admission Date: February 11, 2022 Subjective Patient seen and examined at bedside as a follow-up of abdominal pain with vomiting, pleural effusion, elevated troponin level. Patient was lying in bed, on room air, looking tired/sleepy/difficult to arouse/arousable with sternal rub, NAD, no new acute events overnight per RN. ROS limited due to patient being lethargic and sleepy. Per RN, he has been lethargic but woke up later in the morning/early afternoon to take his meds. Physical Exam Physical Exam: GENERAL: Drowsy/lethargic. NAD, on RA. Appears tired and ill looking. HEENT: No pallor, + icterus. Pupils equal, round and reactive to light. Oral mucosa moist. NECK: No JVD, no neck masses. HEART: S1 and S2 heard. Regular rate and rhythm. No murmur, no gallop. RESPIRATORY SYSTEM: Normal AP diameter. No accessory muscle use. No wheezing, no crackles. ABDOMEN: Soft, bowel sounds present, nontender, no distention. CENTRAL NERVOUS SYSTEM: No facial droop. Speech is clear. Obeys simple commands. Moves extremities. EXTREMITIES: 2+ BLE edema, no erythema seen. Results & Data Results & Data ([facility]) Vital Signs (Past 12 Hours) Vital Signs Temp Pulse Pulse Resp BP BP Pulse Ox 02/14/22 15:05 36.6 C 76 18 111/77 94 02/14/22 11:19 36.4 C L 80 18 103/72 92 02/14/22 06:54 36.6 C 75 18 102/56 L 92 02/14/22 06:15 76 02/14/22 04:39 36.6 C 79 20 110/78 94 (1) Atrial fibrillation Atrial fibrillation type: paroxysmal Qualified Code(s): I48.0 - Paroxysmal atrial fibrillation
[2022-02-14] MEDS: DIGOXIN 0.125 MG TAB PO SCH (15:45)
--- NOTE | 2022-02-14 19:19 | Discharge Summary ---
Date of Service February 14, 2022 Admission HPI Per Admitting Provider 41 year old male with h/o CHF, cardiomyopathy, DM-2, Afib who presented to the ED with abdominal pain and vomiting for 2-3 weeks. States he was in normal health until 3 weeks back when he developed RLQ abdominal pain which has since moved up. Pain is dull but intermittently sharp, it is there all the time and even hinders his sleep. Also had vomiting for the past 2 weeks with any oral intake, and even with pills. States 2-3 times vomiting per day. Has intermittent chills but no fever. Soft bowel movements but no diarrhea. No sick contacts. He was seen in the ED 2 days back and was seen by his doctor at [facility] yesterday and recommended admission but he declined. He again had an episode of vomiting this morning and had pills in the vomitus. No bleeding. Denies any worsening shortness of breath (short of breath with exertion for the past year which has not changed). Had dry cough 3 weeks back which is improved. Also had runny nose which is improved. In the ED, he was afebrile, hemodynamically stable. Work up reviewed. He was given zosyn and morphine in the ED. Fairly comfortable during my encounter. Admission Exam Per Admitting Provider General: Not well looking, Lying in bed, not in acute distress, on room air HEENT: EOMI, ELMER, MMM Chest: Fair breath sounds bilaterally decreased at bases CVS: Irregular, normal heart sounds, no murmur Abdomen: Soft, tenderness in RUQ, periumbilical and LLQ region, not distended, normal bowel sounds Neuro: Awake, alert, oriented, conversing well, non focal Extremities: No cyanosis, clubbing, 2+ edema Principal Diagnosis Distended GB with stones/sludge Possible cholecystitis Choledocholithiasis Severe HFrEF Possible Colitis UTI Discharge Exam GENERAL: Drowsy/lethargic. NAD, on RA. Appears tired and ill looking. HEENT: No pallor, + icterus. Pupils equal, round and reactive to light. Oral mucosa moist. NECK: No JVD, no neck masses. HEART: S1 and S2 heard. Regular rate and rhythm. No murmur, no gallop. RESPIRATORY SYSTEM: Normal AP diameter. No accessory muscle use. No wheezing, no crackles. ABDOMEN: Soft, bowel sounds present, nontender, no distention. CENTRAL NERVOUS SYSTEM: No facial droop. Speech is clear. Obeys simple commands. Moves extremities. EXTREMITIES: 2+ BLE edema, no erythema seen. Discharge Data Allergies Allergy/AdvReac Type Severity Reaction Status Date / Time lisinopril AdvReac Intermediate COUGH Verified 02/11/22 11:34 atorvastatin AdvReac Muscle Pain Verified 02/11/22 11:34 Consultations 02/11/22 12:41 ED Decision to Admit Stat 02/11/22 14:18 Consult Gastroenterology Routine 02/12/22 14:03 Consult Nephrology Routine 02/12/22 14:44 Consult Cardiology Routine 02/13/22 10:11 Consult General Surgery Routine 02/13/22 13:29 Consult Cardiology Routine 02/13/22 17:12 Burn CD for patient Routine Procedures Performed Operation Date: 02/14/22 07:00 <No data on this case meets the specified criteria> Ordered Studies 02/11/22 10:34 CT abd pelvis wo con Stat 02/11/22 14:18 US liver Urgent 02/12/22 15:25 US duplex portal hepatic veins Routine 02/13/22 10:14 MR MRCP Routine Diabetes Follow up Diabetes Follow-up Needed for HgbA1c >9% Hospital Course (1) Abdominal pain with vomiting: (2) Pleural effusion: (3) Elevated troponin I level: (4) Atrial fibrillation: (5) Systolic and diastolic CHF, chronic: 71-year-old male with PMH of CHF, CM, DM2, A. fib presented to the ED 02/11 with abdominal pain and vomiting for 2 to 3 weeks. He reports having developed RLQ abdominal pain to begin with which has moved up. Lately the dull aching pain has become intermittently sharp, associated with nausea and vomiting; and patient reports loose stool. He was being managed for the following: #. Likely colitis #. Likely pneumonia/ bilateral pleural effusion #. 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 Patient reports not drinking or eating anything due to having belly pain 2 hours after taking anything p.o. Admitting CXR: Small bilateral pleural effusion, suggestive of developing pneumonia, cardiomegaly with mild congestive changes Admitting CTAP: Diffuse anasarca with trace ascites, moderate bilateral pleural effusion, suggestive of ascending colon hepatic flexure colitis. Admitting RUQ ultrasound: Multiple small gallstones/Sludge, no definite gallbladder wall thickening. Pleural effusion currently asymptomatic. Diurese as able. Consider Pulm/thoracentesis if becomes symptomatic. No PA tenderness on exam, c/w full liquid diet, continue with Zosyn 02/11. GI consulted, appreciate recommendations. Pain management, antiemetic. #. Distended GB with stone and sludge #. Possible Cholecystitis #. Choledocholithiasis MRCP and HIDA Scan reviewed 02/13 d/w GI 02/13, needs IR drainage of GB due to being high risk for Surgery (d/w Cardio who thinks same), Pt with EF of <15%. Pt consented for transfer 02/13, initiated the process for [facility], paperwork done. d/w Dr. Chanel at [place] transfer line. Pt was meaning to leave [facility] multiple times 02/12, hopefully he continues to agree with transfer process. Pt on Zosyn Will continue to hold coumadin in anticipation for transfer and procedure as soon as he reaches there. #. BOLA over CKD stage III #. Ascites/anasarca: GI consulted, await recs #. Hyponatremia #. Possible congestive hepatopathy Admitting creatinine of 1.97, likely secondary to decreased p.o. intake with possible contribution from hepatorenal component. Continue to hold Entresto, nephrology consult, has 2+ BLE pitting edema. Avoid nephrotoxins. hold further IVF and hold lasix for now; if desaturation then can use 40 mg iv lasix x 1 #. Possible Acute on chronic diastolic CHF BLE edema at admission and admitting imaging s/o mild congestive changes. Albumin level fairly ok. 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 Diurese per Nephro, complicated by BOLA d/w cardio 02/13, pt with <15% EF on ECHO, high risk for surgery Diuresis per Cardio and or nephro. #. Transaminitis #. Hyperbilirubinemia AST and Bili elevated at presentation, trending down likely obstructive given gallstone and choledocholithiasis vs congestive hepatopathy Will need GB drain and ERCP #. Thrombocytopenia- mild, likely from acute illness, improving, follow. #. Elevated troponin- likely demand ischemia. no chest pain. EKG without ischemic changes. trops trended down, tele #. Other chronic medical conditions: DM-2; PAF c/w SSI insulin c/w home meds as and when appropriate. c/w coumadin DVT prophylaxis- on coumadin- adjust with INR Code status- Ok with limited CPR but does not want intubation Pt is being discharged to [facility] for further care as mentioned above. Total Time Total Time Spent Total Time Spent (In Minutes): 40 Discharge Plan Discharge Items Patient Disposition: Transfer Acute Care Hospital Reason For Visit: ABD PAIN, DIARRHEA Discharge Diagnosis: Distended GB with stones/sludge Possible cholecystitis Choledocholithiasis Severe HFrEF Possible Colitis UTI Activity: As commented below Activity Comment: Per Tertiary care recommendations Non-emergency contact: Primary Care Provider Call non-emergency contact if: you have any medication questions Follow-up/Referrals: PCP,NO [Primary Care Provider] - Diet: Carb Consistent or DM2 and Full liquid Addtl Attending Provider Instructions: Under discharge med/rec, his home meds are continued as it is, for purpose of comparison, his current inpatient meds are copy/pasted below. Current Inpatient Medications Dextrose (Dextrose 50% 50 Ml Syringe) 25 - 50 ml IV UD PRN; Protocol PRN Reason: Hypoglycemia Protocol Stop: 03/13/22 15:44 Digoxin (Digoxin 0.125 Mg Tab) 0.125 mg PO DAILY@1600 LIN Stop: 03/13/22 20:44 Last Admin: 02/13/22 16:47 Dose: Not Given Documented by: Glucagon (Glucagon For Inj 1 Mg Vial) 1 mg SQ UD PRN; Protocol PRN Reason: Hypoglycemia Protocol Stop: 03/13/22 15:44 Glucose (Glucose 10 Tabs/Tube) 4 - 8 tabs PO UD PRN; Protocol PRN Reason: Hypoglycemia Protocol Stop: 03/13/22 15:44 Glucose (Glucose 40% Gel 15 Gm Tube) 15 - 30 gm PO UD PRN; Protocol PRN Reason: Hypoglycemia Protocol Stop: 03/13/22 15:44 Hydromorphone HCl (Hydromorphone Inj 0.5 Mg/0.5 Ml Syr) 0.5 mg IV Q6H PRN PRN Reason: Pain Stop: 02/27/22 01:20 Piperacillin Sod/Tazobactam (Sod 3.375 gm/ Dextrose) 115 mls @ 28.75 mls/hr IV Q8H [facility]; Protocol Stop: 02/21/22 17:59 Last Infusion: 02/13/22 14:08 Dose: Infused Documented by: Insulin Aspart (Insulin Aspart Per Unit) 0 units SC ACHS [facility] Stop: 03/13/22 16:29 Last Admin: 02/13/22 12:08 Dose: Not Given Documented by: Insulin Glargine (Insulin Glargine Solostar 100 Units/Ml 3 Ml Pen) 6 units SC HS [facility] Stop: 03/13/22 20:59 Last Admin: 02/12/22 20:56 Dose: 6 units Documented by: Lactobacillus Acidophilus (Advanced Probiotic 1250 Mg Capsule) 2 cap PO DAILY [facility] Stop: 03/14/22 10:59 Last Admin: 02/13/22 08:42 Dose: 2 cap Documented by: Melatonin (Melatonin 3 Mg Tab) 3 mg PO HS PRN PRN Reason: Sleep Stop: 03/15/22 08:49 Metoprolol Succinate (Metoprolol Succ 50mg Ext Rel Tab) 100 mg PO QAM [facility] Stop: 03/14/22 08:59 Last Admin: 02/13/22 08:41 Dose: 100 mg Documented by: Miscellaneous (Carbohydrates For Hypoglycemia ) 15 - 30 gm PO UD PRN PRN Reason: Hypoglycemia Protocol Stop: 03/13/22 15:44 Miscellaneous Information (Piperacill/Tazobac Consult Active) 1 ea N/A UD PRN PRN Reason: Consult Stop: 03/13/22 12:40 Olanzapine (Olanzapine 10 Mg/2.1 Ml Sdv) 2.5 mg IM Q4H PRN PRN Reason: Anxiety/Agitation Stop: 03/15/22 01:20 Ondansetron HCl (Ondansetron Inj 2 Mg/Ml 2 Ml Vial) 4 mg IV Q6H PRN PRN Reason: Nausea And Vomiting Stop: 03/14/22 04:00 Last Admin: 02/11/22 23:47 Dose: 4 mg Documented by: Sotalol HCl (Sotalol Hcl 80 Mg Tab) 80 mg PO BID [facility] Stop: 03/13/22 20:59 Last Admin: 02/13/22 08:41 Dose: 80 mg Documented by: Warfarin Sodium (Warfarin Sod 5 Mg Tab) 5 mg PO DAILY@1600 LIN Stop: 03/14/22 15:59 Last Admin: 02/12/22 15:42 Dose: 5 mg Documented by: Pending Studies at Discharge: No Stand-Alone Forms: My [facility] Skilled Items Patient informed of condition?: Yes DNR: Yes (ok with limited CPR and BMV but no intubation) Discharge Level of Care: Other Communicable Disease: No Discharge Prognosis: Deteriorating Lines: Peripheral IV Urinary Catheter: No Medications and DC Order Prescriptions: Continued sotalol [Betapace] 80 mg tablet 80 mg PO BID RF: 0 warfarin 5 mg Tablet 5 mg PO QAM RF: 0 nitroglycerin [Nitrostat] 0.4 mg Tablet, Sublingual 0.4 mg sublingual UD PRN (Reason: Chest Pain) RF: 0 Lantus Solostar U-100 Insulin 100 unit/mL (3 mL) insulin pen 35 unit SUBCUT QAM RF: 0 metoprolol succinate 100 mg tablet extended release 24 hr 100 mg PO QAM RF: 0 furosemide 20 mg tablet 20 mg PO QAM RF: 0 Entresto 24-26 mg tablet 1 tab PO BID RF: 0 Discharge Orders: Discharge Order (Routine); Ordered 02/14/22 Ordered By: Tyson Ybarra/Other Patient Handouts: Managing Type 2 Diabetes Admission Data Admit Date/Time: 02/11/22 14:18 Attending Provider: Freeman Morales Admit Provider: Jae Barboza Primary Care Provider: PCP,NO Other Providers: Melinda Haskins ; Magdalena Montoya ; Salud Almendarez ; Susan Gracia ; Parviz Molina ; Jennifer Knight ; Yi Pena ; Johnson Mcginnis ; Sofia Miles ; Samreen Suárez ; Lakshmi Ward ; Gianna Henderson ; Merari Amaro ; Jae Barboza ; Joe Marsh ; Diogenes Yarbrough ; Justo Tee ; Last Carranza ; Mark Gonzalez ; Jozef Flores ; Morgan Nelson ; Robert Arguelles ; Nati Muro ; Dang Woodruff ; Nathalie Reynoso. ; Jimenez Russell Other Interventions: Discharge Summary Assessment (RN) Last Done: 02/14/22 18:25
[2022-02-14] MEDS: INSULIN GLARGINE SOLOSTAR 100 UNITS/ML 3 ML PEN SC SCH (20:44)
== END 2022-02-15 02:00 | disposition short-term general hospital (02) | DRG 871 ==
LOC: ED 10:10 → 2N 14:18 → SUATTDRO 14:18 → 2N 15:22
DX: Z91.14 Patient's other noncompliance with medication regimen; I50.43 Acute on chronic combined systolic (congestive) and diastolic (congestive) heart failure; N18.30 Chronic kidney disease, stage 3 unspecified; I48.0 Paroxysmal atrial fibrillation; K80.40 Calculus of bile duct with cholecystitis, unspecified, without obstruction; E11.65 Type 2 diabetes mellitus with hyperglycemia; E87.1 Hypo-osmolality and hyponatremia; E87.5 Hyperkalemia; Z68.32 Body mass index [BMI] 32.0-32.9, adult; J90 Pleural effusion, not elsewhere classified; I25.2 Old myocardial infarction; Z79.4 Long term (current) use of insulin; A41.9 Sepsis, unspecified organism; I25.10 Atherosclerotic heart disease of native coronary artery without angina pectoris; Z95.5 Presence of coronary angioplasty implant and graft; D69.6 Thrombocytopenia, unspecified; E11.42 Type 2 diabetes mellitus with diabetic polyneuropathy; E80.6 Other disorders of bilirubin metabolism; J18.9 Pneumonia, unspecified organism; E03.9 Hypothyroidism, unspecified; K70.31 Alcoholic cirrhosis of liver with ascites; K52.9 Noninfective gastroenteritis and colitis, unspecified; I13.0 Hypertensive heart and chronic kidney disease with heart failure and stage 1 through stage 4 chronic kidney disease, or unspecified chronic kidney disease; N17.9 Acute kidney failure, unspecified; E11.22 Type 2 diabetes mellitus with diabetic chronic kidney disease; E78.5 Hyperlipidemia, unspecified; Z88.8 Allergy status to other drugs, medicaments and biological substances; I25.5 Ischemic cardiomyopathy; E66.9 Obesity, unspecified; Z79.01 Long term (current) use of anticoagulants

== ENCOUNTER 2023-01-11 06:05 | Inpatient (IN) ==
[2023-01-11 06:54] LABS: Basophils # (auto) 0.07 K/uL (0-0.2); Basophils % (auto) 0.9 %; Eosinophils # (auto) 0.19 K/uL (0-0.50); Eosinophils % (auto) 2.5 %; Hematocrit (blood only) 44.9 % (42.0-52.0); Hemoglobin 14.5 g/dl (14.0-18.0); Immature Granulocytes # (auto) 0.01 K/uL (0.01-0.20); Immature Granulocytes % (auto) 0.1 %; Lymphocytes # (auto) 1.54 K/uL (1.2-3.4); Lymphocytes % (auto) 20.3 %; Mean Corpuscular Hemoglobin 28.8 pg (25.0-34.0); Mean Corpuscular Hgb Conc 32.3 g/dL (32.0-36.0); Mean Corpuscular Volume 89.3 fL (80.0-100.0); Monocytes # (auto) 0.71 K/uL (0.11-0.59); Monocytes % (auto) 9.4 %; Neutrophils # (auto) 5.06 K/uL (1.40-6.50); Neutrophils % (auto) 66.8 %; Platelet Count 108 K/uL (130-400); RDW Coefficient of Variation 16.2 % (11.5-14.5); RDW Standard Deviation 51.9 fL (36.4-46.3); Red Blood Count 5.03 M/uL (4.70-6.10); White Blood Count 7.58 K/ul (4.8-10.8)
--- NOTE | 2023-01-11 06:56 | XRay Report ---
SINGLE VIEW CHEST CLINICAL HISTORY: Congestive heart failure. FINDINGS: An AP, portable, semierect chest radiograph is compared to study dated 11/01/2022. The exam ination is degraded by portable technique and apical lordotic positioning. A 2-lead cardiac AICD is u nchanged in position. The heart is enlarged noting atherosclerotic calcification of the thoracic aort a. There is pulmonary vascular congestion. Atelectasis is noted at the lung bases. No airspace consol idation or large pleural effusion is identified. No pneumothorax is seen. The skeletal structures are osteopenic. The bony thorax is grossly intact. IMPRESSION: 1. Cardiomegaly and AICD with evidence of congestive failure. 2. No airspace consolidation or large pleural effusion is identified. ACT 112: Negative or not required by law. Electronically signed by: Isiah Raymond M.D. 01/11/2023 6:55 AM
[2023-01-11 07:12] LABS: Albumin Globulin Ratio 0.9 (0.9-2); Albumin Level 3.5 gm/dl (3.4-5.0); BUN Creatinine Ratio 20.9 (10-20); Bilirubin,Total 1.3 mg/dl (0.2-1.0); Calcium 8.9 mg/dl (8.5-10.1); Creatinine Clr Calc Pharmacy 58.1 ml/min; Est GFR (African American) 57.5 ml/min; Est GFR (Non-African American) 49.6 ml/min; Globulin 3.8 gm/dl (2.5-4.0); Potassium 4.6 mmol/L (3.5-5.1); Total Protein 7.3 gm/dl (6.0-8.3)
--- NOTE | 2023-01-11 07:17 | Emergency Department Note ---
History of Present Illness General Chief complaint: Rash Stated complaint: LEG RASH Time Seen by Provider: 01/11/23 06:57 Source: patient, family (Family friend who is at the bedside) and old records reviewed Mode of arrival: ambulatory Limitations: no limitations History of Present Illness Maximum Pain Intensity: 2 This patient is a 72-year-old male who comes in complaining of a rash. He is concerned he could be of allergic reaction to one of the meds he is on although none of them are new or different he notes that since 1:00 yesterday afternoon only mildly itchy just feels very irritated mostly on his legs and also his abdomen. Old medical records were attempted to be reviewed but there are no old records at this hospital. Nurse's notes were reviewed and I agree with. Sick contacts. No fever he does have CHF chronically and says that he has had increased dyspnea on exertion over the last couple weeks. He had increasing swelling in his legs. No nausea vomiting diarrhea no blood or melena stool he is on Coumadin. No fall or injuries. He has a chronic gallbladder drain and he tells me that they told him that he cannot have surgery due to his heart and the gallbladder drain will be in there permanently. He did not try any medications at home. He has no swelling mouth lips or tongue Home Medications Medication Instructions Recorded Confirmed Type insulin glargine 100 unit/mL (3 20 unit subcut QAM 12/18/20 01/11/23 History mL) subcutaneous pen (Lantus Solostar U-100 Insulin) nitroglycerin 0.4 mg sublingual 0.4 mg sublingual UD PRN Chest Pain 12/18/20 01/11/23 History tablet (Nitrostat) warfarin 5 mg tablet 10 mg PO QPM 12/18/20 01/11/23 History torsemide 20 mg tablet 20 mg PO BID 02/20/22 01/11/23 History clopidogrel 75 mg tablet (Plavix) 75 mg PO DAILY 11/01/22 01/11/23 History empagliflozin 10 mg tablet 10 mg PO DAILY 11/01/22 01/11/23 History (Jardiance) levothyroxine 100 mcg tablet 100 mcg PO DAILY 11/01/22 01/11/23 History metoprolol succinate 100 mg 100 mg PO DAILY 11/01/22 01/11/23 History tablet,extended release 24 hr pantoprazole 20 mg tablet,delayed 20 mg PO DAILY 11/01/22 01/11/23 History release (Protonix) sacubitril 24 mg-valsartan 26 mg 1 tab PO BID 11/01/22 01/11/23 History tablet (Entresto) spironolactone 25 mg tablet 12.5 mg PO DAILY 11/01/22 01/11/23 History ezetimibe 10 mg tablet 10 mg PO DAILY 01/11/23 01/11/23 History tizanidine 2 mg capsule 2 mg PO Q8H PRN Muscle Spasm 01/11/23 01/11/23 History Allergies Allergy/AdvReac Type Severity Reaction Status Date / Time lisinopril AdvReac Intermediate COUGH Verified 02/20/22 22:26 atorvastatin AdvReac Muscle Pain Verified 02/20/22 22:26 Past Med/Surg History Medical History Biventricular ICD (implantable cardioverter-defibrillator) in place CAD (coronary artery disease) 03/2009 - STEMI, s/p PTCA and stenting RCA, chronic LAD occlusion, 40% left main lesion 2018 he had an abnormal stress test followed by coronary angiogram revealing patent stent in RCA, CHIP PERSON pLAD and hemodynamically significant pCx stenosis resulting in placement of CHEVY. Chronic cholecystitis CKD (chronic kidney disease) stage 3, GFR 30-59 ml/min CVA (cerebral vascular accident) DM type 2 (diabetes mellitus, type 2) Dyslipidemia HTN (hypertension) Hypothyroidism Ischemic cardiomyopathy Persistent atrial fibrillation STEMI (ST elevation myocardial infarction) Thrombocytopenia Surgical History H/O colonoscopy 06/2018 - diverticulosis - Dr Samreen Suárez Hx of cardiac cath 2008 - multivessel disease s/p stent RCA with residual chronic occlusion LAD with collaterals and 40% narrowing left main Family History Other Coronary heart disease Diabetes Social History Smoking Status: Never smoker Second Hand Exposure: No; Do You Dip or Chew Tobacco: No; Tobacco Cessation Education Requested by Patient: No Hx Alcohol Use: No Hx Substance Use: No Preferred Language: French Communication Ability: Effective 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 Other Information That Helps Us Care for You: No Feels Safe at Home: Yes Safety Concerns: Feels Safe At This Time Assistive Devices: Cane and Glasses Review of Systems A total of 10 systems reviewed and were otherwise negative Physical Exam Vital Signs Vital Signs - 24 hr 01/11/23 06:10 01/11/23 06:36 01/11/23 06:37 Temperature 36.6 C Temperature Source Temporal Artery Scan Pulse Rate 117 H Pulse Rate [Apical] 105 H Pulse Rhythm Regular Pulse Strength Normal Respiratory Rate 18 26 H Respiratory Effort / Characteristics Non-Labored Spontaneous Respiratory Depth Normal Respiratory Pattern Regular Blood Pressure 134/82 Blood Pressure [Right Arm] 120/96 Blood Pressure Mean 99 Blood Pressure Mean [Right Arm] 104 Blood Pressure Position Sitting Pulse Oximetry 100 98 98 Oxygen Delivery Method Room Air Room Air Room Air Sepsis Recent Fever Within 48 Hours No Sepsis New/Unexplained Change in Mental Status No Sepsis Action Taken by Nursing No Action Required General: Well developed well nourished older chronically ill appearing male who appears in no acute distress, breathing comfortably on room air. Normal speech HEENT: Normal cephalic atraumatic. Pupils are equal round and reactive to li ght. Extraocular movements are intact. Oropharynx is pink with moist mucous membranes. No swelling of the mouth lips or tongue. Neck: Supple with a midline trachea. No meningeal signs or stiffness, no JVD or bruits. No Stridor. Chest: Clear to auscultation bilaterally with diminished lung sounds in the bases. No increased work of breathing. Heart: Regular rate and rhythm without murmurs or gallops. Abdomen: Soft nontender, nondistended without rebound guarding or rigidity. He does have a gallbladder drain in the right that is not red or warm and has no drainage Extremities: No cyanosis clubbing. He does have 1+ to 2+ bilateral lower extremity edema Spine/Back. Non tender to palpation. No CVA tenderness Skin: Good turgor. He does have a nonblanching rash mostly on his extremities.. Neurologic exam: Cranial nerves two through 12 are intact. Motor and sensation are intact and symmetrical throughout. Course Administered Medications Clopidogrel Bisulfate (Clopidogrel Bisulfate 75 Mg Tab) 75 mg PO DAILY LIN Stop: 02/10/23 10:10 Last Admin: 01/11/23 10:51 Dose: 75 mg Documented By: NARDA Empagliflozin (Empagliflozin 10 Mg Tab) 10 mg PO DAILY LIN Stop: 02/10/23 10:29 Last Admin: 01/11/23 10:50 Dose: 10 mg Documented By: NARDA Furosemide (Furosemide 40 Mg/4 Ml Vial) 40 mg IV BID LIN Stop: 02/10/23 09:14 Last Admin: 01/11/23 10:48 Dose: 40 mg Documented By: NARDA Ceftriaxone Sodium 2,000 mg/ (Dextrose) 70 mls @ 140 mls/hr IV Q24H LIN Stop: 01/18/23 10:29 Last Infusion: 01/11/23 11:24 Dose: 0 mls/hr Documented By: Admin: 01/11/23 10:51 Dose: 140 mls/hr Documented By: NARDA Insulin Aspart (Insulin Aspart Per Unit) 0 units SC ACHS LIN Stop: 02/10/23 11:29 Last Admin: 01/11/23 13:33 Dose: 4 units Documented By: NARDA Co-signed By: [id number] Levothyroxine Sodium (Levothyroxine Sodium 100 Mcg Tablet) 100 mcg PO DAILYBB [facility] Stop: 02/10/23 10:29 Last Admin: 01/11/23 10:51 Dose: 100 mcg Documented By: NARDA Metoprolol Succinate (Metoprolol Succ 50mg Ext Rel Tab) 100 mg PO DAILY LIN Stop: 02/10/23 10:29 Last Admin: 01/11/23 10:50 Dose: 100 mg Documented By: NARDA Nystatin (Nystatin Powder 15gm Btl) 1 appln EXT BID LIN Stop: 02/10/23 10:10 Last Admin: 01/11/23 10:51 Dose: 1 appln Documented By: NARDA Spironolactone (Spironolactone 12.5 Mg Tab) 12.5 mg PO DAILY LIN Stop: 02/10/23 10:29 Last Admin: 01/11/23 10:50 Dose: 12.5 mg Documented By: NARDA Medical Decision Making Differential Diagnosis Rash, allergic reaction, infection, medication side effect, CHF, thrombocytop enia, bone marrow issue Medical Records Attestation: I reviewed the patient's medical records. Home Medications Current Medication List: was personally reviewed by me Laboratory Data Attestation: I reviewed the patient's lab results. 01/11/23 06:35 01/11/23 06:35 Lab Results 01/11/23 01/11/23 01/11/23 Range/Units 06:33 06:34 06:35 WBC 7.58 (4.8-10.8) K/ul RBC 5.03 (4.70-6.10) M/uL Hgb 14.5 (14.0-18.0) g/dl Hct 44.9 (42.0-52.0) % MCV 89.3 (80.0-100.0) fL MCH 28.8 (25.0-34.0) pg MCHC 32.3 (32.0-36.0) g/dL RDW Std Deviation 51.9 H (36.4-46.3) fL RDW Coeff of Erik 16.2 H (11.5-14.5) % Plt Count 108 L (130-400) K/uL Immature Gran % (Auto) 0.1 % Neut % (Auto) 66.8 % Lymph % (Auto) 20.3 % [place] % (Auto) 9.4 % Eos % (Auto) 2.5 % Baso % (Auto) 0.9 % Neut # (Auto) 5.06 (1.40-6.50) K/uL Lymph # (Auto) 1.54 (1.2-3.4) K/uL [place] # (Auto) 0.71 H (0.11-0.59) K/uL Eos # (Auto) 0.19 (0-0.50) K/uL Baso # (Auto) 0.07 (0-0.2) K/uL Immature Gran # (Auto) 0.01 (0.01-0.20) K/uL ESR 21 H (0-20) mm/hr PT (9.0-12.0) Seconds INR (0.9-1.1) APTT (21.0-31.0) Seconds PTT Ratio Sodium (136-145) mmol/L Potassium (3.5-5.1) mmol/L Chloride (98-107) mmol/L Carbon Dioxide (21-32) mmol/L Anion Gap (3-11) BUN (6-23) mg/dl Creatinine (0.6-1.4) mg/dl Est Cr Clr Drug Dosing ml/min Est GFR ( Amer) ml/min Est GFR (Non-Af Amer) ml/min BUN/Creatinine Ratio (10-20) Glucose (70-99(Fasting)) mg/dl Calcium (8.5-10.1) mg/dl Total Bilirubin (0.2-1.0) mg/dl AST (13-39) U/L ALT (7-52) U/L Alkaline Phosphatase (34-104) U/L C-Reactive Protein (0-0.5) mg/dl B-Natriuretic Peptide (0-100) pg/ml Total Protein (6.0-8.3) gm/dl Albumin (3.4-5.0) gm/dl Globulin (2.5-4.0) gm/dl Albumin/Globulin Ratio (0.9-2) TSH 14.214 H (0.300-4.500) uIu/ml Free T4 0.82 (0.61-1.60) ng/dl Urine Color Urine Appearance (Clear) Urine pH (4.5-7.5) Ur Specific [place] (1.000-1.030) Urine Protein (Negative) Urine Glucose (UA) (Negative) Urine Ketones (Negative) Urine Blood (Negative) Urine Nitrite (Negative) Urine Bilirubin (Negative) Urine Urobilinogen (Negative) Ur Leukocyte Esterase (Negative) Urine WBC (Auto) (0-5) /hpf Urine RBC (Auto) (0-4) /hpf U Hyaline Cast (Auto) (0-5) /lpf U Epithel Cells (Auto) (0-5) /lpf Urine Bacteria (Auto) (Negative) SARS-CoV-2, RNA, NAAT (NEGATIVE) 01/11/23 01/11/23 01/11/23 Range/Units 06:35 07:16 07:40 WBC (4.8-10.8) K/ul RBC (4.70-6.10) M/uL Hgb (14.0-18.0) g/dl Hct (42.0-52.0) % MCV (80.0-100.0) fL MCH (25.0-34.0) pg MCHC (32.0-36.0) g/dL RDW Std Deviation (36.4-46.3) fL RDW Coeff of Erik (11.5-14.5) % Plt Count (130-400) K/uL Immature Gran % (Auto) % Neut % (Auto) % Lymph % (Auto) % [place] % (Auto) % Eos % (Auto) % Baso % (Auto) % Neut # (Auto) (1.40-6.50) K/uL Lymph # (Auto) (1.2-3.4) K/uL [place] # (Auto) (0.11-0.59) K/uL Eos # (Auto) (0-0.50) K/uL Baso # (Auto) (0-0.2) K/uL Immature Gran # (Auto) (0.01-0.20) K/uL ESR (0-20) mm/hr PT (9.0-12.0) Seconds INR (0.9-1.1) APTT (21.0-31.0) Seconds PTT Ratio Sodium 138 (136-145) mmol/L Potassium 4.6 (3.5-5.1) mmol/L Chloride 106 (98-107) mmol/L Carbon Dioxide 25 (21-32) mmol/L Anion Gap 7 (3-11) BUN 29 H (6-23) mg/dl Creatinine 1.39 (0.6-1.4) mg/dl Est Cr Clr Drug Dosing 58.1 ml/min Est GFR ( Amer) 57.5 ml/min Est GFR (Non-Af Amer) 49.6 ml/min BUN/Creatinine Ratio 20.9 H (10-20) Glucose 167 H (70-99(Fasting)) mg/dl Calcium 8.9 (8.5-10.1) mg/dl Total Bilirubin 1.3 H (0.2-1.0) mg/dl AST 34 (13-39) U/L ALT 18 (7-52) U/L Alkaline Phosphatase 100 (34-104) U/L C-Reactive Protein 0.94 H (0-0.5) mg/dl B-Natriuretic Peptide 1547 H (0-100) pg/ml Total Protein 7.3 (6.0-8.3) gm/dl Albumin 3.5 (3.4-5.0) gm/dl Globulin 3.8 (2.5-4.0) gm/dl Albumin/Globulin Ratio 0.9 (0.9-2) TSH (0.300-4.500) uIu/ml Free T4 (0.61-1.60) ng/dl Urine Color Urine Appearance (Clear) Urine pH (4.5-7.5) Ur Specific [place] (1.000-1.030) Urine Protein (Negative) Urine Glucose (UA) (Negative) Urine Ketones (Negative) Urine Blood (Negative) Urine Nitrite (Negative) Urine Bilirubin (Negative) Urine Urobilinogen (Negative) Ur Leukocyte Esterase (Negative) Urine WBC (Auto) (0-5) /hpf Urine RBC (Auto) (0-4) /hpf U Hyaline Cast (Auto) (0-5) /lpf U Epithel Cells (Auto) (0-5) /lpf Urine Bacteria (Auto) (Negative) SARS-CoV-2, RNA, NAAT NEGATIVE (NEGATIVE) 01/11/23 01/11/23 Range/Units 07:55 08:16 WBC (4.8-10.8) K/ul RBC (4.70-6.10) M/uL Hgb (14.0-18.0) g/dl Hct (42.0-52.0) % MCV (80.0-100.0) fL MCH (25.0-34.0) pg MCHC (32.0-36.0) g/dL RDW Std Deviation (36.4-46.3) fL RDW Coeff of Erik (11.5-14.5) % Plt Count (130-400) K/uL Immature Gran % (Auto) % Neut % (Auto) % Lymph % (Auto) % [place] % (Auto) % Eos % (Auto) % Baso % (Auto) % Neut # (Auto) (1.40-6.50) K/uL Lymph # (Auto) (1.2-3.4) K/uL [place] # (Auto) (0.11-0.59) K/uL Eos # (Auto) (0-0.50) K/uL Baso # (Auto) (0-0.2) K/uL Immature Gran # (Auto) (0.01-0.20) K/uL ESR (0-20) mm/hr PT 22.9 H (9.0-12.0) Seconds INR 2.2 H (0.9-1.1) APTT 32.8 H (21.0-31.0) Seconds PTT Ratio 1.2 Sodium (136-145) mmol/L Potassium (3.5-5.1) mmol/L Chloride (98-107) mmol/L Carbon Dioxide (21-32) mmol/L Anion Gap (3-11) BUN (6-23) mg/dl Creatinine (0.6-1.4) mg/dl Est Cr Clr Drug Dosing ml/min Est GFR ( Amer) ml/min Est GFR (Non-Af Amer) ml/min BUN/Creatinine Ratio (10-20) Glucose (70-99(Fasting)) mg/dl Calcium (8.5-10.1) mg/dl Total Bilirubin (0.2-1.0) mg/dl AST (13-39) U/L ALT (7-52) U/L Alkaline Phosphatase (34-104) U/L C-Reactive Protein (0-0.5) mg/dl B-Natriuretic Peptide (0-100) pg/ml Total Protein (6.0-8.3) gm/dl Albumin (3.4-5.0) gm/dl Globulin (2.5-4.0) gm/dl Albumin/Globulin Ratio (0.9-2) TSH (0.300-4.500) uIu/ml Free T4 (0.61-1.60) ng/dl Urine Color Dark Yellow Urine Appearance Clear (Clear) Urine pH 5.0 (4.5-7.5) Ur Specific [place] 1.014 (1.000-1.030) Urine Protein 1+ H (Negative) Urine Glucose (UA) Negative (Negative) Urine Ketones Negative (Negative) Urine Blood Negative (Negative) Urine Nitrite Negative (Negative) Urine Bilirubin Negative (Negative) Urine Urobilinogen Negative (Negative) Ur Leukocyte Esterase Negative (Negative) Urine WBC (Auto) 1-5 (0-5) /hpf Urine RBC (Auto) 0-4 (0-4) /hpf U Hyaline Cast (Auto) 10-30 H (0-5) /lpf U Epithel Cells (Auto) 5-10 H (0-5) /lpf Urine Bacteria (Auto) Negative (Negative) SARS-CoV-2, RNA, NAAT (NEGATIVE) Imaging Data Attestation: I personally reviewed and interpreted this imaging study as follows: My Impression: Chest x-raycardiomegaly with some congestive heart failure changes Radiologist's Impression: Chest X-Ray 01/11/23 06:21 SINGLE VIEW CHEST CLINICAL HISTORY: Congestive heart failure. FINDINGS: An AP, portable, semierect chest radiograph is compared to study dated 11/01/2022. The examination is degraded by portable technique and apical lordotic positioning. A 2-lead cardiac AICD is unchanged in position. The heart is enlarged noting atherosclerotic calcification of the thoracic aorta. There is pulmonary vascular congestion. Atelectasis is noted at the lung bases. No airspace consolidation or large pleural effusion is identified. No pneumothorax is seen. The skeletal structures are osteopenic. The bony thorax is grossly intact. IMPRESSION: 1. Cardiomegaly and AICD with evidence of congestive failure. 2. No airspace consolidation or large pleural effusion is identified. ACT 112: Negative or not required by law. Electronically signed by: Isiah Raymond M.D. 01/11/2023 6:55 AM ECG Data Attestation: I personally reviewed and interpreted this ECG as follows: Indication: + weakness Rate (beats per minute): 114 Rhythm: + other (Ventricular paced rhythm) ECG Intervals/blocks: + Normal QT ECG [place]: + Left axis deviation ECG ST segments: + Nonspecific ST abnormalities ECG Findings: no PACs or no PVCs Comparison ECG Date: from (11/01/22) Change: no significant change MDM Narrative This patient comes in as described above. He was placed on a pharmacy clinical coordinator room C3. he has a history of CHF and is on blood thinners he also has a rash. He has had increased dyspnea on exertion and I definitely think there is a CHF component. His chest x-ray does suggest fluid overload as there is an elevated BNP his rash is nonblanching and concern is more vasculitic he does not look toxic he has no fever or white count to suggest infection. He was COVID tested multiple blood test was obtained chest x-ray does show somewhat degree of fluid overload. His EKG shows a paced rhythm without any definite acute ischemic changes. I do think that he is fluid overloaded and have a rash which may be vasculitic or related to drug eruption. I do think he should be admitted/observed for further treatment and evaluation. [facility] for these measures. Continuous cardiac monitoring: Orders placed in EMR for continuous cardiac monitoring: Upon my evaluation/interpretation patient noted to be in normal sinus rhythm rate of 70 Impression & Plan CHF (congestive heart failure), Thrombocytopenia, Rash, Lab test negative for COVID-19 virus, Edema, peripheral Discharge Plan Visit Data Chief Complaint: Rash Stated Complaint: LEG RASH ED Provider: Quan Merchant Discharge Problem: CHF (congestive heart failure), Thrombocytopenia, Rash, Lab test negative for COVID-19 virus, Edema, peripheral Patient Disposition: Admitted As Inpatient Discharge Instructions Interventions: ED Discharge Assessment Last Done: 01/11/23 09:52
[2023-01-11 08:46] LABS: INR 2.2 (0.9-1.1); Partial Thromboplastin Ratio 1.2; Partial Thromboplastin Time 32.8 Seconds (21.0-31.0); Prothrombin Time 22.9 Seconds (9.0-12.0)
--- NOTE | 2023-01-11 08:46 | History & Physical Report ---
Date of Service January 11, 2023 Assessment & Plan (1) Rash: Plan: Admit to [facility] with telemetry Patient presenting from home with reports of lower extremity rash that has spread to the abdomen and arms. Please see HPI for full details. Ddx: contact dermatitis/cellulitis (bacterial or fungal)/vasculitis Groin rash differs from what is present on legs and likely represents a fungal infection from soiled undergarments -- will cleanse and apply Nystatin powder Will start empiric IV ceftriaxone Check ESR and CRP. LFTs and renal function WNL. Chronic thrombocytopenia noted. Dermatology consult, case discussed with Dr. Haven Hung at [facility] via [employer] --with patient's permission, photographs of rash were obtained and sent to Dr. Hung via [employer] text for recommendations. (2) Acute on chronic systolic CHF (congestive heart failure): (3) Ischemic cardiomyopathy: (4) Biventricular ICD (implantable cardioverter-defibrillator) in place: Plan: Patient with increased lower extremity edema and JANSEN. Saturating well on room air. Echo 10/2022-EF 20%. S/p BiV ICD 10/2022. Continue beta-roseann, Entresto, Jardiance, Zetia, Plavix IV diuresis with Lasix 40 mg IV BID. Continue home dose spironolactone. (5) Chronic cholecystitis: Plan: Has percutaneous drain in place Follows with [facility] general surgery, tentatively planning for cholecystectomy April 2023 pending cardiac status (6) Persistent atrial fibrillation: Plan: Rate controlled on metoprolol Anticoagulant on Coumadin, INR 2.2 (7) Hypothyroidism: Plan: Patient reports noncompliance with levothyroxine due to timing of medication TSH 14, free T4 0.82 Resume levothyroxine at previous dose (8) DM type 2 (diabetes mellitus, type 2): Plan: Hgb A1c 7.8 08/2022 Patient reports self stopping Lantus about 1 month ago Glucose 167 on today's labs, will resume Lantus 10 units daily and NovoLog per protocol Continue home Jardiance given underlying CHF (9) Thrombocytopenia: Plan: History of chronic thrombocytopenia Platelet 108K, at baseline Monitor CBC (10) CVA (cerebral vascular accident): Plan: History of Continue Zetia and Plavix. Noted history of statin intolerance. (11) DVT prophylaxis: Plan: On Coumadin with therapeutic INR I spent a total of 90 minutes coordinating, documenting, and providing care for this patient excluding time spent in the performance of separately billed services. This included personally reviewing all current laboratories and imaging studies, medication reconciliation, outpatient chart review, and discussion with specialists. History of Present Illness Chief Complaint: Rash Primary Care Provider: Regis Ayala MD 72-year-old male with PMH DM type II, ischemic cardiomyopathy EF 20%, AICD in place, hypothyroidism, chronic cholecystitis with percutaneous drain in place, atrial fibrillation on Coumadin, chronic thrombocytopenia, and other problems listed below who presents to the ED for evaluation of rash. History obtained from patient and review of outpatient records including primary care, cardiology, general surgery. Patient states rash started on right lower leg about 1 week ago and then acutely worsened and spread yesterday to left leg, abdomen, arms. Patient states rash is only slightly pruritic. Only new medication is starting Zetia at the end of November. Patient denies new detergen ts or foods. No recent travel. Does not spend time outside. Does have a dog in the home. No fever.no sick contacts. Increased lower extremity edema along with testicular swelling and pain. Has chronic exertional shortness of breath which is slightly worse from baseline. Also reports a chronic cough that seems to have worsened recently. Had one episode of lightheadedness and dizziness with over exertion that resolved quickly. Denies chest pain. Has chronic cholecystitis with percutaneous drain in place, no acute issues. Denies abdominal pain, nausea, vomiting, or diarrhea. No urinary symptoms. In the ED, patient is hemodynamically stable. Labs are unremarkable/at patient's baseline. CXR is suggesting volume overload. Allergies Allergy/AdvReac Type Severity Reaction Status Date / Time lisinopril AdvReac Intermediate COUGH Verified 02/20/22 22:26 atorvastatin AdvReac Muscle Pain Verified 02/20/22 22:26 Home Medications Medication Instructions Recorded Confirmed Type insulin glargine 100 unit/mL (3 20 unit subcut QAM 12/18/20 01/11/23 History mL) subcutaneous pen (Lantus Solostar U-100 Insulin) nitroglycerin 0.4 mg sublingual 0.4 mg sublingual UD PRN Chest Pain 12/18/20 01/11/23 History tablet (Nitrostat) warfarin 5 mg tablet 10 mg PO QPM 12/18/20 01/11/23 History torsemide 20 mg tablet 20 mg PO BID 02/20/22 01/11/23 History clopidogrel 75 mg tablet (Plavix) 75 mg PO DAILY 11/01/22 01/11/23 History empagliflozin 10 mg tablet 10 mg PO DAILY 11/01/22 01/11/23 History (Jardiance) levothyroxine 100 mcg tablet 100 mcg PO DAILY 11/01/22 01/11/23 History metoprolol succinate 100 mg 100 mg PO DAILY 11/01/22 01/11/23 History tablet,extended release 24 hr pantoprazole 20 mg tablet,delayed 20 mg PO DAILY 11/01/22 01/11/23 History release (Protonix) sacubitril 24 mg-valsartan 26 mg 1 tab PO BID 11/01/22 01/11/23 History tablet (Entresto) spironolactone 25 mg tablet 12.5 mg PO DAILY 11/01/22 01/11/23 History ezetimibe 10 mg tablet 10 mg PO DAILY 01/11/23 01/11/23 History tizanidine 2 mg capsule 2 mg PO Q8H PRN Muscle Spasm 01/11/23 01/11/23 History Past Med/Surg History Medical History Biventricular ICD (implantable cardioverter-defibrillator) in place CAD (coronary artery disease) 03/2009 - STEMI, s/p PTCA and stenting RCA, chronic LAD occlusion, 40% left main lesion 2018 he had an abnormal stress test followed by coronary angiogram revealing patent stent in RCA, UPPER TIER pLAD and hemodynamically significant pCx stenosis resulting in placement of CHEVY. Chronic cholecystitis CKD (chronic kidney disease) stage 3, GFR 30-59 ml/min CVA (cerebral vascular accident) DM type 2 (diabetes mellitus, type 2) Dyslipidemia HTN (hypertension) Hypothyroidism Ischemic cardiomyopathy Persistent atrial fibrillation STEMI (ST elevation myocardial infarction) Thrombocytopenia Surgical History H/O colonoscopy 06/2018 - diverticulosis - Dr Samreen Suárez Hx of cardiac cath 2008 - multivessel disease s/p stent RCA with residual chronic occlusion LAD with collaterals and 40% narrowing left main Family History Other Coronary heart disease Diabetes Social History Smoking Status: Never smoker Second Hand Exposure: No; Do You Dip or Chew Tobacco: No; Tobacco Cessation Education Requested by Patient: No Hx Alcohol Use: No Hx Substance Use: No Preferred Language: Chinese Communication Ability: Effective 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 Other Information That Helps Us Care for You: No Feels Safe at Home: Yes Safety Concerns: Feels Safe At This Time Assistive Devices: Cane and Glasses Review of Systems Review of Systems: ROS per HPI, all other systems reviewed and negative Physical Exam Physical Exam: please refer to Dr. Tran's addendum for physical exam. Results & Data Results & Data ([facility]) Vital Signs (Past 12 Hours) Vital Signs Temp Pulse Pulse Resp BP BP Pulse Ox 01/11/23 06:37 105 H 26 H 120/96 98 01/11/23 06:36 98 01/11/23 06:10 36.6 C 117 H 18 134/82 100 O2 Del Method 01/11/23 06:37 Room Air 01/11/23 06:36 Room Air 01/11/23 06:10 Room Air Laboratory Results Short CBC 01/11/23 Range/Units 06:35 WBC 7.58 (4.8-10.8) K/ul Hgb 14.5 (14.0-18.0) g/dl Hct 44.9 (42.0-52.0) % Plt Count 108 L (130-400) K/uL BMP 01/11/23 06:35 Sodium 138 Potassium 4.6 Chloride 106 Carbon Dioxide 25 BUN 29 H Creatinine 1.39 Glucose 167 H Calcium 8.9 Liver Function 01/11/23 Range/Units 06:35 Total Bilirubin 1.3 H (0.2-1.0) mg/dl AST 34 (13-39) U/L ALT 18 (7-52) U/L Alkaline Phosphatase 100 (34-104) U/L Albumin 3.5 (3.4-5.0) gm/dl Urine 03/09/23 Range/Units 08:16 Urine Color Dark Yellow Urine Appearance Clear (Clear) Urine pH 5.0 (4.5-7.5) Ur Specific [place] 1.014 (1.000-1.030) Urine Protein 1+ H (Negative) Urine Glucose (UA) Negative (Negative) Diagnostic Findings Chest X-Ray 01/11/23 06:21 SINGLE VIEW CHEST CLINICAL HISTORY: Congestive heart failure. FINDINGS: An AP, portable, semierect chest radiograph is compared to study dated 11/01/2022. The examination is degraded by portable technique and apical lordotic positioning. A 2-lead cardiac AICD is unchanged in position. The heart is enlarged noting atherosclerotic calcification of the thoracic aorta. There is pulmonary vascular congestion. Atelectasis is noted at the lung bases. No airspace consolidation or large pleural effusion is identified. No pneumothorax is seen. The skeletal structures are osteopenic. The bony thorax is grossly intact. IMPRESSION: 1. Cardiomegaly and AICD with evidence of congestive failure. 2. No airspace consolidation or large pleural effusion is identified. ACT 112: Negative or not required by law. Electronically signed by: Isiah Raymond M.D. 01/11/2023 6:55 AM Code Status & VTE Plan Code Status Patient is a full code without invasive airway as per Dr. Tran's discussion with him. Supervising Physician Co-Signing Physician Notes Date of Service: January 11, 2023 History and physical exam performed by me. History notable for 72-year-old man with history of paroxysmal A-fib, ischemic c ardiomyopathy, chronic heart failure with reduced ejection fraction, CKD 3, DM type II, hypothyroidism, hypertension, cholecystitis status post cholecystostomy who presents with generalized rash. Patient reported that he had had rash on the right leg below the knee for about a week feels a little bit itchy. However, since yesterday evening the rash spread all over the body involving both legs abdomen and upper extremities. Denies any fevers, chills, nausea, vomiting. Denies any change in his cough. Has chronic dyspnea on exertion and leg swelling. Denied any abdominal pain, diarrhea, constipation Reports chronic urinary incontinence uses depends. Reports abnormal urinary stream for the past year. Denies feeling of incomplete emptying, dysuria, frequency Reported some increased scrotal swelling over the past few days and some groin pain. Reported that he has only been showering about 2-3 times a week since getting the cholecystostomy. Reports that he had not taken his levothyroxine for about a week, more as he usually forgets to take them early in the morning. Reports he has not used his insulin for the past month as he ran out and had not been checking his blood sugar at home. Denied any recent new meds. Stated he was prescribed tizanidine to help with sleep a few days ago, picked it up yesterday but had not started taking it. Denied any travels, sick contacts, change in detergents On exam, General: Obese man in no distress Eyes: PERRL, conjunctivae normal, not pale, anicteric sclerae, EOM intact bilaterally ENMT: External ear and nose normal, oropharynx normal Respiratory: Normal respiratory effort, no respiratory distress, lungs clear to auscultation, no crackles and no wheezes Cardiovascular: RRR S1 S2 Gastrointestinal (Abdomen): Abdomen is not distended, soft, non-tender to palpation, no guarding, normal bowel sounds Musculoskeletal: Bilateral pitting pedal edema, some scab on tip of left big toe (reported he sustained a wound when he hit his foot some days ago) Genitourinary: Scrotal edema Skin: Candidal rash on left groin. some mild tenderness over groin rash Patient has generalized, red maculopapular rash all over both legs with some scratch wood, areas of erythema, non tender. Rash is most pronounced in the legs but extends into thigh. Scattered rash over abdominal wall. Few on chest wall. Some on upper arms. Did not appreciate any on the back Neurologic: Alert and oriented x 3, No focal weakness, sensation grossly intact Psychiatric: Alert and oriented x 3, euthymic affect Labs notable for platelet of 108, INR is 2.2 [therapeutic], total bilirubin of 1.3, BNP of 1547. Generalized skin rash Differential include infectious (streptococcal skin infection, etc), allergic rash Start ceftriaxone Get ESR, CRP MNMG Low Pressure Boiler Operator not available today. Will try to get [facility] for some guidance Rash in groin is intertriginous rash Start nystatin topical Educated on better hygiene Will do IV diuretics while inpatient Continue entresto, metoprolol, spironolactone Counseled patient extensively on need for med adherence and need to not run out of important medications Check A1c Insulin lantus, accucheck Continue jardiance DM educator consult. Attending to ensure patient gets refills for meds he is out of on discharge. Other plans as detailed in H&P by Brigette LYONS I spent a total of 60 minutes coordinating, documenting and providing care for this patient excluding time spent in performance of separately billed services (8) DM type 2 (diabetes mellitus, type 2) Diabetes mellitus complication detail: with other circulatory complications Diabetes mellitus complication status: with circulatory complication Diabetes mellitus group home insulin use: with oysterman use Qualified Code(s): E11.59 - Type 2 diabetes mellitus with other circulatory complications; Z79.4 - bed bug exterminator (current) use of insulin (10) CVA (cerebral vascular accident) CVA mechanism: embolism Precerebral and cerebral artery: basilar artery Qualified Code(s): 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
[2023-01-11] MEDS ORDERED: cefTRIAXone SODIUM 1,000 MG in DEXTROSE 5% AD-VAN 50 ML IV SCH (09:15)
--- NOTE | 2023-01-11 09:38 | Communication Note ---
Date of Service: January 11, 2023 History and physical exam performed by me. History notable for 72-year-old man with history of paroxysmal A-fib, ischemic cardiomyopathy, chronic heart failure with reduced ejection fraction, CKD 3, DM type II, hypothyroidism, hypertension, cholecystitis status post cholecystostomy who presents with generalized rash. Patient reported that he had had rash on the right leg below the knee for about a week feels a little bit itchy. However, since yesterday evening the rash spread all over the body involving both legs abdomen and upper extremities. Denies any fevers, chills, nausea, vomiting. Denies any change in his cough. Has chronic dyspnea on exertion and leg swelling. Denied any abdominal pain, diarrhea, constipation Reports chronic urinary incontinence uses depends. Reports abnormal urinary stream for the past year. Denies feeling of incomplete emptying, dysuria, frequency Reported some increased scrotal swelling over the past few days and some groin pain. Reported that he has only been showering about 2-3 times a week since getting the cholecystostomy. Reports that he had not taken his levothyroxine for about a week, more as he usu ally forgets to take them early in the morning. Reports he has not used his insulin for the past month as he ran out and had not been checking his blood sugar at home. Denied any recent new meds. Stated he was prescribed tizanidine to help with sleep a few days ago, picked it up yesterday but had not started taking it. Denied any travels, sick contacts, change in detergents On exam, General: Obese man in no distress Eyes: PERRL, conjunctivae normal, not pale, anicteric sclerae, EOM intact bilaterally ENMT: External ear and nose normal, oropharynx normal Respiratory: Normal respiratory effort, no respiratory distress, lungs clear to auscultation, no crackles and no wheezes Cardiovascular: RRR S1 S2 Gastrointestinal (Abdomen): Abdomen is not distended, soft, non-tender to p alpation, no guarding, normal bowel sounds Musculoskeletal: Bilateral pitting pedal edema, some scab on tip of left big toe (reported he sustained a wound when he hit his foot some days ago) Genitourinary: Scrotal edema Skin: Candidal rash on left groin. some mild tenderness over groin rash Patient has generalized, red maculopapular rash all over both legs with some scratch wood, areas of erythema, non tender. Rash is most pronounced in the legs but extends into thigh. Scattered rash over abdominal wall. Few on chest wall. Some on upper arms. Did not appreciate any on the back Neurologic: Alert and oriented x 3, No focal weakness, sensation grossly intact Psychiatric: Alert and oriented x 3, euthymic affect Labs notable for platelet of 108, INR is 2.2 [therapeutic], total bilirubin of 1.3, BNP of 1547. Generalized skin rash Differential include infectious (streptococcal skin infection, etc), allergic rash Start ceftriaxone Get ESR, CRP MNMG Pile Driving Technician not available today. Will try to get [facility] for some guidance Rash in groin is intertriginous rash Start nystatin topical Educated on better hygiene Will do IV diuretics while inpatient Continue entresto, metoprolol, spironolactone Counseled patient extensively on need for med adherence and need to not run out of important medications Check A1c Insulin lantus, accucheck Continue jardiance DM educator consult. Attending to ensure patient gets refills for meds he is out of on discharge. Other plans as detailed in H&P by Brigette LYONS I spent a total of 60 minutes coordinating, documenting and providing care for this patient excluding time spent in performance of separately billed services
[2023-01-11] MEDS ORDERED: FUROSEMIDE 40 MG/4 ML VIAL IV ONE (09:45)
[2023-01-11 09:54] LABS: Appearance Urine Clear (Clear); Bacteria Urine Automated Negative (Negative); Bilirubin Urine Negative (Negative); Blood Urine Negative (Negative); Color Urine Dark Yellow; Glucose Urine UA Negative (Negative); Ketones Urine Negative (Negative); Leukocyte Esterase Urine Negative (Negative); Nitrite Urine Negative (Negative); Protein Urine 1+ (Negative); RBC Urine Automated 0-4 /hpf (0-4); Specific Gravity Urine 1.014 (1.000-1.030); Urobilinogen Urine Negative (Negative)
[2023-01-11 09:58] LABS: Thyroid Stimulating Hormone 14.214 uIu/ml (0.300-4.500)
[2023-01-11] MEDS ORDERED: ACETAMINOPHEN 325 MG TAB PO PRN (10:11)
[2023-01-11] MEDS ORDERED: DEXTROSE 50% 50 ML SYRINGE IV PRN (10:11)
[2023-01-11] MEDS ORDERED: GLUCOSE 40% GEL 15 GM TUBE PO PRN (10:11)
[2023-01-11] MEDS ORDERED: GLUCOSE 10 TAB/TUBE PO PRN (10:11)
[2023-01-11] MEDS ORDERED: CARBOHYDRATES FOR HYPOGLYCEMIA PO PRN (10:11)
[2023-01-11] MEDS ORDERED: GLUCAGON FOR INJ 1 MG VIAL SQ PRN (10:11)
[2023-01-11 10:27] LABS: C Reactive Protein 0.94 mg/dl (0-0.5)
[2023-01-11] MEDS ORDERED: SPIRONOLACTONE 12.5 MG TAB PO SCH (10:30)
[2023-01-11 10:32] LABS: T4 Free Thyroxine 0.82 ng/dl (0.61-1.60)
[2023-01-11] MEDS: FUROSEMIDE 40 MG/4 ML VIAL IV SCH ×2 (10:48→22:02)
[2023-01-11] MEDS: METOPROLOL SUCC 50MG EXT REL TAB PO SCH (10:50)
[2023-01-11] MEDS: EMPAGLIFLOZIN 10 MG TAB PO SCH (10:50)
[2023-01-11] MEDS: NYSTATIN POWDER 15GM BTL EXT SCH ×2 (10:51→22:01)
[2023-01-11] MEDS: cefTRIAXone SODIUM 2,000 MG in DEXTROSE 5% 50 ML IV SCH (10:51)
[2023-01-11] MEDS: CLOPIDOGREL BISULFATE 75 MG TAB PO SCH (10:51)
[2023-01-11] MEDS: LEVOTHYROXINE SODIUM 100 MCG TABLET PO SCH (10:51)
--- NOTE | 2023-01-11 12:45 | Electrocardiogram Report ---
Test Reason : Blood Pressure : / mmHG Vent. Rate : 114 BPM Atrial Rate : 115 BPM P-R Int : 000 ms QRS Dur : 132 ms QT Int : 322 ms P-R-T Axes : 000 -30 118 degrees QTc Int : 443 ms Ventricular-paced rhythm Abnormal ECG When compared with ECG of 01-NOV-2022 13:47, Vent. rate has increased BY 34 BPM Confirmed by Alexander Reveles ([id number]) on 01/11/2023 12:44:36 PM Referred By: REFERRED SELF Confirmed By:Alexander Reveles
[2023-01-11] MEDS: INSULIN ASPART PER UNIT CHARGE SC SCH ×3 (13:33→21:11)
[2023-01-11] MEDS ORDERED: ONDANSETRON INJ 2 MG/ML 2 ML VIAL IV PRN (14:40)
[2023-01-11] MEDS ORDERED: WARFARIN SOD 10 MG TAB PO SCH (16:00)
[2023-01-11] MEDS ORDERED: LIDOCAINE 1% LOCAL 20 ML VIAL ONE (16:00)
--- NOTE | 2023-01-11 16:26 | Surgery Consultation ---
Date of Consultation January 11, 2023 Assessment & Plan (1) Rash: pt is a 72 year-old male who was admitted to hospital for skin rash on bilateral leg, IMP: skin rash. plan, in order to R/O vasculitis, I recommend to do punch biopsy right upper leg, under local anesthesia, D/W benefits, risks and alternatives of the procedure, the risks- infection, bleeding, pt understood, he agreed with the procedure, he signed informed consent, I answered all questions, under local anesthesia, I did two 5 mm punch biopsy on right upper leg, pt tolerated the procedure well, post-op care instruction was given, Supervising Physician Co-Signing Physician Notes Date of Service: January 11, 2023 History and physical exam performed by me. History notable for 72-year-old man with history of paroxysmal A-fib, ischemic cardiomyopathy, chronic heart failure with reduced ejection fraction, CKD 3, DM type II, hypothyroidism, hypertension, cholecystitis status post cholecystostomy who presents with generalized rash. Patient reported that he had had rash on the right leg below the knee for about a week feels a little bit itchy. However, since yesterday evening the rash spread all over the body involving both legs abdomen and upper extremities. Denies any fevers, chills, nausea, vomiting. Denies any change in his cough. Has chronic dyspnea on exertion and leg swelling. Denied any abdominal pain, diarrhea, constipation Reports chronic urinary incontinence uses depends. Reports abnormal urinary stream for the past year. Denies feeling of incomplete emptying, dysuria, frequency Reported some increased scrotal swelling over the past few days and some groin pain. Reported that he has only been showering about 2-3 times a week since getting the cholecystostomy. Reports that he had not taken his levothyroxine for about a week, more as he usually forgets to take them early in the morning. Reports he has not used his insulin for the past month as he ran out and had not been checking his blood sugar at home. Denied any recent new meds. Stated he was prescribed tizanidine to help with sleep a few days ago, picked it up yesterday but had not started taking it. Denied any travels, sick contacts, change in detergents On exam, General: Obese man in no distress Eyes: PERRL, conjunctivae normal, not pale, anicteric sclerae, EOM intact bilaterally ENMT: External ear and nose normal, oropharynx normal Respiratory: Normal respiratory effort, no respiratory distress, lungs clear to auscultation, no crackles and no wheezes Cardiovascular: RRR S1 S2 Gastrointestinal (Abdomen): Abdomen is not distended, soft, non-tender to palpation, no guarding, normal bowel sounds Musculoskeletal: Bilateral pitting pedal edema, some scab on tip of left big toe (reported he sustained a wound when he hit his foot some days ago) Genitourinary: Scrotal edema Skin: Candidal rash on left groin. some mild tenderness over groin rash Patient has generalized, red maculopapular rash all over both legs with some scratch wood, areas of erythema, non tender. Rash is most pronounced in the legs but extends into thigh. Scattered rash over abdominal wall. Few on chest wall. Some on upper arms. Did not appreciate any on the back Neurologic: Alert and oriented x 3, No focal weakness, sensation grossly intact Psychiatric: Alert and oriented x 3, euthymic affect Labs notable for platelet of 108, INR is 2.2 [therapeutic], total bilirubin of 1.3, BNP of 1547. Generalized skin rash Differential include infectious (streptococcal skin infection, etc), allergic rash Start ceftriaxone Get ESR, CRP [facility]NMG Paste Thinner not available today. Will try to get [facility] for some guidance Rash in groin is intertriginous rash Start nystatin topical Educated on better hygiene Will do IV diuretics while inpatient Continue entresto, metoprolol, spironolactone Counseled patient extensively on need for med adherence and need to not run out of important medications Check A1c Insulin lantus, accucheck Continue jardiance DM educator consult. Attending to ensure patient gets refills for meds he is out of on discharge. Other plans as detailed in H&P by Brigette LYONS I spent a total of 60 minutes coordinating, documenting and providing care for this patient excluding time spent in performance of separately billed services History of Present Illness Reason for Consultation: rash, punch biopsy skin Requesting Physician: Valerie Tran MD Attending Physician: Valerie Tran MD History of Present Illness Chief Complaint: Rash Primary Care Provider: Regis Ayala MD 72-year-old male with PMH DM type II, ischemic cardiomyopathy EF 20%, AICD in place, hypothyroidism, chronic cholecystitis with percutaneous drain in place, atrial fibrillation on Coumadin, chronic thrombocytopenia, and other problems listed below who presents to the ED for evaluation of rash. History obtained from patient and review of outpatient records including primary care, cardiology, general surgery. Patient states rash started on right lower leg about 1 week ago and then acutely worsened and spread yesterday to left leg, abdomen, arms. Patient states rash is only slightly pruritic. Only new medication is starting Zetia at the end of November. Patient denies new detergents or foods. No recent travel. Does not spend time outside. Does have a dog in the home. No fever.no sick contacts. Increased lower extremity edema along with testicular swelling and pain. Has chronic exertional shortness of breath which is slightly worse from baseline. Also reports a chronic cough that seems to have worsened recently. Had one episode of lightheadedness and dizziness with over exertion that resolved quickly. Denies chest pain. Has chronic cholecystitis with percutaneous drain in place, no acute issues. Denies abdominal pain, nausea, vomiting, or diarrhea. No urinary symptoms. In the ED, patient is hemodynamically stable. Labs are unremarkable/at patient's baseline. CXR is suggesting volume overload. I ( Hussain Wheeler MD ) got a call for punch biopsy leg skin , I reviewed pt's H/P, labs with pt, Allergies Allergy/AdvReac Type Severity Reaction Status Date / Time lisinopril AdvReac Intermediate COUGH Verified 02/20/22 22:26 atorvastatin AdvReac Muscle Pain Verified 02/20/22 22:26 Home Medications Medication Instructions Recorded Confirmed Type insulin glargine 100 unit/mL (3 20 unit subcut QAM 12/18/20 01/11/23 History mL) subcutaneous pen (Lantus Solostar U-100 Insulin) nitroglycerin 0.4 mg sublingual 0.4 mg sublingual UD PRN Chest Pain 12/18/20 01/11/23 History tablet (Nitrostat) warfarin 5 mg tablet 10 mg PO QPM 12/18/20 01/11/23 History torsemide 20 mg tablet 20 mg PO BID 02/20/22 01/11/23 History clopidogrel 75 mg tablet (Plavix) 75 mg PO DAILY 11/01/22 01/11/23 History empagliflozin 10 mg tablet 10 mg PO DAILY 11/01/22 01/11/23 History (Jardiance) levothyroxine 100 mcg tablet 100 mcg PO DAILY 11/01/22 01/11/23 History metoprolol succinate 100 mg 100 mg PO DAILY 11/01/22 01/11/23 History tablet,extended release 24 hr pantoprazole 20 mg tablet,delayed 20 mg PO DAILY 11/01/22 01/11/23 History release (Protonix) sacubitril 24 mg-valsartan 26 mg 1 tab PO BID 11/01/22 01/11/23 History tablet (Entresto) spironolactone 25 mg tablet 12.5 mg PO DAILY 11/01/22 01/11/23 History ezetimibe 10 mg tablet 10 mg PO DAILY 01/11/23 01/11/23 History tizanidine 2 mg capsule 2 mg PO Q8H PRN Muscle Spasm 01/11/23 01/11/23 History Past Med/Surg History Medical History Biventricular ICD (implantable cardioverter-defibrillator) in place CAD (coronary artery disease) 03/2009 - STEMI, s/p PTCA and stenting RCA, chronic LAD occlusion, 40% left main lesion 2018 he had an abnormal stress test followed by coronary angiogram revealing patent stent in RCA, 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Chronic cholecystitis CKD (chronic kidney disease) stage 3, GFR 30-59 ml/min CVA (cerebral vascular accident) DM type 2 (diabetes mellitus, type 2) Dyslipidemia HTN (hypertension) Hypothyroidism Ischemic cardiomyopathy Persistent atrial fibrillation STEMI (ST elevation myocardial infarction) Thrombocytopenia Surgical History H/O colonoscopy 06/2018 - diverticulosis - Dr Samreen Colbert of cardiac cath 2008 - multivessel disease s/p stent RCA with residual chronic occlusion LAD with collaterals and 40% narrowing left main Family History Other Coronary heart disease Diabetes Social History Smoking Status: Never smoker Second Hand Exposure: No; Do You Dip or Chew Tobacco: No; Tobacco Cessation Education Requested by Patient: No Hx Alcohol Use: No Hx Substance Use: No Preferred Language: Com[place]an Communication Ability: Effective Astro Technician Required: No Beliefs That Will Affect Care: None marital status: Single Current Living Situation: Alone Current Living Situation Comment: Lives w/ six friends w/ no relations. Other Information That Helps Us Care for You: No Feels Safe at Home: Yes Safety Concerns: Feels Safe At This Time Assistive Devices: Cane and Glasses Review of Systems Review of Systems: ROS per HPI, all other systems reviewed and negative Allergies Allergy/AdvReac Type Severity Reaction Status Date / Time lisinopril AdvReac Intermediate COUGH Verified 02/20/22 22:26 atorvastatin AdvReac Muscle Pain Verified 02/20/22 22:26 Home Medications Medication Instructions Recorded Confirmed Type insulin glargine 100 unit/mL (3 20 unit subcut QAM 12/18/20 01/11/23 History mL) subcutaneous pen (Lantus Solostar U-100 Insulin) nitroglycerin 0.4 mg sublingual 0.4 mg sublingual UD PRN Chest Pain 12/18/20 01/11/23 History tablet (Nitrostat) warfarin 5 mg tablet 10 mg PO QPM 12/18/20 01/11/23 History torsemide 20 mg tablet 20 mg PO BID 02/20/22 01/11/23 History clopidogrel 75 mg tablet (Plavix) 75 mg PO DAILY 11/01/22 01/11/23 History empagliflozin 10 mg tablet 10 mg PO DAILY 11/01/22 01/11/23 History (Jardiance) levothyroxine 100 mcg tablet 100 mcg PO DAILY 11/01/22 01/11/23 History metoprolol succinate 100 mg 100 mg PO DAILY 11/01/22 01/11/23 History tablet,extended release 24 hr pantoprazole 20 mg tablet,delayed 20 mg PO DAILY 11/01/22 01/11/23 History release (Protonix) sacubitril 24 mg-valsartan 26 mg 1 tab PO BID 11/01/22 01/11/23 History tablet (Entresto) spironolactone 25 mg tablet 12.5 mg PO DAILY 11/01/22 01/11/23 History ezetimibe 10 mg tablet 10 mg PO DAILY 01/11/23 01/11/23 History tizanidine 2 mg capsule 2 mg PO Q8H PRN Muscle Spasm 01/11/23 01/11/23 History Patient History Medical History Biventricular ICD (implantable cardioverter-defibrillator) in place CAD (coronary artery disease) 03/2009 - STEMI, s/p PTCA and stenting RCA, chronic LAD occlusion, 40% left main lesion 2019 he had an abnormal stress test followed by coronary angiogram revealing patent stent in RCA, 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 Chronic cholecystitis CKD (chronic kidney disease) stage 3, GFR 30-59 ml/min CVA (cerebral vascular accident) DM type 2 (diabetes mellitus, type 2) Dyslipidemia HTN (hypertension) Hypothyroidism Ischemic cardiomyopathy Persistent atrial fibrillation STEMI (ST elevation myocardial infarction) Thrombocytopenia Surgical History H/O colonoscopy 06/2018 - diverticulosis - Dr Samreen Suárez Hx of cardiac cath 2008 - multivessel disease s/p stent RCA with residual chronic occlusion LAD with collaterals and 40% narrowing left main Family History Other Coronary heart disease Diabetes Social History Smoking Status: Never smoker Second Hand Exposure: No; Do You Dip or Chew Tobacco: No; Tobacco Cessation Education Requested by Patient: No Hx Alcohol Use: No Hx Substance Use: No Preferred Language: [place] Communication Ability: Effective Astro Technician Required: No Beliefs That Will Affect Care: None marital status: Single Current Living Situation: Alone Current Living Situation Comment: Lives w/ six friends w/ no relations. Other Information That Helps Us Care for You: No Feels Safe at Home: Yes Safety Concerns: Feels Safe At This Time Assistive Devices: Cane and Glasses Physical Exam Constitutional: WD/WN, vitals as above Eyes: PERRL, conjunctivae normal, anicteric sclerae Neck: trachea midline, no thyromegaly Respiratory: normal respiratory effort, lungs clear to auscultation Skin: skin rash on bilateral leg, Neurologic: patellar DTR's 2+ bilat, sensation intact Psychiatric: A+Ox3, euthymic affect Results & Data ([facility]) Vital Signs (Past 12 Hours) Vital Signs Temp Pulse Pulse Resp BP BP Pulse Ox 01/11/23 16:14 36.4 C L 103 H 21 109/80 97 01/11/23 11:12 01/11/23 11:12 36.6 C 70 18 146/115 H 97 01/11/23 10:11 01/11/23 06:37 105 H 26 H 120/96 98 01/11/23 06:36 98 01/11/23 06:10 36.6 C 117 H 18 134/82 100 Pulse Ox O2 Del Method O2 Del Method 01/11/23 16:14 Room Air 01/11/23 11:12 Room Air 01/11/23 11:12 Room Air 01/11/23 10:11 95 Room Air 01/11/23 06:37 Room Air 01/11/23 06:36 Room Air 01/11/23 06:10 Room Air Laboratory Results Abnormal lab results 01/11/23 01/11/23 01/11/23 Range/Units 06:33 06:34 06:35 RDW Std Deviation 51.9 H (36.4-46.3) fL RDW Coeff of Erik 16.2 H (11.5-14.5) % Plt Count 108 L (130-400) K/uL [place] # (Auto) 0.71 H (0.11-0.59) K/uL ESR 21 H (0-20) mm/hr PT (9.0-12.0) Seconds INR (0.9-1.1) APTT (21.0-31.0) Seconds BUN (6-23) mg/dl BUN/Creatinine Ratio (10-20) Glucose (70-99(Fasting)) mg/dl POC Glucose (70-99) mg/dl Total Bilirubin (0.2-1.0) mg/dl C-Reactive Protein (0-0.5) mg/dl B-Natriuretic Peptide (0-100) pg/ml TSH 14.214 H (0.300-4.500) uIu/ml Urine Protein (Negative) U Hyaline Cast (Auto) (0-5) /lpf U Epithel Cells (Auto) (0-5) /lpf 01/11/23 01/11/23 01/11/23 Range/Units 06:35 07:16 07:55 RDW Std Deviation (36.4-46.3) fL RDW Coeff of Erik (11.5-14.5) % Plt Count (130-400) K/uL [place] # (Auto) (0.11-0.59) K/uL ESR (0-20) mm/hr PT 22.9 H (9.0-12.0) Seconds INR 2.2 H (0.9-1.1) APTT 32.8 H (21.0-31.0) Seconds BUN 29 H (6-23) mg/dl BUN/Creatinine Ratio 20.9 H (10-20) Glucose 167 H (70-99(Fasting)) mg/dl POC Glucose (70-99) mg/dl Total Bilirubin 1.3 H (0.2-1.0) mg/dl C-Reactive Protein 0.94 H (0-0.5) mg/dl B-Natriuretic Peptide 1547 H (0-100) pg/ml TSH (0.300-4.500) uIu/ml Urine Protein (Negative) U Hyaline Cast (Auto) (0-5) /lpf U Epithel Cells (Auto) (0-5) /lpf 01/11/23 01/11/23 Range/Units 08:16 11:34 RDW Std Deviation (36.4-46.3) fL RDW Coeff of Erik (11.5-14.5) % Plt Count (130-400) K/uL [place] # (Auto) (0.11-0.59) K/uL ESR (0-20) mm/hr PT (9.0-12.0) Seconds INR (0.9-1.1) APTT (21.0-31.0) Seconds BUN (6-23) mg/dl BUN/Creatinine Ratio (10-20) Glucose (70-99(Fasting)) mg/dl POC Glucose 180 H (70-99) mg/dl Total Bilirubin (0.2-1.0) mg/dl C-Reactive Protein (0-0.5) mg/dl B-Natriuretic Peptide (0-100) pg/ml TSH (0.300-4.500) uIu/ml Urine Protein 1+ H (Negative) U Hyaline Cast (Auto) 10-30 H (0-5) /lpf U Epithel Cells (Auto) 5-10 H (0-5) /lpf
--- NOTE | 2023-01-11 16:38 | Post Operative Brief Note ---
Immediate Post Op Note v1 Date of Surgery January 11, 2023 Pre & Post Diagnosis pre-op diagnosis: skin rash post-op diagnosis: skin rash I identified the patient and participated in the time-out.: Yes Procedure Two 5 mm punch biopsy right upper leg Surgeon Hussain Wheeler MD Powerhouse Electrician none Estimated Blood Loss 1 Findings Consistent with Post-Op Diagnosis skin rash Fluids none Specimens two 5 mm punch biopsy on right upper leg Anesthesia Type Local Complications none
[2023-01-11] MEDS ORDERED: VALSARTAN/SACUBITRIL 26/24MG TAB PO SCH (21:00)
[2023-01-11] MEDS: TRIAMCINOLONE ACET 0.1% CR 80 GM TUBE EXT SCH (22:01)
--- NOTE | 2023-01-12 00:41 | Operative Report (OR) ---
DATE OF SURGERY: 01/11/2023. PREOPERATIVE DIAGNOSIS: Skin rash. POSTOPERATIVE DIAGNOSIS: Skin rash. OPERATION: Two 5 mm punch biopsy of right up leg skin. SURGEON: Hussain Wheeler MD. ANESTHESIA: Local. ESTIMATED BLOOD LOSS: About 1 mL. FINDINGS: Skin rash. COMPLICATIONS: None. INDICATIONS FOR THE PROCEDURE: This is a 72-year-old gentleman who was admitted to the hospital for skin rash and I recommended to do punch biopsy of right upper leg skin. I did talk to the patient ab out the benefit, risk, alternate procedure. I indicated the risks may include, but not limited to, s uch as bleeding, infection. The patient understands, he signed informed consent and I answered all q uestions. DETAILS OF PROCEDURE: We did procedure on the patient. After we identified the patient and verified the procedure, the patient's right upper leg was prepped and draped in routine sterile fashion and t hen I injected the local anesthesia by using 1% lidocaine around the skin rash on the right upper leg . Then, I used 5 mm punch biopsy. I did first a punch biopsy on the right upper leg skin and put as a formalin container. Then, I injected the local anesthesia by using 1% lidocaine and on the right upper leg of skin again and then we did another 5 mm punch biopsy on the right upper leg skin. Then, we removed the specimen to put the JAUN solution. Hemostasis obtained. Then, we put the dressing on . The patient tolerated the procedure well and after procedure gave the patient postoperative care i nstruction, the patient understands. Two specimens sent to pathology. Job ID: [id number]
--- NOTE | 2023-01-12 03:41 | Communication Note ---
Date of Service: January 12, 2023 Patient had copious bleeding on right thigh despite pressure as per RN. Status post RLE skin biopsy yesterday INR 2.2 (01/11) AP Postbiopsy bleed RLE Coumadin coagulopathy CBC, INR now Local measures Vitamin K 1 dose Appropriate to hold Plavix and Coumadin for now. RN requested to inform General Surgery ADDENDUM Hemoglobin 14.7 INR 2.8 Serum creatinine 1.68 AP ARF Monitor creatinine response to IV albumin (preferred over crystalloid given pulmonary congestion on admission CXR) Hold diuretics and Entresto for now
[2023-01-12] MEDS ORDERED: PHYTONADIONE 2.5 MG in SODIUM CHLORIDE 0.9% 50 ML IV ONE ×2 (03:45→05:30)
[2023-01-12] MEDS ORDERED: LIDOCAINE 1% LOCAL 20 ML VIAL INJ ONE (04:25)
[2023-01-12] MEDS ORDERED: LIDOCAINE 1% LOCAL 20 ML VIAL ONE (04:29)
[2023-01-12 04:30] LABS: Basophils # (auto) 0.07 K/uL (0-0.2); Basophils % (auto) 0.9 %; Eosinophils # (auto) 0.14 K/uL (0-0.50); Eosinophils % (auto) 1.9 %; Hematocrit (blood only) 44.6 % (42.0-52.0); Hemoglobin 14.7 g/dl (14.0-18.0); Immature Granulocytes # (auto) 0.02 K/uL (0.01-0.20); Immature Granulocytes % (auto) 0.3 %; Lymphocytes # (auto) 1.62 K/uL (1.2-3.4); Lymphocytes % (auto) 21.7 %; Mean Corpuscular Hemoglobin 29.5 pg (25.0-34.0); Mean Corpuscular Volume 89.4 fL (80.0-100.0); Neutrophils # (auto) 5.03 K/uL (1.40-6.50); Neutrophils % (auto) 67.2 %; Platelet Count 103 K/uL (130-400); RDW Coefficient of Variation 16.4 % (11.5-14.5); RDW Standard Deviation 52.9 fL (36.4-46.3); Red Blood Count 4.99 M/uL (4.70-6.10); White Blood Count 7.48 K/ul (4.8-10.8)
[2023-01-12 04:43] LABS: BUN Creatinine Ratio 19.6 (10-20); Calcium 8.9 mg/dl (8.5-10.1); Creatinine Clr Calc Pharmacy 48.2 ml/min; Est GFR (African American) 45.7 ml/min; Est GFR (Non-African American) 39.4 ml/min
--- NOTE | 2023-01-12 05:06 | Surgery Progress Note ---
Date of Service January 12, 2023 Assessment & Plan (1) Rash: Plan: pt is a 72 year-old male who was admitted to hospital for skin rash on bilateral leg, IMP: skin rash. plan, in order to R/O vasculitis, I recommend to do punch biopsy right upper leg, under local anesthesia, D/W benefits, risks and alternatives of the procedure, the risks- infection, bleeding, pt understood, he agreed with the procedure, he signed informed consent, I answered all questions, under local anesthesia, I did two 5 mm punch biopsy on right upper leg, pt tolerated the procedure well, post-op care instruction was given, 01/12/2023 5:[address] Christine S/P punch biopsy on right upper leg, POD 1 bleeding from biopsy sites, I recommend to suture bleeding sites on right upper leg under local anesthesia, D/W benefits, risks and alternatives of the procedure, the risks - infection, bl eeding, pt understood, he signed informed consent, I answered all questions, under local anesthesia, suture bleeding sites on right upper leg, the bleeding is stop, apply dressing on, remove suture 2-3 weeks, Admission and Anticipated Discharge Date Admission Date: January 11, 2023 Supervising Physician Co-Signing Physician Notes Date of Service: January 11, 2023 History and physical exam performed by me. History notable for 72-year-old man with history of paroxysmal A-fib, ischemic cardiomyopathy, chronic heart failure with reduced ejection fraction, CKD 3, DM type II, hypothyroidism, hypertension, cholecystitis status post cholecystostomy who presents with generalized rash. Patient reported that he had had rash on the right leg below the knee for about a week feels a little bit itchy. However, since yesterday evening the rash spread all over the body involving both legs abdomen and upper extremities. Denies any fevers, chills, nausea, vomiting. Denies any change in his cough. Has chronic dyspnea on exertion and leg swelling. Denied any abdominal pain, diarrhea, constipation Reports chronic urinary incontinence uses depends. Reports abnormal urinary stream for the past year. Denies feeling of incomplete emptying, dysuria, freq uency Reported some increased scrotal swelling over the past few days and some groin pain. Reported that he has only been showering about 2-3 times a week since getting the cholecystostomy. Reports that he had not taken his levothyroxine for about a week, more as he usually forgets to take them early in the morning. Reports he has not used his insulin for the past month as he ran out and had not been checking his blood sugar at home. Denied any recent new meds. Stated he was prescribed tizanidine to help with sleep a few days ago, picked it up yesterday but had not started taking it. Denied any travels, sick contacts, change in detergents On exam, General: Obese man in no distress Eyes: PERRL, conjunctivae normal, not pale, anicteric sclerae, EOM intact bilaterally ENMT: External ear and nose normal, oropharynx normal Respiratory: Normal respiratory effort, no respiratory distress, lungs clear to auscultation, no crackles and no wheezes Cardiovascular: RRR S1 S2 Gastrointestinal (Abdomen): Abdomen is not distended, soft, non-tender to palpation, no guarding, normal bowel sounds Musculoskeletal: Bilateral pitting pedal edema, some scab on tip of left big toe (reported he sustained a wound when he hit his foot some days ago) Genitourinary: Scrotal edema Skin: Candidal rash on left groin. some mild tenderness over groin rash Patient has generalized, red maculopapular rash all over both legs with some scratch wood, areas of erythema, non tender. Rash is most pronounced in the legs but extends into thigh. Scattered rash over abdominal wall. Few on ch est wall. Some on upper arms. Did not appreciate any on the back Neurologic: Alert and oriented x 3, No focal weakness, sensation grossly intact Psychiatric: Alert and oriented x 3, euthymic affect Labs notable for platelet of 108, INR is 2.2 [therapeutic], total bilirubin of 1.3, BNP of 1547. Generalized skin rash Differential include infectious (streptococcal skin infection, etc), allergic rash Start ceftriaxone Get ESR, CRP MNMG Document Improvement Specialist not available today. Will try to get [facility] for some guidance Rash in groin is intertriginous rash Start nystatin topical Educated on better hygiene Will do IV diuretics while inpatient Continue entresto, metoprolol, spironolactone Counseled patient extensively on need for med adherence and need to not run out of important medications Check A1c Insulin lantus, accucheck Continue jardiance DM educator consult. Attending to ensure patient gets refills for meds he is out of on discharge. Other plans as detailed in H&P by Brigette LYONS I spent a total of 60 minutes coordinating, documenting and providing care for this patient excluding time spent in performance of separately billed services Subjective 01/12/2023 4:59AM Dr. christine bleeding from biopsy sites on right upper leg, apply pressure dressing , now the bleeding is stop, Physical Exam Constitutional: WD/WN, vitals as above Eyes: PERRL, conjunctivae normal, anicteric sclerae Neck: trachea midline, no thyromegaly Respiratory: normal respiratory effort, lungs clear to auscultation Skin: remove ronny dressing , still bleeding from biopsy sites, Neurologic: patellar DTR's 2+ bilat, sensation intact Psychiatric: A+Ox3, euthymic affect Results & Data ([facility]) Vital Signs (Past 12 Hours) Vital Signs Temp Pulse Pulse Resp BP Pulse Ox O2 Del Method 01/12/23 02:52 36.4 C L 83 16 117/83 93 Room Air 01/11/23 23:39 36.5 C 89 20 114/81 95 Room Air 01/11/23 22:00 100 H 01/11/23 21:08 Room Air 01/11/23 19:55 36.5 C 91 H 20 114/78 99 Room Air Laboratory Results Abnormal lab results 01/11/23 01/11/23 01/11/23 Range/Units 06:33 06:34 06:35 RDW Std Deviation 51.9 H (36.4-46.3) fL RDW Coeff of Erik 16.2 H (11.5-14.5) % Plt Count 108 L (130-400) K/uL [place] # (Auto) 0.71 H (0.11-0.59) K/uL ESR 21 H (0-20) mm/hr PT (9.0-12.0) Seconds INR (0.9-1.1) APTT (21.0-31.0) Seconds BUN (6-23) mg/dl Creatinine (0.6-1.4) mg/dl BUN/Creatinine Ratio (10-20) Glucose (70-99(Fasting)) mg/dl POC Glucose (70-99) mg/dl Total Bilirubin (0.2-1.0) mg/dl C-Reactive Protein (0-0.5) mg/dl B-Natriuretic Peptide (0-100) pg/ml TSH 14.214 H (0.300-4.500) uIu/ml Urine Protein (Negative) U Hyaline Cast (Auto) (0-5) /lpf U Epithel Cells (Auto) (0-5) /lpf 01/11/23 01/11/23 01/11/23 Range/Units 06:35 07:16 07:55 RDW Std Deviation (36.4-46.3) fL RDW Coeff of Erik (11.5-14.5) % Plt Count (130-400) K/uL [place] # (Auto) (0.11-0.59) K/uL ESR (0-20) mm/hr PT 22.9 H (9.0-12.0) Seconds INR 2.2 H (0.9-1.1) APTT 32.8 H (21.0-31.0) Seconds BUN 29 H (6-23) mg/dl Creatinine (0.6-1.4) mg/dl BUN/Creatinine Ratio 20.9 H (10-20) Glucose 167 H (70-99(Fasting)) mg/dl POC Glucose (70-99) mg/dl Total Bilirubin 1.3 H (0.2-1.0) mg/dl C-Reactive Protein 0.94 H (0-0.5) mg/dl B-Natriuretic Peptide 1547 H (0-100) pg/ml TSH (0.300-4.500) uIu/ml Urine Protein (Negative) U Hyaline Cast (Auto) (0-5) /lpf U Epithel Cells (Auto) (0-5) /lpf 01/11/23 01/11/23 01/11/23 Range/Units 08:16 11:34 16:42 RDW Std Deviation (36.4-46.3) fL RDW Coeff of Erik (11.5-14.5) % Plt Count (130-400) K/uL [place] # (Auto) (0.11-0.59) K/uL ESR (0-20) mm/hr PT (9.0-12.0) Seconds INR (0.9-1.1) APTT (21.0-31.0) Seconds BUN (6-23) mg/dl Creatinine (0.6-1.4) mg/dl BUN/Creatinine Ratio (10-20) Glucose (70-99(Fasting)) mg/dl POC Glucose 180 H 143 H (70-99) mg/dl Total Bilirubin (0.2-1.0) mg/dl C-Reactive Protein (0-0.5) mg/dl B-Natriuretic Peptide (0-100) pg/ml TSH (0.300-4.500) uIu/ml Urine Protein 1+ H (Negative) U Hyaline Cast (Auto) 10-30 H (0-5) /lpf U Epithel Cells (Auto) 5-10 H (0-5) /lpf 01/12/23 01/12/23 Range/Units 04:13 04:13 RDW Std Deviation 52.9 H (36.4-46.3) fL RDW Coeff of Erik 16.4 H (11.5-14.5) % Plt Count 103 L (130-400) K/uL [place] # (Auto) 0.60 H (0.11-0.59) K/uL ESR (0-20) mm/hr PT (9.0-12.0) Seconds INR (0.9-1.1) APTT (21.0-31.0) Seconds BUN 33 H (6-23) mg/dl Creatinine 1.68 H (0.6-1.4) mg/dl BUN/Creatinine Ratio (10-20) Glucose 103 H (70-99(Fasting)) mg/dl POC Glucose (70-99) mg/dl Total Bilirubin (0.2-1.0) mg/dl C-Reactive Protein (0-0.5) mg/dl B-Natriuretic Peptide (0-100) pg/ml TSH (0.300-4.500) uIu/ml Urine Protein (Negative) U Hyaline Cast (Auto) (0-5) /lpf U Epithel Cells (Auto) (0-5) /lpf
[2023-01-12 05:11] LABS: INR 2.8 (0.9-1.1); Prothrombin Time 28.2 Seconds (9.0-12.0)
[2023-01-12] MEDS: LEVOTHYROXINE SODIUM 100 MCG TABLET PO SCH (05:44)
[2023-01-12] MEDS: ALBUMIN 25% 100 mL 25 GM/100 ML VIAL IV SCH ×3 (06:15→21:30)
[2023-01-12 06:35] LABS: Estimated Average Glucose 223 mg/dl; Hemoglobin A1C 9.4 % (4.5-5.6)
[2023-01-12] MEDS: INSULIN ASPART PER UNIT CHARGE SC SCH ×4 (08:47→20:47)
[2023-01-12] MEDS ORDERED: EZETIMIBE 10 MG TABLET PO SCH (09:00)
[2023-01-12] MEDS: EMPAGLIFLOZIN 10 MG TAB PO SCH (09:09)
[2023-01-12] MEDS: METOPROLOL SUCC 50MG EXT REL TAB PO SCH (09:09)
[2023-01-12] MEDS: PANTOprazole 40 MG TAB PO SCH (09:10)
[2023-01-12] MEDS: NYSTATIN POWDER 15GM BTL EXT SCH ×2 (09:53→21:30)
[2023-01-12] MEDS: TRIAMCINOLONE ACET 0.1% CR 80 GM TUBE EXT SCH ×2 (09:53→21:30)
[2023-01-12] MEDS: cefTRIAXone SODIUM 2,000 MG in DEXTROSE 5% 50 ML IV SCH (11:20)
[2023-01-12 12:15] LABS: Hematocrit (blood only) 47.1 % (42.0-52.0); Hemoglobin 15.2 g/dl (14.0-18.0)
--- NOTE | 2023-01-12 13:47 | Cardiology Consultation ---
Date of Consultation January 12, 2023 Assessment & Plan (1) Rash: (2) Heart failure, systolic, with acute decompensation: (3) Chronic atrial fibrillation: (4) Ischemic cardiomyopathy: Plan Rash. ? Allergic contact dermatitis versus drug reaction/vasculitis versus other. Stop ezetimibe. Biopsy performed, results pending (Plavix and Coumadin held due to bleeding post punch biopsy). As per Hospitalist. See below. Chronic systolic heart failure, HFrEF, severe ischemic cardiomyopathy, EF less than 20%, chronic left bundle branch block, status post biventricular pacemaker defibrillator implantation on October 16, 2022. Most recent device interrogation on 12/29/2022 with only 56.8% effective BiV pacing. No symptomatic benefit perceived by the patient post device implantation. Volume status: Hypervolemic. Discontinue IV fluid administration. Initiate IV furosemide 40 mg once a day. Continue spironolactone. Resume Entresto when blood pressure permits. Continue Jardiance. Chronic atrial fibrillation. Ventricular rates uncontrolled via most recent device interrogation, with only 56.8% effective BiV pacing. Continue metoprolol succinate 100 mg/day. Add digoxin 125 mcg on MWF. Resume anticoagulation when safe from a surgical standpoint. Multivessel atherosclerotic coronary disease. Stable. Continue appropriate medical management. Resume Plavix when safe from a surgical standpoint. Dyslipidemia. Discontinue ezetimibe as above. Hypothyroidism. Likely due to noncompliance with levothyroxine. Chronic cholecystitis, currently with a percutaneous drain, with future plans for cholecystectomy when stable. Supervising Physician Co-Signing Physician Notes Patient seen examined the bedside. Somewhat confused this afternoon. Complains of diffuse rash affecting upper, lower lower extremities, and torso. Notes worsening lower extremity edema. No orthopnea or PND. PE: VSS. GEN: NAD, oriented to person and time. Heart: Regular rhythm. Normal S1-S2. 1/6 systolic murmur. Lungs: Crackles at the bases bilateral. Extremities: 1-2+ bilateral lower extremity edema. A/P: Agree with above PA-C history, physical exam, assessment and plan. Add digoxin on Sunday, Sunday, Sunday only to improve rate control. Continue daily IV diuresis. Follow daily weight, fluid balance, and electrolytes. Hold Zetia. Cardiology will continue to follow. 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 Notes, on questioning, starting ezetimibe 1 week ago. Also notes recently being prescribed a medication for sleep however he has yet to start said medication. + Intermittent subjective fever. No rigors. No night sweats. Notes noncompliance with diuretics intermittently, currently with a nonproductive cough, shortness of breath, and lower extremity peripheral edema. No chest pain. No palpitations. No device alarms or discharges. No near syncope or syncope. No hemoptysis, melena, hematochezia, or hematuria. + Chronic cholecystitis with percutaneous drain in place. Status post October 16, 2022 BiV ICD implantation. Device interrogation on 12/29/2022: 56.8% effective BiV pacing. Average ventricular rates uncontrolled. Optivol above threshold. No VT. No VF. Remaining longevity: 7.4 years. Past Medical and Surgical History: Multivessel atherosclerotic coronary disease Status post ST-elevation myocardial infarction March of 2009. Catheterization at that time revealed multivessel disease, s/p PTCA and stenting of right coronary artery urgently with residual chronic occlusion of the LAD with collaterals and a 40% narrowing of the left main. 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 Persistent atrial fibrillation History of embolic cerebrovascular infarct, right basal ganglia, April of 2016. 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 Mother with diabetes mellitus. Social History: Nonsmoker. Occasional glass a wine. No illegal drug use. Single. 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 Complete Review of Systems: See above. + Memory loss. Otherwise negative or noncontributory. Allergies Allergy/AdvReac Type Severity Reaction Status Date / Time lisinopril AdvReac Intermediate COUGH Verified 02/20/22 22:26 atorvastatin AdvReac Muscle Pain Verified 02/20/22 22:26 Home Medications Medication Instructions Recorded Confirmed Type insulin glargine 100 unit/mL (3 20 unit subcut QAM 12/18/20 01/11/23 History mL) subcutaneous pen (Lantus Solostar U-100 Insulin) nitroglycerin 0.4 mg sublingual 0.4 mg sublingual UD PRN Chest Pain 12/18/20 01/11/23 History tablet (Nitrostat) warfarin 5 mg tablet 10 mg PO QPM 12/18/20 01/11/23 History torsemide 20 mg tablet 20 mg PO BID 02/20/22 01/11/23 History clopidogrel 75 mg tablet (Plavix) 75 mg PO DAILY 11/01/22 01/11/23 History empagliflozin 10 mg tablet 10 mg PO DAILY 11/01/22 01/11/23 History (Jardiance) levothyroxine 100 mcg tablet 100 mcg PO DAILY 11/01/22 01/11/23 History metoprolol succinate 100 mg 100 mg PO DAILY 11/01/22 01/11/23 History tablet,extended release 24 hr pantoprazole 20 mg tablet,delayed 20 mg PO DAILY 11/01/22 01/11/23 History release (Protonix) sacubitril 24 mg-valsartan 26 mg 1 tab PO BID 11/01/22 01/11/23 History tablet (Entresto) spironolactone 25 mg tablet 12.5 mg PO DAILY 11/01/22 01/11/23 History ezetimibe 10 mg tablet 10 mg PO DAILY 01/11/23 01/11/23 History tizanidine 2 mg capsule 2 mg PO Q8H PRN Muscle Spasm 01/11/23 01/11/23 History Patient History Medical History Biventricular ICD (implantable cardioverter-defibrillator) in place CAD (coronary artery disease) 03/2009 - STEMI, s/p PTCA and stenting RCA, chronic LAD occlusion, 40% left main lesion 2019 he had an abnormal stress test followed by coronary angiogram revealing patent stent in RCA, 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 Chronic cholecystitis CKD (chronic kidney disease) stage 3, GFR 30-59 ml/min CVA (cerebral vascular accident) DM type 2 (diabetes mellitus, type 2) Dyslipidemia HTN (hypertension) Hypothyroidism Ischemic cardiomyopathy Persistent atrial fibrillation STEMI (ST elevation myocardial infarction) Thrombocytopenia Surgical History H/O colonoscopy 06/2018 - diverticulosis - Dr Samreen Suárez Hx of cardiac cath 2008 - multivessel disease s/p stent RCA with residual chronic occlusion LAD with collaterals and 40% narrowing left main Family History Other Coronary heart disease Diabetes Social History Smoking Status: Never smoker Second Hand Exposure: No; Do You Dip or Chew Tobacco: No; Tobacco Cessation Education Requested by Patient: No Hx Alcohol Use: No Hx Substance Use: No Preferred Language: Uzbek Communication Ability: Effective Packing Attendant Required: No Beliefs That Will Affect Care: None marital status: Single Current Living Situation: Alone Current Living Situation Comment: Lives w/ six friends w/ no relations. Other Information That Helps Us Care for You: No Feels Safe at Home: Yes Safety Concerns: Feels Safe At This Time Assistive Devices: Cane and Walker Review of Systems Review of Systems: Complete Review of Systems is as stated above, negative, or noncontributory. Physical Exam Physical Exam: General: A&Ox3. NAD. HENT: Normocephalic. Atraumatic. Eyes: Glasses. PER. Conjunctiva pink, sclera clear. Neck: No carotid bruits. +JVD. + HJR. Heart: Irregularly irregular, 90 bpm. Soft apical systolic murmur. No diastolic murmur. No rub. No gallop. PMI is nondisplaced. Lungs: Bibasilar rales/crackles. No wheeze. Abdomen: +BS. Soft. Nontender. No masses or organomegaly. Extremities: 1-2 edema. Skin: The left subclavian pacemaker incision and pocket look good. There is a generalized red maculopapular rash concentrated on the legs, alos on the thighs, abdomen, right greater than left upper extremities. No clubbing. No cyanosis. Limited neurological examination is without focal deficits. Pulses: radial=2/4, posterior tibial=1/4. Results & Data ([facility]) Vital Signs (Past 12 Hours) Vital Signs Temp Pulse Pulse Resp BP BP Pulse Ox 01/12/23 10:57 36.3 C L 78 20 99/68 L 93 01/12/23 07:26 88 01/12/23 07:23 36.7 C 103 H 20 110/75 93 01/12/23 02:52 36.4 C L 83 16 117/83 93 O2 Del Method 01/12/23 10:57 Room Air 01/12/23 07:26 01/12/23 07:23 Room Air 01/12/23 02:52 Room Air Laboratory Results Coagulation 01/12/23 Range/Units 04:13 PT 28.2 H (9.0-12.0) Seconds CBC 01/12/23 01/12/23 Range/Units 04:13 11:53 WBC 7.48 (4.8-10.8) K/ul RBC 4.99 (4.70-6.10) M/uL Hgb 14.7 15.2 (14.0-18.0) g/dl Hct 44.6 47.1 (42.0-52.0) % Plt Count 103 L (130-400) K/uL Neut # (Auto) 5.03 (1.40-6.50) K/uL Lymph # (Auto) 1.62 (1.2-3.4) K/uL [place] # (Auto) 0.60 H (0.11-0.59) K/uL Eos # (Auto) 0.14 (0-0.50) K/uL Baso # (Auto) 0.07 (0-0.2) K/uL Comprehensive Metabolic Panel 01/12/23 Range/Units 04:13 Sodium 138 (136-145) mmol/L Potassium 5.0 (3.5-5.1) mmol/L Chloride 105 (98-107) mmol/L Carbon Dioxide 26 (21-32) mmol/L BUN 33 H (6-23) mg/dl Creatinine 1.68 H (0.6-1.4) mg/dl Glucose 103 H (70-99(Fasting)) mg/dl Calcium 8.9 (8.5-10.1) mg/dl Intake and Output 01/11/23 01/12/23 01/12/23 22:59 06:59 14:59 Intake Total 750 / 920.50 100.50 / 920.50 170 / 170 Output Total 502 / 928 425 / 928 Balance 248 / -7.50 -324.50 / -7.50 170 / 170 Intake: IV 100.50 / 170.50 170 / 170 ALBUMIN 25% 100 mL 25 gm In 100 100 / 100 ml @ 50 mls/hr IV Q8H [facility] Rx#: [id number] Phytonadione 2.5 mg In Sodium 100.50 / 100.50 Chloride 0.9% 50 ml @ 100.5 mls /hr IV ONE ONE Rx#:[id number] cefTRIAXone SODIUM 2,000 mg In 70 / 70 Dextrose 5% 50 ml @ 140 mls/hr IV Q24H [facility] Rx#:[id number] Oral 750 / 750 Output: Urine 450 / 875 425 / 875 Stool 2 / 2 Gastric Drainage 50 / 50 Biliary 50 / 50 Other: # Unmeasured Voids 2 Weight 107 kg Weight Measurement Method Standing Scale Diagnostic Findings Telemetry: (Chronic) Atrial fibrillation. Intermittent ventricular pacing. ? Inappropriate pacer spikes.
--- NOTE | 2023-01-12 14:03 | Hospitalist Progress Note ---
Date of Service January 12, 2023 Assessment & Plan (1) Heart failure, systolic, with acute decompensation: (2) Rash: Plan 72-year-old male with PMH of T2DM, ischemic CM with EF 20%, AICD in place, hypothyroidism, chronic cholecystitis with percutaneous drain in place, atrial fibrillation on Coumadin, chronic thrombocytopenia presented to the ED 01/11 with complaint of lower extremity rash spreading throughout the body. 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 It is only slightly pruritic per pt. Only new meds is Zetia at the end of Nov. Denied new detergents or food or travel or fever or sick contacts. Also reported slight worsening of chronic exertional SOB. He is being managed for the following: Rash: Patient presenting from home with reports of lower extremity rash that has spread to the abdomen and arms - see above. Ddx: contact dermatitis/cellulitis (bacterial or fungal)/vasculitis Groin rash differs from what is present on legs and likely represents a fungal infection from soiled undergarments -- maintain hygeine and apply Nystatin powder Admitting: WBC wnl; ESR and CRP mildly elevated. Chronic thrombocytopenia at baseline. Admitting team reached out to Derm Dr. Haven Hung at [facility] via [employer] -- recs for eval for vasculitis/punch biopsy, triamcinolone 0.1% cream bid. TT her for setting up f/u on DC. DC Zetia. c/w rocephin 01/11, c/w steroid cream. f/u on 01/11 Rt upper leg punch biopsy. Acute on chronic systolic CHF (congestive heart failure): H/o Ischemic cardiomyopathy: Biventricular ICD (implantable cardioverter-defibrillator) in place: Patient with increased lower extremity edema and JANSEN. At presentation - saturating well on room air , BNP elevated and CXR w/ congestive changes. Echo 10/2022-EF 20%. S/p BiV ICD 10/2022. Continue beta-roseann, Entresto, Jardiance, Plavix, aldactone Cardio on board, managing diuresis, appreciate recs. Chronic cholecystitis: Has percutaneous drain in place. Follows with [facility] general surgery, tentatively planning for cholecystectomy April 2023 pending car diac status. Persistent atrial fibrillation: Rate controlled on metoprolol, anticoagulated with Coumadin., Hypothyroidism: Home levo dose 100, admitting TSH 14.2, pt reported noncompliance to levo. Resume home dose. TFT in 6 weeks. DM type 2 (diabetes mellitus, type 2): Hgb A1c 7.8 08/2022. Patient reports self stopping Lantus about 1 month ago. A1c of 9.4 this admission. Resume lantus 10 units daily; c/w SSI; c/w home jardiance. Thrombocytopenia: Chronic, around baseline. CVA (cerebral vascular accident): History of, continue Plavix. Zetia stopped due to concern of allergic skin reaction. History of statin intolerance. DVT prophylaxis: On Coumadin, currently on hold due to bleeding at the biopsy site. Will resume likely in 1 day. Admission and Anticipated Discharge Date Admission Date: January 11, 2023 Subjective Patient seen and examined at bedside as a follow-up of skin rash, acute on chronic systolic CHF and chronic cholecystitis with percutaneous drain in place. Patient was lying in bed, on room air, NAD, had " copious bleeding" on the right thigh at the site of punch biopsy per overnight note, received vitamin K. His Plavix and Coumadin were held. Patient reports improving extremity swelling, denies any trouble breathing, denies any suicidal ideation or homicidal ideation. Patient is interested in discussing with palliative care, communicated with palliative care - due to his significant depression history and also his remark of being depressed/speaking things that alluded to his intension of hurting himself (per overnight RN), psychiatric liaison consult is placed. We will reach out to palliative care again on Sunday. Physical Exam Physical Exam: GENERAL: Alert and oriented x3. NAD, on RA. No SI/HI. HEENT: No pallor, no icterus. Pupils equal, round and reactive to light. Oral mucosa moist. NECK: No JVD, no neck masses. HEART: S1 and S2 heard. Regular rate and rhythm. No murmur, no gallop. RESPIRATORY SYSTEM: Normal AP diameter. No accessory muscle use. No wheezing, bb crackles. ABDOMEN: Soft, bowel sounds present, nontender, no distention. SKIN: yesica rash x left groin. Erythematous maculopapular rash scattered x ble w/ some scratch wood/non tender; more sparse rash over abd wall and bue. None on the back. CENTRAL NERVOUS SYSTEM: No facial droop. Speech is clear. Obeys simple commands. Moves extremities. EXTREMITIES: 2/3+ BLE edema, no erythema seen. Results & Data Results & Data ([facility]) Vital Signs (Past 12 Hours) Vital Signs Temp Pulse Pulse Resp BP BP Pulse Ox 01/12/23 10:57 36.3 C L 78 20 99/68 L 93 01/12/23 07:26 88 01/12/23 07:23 36.7 C 103 H 20 110/75 93 01/12/23 02:52 36.4 C L 83 16 117/83 93 O2 Del Method 01/12/23 10:57 Room Air 01/12/23 07:26 01/12/23 07:23 Room Air 01/12/23 02:52 Room Air
[2023-01-12] MEDS: DIGOXIN 0.125 MG/2.5 ML UDP PO SCH (17:47)
[2023-01-12] MEDS ORDERED: MELATONIN 3 MG TAB PO PRN (23:24)
[2023-01-13] MEDS: ALBUMIN 25% 100 mL 25 GM/100 ML VIAL IV SCH ×3 (05:48→21:49)
[2023-01-13] MEDS: LEVOTHYROXINE SODIUM 100 MCG TABLET PO SCH (05:48)
[2023-01-13 07:15] LABS: Hematocrit (blood only) 48.5 % (42.0-52.0); Hemoglobin 15.7 g/dl (14.0-18.0); Mean Corpuscular Hemoglobin 29.3 pg (25.0-34.0); Mean Corpuscular Hgb Conc 32.4 g/dL (32.0-36.0); Mean Corpuscular Volume 90.5 fL (80.0-100.0); Platelet Count 121 K/uL (130-400); RDW Coefficient of Variation 16.7 % (11.5-14.5); RDW Standard Deviation 54.4 fL (36.4-46.3); Red Blood Count 5.36 M/uL (4.70-6.10); White Blood Count 8.41 K/ul (4.8-10.8)
[2023-01-13 07:30] LABS: BUN Creatinine Ratio 22.2 (10-20); Calcium 9.8 mg/dl (8.5-10.1); Est GFR (African American) 38.4 ml/min; Est GFR (Non-African American) 33.1 ml/min; Magnesium 2.2 mg/dl (1.7-2.4); Phosphorus 4.7 mg/dl (2.5-4.9); Potassium 5.6 mmol/L (3.5-5.1)
[2023-01-13 07:33] LABS: Prothrombin Time 29.7 Seconds (9.0-12.0)
[2023-01-13] MEDS: METOPROLOL SUCC 50MG EXT REL TAB PO SCH (08:06)
[2023-01-13] MEDS: FUROSEMIDE 40 MG/4 ML VIAL IV SCH (08:06)
[2023-01-13] MEDS: INSULIN ASPART PER UNIT CHARGE SC SCH ×4 (08:06→21:41)
[2023-01-13] MEDS: PANTOprazole 40 MG TAB PO SCH (08:06)
[2023-01-13] MEDS: EMPAGLIFLOZIN 10 MG TAB PO SCH (08:07)
[2023-01-13] MEDS: NYSTATIN POWDER 15GM BTL EXT SCH ×2 (08:07→21:42)
[2023-01-13] MEDS: TRIAMCINOLONE ACET 0.1% CR 80 GM TUBE EXT SCH ×2 (08:07→21:43)
[2023-01-13] MEDS: cefTRIAXone SODIUM 2,000 MG in DEXTROSE 5% 50 ML IV SCH (08:09)
--- NOTE | 2023-01-13 11:30 | Cardiology Progress Note ---
Date of Service January 13, 2023 Assessment & Plan (1) Rash: (2) Heart failure, systolic, with acute decompensation: (3) Chronic atrial fibrillation: (4) Ischemic cardiomyopathy: Plan Rash. Contact dermatitis versus drug reaction/vasculitis versus other. Stop ezetimibe. Biopsy performed, results pending (Plavix and Coumadin held due to bleeding post punch biopsy). INR 3.0 today. Continue to hold warfarin. Repeat PT/INR in a.m. Restart Plavix when bleeding risk is deemed acceptable. Chronic systolic heart failure, HFrEF, severe ischemic cardiomyopathy, EF less than 20%, chronic left bundle branch block, status post biventricular pacemaker defibrillator implantation on October 16, 2022. Most recent device interrogation on 12/29/2022 with only 56.8% effective BiV pacing. No symptomatic benefit perceived by the patient post device implantation. Volume status: Hypervolemic. Continue IV furosemide 40 mg daily. Repeat BMP in AM. Continue digoxin (initiated 01/12/2023, 3 days/week). Resume Entresto and spironolactone when renal function returns to baseline and blood pressure permits. Hypothyroidism. Likely due to noncompliance with levothyroxine. Chronic cholecystitis, currently with a percutaneous drain, with future plans for cholecystectomy when stable. Admission and Anticipated Discharge Date Admission Date: January 12, 2023 Subjective Patient seen examined at the bedside. More alert today. Confusion has resolved. Edema somewhat improved. Creatinine trending upward to 1.94. No orthopnea or PND. Denies chest pain. Telemetry reveals AF, Paced 60-70's. Review of Systems Review of Systems: All systems reviewed & are unremarkable except as noted in Subjective Physical Exam Constitutional: well nourished; no acute distress Respiratory: no respiratory distress, no labored breathing and no retractions Auscultation: + crackles (Scant, bases bilateral); no rhonchi and no wheezes Cardiovascular: Rate/Rhythm: + irregularly irregular Heart Sounds: normal S1, normal S2 and + murmur (1/6 systolic murmur heard best at the apex) Vessels: radial pulses present; no JVD Extremities: + edema (2+ bilateral pretibial edema, diffuse rash) Gastrointestinal (Abdomen): Inspection/Auscultation: abdomen normal to inspection and normal bowel sounds; abdomen not distended Percussion/Palpation: abdomen soft; abdomen nontender, no guarding and abdomen not rigid Neurologic: CN's II-XI intact bilaterally and moves all extremities; no focal motor deficits Results & Data ([facility]) Vital Signs (Past 12 Hours) Vital Signs Temp Pulse Pulse Resp BP BP Pulse Ox 01/13/23 11:00 36.8 C 82 16 115/79 96 01/13/23 10:00 01/13/23 09:47 01/13/23 08:07 36.5 C 98 H 16 132/99 96 01/13/23 07:44 84 01/13/23 03:45 36.7 C 72 18 123/71 97 01/13/23 01:01 98 H Pulse Ox O2 Del Method O2 Del Method 01/13/23 11:00 Room Air 01/13/23 10:00 97 Room Air 01/13/23 09:47 Room Air 01/13/23 08:07 Room Air 01/13/23 07:44 01/13/23 03:45 Room Air 01/13/23 01:01
--- NOTE | 2023-01-13 15:10 | Hospitalist Progress Note ---
Date of Service January 13, 2023 Assessment & Plan (1) Heart failure, systolic, with acute decompensation: (2) Rash: Plan 72-year-old male with PMH of T2DM, ischemic CM with EF 20%, AICD in place, hypothyroidism, chronic cholecystitis with percutaneous drain in place, atrial fibrillation on Coumadin, chronic thrombocytopenia presented to the ED 01/11 with complaint of lower extremity rash spreading throughout the body. 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 It is only slightly pruritic per pt. Only new meds is Zetia at the end of Nov. Denied new detergents or food or travel or fever or sick contacts. Also reported slight worsening of chronic exertional SOB. He is being managed for the following: Rash: Patient presenting from home with reports of lower extremity rash that has spread to the abdomen and arms - see above. Ddx: contact dermatitis/cellulitis (bacterial or fungal)/vasculitis Groin rash differs from what is present on legs and likely represents a fungal infection from soiled undergarments -- maintain hygeine and apply Nystatin powder Admitting: WBC wnl; ESR and CRP mildly elevated. Chronic thrombocytopenia at baseline. Admitting team reached out to Derm Dr. Haven Hung at [facility] via [employer] -- recs for eval for vasculitis/punch biopsy, triamcinolone 0.1% cream bid. TT her for setting up f/u on DC. DC Zetia. c/w rocephin 01/11, c/w steroid cream. f/u on 01/11 Rt upper leg punch biopsy. Acute on chronic systolic CHF (congestive heart failure): H/o Ischemic cardiomyopathy: Biventricular ICD (implantable cardioverter-defibrillator) in place: Patient with increased lower extremity edema and JANSEN. At presentation - saturating well on room air , BNP elevated and CXR w/ congestive changes. Echo 10/2022-EF 20%. S/p BiV ICD 10/2022. Cardio on board, managing diuresis. Patient started on digoxin. Plan to resume Entresto and Aldactone when renal function improves. Will follow. Baseline creatinine appears around mid 1s, monitor BMP and electrolytes. Chronic cholecystitis: Has percutaneous drain in place. Follows with [facility] general surgery, tentatively planning for cholecystectomy April 2023 pending cardiac status. Persistent atrial fibrillation: Rate controlled on metoprolol, anticoagulated with Coumadin. Hypothyroidism: Home levo dose 100, admitting TSH 14.2, pt reported noncompliance to levo. Resume home dose. TFT in 6 weeks. DM type 2 (diabetes mellitus, type 2): Hgb A1c 7.8 08/2022. Patient reports self stopping Lantus about 1 month ago. A1c of 9.4 this admission. Resume lantus 10 units daily; c/w SSI; c/w home jardiance. Thrombocytopenia: Chronic, around baseline. CVA (cerebral vascular accident): History of, continue Plavix. Zetia stopped due to concern of allergic skin reaction. History of statin intolerance. DVT prophylaxis: On Coumadin, currently on hold due to bleeding at the biopsy site. Likely resume tomorrow. Dispo: PT/OT, CM to assist w/ DC plan. Admission and Anticipated Discharge Date Admission Date: January 12, 2023 Subjective Patient seen and examined at bedside as a follow-up of skin rash, acute on chronic systolic CHF and chronic cholecystitis with percutaneous drain in place. Patient was sitting up in chair, on room air, NAD, reports improving skin rash, no bleeding from right upper thigh [dry dressing], eating okay and moving bowels okay, making urine okay, denies chest pain or palpitation or sore throat or cough. He reports feeling better today. Physical Exam Physical Exam: GENERAL: Alert and oriented x3. NAD, on RA. HEENT: No pallor, no icterus. Pupils equal, round and reactive to light. Oral mucosa moist. NECK: No JVD, no neck masses. HEART: S1 and S2 heard. Regular rate and rhythm. No murmur, no gallop. RESPIRATORY SYSTEM: Normal AP diameter. No accessory muscle use. No wheezing, bb crackles. ABDOMEN: Soft, bowel sounds present, nontender, no distention. SKIN: yesica rash x left groin. Erythematous maculopapular rash scattered x ble w/ some scratch wood/non tender; more sparse rash over abd wall and bue. None on the back. --> No new or fresh rashes noticed today. Appears improving. We will continue to follow. CENTRAL NERVOUS SYSTEM: No facial droop. Speech is clear. Obeys simple commands. Moves extremities. EXTREMITIES: 2/3+ BLE edema, no erythema seen. Results & Data Results & Data ([facility]) Vital Signs (Past 12 Hours) Vital Signs Temp Pulse Pulse Resp BP BP Pulse Ox 01/13/23 14:57 36.6 C 76 16 131/95 95 01/13/23 11:00 36.8 C 82 16 115/79 96 01/13/23 10:00 01/13/23 09:47 01/13/23 08:07 36.5 C 98 H 16 132/99 96 01/13/23 07:44 84 01/13/23 03:45 36.7 C 72 18 123/71 97 Pulse Ox O2 Del Method O2 Del Method 01/13/23 14:57 Room Air 01/13/23 11:00 Room Air 01/13/23 10:00 97 Room Air 01/13/23 09:47 Room Air 01/13/23 08:07 Room Air 01/13/23 07:44 01/13/23 03:45 Room Air
[2023-01-13] MEDS: DIGOXIN 0.125 MG/2.5 ML UDP PO SCH (17:16)
[2023-01-14] MEDS: LEVOTHYROXINE SODIUM 100 MCG TABLET PO SCH (05:40)
[2023-01-14] MEDS: ALBUMIN 25% 100 mL 25 GM/100 ML VIAL IV SCH ×3 (05:42→22:57)
[2023-01-14 07:14] LABS: INR 3.1 (0.9-1.1); Prothrombin Time 30.7 Seconds (9.0-12.0)
[2023-01-14] MEDS: cefTRIAXone SODIUM 2,000 MG in DEXTROSE 5% 50 ML IV SCH (08:29)
[2023-01-14] MEDS: METOPROLOL SUCC 50MG EXT REL TAB PO SCH (08:30)
[2023-01-14] MEDS: NYSTATIN POWDER 15GM BTL EXT SCH ×2 (08:30→22:58)
[2023-01-14] MEDS: TRIAMCINOLONE ACET 0.1% CR 80 GM TUBE EXT SCH ×2 (08:30→22:57)
[2023-01-14] MEDS: EMPAGLIFLOZIN 10 MG TAB PO SCH (08:30)
[2023-01-14] MEDS: PANTOprazole 40 MG TAB PO SCH (08:30)
[2023-01-14] MEDS: INSULIN ASPART PER UNIT CHARGE SC SCH ×4 (08:35→21:30)
[2023-01-14 08:39] LABS: BUN Creatinine Ratio 23.4 (10-20); Calcium 9.7 mg/dl (8.5-10.1); Creatinine Clr Calc Pharmacy 38.7 ml/min; Est GFR (African American) 35.9 ml/min; Potassium 4.6 mmol/L (3.5-5.1)
[2023-01-14] MEDS: CLOPIDOGREL BISULFATE 75 MG TAB PO SCH (08:56)
[2023-01-14] MEDS: FUROSEMIDE 40 MG/4 ML VIAL IV SCH ×2 (08:56→17:41)
--- NOTE | 2023-01-14 11:29 | Cardiology Progress Note ---
Date of Service January 14, 2023 Assessment & Plan (1) Rash: (2) Heart failure, systolic, with acute decompensation: (3) Chronic atrial fibrillation: (4) Ischemic cardiomyopathy: Plan Rash. Contact dermatitis versus drug reaction/vasculitis versus other. Stop ezetimibe. Biopsy performed, results pending (Plavix and Coumadin held due to bleeding post punch biopsy). INR 3.0 today. Continue to hold warfarin. Repeat PT/INR in a.m. Restart Plavix when bleeding risk is deemed acceptable. Chronic systolic heart failure, HFrEF, severe ischemic cardiomyopathy, EF less than 20%, chronic left bundle branch block, status post biventricular pacemaker defibrillator implantation on October 16, 2022. Most recent device interrogation on 12/29/2022 with only 56.8% effective BiV pacing. No symptomatic benefit perceived by the patient post device implantation. Repeat chest x-ray today. Increase Lasix to 40 mg twice daily. Continue digoxin (initiated 01/12/2023, 3 days/week). Resume Entresto and spironolactone when renal function returns to baseline and blood pressure permits. Hypothyroidism. Likely due to noncompliance with levothyroxine. Chronic cholecystitis, currently with a percutaneous drain, with future plans for cholecystectomy when stable. Admission and Anticipated Discharge Date Admission Date: January 12, 2023 Subjective Patient seen examined the bedside. Subjectively improved however, positive fluid balance recorded. Losing weight per built in bed scale. Reports less shortness of breath, however, edema unchanged. Rash improving. Creatinine trending upward slightly today. Review of Systems Review of Systems: All systems reviewed & are unremarkable except as noted in Subjective Physical Exam Constitutional: well nourished; no acute distress Respiratory: no respiratory distress, no labored breathing and no retractions Auscultation: + crackles (Scant, bases bilateral); no rhonchi and no wheezes Cardiovascular: Rate/Rhythm: + irregularly irregular Heart Sounds: normal S1, normal S2 and + murmur (1/6 systolic murmur heard best at the apex) Vessels: radial pulses present; no JVD Extremities: + edema (2+ bilateral pretibial edema, diffuse rash) Gastrointestinal (Abdomen): Inspection/Auscultation: abdomen normal to inspection and normal bowel sounds; abdomen not distended Percussion/Palpation: abdomen soft; abdomen nontender, no guarding and abdomen not rigid Neurologic: CN's II-XI intact bilaterally and moves all extremities; no focal motor deficits Results & Data ([facility]) Vital Signs (Past 12 Hours) Vital Signs Temp Pulse Pulse Resp BP BP Pulse Ox 01/14/23 10:45 36.4 C L 84 16 122/97 100 01/14/23 10:00 01/14/23 09:40 01/14/23 07:23 36.5 C 88 16 125/97 93 01/14/23 07:21 80 01/14/23 04:17 36.4 C L 79 18 105/71 96 01/13/23 23:30 36.6 C 80 18 115/78 92 Pulse Ox O2 Del Method O2 Del Method 01/14/23 10:45 Room Air 01/14/23 10:00 94 Room Air 01/14/23 09:40 Room Air 01/14/23 07:23 Room Air 01/14/23 07:21 01/14/23 04:17 Room Air 01/13/23 23:30 Room Air
--- NOTE | 2023-01-14 11:55 | XRay Report ---
TWO VIEW CHEST CLINICAL HISTORY: Congestive heart failure.. FINDINGS: PA and lateral chest radiographs are compared to study dated 01/11/2023. A 2-lead cardiac ICD is unchanged in position and partially obscures the left upper chest. The heart is enlarged noting a therosclerotic calcification of the thoracic aorta. The pulmonary vasculature is noncongested. Trace pleural effusions are suspected with bibasilar scarring/atelectasis. There is no pneumothorax. The sk eletal structures are osteopenic. The bony thorax appears intact. IMPRESSION: 1. Cardiomegaly and AICD without radiographic evidence of congestive failure. 2. Suspect trace pleural effusions. ACT 112: Negative or not required by law. Electronically signed by: Isiah Raymond M.D. 01/14/2023 11:53 AM
[2023-01-14] MEDS ORDERED: DIGOXIN 0.125 MG TAB PO SCH (16:00)
--- NOTE | 2023-01-14 16:27 | Hospitalist Progress Note ---
Date of Service January 14, 2023 Assessment & Plan (1) Heart failure, systolic, with acute decompensation: (2) Rash: Plan 72-year-old male with PMH of T2DM, ischemic CM with EF 20%, AICD in place, hypothyroidism, chronic cholecystitis with percutaneous drain in place, atrial fibrillation on Coumadin, chronic thrombocytopenia presented to the ED 01/11 with complaint of lower extremity rash spreading throughout the body. 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 It is only slightly pruritic per pt. Only new meds is Zetia at the end of Nov. Denied new detergents or food or travel or fever or sick contacts. Also reported slight worsening of chronic exertional SOB. He is being managed for the following: Rash: Patient presenting from home with reports of lower extremity rash that has spread to the abdomen and arms - see above. Ddx: contact dermatitis/cellulitis (bacterial or fungal)/vasculitis Groin rash differs from what is present on legs and likely represents a fungal infection from soiled undergarments -- maintain hygeine and apply Nystatin powder Admitting: WBC wnl; ESR and CRP mildly elevated. Chronic thrombocytopenia at baseline. Admitting team reached out to Derm Dr. Haven Hung at [facility] via [employer] -- recs for eval for vasculitis/punch biopsy, triamcinolone 0.1% cream bid. TT her for setting up f/u on DC. DC Zetia. c/w rocephin 01/11, c/w steroid cream. f/u on 01/11 Rt upper leg punch biopsy. Rash improving, no new/fresh rash noticed. Acute on chronic systolic CHF (congestive heart failure): H/o Ischemic cardiomyopathy: Biventricular ICD (implantable cardioverter-defibrillator) in place: Patient with increased lower extremity edema and JANSEN. At presentation - saturating well on room air , BNP elevated and CXR w/ congestive changes. Echo 10/2022-EF 20%. S/p BiV ICD 10/2022. Cardio on board, managing diuresis. Patient on digoxin. Plan to resume Entresto and Aldactone when renal function improves. Will follow. Baseline creatinine appears around mid 1s, monitor BMP and electrolytes. Chronic cholecystitis: Has percutaneous drain in place. Follows with [facility] general surgery, tentatively planning for cholecystectomy April 2023 pending cardiac status. Persistent atrial fibrillation: Rate controlled on metoprolol, anticoagulated with Coumadin - on hold, inr 3.1 today Hypothyroidism: Home levo dose 100, admitting TSH 14.2, pt reported noncompliance to levo. c/w home dose. TFT in 6 weeks. DM type 2 (diabetes mellitus, type 2): Hgb A1c 7.8 08/2022. Patient reports self stopping Lantus about 1 month ago. A1c of 9.4 this admission. Resume lantus 10 units daily; c/w SSI; c/w home jardiance. Thrombocytopenia: Chronic, around baseline. CVA (cerebral vascular accident): History of, continue Plavix. Zetia stopped due to concern of allergic skin reaction. History of statin intolerance. DVT prophylaxis: On Coumadin, currently on hold, INR 3.1. Likely resume tomorrow. Dispo: PT/OT, CM to assist w/ DC plan. Admission and Anticipated Discharge Date Admission Date: January 12, 2023 Subjective Patient seen and examined at bedside as a follow-up of skin rash, acute on chronic systolic CHF and chronic cholecystitis with percutaneous drain in place. Patient was sitting up in chair, on room air, NAD, reports improving skin rash, no bleeding from right upper thigh [dry dressing], eating okay and moving bowels okay, making urine okay, denies chest pain or palpitation or sore throat or cough. He reports feeling better. Physical Exam Physical Exam: GENERAL: Alert and oriented x3. NAD, on RA. HEENT: No pallor, no icterus. Pupils equal, round and reactive to light. Oral mucosa moist. NECK: No JVD, no neck masses. HEART: S1 and S2 heard. Regular rate and rhythm. No murmur, no gallop. RESPIRATORY SYSTEM: Normal AP diameter. No accessory muscle use. No wheezing, bb crackles. ABDOMEN: Soft, bowel sounds present, nontender, no distention. SKIN: yesica rash x left groin. Erythematous maculopapular rash scattered x ble w/ some scratch wood/non tender; more sparse rash over abd wall and bue. None on the back. --> No new or fresh rashes noticed. Appears improving. We will continue to follow. CENTRAL NERVOUS SYSTEM: No facial droop. Speech is clear. Obeys simple commands. Moves extremities. EXTREMITIES: 2/3+ BLE edema, no erythema seen. Results & Data Results & Data ([facility]) Vital Signs (Past 12 Hours) Vital Signs Temp Pulse Pulse Resp BP BP Pulse Ox 01/14/23 15:16 77 01/14/23 14:57 35.5 C L 76 20 124/94 97 01/14/23 10:45 36.4 C L 84 16 122/97 100 01/14/23 10:00 01/14/23 09:40 01/14/23 07:23 36.5 C 88 16 125/97 93 01/14/23 07:21 80 Pulse Ox O2 Del Method O2 Del Method 01/14/23 15:16 01/14/23 14:57 Room Air 01/14/23 10:45 Room Air 01/14/23 10:00 94 Room Air 01/14/23 09:40 Room Air 01/14/23 07:23 Room Air 01/14/23 07:21
[2023-01-15] MEDS: LEVOTHYROXINE SODIUM 100 MCG TABLET PO SCH (06:21)
[2023-01-15] MEDS: METOPROLOL SUCC 50MG EXT REL TAB PO SCH (07:44)
[2023-01-15] MEDS: CLOPIDOGREL BISULFATE 75 MG TAB PO SCH (07:44)
[2023-01-15] MEDS: PANTOprazole 40 MG TAB PO SCH (07:44)
[2023-01-15] MEDS: FUROSEMIDE 40 MG/4 ML VIAL IV SCH (07:45)
[2023-01-15] MEDS: EMPAGLIFLOZIN 10 MG TAB PO SCH (07:45)
[2023-01-15] MEDS: NYSTATIN POWDER 15GM BTL EXT SCH ×2 (07:45→21:50)
[2023-01-15] MEDS: TRIAMCINOLONE ACET 0.1% CR 80 GM TUBE EXT SCH ×2 (07:45→21:50)
[2023-01-15 07:53] LABS: BUN Creatinine Ratio 25.3 (10-20); Calcium 9.7 mg/dl (8.5-10.1); Creatinine Clr Calc Pharmacy 41.3 ml/min; Est GFR (African American) 38.4 ml/min; Est GFR (Non-African American) 33.1 ml/min; Magnesium 2.1 mg/dl (1.7-2.4); Potassium 4.6 mmol/L (3.5-5.1)
[2023-01-15 08:00] LABS: Hematocrit (blood only) 41.6 % (42.0-52.0); Mean Corpuscular Hemoglobin 29.4 pg (25.0-34.0); Mean Corpuscular Hgb Conc 33.7 g/dL (32.0-36.0); Mean Corpuscular Volume 87.2 fL (80.0-100.0); Platelet Count 92 K/uL (130-400); Platelet Estimate Decreased (Normal); RDW Coefficient of Variation 16.5 % (11.5-14.5); RDW Standard Deviation 51.5 fL (36.4-46.3); Red Blood Count 4.77 M/uL (4.70-6.10); White Blood Count 8.24 K/ul (4.8-10.8)
[2023-01-15] MEDS: INSULIN ASPART PER UNIT CHARGE SC SCH ×4 (08:01→21:49)
[2023-01-15 08:18] LABS: INR 3.8 (0.9-1.1); Prothrombin Time 37.7 Seconds (9.0-12.0)
--- NOTE | 2023-01-15 09:28 | Cardiology Progress Note ---
Date of Service January 15, 2023 Assessment & Plan (1) Rash: (2) Heart failure, systolic, with acute decompensation: (3) Chronic atrial fibrillation: (4) Ischemic cardiomyopathy: Plan Rash. Contact dermatitis versus drug reaction/vasculitis versus other. Stop ezetimibe. Biopsy performed, results pending Chronic systolic heart failure, HFrEF, severe ischemic cardiomyopathy, EF less than 20%, chronic left bundle branch block, status post biventricular pacemaker defibrillator implantation on October 16, 2022. Most recent device interrogation on 12/29/2022 with only 56.8% effective BiV pacing. No symptomatic benefit perceived by the patient post device implantation. Current rhythm nearly predominantly paced by telemetry Plan: 01/15/2023 Discontinue IV Begin home dosing of torsemide 20 mg twice per day Digoxin 0.125 mg Sunday Continue to hold Entresto, warfarin, spironolactone Admission and Anticipated Discharge Date Admission Date: January 12, 2023 Subjective Patient was seen and examined, chart, medications, telemetry reviewed. No acute cardiac complaints. Frequent urination with some incontinence given IV furosemide. Notes mentating better Lower extremity edema improved rash per patient improved though with still coalescing purpurish lesions lower extremity No chest pains or tachypalpitations. No dizziness or lightheadedness. No overt bleeding Chest x-ray 01/14/2023 without pulmonary edema Review of Systems Review of Systems: All systems reviewed & are unremarkable except as noted in Subjective Physical Exam Physical Exam: General: A&Ox3. NAD. HENT: Normocephalic. Atraumatic. Eyes: Glasses. PER. Conjunctiva pink, sclera clear. Neck: No carotid bruits. +JVD. + HJR. Heart: Irregularly irregular, 90 bpm. Soft apical systolic murmur. No diastolic murmur. No rub. No gallop. PMI is nondisplaced. Lungs: Bibasilar rales/crackles. No wheeze. Abdomen: +BS. Soft. Nontender. No masses or organomegaly. Extremities: 1-2 edema. Skin: The left subclavian pacemaker incision and pocket look good. There is a generalized red maculopapular rash concentrated on the legs, alos on the thighs, abdomen, right greater than left upper extremities. No clubbing. No cyanosis. Limited neurological examination is without focal deficits. Pulses: radial=2/4, posterior tibial=1/4. Constitutional: well nourished; no acute distress Respiratory: no respiratory distress, no labored breathing and no retractions Auscultation: + crackles (Scant, bases bilateral); no rhonchi and no wheezes Cardiovascular: Rate/Rhythm: + irregularly irregular Heart Sounds: normal S1, normal S2 and + murmur (1/6 systolic murmur heard best at the apex) Vessels: radial pulses present; no JVD Extremities: + edema (2+ bilateral pretibial edema, diffuse rash) Gastrointestinal (Abdomen): Inspection/Auscultation: abdomen normal to inspection and normal bowel sounds; abdomen not distended Percussion/Palpation: abdomen soft; abdomen nontender, no guarding and abdomen not rigid Neurologic: CN's II-XI intact bilaterally and moves all extremities; no focal motor deficits Results & Data ([facility]) Vital Signs (Past 12 Hours) Vital Signs Temp Pulse Pulse Resp BP BP Pulse Ox 01/15/23 08:22 37.1 C 76 18 130/85 100 01/15/23 07:33 79 01/15/23 03:39 36.3 C L 77 20 123/80 95 01/14/23 22:06 78 01/14/23 23:17 36.9 C 83 18 132/88 98 O2 Del Method 01/15/23 08:22 Room Air 01/15/23 07:33 01/15/23 03:39 Room Air 01/14/23 22:06 01/14/23 23:17 Room Air Laboratory Results Laboratory Results - last 24 hr 01/14/23 01/14/23 01/14/23 11:31 16:38 20:47 WBC RBC Hgb Hct MCV MCH MCHC RDW Std Deviation RDW Coeff of Erik Plt Count Platelet Estimate PT INR Sodium Potassium Chloride Carbon Dioxide Anion Gap BUN Creatinine Est Cr Clr Drug Dosing Est GFR ( Amer) Est GFR (Non-Af Amer) BUN/Creatinine Ratio Glucose POC Glucose 135 H 130 H 87 Calcium Magnesium 01/15/23 01/15/23 01/15/23 07:13 07:13 07:13 WBC 8.24 RBC 4.77 Hgb 14.0 Hct 41.6 L MCV 87.2 MCH 29.4 MCHC 33.7 RDW Std Deviation 51.5 H RDW Coeff of Erik 16.5 H Plt Count 92 L Platelet Estimate Decreased L PT 37.7 H INR 3.8 H Sodium 138 Potassium 4.6 Chloride 102 Carbon Dioxide 25 Anion Gap 11 BUN 49 H Creatinine 1.94 H Est Cr Clr Drug Dosing 41.3 Est GFR ( Amer) 38.4 Est GFR (Non-Af Amer) 33.1 BUN/Creatinine Ratio 25.3 H Glucose 132 H POC Glucose Calcium 9.7 Magnesium 2.1 01/15/23 07:36 WBC RBC Hgb Hct MCV MCH MCHC RDW Std Deviation RDW Coeff of Erik Plt Count Platelet Estimate PT INR Sodium Potassium Chloride Carbon Dioxide Anion Gap BUN Creatinine Est Cr Clr Drug Dosing Est GFR ( Amer) Est GFR (Non-Af Amer) BUN/Creatinine Ratio Glucose POC Glucose 116 H Calcium Magnesium
[2023-01-15] MEDS: cefTRIAXone SODIUM 2,000 MG in DEXTROSE 5% 50 ML IV SCH (10:34)
[2023-01-15] MEDS: DIGOXIN 0.125 MG TAB PO SCH (16:15)
--- NOTE | 2023-01-15 16:39 | Hospitalist Progress Note ---
Date of Service January 15, 2023 Assessment & Plan (1) Heart failure, systolic, with acute decompensation: (2) Rash: Plan 72-year-old male with PMH of T2DM, ischemic CM with EF 20%, AICD in place, hypothyroidism, chronic cholecystitis with percutaneous drain in place, atrial fibrillation on Coumadin, chronic thrombocytopenia presented to the ED 01/11 with complaint of lower extremity rash spreading throughout the body. Rash started on RLE about a week ago [employer] and then acutely worsened/ spread to LLE and abdomen and arms since 1 day ago [employer]. It is only slightly pruritic per pt. Only new meds is Zetia at the end of Nov. Denied new detergents or food or travel or fever or sick contacts. Also reported slight worsening of chronic exertional SOB. He is being managed for the following: Rash: Patient presenting from home with reports of lower extremity rash that has spread to the abdomen and arms - see above. Ddx: contact dermatitis/cellulitis (bacterial or fungal)/vasculitis Groin rash differs from what is present on legs and likely represents a fungal infection from soiled undergarments -- maintain hygeine and apply Nystatin powder Admitting: WBC wnl; ESR and CRP mildly elevated. Chronic thrombocytopenia at baseline. Admitting team reached out to Derm Dr. Haven Hung at [facility] via [employer] -- recs for eval for vasculitis/punch biopsy, triamcinolone 0.1% cream bid. TT her for setting up f/u on DC. DC Zetia. c/w rocephin 01/11, c/w steroid cream. f/u on 01/11 Rt upper leg punch biopsy. Rash improving, no new/fresh rash noticed. Acute on chronic systolic CHF (congestive heart failure): H/o Ischemic cardiomyopathy: Biventricular ICD (implantable cardioverter-defibrillator) in place: Patient with increased lower extremity edema and JANSEN. At presentation - saturating well on room air , BNP elevated and CXR w/ congestive changes. Echo 10/2022-EF 20%. S/p BiV ICD 10/2022. Cardio on board, managing diuresis. Patient on digoxin MWF. Plan to resume Entresto and Aldactone when renal function improves. Will follow. Baseline creatinine appears around mid 1s, monitor BMP and electrolytes. Chronic cholecystitis: Has percutaneous drain in place. Follows with [facility] general surgery, tentatively planning for cholecystectomy April 2023 pending cardiac status. Persistent atrial fibrillation: Rate controlled on metoprolol, anticoagulated with Coumadin - on hold, inr 3.8 today Hypothyroidism: Home levo dose 100, admitting TSH 14.2, pt reported noncompliance to levo. c/w home dose. TFT in 6 weeks. DM type 2 (diabetes mellitus, type 2): Hgb A1c 7.8 08/2022. Patient reports self stopping Lantus about 1 month ago. A1c of 9.4 this admission. Resume lantus 10 units daily; c/w SSI; c/w home jardiance. Thrombocytopenia: Chronic, around baseline. CVA (cerebral vascular accident): History of, continue Plavix. Zetia stopped due to concern of allergic skin reaction. History of statin intolerance. DVT prophylaxis: On Coumadin, currently on hold, INR 3.8. Dispo: PT/OT, CM to assist w/ DC plan. Pending cardio clearance. f/u coumadin clinic, derm and cardio on DC. Admission and Anticipated Discharge Date Admission Date: January 12, 2023 Subjective Patient seen and examined at bedside as a follow-up of skin rash, acute on chronic systolic CHF and chronic cholecystitis with percutaneous drain in place. Patient was lying in bed, on room air, NAD, reports improving skin rash, no bleeding from right upper thigh [dry dressing], eating okay and moving bowels okay, making urine okay, denies chest pain or palpitation or sore throat or cough. He reports feeling better. Physical Exam Physical Exam: GENERAL: Alert and oriented x3. NAD, on RA. HEENT: No pallor, no icterus. Pupils equal, round and reactive to light. Oral mucosa moist. NECK: No JVD, no neck masses. HEART: S1 and S2 heard. Regular rate and rhythm. No murmur, no gallop. RESPIRATORY SYSTEM: Normal AP diameter. No accessory muscle use. No wheezing, bb crackles. ABDOMEN: Soft, bowel sounds present, nontender, no distention. SKIN: yesica rash x left groin. Erythematous maculopapular rash scattered x ble w/ some scratch wood/non tender; more sparse rash over abd wall and bue. None on the back. --> No new or fresh rashes noticed. Appears improving. We will continue to follow. CENTRAL NERVOUS SYSTEM: No facial droop. Speech is clear. Obeys simple commands. Moves extremities. EXTREMITIES: 2+ BLE edema. Results & Data Results & Data ([facility]) Vital Signs (Past 12 Hours) Vital Signs Temp Pulse Pulse Resp BP Pulse Ox O2 Del Method 01/15/23 16:15 77 01/15/23 15:46 75 01/15/23 15:55 36.3 C L 77 18 133/96 98 Room Air 01/15/23 11:09 36.7 C 80 18 127/87 97 Room Air 01/15/23 08:00 Room Air 01/15/23 08:22 37.1 C 76 18 130/85 100 Room Air 01/15/23 07:33 79
[2023-01-15] MEDS: TORSEMIDE 10 MG TAB PO SCH (17:02)
[2023-01-16] MEDS: LEVOTHYROXINE SODIUM 100 MCG TABLET PO SCH (04:57)
[2023-01-16 08:31] LABS: INR 2.5 (0.9-1.1); Prothrombin Time 25.4 Seconds (9.0-12.0)
[2023-01-16 08:34] LABS: Hematocrit (blood only) 43.2 % (42.0-52.0); Hemoglobin 14.4 g/dl (14.0-18.0); Mean Corpuscular Hemoglobin 29.3 pg (25.0-34.0); Mean Corpuscular Hgb Conc 33.3 g/dL (32.0-36.0); Platelet Count 90 K/uL (130-400); RDW Coefficient of Variation 17.3 % (11.5-14.5); RDW Standard Deviation 52.9 fL (36.4-46.3); Red Blood Count 4.91 M/uL (4.70-6.10); White Blood Count 8.38 K/ul (4.8-10.8)
[2023-01-16 08:41] LABS: BUN Creatinine Ratio 27.1 (10-20); Calcium 9.5 mg/dl (8.5-10.1); Creatinine Clr Calc Pharmacy 45.3 ml/min; Est GFR (African American) 42.9 ml/min; Phosphorus 3.4 mg/dl (2.5-4.9); Potassium 4.2 mmol/L (3.5-5.1)
[2023-01-16] MEDS: INSULIN ASPART PER UNIT CHARGE SC SCH ×4 (08:45→20:24)
[2023-01-16] MEDS: EMPAGLIFLOZIN 10 MG TAB PO SCH (08:51)
[2023-01-16] MEDS: METOPROLOL SUCC 50MG EXT REL TAB PO SCH (08:51)
[2023-01-16] MEDS: PANTOprazole 40 MG TAB PO SCH (08:51)
[2023-01-16] MEDS: CLOPIDOGREL BISULFATE 75 MG TAB PO SCH (08:51)
[2023-01-16] MEDS: NYSTATIN POWDER 15GM BTL EXT SCH ×2 (08:51→22:06)
[2023-01-16] MEDS: TORSEMIDE 10 MG TAB PO SCH ×2 (08:51→17:21)
[2023-01-16] MEDS: TRIAMCINOLONE ACET 0.1% CR 80 GM TUBE EXT SCH ×2 (08:52→22:06)
--- NOTE | 2023-01-16 09:24 | Cardiology Progress Note ---
Date of Service January 16, 2023 Assessment & Plan (1) Rash: (2) Heart failure, systolic, with acute decompensation: (3) Chronic atrial fibrillation: (4) Ischemic cardiomyopathy: Plan Rash. Contact dermatitis versus drug reaction/vasculitis versus other. Stop ezetimibe. Biopsy performed, results pending Chronic systolic heart failure, HFrEF, severe ischemic cardiomyopathy, EF less than 20%, chronic left bundle branch block, status post biventricular pacemaker defibrillator implantation on October 16, 2022. Most recent device interrogation on 12/29/2022 with only 56.8% effective BiV pacing. No symptomatic benefit perceived by the patient post device implantation. Current rhythm nearly predominantly paced by telemetry Plan: 01/16/2023 Resume Entresto at one half dose, 1/2 tablet (26/24 mg) twice per day Continue all other medications as prescribed but continue to hold spironolactone Okay for rehab We will need to be followed regarding warfarin dosing as has been on hold Admission and Anticipated Discharge Date Admission Date: January 12, 2023 Subjective Patient seen and examined, chart, medications, telemetry reviewed. Feels improved today had coughing spell after drinking tea this morning but otherwise no acute complaints. Lower extremity edema improved. Ecchymotic rash improving Review of Systems Review of Systems: All systems reviewed & are unremarkable except as noted in Subjective Physical Exam Physical Exam: General: A&Ox3. NAD. HENT: Normocephalic. Atraumatic. Eyes: Glasses. PER. Conjunctiva pink, sclera clear. Neck: No carotid bruits. +JVD. + HJR. Heart: Irregularly irregular, 90 bpm. Soft apical systolic murmur. No diastolic murmur. No rub. No gallop. PMI is nondisplaced. Lungs: Bibasilar rales/crackles. No wheeze. Abdomen: +BS. Soft. Nontender. No masses or organomegaly. Extremities: 1-2 edema. Skin: The left subclavian pacemaker incision and pocket look good. There is a generalized red maculopapular rash concentrated on the legs, alos on the thighs, abdomen, right greater than left upper extremities. No clubbing. No cyanosis. Limited neurological examination is without focal deficits. Pulses: radial=2/4, posterior tibial=1/4. Constitutional: well nourished; no acute distress Respiratory: no respiratory distress, no labored breathing and no retractions Auscultation: + crackles (Scant, bases bilateral); no rhonchi and no wheezes Cardiovascular: Rate/Rhythm: + irregularly irregular Heart Sounds: normal S1, normal S2 and + murmur (1/6 systolic murmur heard best at the apex) Vessels: radial pulses present; no JVD Extremities: + edema (2+ bilateral pretibial edema, diffuse rash) Gastrointestinal (Abdomen): Inspection/Auscultation: abdomen normal to inspection and normal bowel sounds; abdomen not distended Percussion/Palpation: abdomen soft; abdomen nontender, no guarding and abdomen not rigid Neurologic: CN's II-XI intact bilaterally and moves all extremities; no focal motor deficits Results & Data ([facility]) Vital Signs (Past 12 Hours) Vital Signs Temp Pulse Pulse Resp BP Pulse Ox O2 Del Method 01/16/23 07:17 36.4 C L 74 16 138/87 96 Room Air 01/16/23 03:11 36.4 C L 75 20 124/80 99 Room Air 01/16/23 00:18 74 01/15/23 23:05 36.6 C 78 18 126/88 98 Room Air Laboratory Results Laboratory Results - last 24 hr 01/15/23 01/15/23 01/15/23 11:53 16:55 20:30 WBC RBC Hgb Hct MCV MCH MCHC RDW Std Deviation RDW Coeff of Erik Plt Count PT INR Sodium Potassium Chloride Carbon Dioxide Anion Gap BUN Creatinine Est Cr Clr Drug Dosing Est GFR ( Amer) Est GFR (Non-Af Amer) BUN/Creatinine Ratio Glucose POC Glucose 159 H 142 H 162 H Calcium Phosphorus Magnesium 01/16/23 01/16/23 01/16/23 07:04 07:04 07:04 WBC 8.38 RBC 4.91 Hgb 14.4 Hct 43.2 MCV 88.0 MCH 29.3 MCHC 33.3 RDW Std Deviation 52.9 H RDW Coeff of Erik 17.3 H Plt Count 90 L PT 25.4 H INR 2.5 H Sodium 139 Potassium 4.2 Chloride 102 Carbon Dioxide 25 Anion Gap 12 H BUN 48 H Creatinine 1.77 H Est Cr Clr Drug Dosing 45.3 Est GFR ( Amer) 42.9 Est GFR (Non-Af Amer) 37.0 BUN/Creatinine Ratio 27.1 H Glucose 118 H POC Glucose Calcium 9.5 Phosphorus 3.4 Magnesium 2.0 01/16/23 07:37 WBC RBC Hgb Hct MCV MCH MCHC RDW Std Deviation RDW Coeff of Erik Plt Count PT INR Sodium Potassium Chloride Carbon Dioxide Anion Gap BUN Creatinine Est Cr Clr Drug Dosing Est GFR ( Amer) Est GFR (Non-Af Amer) BUN/Creatinine Ratio Glucose POC Glucose 110 H Calcium Phosphorus Magnesium
[2023-01-16] MEDS: cefTRIAXone SODIUM 2,000 MG in DEXTROSE 5% 50 ML IV SCH (10:45)
--- NOTE | 2023-01-16 17:33 | Hospitalist Progress Note ---
Date of Service January 16, 2023 Assessment & Plan (1) Heart failure, systolic, with acute decompensation: (2) Rash: Plan 72-year-old male with PMH of T2DM, ischemic CM with EF 20%, AICD in place, hypothyroidism, chronic cholecystitis with percutaneous drain in place, atrial fibrillation on Coumadin, chronic thrombocytopenia presented to the ED 01/11 with complaint of lower extremity rash spreading throughout the body. Rash started on RLE about a week ago [employer] and then acutely worsened/ spread to LLE and abdomen and arms since 1 day ago [employer]. It is only slightly pruritic per pt. Only new meds is Zetia at the end of Nov. Denied new detergents or food or travel or fever or sick contacts. Also reported slight worsening of chronic exertional SOB. He is being managed for the following: Rash: Left great toe wound infection: small, wound care evaled, squeezed pus out/now w/ sero-sanguinous drainage only (on further squeezing). Good distal pulse. Will add doxy 01/16; f/u on wound culture result to tailor antibiotics properly. Can f/u w/ PCP office on DC. Patient presenting from home with reports of lower extremity rash that has spread to the abdomen and arms - see above. Ddx: contact dermatitis/cellulitis (bacterial or fungal)/vasculitis Groin rash differs from what is present on legs and likely represents a fungal infection from soiled undergarments -- maintain hygeine and apply Nystatin powder Admitting: WBC wnl; ESR and CRP mildly elevated. Chronic thrombocytopenia at baseline. Admitting team reached out to Derm Dr. Haven Hung at [facility] via [employer] -- recs for eval for vasculitis/punch biopsy, triamcinolone 0.1% cream bid. [place] Text her for setting up f/u on DC. DC Zetia. c/w rocephin 01/11, c/w steroid cream. f/u on 01/11 Rt upper leg punch biopsy. Rash improving, no new/fresh rash noticed. Acute on chronic systolic CHF (congestive heart failure): H/o Ischemic cardiomyopathy: Biventricular ICD (implantable cardioverter-defibrillator) in place: Patient with increased lower extremity edema and JANSEN. At presentation - saturating well on room air , BNP elevated and CXR w/ congestive changes. Echo 10/2022-EF 20%. S/p BiV ICD 10/2022. Cardio on board, managing diuresis. Patient on digoxin MWF. Resuming entresto at half dose of 26/24 mg BID on discharge. Continue to hold Aldactone. Will fo llow. Baseline creatinine appears around mid 1s, monitor BMP and electrolytes. Chronic cholecystitis: Has percutaneous drain in place. Follows with [facility] general surgery, tentatively planning for cholecystectomy April 2023 pending cardiac status. Persistent atrial fibrillation: Rate controlled on metoprolol, anticoagulated with Coumadin. F/u w/ coumadin clinic closely on dc. OP chart says one or two tabs of 5 mg tab to be taken, consider resuming at 5 mg daily on discharge and have him closely f/u coumadin clinic for ongoing dose adjustment - follow up pt/inr in AM. Hypothyroidism: Home levo dose 100, admitting TSH 14.2, pt reported noncompliance to levo. c/w home dose. TFT in 6 weeks. DM type 2 (diabetes mellitus, type 2): Hgb A1c 7.8 08/2022. Patient reports self stopping Lantus about 1 month ago. A1c of 9.4 this admission. Resume lantus 10 units daily; c/w SSI; c/w home jardiance. Thrombocytopenia: Chronic, around baseline. CVA (cerebral vascular accident): History of, continue Plavix. Zetia stopped due to concern of allergic skin reaction. History of statin intolerance. Outpatient follow up for monoclonal antibody therapy for lipid. DVT prophylaxis: therapeutic inr Dispo: PT/OT, CM to assist w/ DC plan. Likely [place]. Admission and Anticipated Discharge Date Admission Date: January 12, 2023 Subjective Patient seen and examined at bedside as a follow-up of skin rash, acute on c hronic systolic CHF and chronic cholecystitis with percutaneous drain in place. Patient was lying in bed, on room air, NAD, reports improving skin rash, no bleeding from right upper thigh [dry dressing], eating okay and moving bowels okay per RN, making urine okay, denies chest pain or palpitation or sore throat or cough. He reports feeling tired today and didn't sleep much overnight per RN. Physical Exam Physical Exam: GENERAL: Alert and oriented x3. NAD, on RA. HEENT: No pallor, no icterus. Pupils equal, round and reactive to light. Oral mucosa moist. NECK: No JVD, no neck masses. HEART: S1 and S2 heard. Regular rate and rhythm. No murmur, no gallop. RESPIRATORY SYSTEM: Normal AP diameter. No accessory muscle use. No wheezing, bb crackles. ABDOMEN: Soft, bowel sounds present, nontender, no distention. SKIN: yesica rash x left groin. Erythematous maculopapular rash scattered x ble w/ some scratch wood/non tender; more sparse rash over abd wall and bue. None on the back. --> No new or fresh rashes noticed. Appears improving. We will continue to follow. CENTRAL NERVOUS SYSTEM: No facial droop. Speech is clear. Obeys simple commands. Moves extremities. EXTREMITIES: 2+ BLE edema. Results & Data Results & Data ([facility]) Vital Signs (Past 12 Hours) Vital Signs Temp Pulse Pulse Resp BP Pulse Ox O2 Del Method 01/16/23 14:11 78 01/16/23 06:04 75 01/16/23 16:04 Room Air 01/16/23 15:44 36.5 C 80 16 141/94 H 95 Room Air 01/16/23 11:00 36.4 C L 77 16 121/86 99 Room Air 01/16/23 07:17 36.4 C L 74 16 138/87 96 Room Air
[2023-01-16] MEDS: DOXYCYCLINE HYCLATE 100 MG CAP PO SCH (22:06)
[2023-01-17] MEDS: LEVOTHYROXINE SODIUM 100 MCG TABLET PO SCH (06:27)
[2023-01-17] MEDS: INSULIN ASPART PER UNIT CHARGE SC SCH ×4 (08:45→20:30)
[2023-01-17] MEDS: METOPROLOL SUCC 50MG EXT REL TAB PO SCH (08:52)
[2023-01-17] MEDS: CLOPIDOGREL BISULFATE 75 MG TAB PO SCH (08:52)
[2023-01-17] MEDS: PANTOprazole 40 MG TAB PO SCH (08:52)
[2023-01-17] MEDS: TORSEMIDE 10 MG TAB PO SCH ×2 (08:52→16:04)
[2023-01-17] MEDS: NYSTATIN POWDER 15GM BTL EXT SCH ×2 (08:52→21:10)
[2023-01-17] MEDS: DOXYCYCLINE HYCLATE 100 MG CAP PO SCH ×2 (08:52→21:09)
[2023-01-17] MEDS: EMPAGLIFLOZIN 10 MG TAB PO SCH (08:53)
[2023-01-17] MEDS: TRIAMCINOLONE ACET 0.1% CR 80 GM TUBE EXT SCH ×2 (08:53→21:10)
[2023-01-17 09:04] LABS: BUN Creatinine Ratio 26.8 (10-20); Calcium 9.7 mg/dl (8.5-10.1); Creatinine Clr Calc Pharmacy 44.7 ml/min; Est GFR (African American) 42.3 ml/min; Est GFR (Non-African American) 36.5 ml/min; Magnesium 2.1 mg/dl (1.7-2.4); Phosphorus 3.4 mg/dl (2.5-4.9); Potassium 4.1 mmol/L (3.5-5.1)
[2023-01-17 09:17] LABS: Prothrombin Time 20.9 Seconds (9.0-12.0)
--- NOTE | 2023-01-17 09:29 | Cardiology Progress Note ---
Date of Service January 17, 2023 Assessment & Plan (1) Rash: (2) Heart failure, systolic, with acute decompensation: (3) Chronic atrial fibrillation: (4) Ischemic cardiomyopathy: Plan Rash. Contact dermatitis versus drug reaction/vasculitis versus other. Stop ezetimibe. Biopsy performed, results pending Chronic systolic heart failure, HFrEF, severe ischemic cardiomyopathy, EF less than 20%, chronic left bundle branch block, status post biventricular pacemaker defibrillator implantation on October 16, 2022. Most recent device interrogation on 12/29/2022 with only 56.8% effective BiV pacing. No symptomatic benefit perceived by the patient post device implantation. Current rhythm nearly predominantly paced by telemetry Plan: 01/17/2023 Resume Entresto at one half dose, 1/2 tablet (26/24 mg) twice per day Continue all other medications as prescribed but continue to hold spironolactone We will need to be followed regarding warfarin dosing, would recommend reduced dose resumption this evening Admission and Anticipated Discharge Date Admission Date: January 12, 2023 Subjective Patient was seen and examined, chart, medications, telemetry reviewed Patient drowsy but answering questions appropriately. Had difficulties with frequent urination last evening some urinary incontinence No chest pains or shortness of breath Lower extremity edema improving Telemetry reveals ventricular paced rhythm Review of Systems Review of Systems: All systems reviewed & are unremarkable except as noted in Subjective Physical Exam Constitutional: well nourished and + frail appearing; no acute distress Neck: trachea midline, no thyromegaly Respiratory: no respiratory distress, no labored breathing and no retractions Auscultation: lungs clear to auscultation bilaterally; no rhonchi and no wheezes Cardiovascular: Rate/Rhythm: regular rhythm (Paced) Heart Sounds: normal S1, normal S2 and + murmur (1/6 systolic murmur heard best at the apex) Vessels: radial pulses present; no JVD Extremities: + edema (2+ bilateral pretibial edema, diffuse rash) Gastrointestinal (Abdomen): Inspection/Auscultation: abdomen normal to inspect ion and normal bowel sounds; abdomen not distended Percussion/Palpation: abdomen soft; abdomen nontender, no guarding and abdomen not rigid Skin: Coalescing ecchymotic rash lower extremities improving Neurologic: CN's II-XI intact bilaterally and moves all extremities; no focal motor deficits Results & Data ([facility]) Vital Signs (Past 12 Hours) Vital Signs Temp Pulse Pulse Resp BP BP Pulse Ox 01/17/23 07:11 36.4 C L 77 16 144/96 H 99 01/17/23 03:51 36.3 C L 70 18 129/88 93 01/16/23 22:04 76 01/16/23 23:22 36.5 C 70 18 131/76 93 O2 Del Method 01/17/23 07:11 Room Air 01/17/23 03:51 Room Air 01/16/23 22:04 01/16/23 23:22 Room Air Laboratory Results Laboratory Results - last 24 hr 01/16/23 01/16/23 01/16/23 11:30 16:47 20:07 PT INR Sodium Potassium Chloride Carbon Dioxide Anion Gap BUN Creatinine Est Cr Clr Drug Dosing Est GFR ( Amer) Est GFR (Non-Af Amer) BUN/Creatinine Ratio Glucose POC Glucose 177 H 158 H 111 H Calcium Phosphorus Magnesium 01/17/23 01/17/23 01/17/23 07:43 08:25 08:25 PT 20.9 H INR 2.0 H Sodium 140 Potassium 4.1 Chloride 102 Carbon Dioxide 27 Anion Gap 11 BUN 48 H Creatinine 1.79 H Est Cr Clr Drug Dosing 44.7 Est GFR ( Amer) 42.3 Est GFR (Non-Af Amer) 36.5 BUN/Creatinine Ratio 26.8 H Glucose 167 H POC Glucose 137 H Calcium 9.7 Phosphorus 3.4 Magnesium 2.1
[2023-01-17] MEDS: VALSARTAN/SACUBITRIL 26/24MG TAB PO SCH ×2 (10:42→21:09)
[2023-01-17] MEDS: cefTRIAXone SODIUM 2,000 MG in DEXTROSE 5% 50 ML IV SCH (10:49)
--- NOTE | 2023-01-17 10:49 | Hospitalist Progress Note ---
Date of Service January 17, 2023 Assessment & Plan (1) Heart failure, systolic, with acute decompensation: (2) Rash: Plan 72-year-old male with PMH of T2DM, ischemic CM with EF 20%, AICD in place, hypothyroidism, chronic cholecystitis with percutaneous drain in place, atrial fibrillation on Coumadin, chronic thrombocytopenia presented to the ED 01/11 with complaint of lower extremity rash spreading throughout the body. 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 It is only slightly pruritic per pt. Only new meds is Zetia at the end of Nov. Denied new detergents or food or travel or fever or sick contacts. Also reported slight worsening of chronic exertional SOB. He is being managed for the following: Rash: Left great toe wound infection: small, wound care evaled, squeezed pus out. Cultx - pending Good distal pulse. Added doxy 01/16; f/u on wound culture result to tailor antibiotics properly. XR of foot/toe ordered, may need podiatry eval Can f/u w/ PCP office on DC. Patient presenting from home with reports of lower extremity rash that has spread to the abdomen and arms - see above. Ddx: contact dermatitis/cellulitis (bacterial or fungal)/vasculitis Groin rash differs from what is present on legs and likely represents a fungal infection from soiled undergarments -- maintain hygiene and apply Nystatin powder Admitting: WBC wnl; ESR and CRP mildly elevated. Chronic thrombocytopenia at baseline. Admitting team reached out to Derm Dr. Haven Hung at [facility] via [email or web address] -- recs for eval for vasculitis/punch biopsy, triamcinolone 0.1% cream bid. Trufant Text her for setting up f/u on DC. DC Zetia. c/w rocephin 01/11, c/w steroid cream. f/u on 01/11 Rt upper leg punch biopsy (called lab - sent out - pending) Rash improving, no new/fresh rash noticed. Acute on chronic systolic CHF (congestive heart failure): H/o Ischemic cardiomyopathy: Biventricular ICD (implantable cardioverter-defibrillator) in place: Patient with increased lower extremity edema and JANSEN. At presentation - saturating well on room air , BNP elevated and CXR w/ congestive changes. Echo 10/2022-EF 20%. S/p BiV ICD 10/2022. Cardio on board, managing diuresis. Patient on digoxin MWF. Resuming entresto at half dose of 26/24 mg BID on discharge. Continue to hold Aldactone. Will follow. Baseline creatinine appears around mid 1s, monitor BMP and electrolytes. Chronic cholecystitis: Has percutaneous drain in place. Follows with [facility], tentatively planning for cholecystectomy April 2023 pending card iac status. Persistent atrial fibrillation: Rate controlled on metoprolol, anticoagulated with Coumadin. F/u w/ coumadin clinic closely on dc. OP chart says one or two ta bs of 5 mg tab to be taken, consider resuming at 5 mg daily on discharge and have him closely f/u coumadin clinic for ongoing dose adjustment - follow up pt/inr in AM. Hypothyroidism: Home levo dose 100, admitting TSH 14.2, pt reported noncompliance to levo. c/w home dose. TFT in 6 weeks. DM type 2 (diabetes mellitus, type 2): Hgb A1c 7.8 08/2022. Patient reports self stopping Lantus about 1 month ago. A1c of 9.4 this admission. Resume lantus 10 units daily; c/w SSI; c/w home jardiance. Thrombocytopenia: Chronic, around baseline. CVA (cerebral vascular accident): History of, continue Plavix. Zetia stopped due to concern of allergic skin reaction. History of statin intolerance. Outpatient follow up for monoclonal antibody therapy for lipid. DVT prophylaxis: therapeutic inr Dispo: PT/OT, CM to assist w/ DC plan. Likely triston. Admission and Anticipated Discharge Date Admission Date: January 12, 2023 Subjective Patient seen and examined at bedside as a follow-up of skin rash, acute on chronic systolic CHF and chronic cholecystitis with percutaneous drain in place. Discussed w/ wound care nurse re: toe wound, toe XR ordered Patient currently lying in bed, on room air, NAD, drowsy, reports he is unable to sleep at night. Reports improving skin rash. denies chest pain, palpitations, shortness of breath. No abd. pain, n/v Review of Systems Review of Systems: All systems reviewed & are unremarkable except as noted in Subjective Physical Exam Physical Exam: GENERAL: Alert and oriented x3. NAD, on RA. HEENT: NC/AT. Pupils equal, round and reactive to light. Oral mucosa moist. NECK: No JVD, no neck masses. HEART: S1 and S2 heard. Regular rate and rhythm. No murmur, no gallop. RESPIRATORY: Normal AP diameter. No accessory muscle use. No wheezing, bb crackles. ABDOMEN: Soft, bowel sounds present, nontender, no distention. SKIN: yesica rash x left groin. Erythematous maculopapular rash scattered x ble w/ some scratch wood/non tender; more sparse rash over abd wall and bue. None on the back. --> No new or fresh rashes noticed. Appears improving. We will continue to follow. Black eschar wound on L big toe NEURO: alert and oriented, answering questions appropriately. No facial droop. Speech is clear. Obeys simple commands. Moves extremities. EXTREMITIES: 1-2+ BLE edema. Results & Data Results & Data Vital Signs (Past 12 Hours) Vital Signs Temp Pulse Resp BP BP Pulse Ox O2 Del Method 01/17/23 07:11 36.4 C L 77 16 144/96 H 99 Room Air 01/17/23 03:51 36.3 C L 70 18 129/88 93 Room Air 01/16/23 23:22 36.5 C 70 18 131/76 93 Room Air Laboratory Results 01/17/23 01/17/23 01/17/23 Range/Units 08:25 08:25 07:43 PT 20.9 H (9.0-12.0) Seconds INR 2.0 H (0.9-1.1) Sodium 140 (136-145) mmol/L Potassium 4.1 (3.5-5.1) mmol/L Chloride 102 (98-107) mmol/L Carbon Dioxide 27 (21-32) mmol/L Anion Gap 11 (3-11) BUN 48 H (6-23) mg/dl Creatinine 1.79 H (0.6-1.4) mg/dl Est Cr Clr Drug Dosing 44.7 ml/min Est GFR ( Amer) 42.3 ml/min Est GFR (Non-Af Amer) 36.5 ml/min BUN/Creatinine Ratio 26.8 H (10-20) Glucose 167 H (70-99(Fasting)) mg/dl POC Glucose 137 H (70-99) mg/dl Calcium 9.7 (8.5-10.1) mg/dl Phosphorus 3.4 (2.5-4.9) mg/dl Magnesium 2.1 (1.7-2.4) mg/dl 01/16/23 01/16/23 01/16/23 Range/Units 20:07 16:47 11:30 PT (9.0-12.0) Seconds INR (0.9-1.1) Sodium (136-145) mmol/L Potassium (3.5-5.1) mmol/L Chloride (98-107) mmol/L Carbon Dioxide (21-32) mmol/L Anion Gap (3-11) BUN (6-23) mg/dl Creatinine (0.6-1.4) mg/dl Est Cr Clr Drug Dosing ml/min Est GFR ( Amer) ml/min Est GFR (Non-Af Amer) ml/min BUN/Creatinine Ratio (10-20) Glucose (70-99(Fasting)) mg/dl POC Glucose 111 H 158 H 177 H (70-99) mg/dl Calcium (8.5-10.1) mg/dl Phosphorus (2.5-4.9) mg/dl Magnesium (1.7-2.4) mg/dl Medications Administered Current Inpatient Medications Acetaminophen (Acetaminophen 325 Mg Tab) 650 mg PO Q4H PRN PRN Reason: Pain or Fever Stop: 02/10/23 10:10 Clopidogrel Bisulfate (Clopidogrel Bisulfate 75 Mg Tab) 75 mg PO DAILY [facility] Stop: 02/10/23 10:10 Last Admin: 01/17/23 08:52 Dose: 75 mg Dextrose (Dextrose 50% 50 Ml Syringe) 25 - 50 ml IV UD PRN; Protocol PRN Reason: Hypoglycemia Protocol Stop: 02/10/23 10:10 Digoxin (Digoxin 0.125 Mg Tab) 0.125 mg PO MoWeFr@1600 [facility] Stop: 02/13/23 15:59 Last Admin: 01/15/23 16:15 Dose: 0.125 mg Doxycycline Hyclate (Doxycycline Hyclate 100 Mg Cap) 100 mg PO BID [facility] Stop: 01/23/23 20:59 Last Admin: 01/17/23 08:52 Dose: 100 mg Empagliflozin (Empagliflozin 10 Mg Tab) 10 mg PO DAILY [facility] Stop: 02/10/23 10:29 Last Admin: 01/17/23 08:53 Dose: 10 mg Glucagon (Glucagon For Inj 1 Mg Vial) 1 mg SQ UD PRN; Protocol PRN Reason: Hypoglycemia Protocol Stop: 02/10/23 10:10 Glucose (Glucose 10 Tab/Tube) 4 - 8 tab PO UD PRN; Protocol PRN Reason: Hypoglycemia Treatment Stop: 02/10/23 10:10 Glucose (Glucose 40% Gel 15 Gm Tube) 15 - 30 gm PO UD PRN; Protocol PRN Reason: Hypoglycemia Protocol Stop: 02/10/23 10:10 Ceftriaxone Sodium 2,000 mg/ (Dextrose) 70 mls @ 140 mls/hr IV Q24H LIN Stop: 01/18/23 10:29 Last Infusion: 01/16/23 11:31 Dose: Infused Insulin Aspart (Insulin Aspart Per Unit) 0 units SC ACHS LIN Stop: 02/10/23 11:29 Last Admin: 01/17/23 08:45 Dose: 3 units Levothyroxine Sodium (Levothyroxine Sodium 100 Mcg Tablet) 100 mcg PO DAILYBB [facility] Stop: 02/10/23 10:29 Last Admin: 01/17/23 06:27 Dose: 100 mcg Melatonin (Melatonin 3 Mg Tab) 3 mg PO HS PRN PRN Reason: Sleep Stop: 02/11/23 23:23 Metoprolol Succinate (Metoprolol Succ 50mg Ext Rel Tab) 100 mg PO DAILY [facility] Stop: 02/10/23 10:29 Last Admin: 01/17/23 08:52 Dose: 100 mg Miscellaneous (Carbohydrates For Hypoglycemia ) 15 - 30 gm PO UD PRN PRN Reason: Hypoglycemia Protocol Stop: 02/10/23 10:10 Nystatin (Nystatin Powder 15gm Btl) 1 appln EXT BID [facility] Stop: 02/10/23 10:10 Last Admin: 01/17/23 08:52 Dose: 1 appln Ondansetron HCl (Ondansetron Inj 2 Mg/Ml 2 Ml Vial) 4 mg IV Q6H PRN PRN Reason: Nausea And Vomiting Stop: 02/10/23 14:39 Pantoprazole Sodium (Pantoprazole 40 Mg Tab) 40 mg PO DAILY LIN Stop: 02/11/23 08:59 Last Admin: 01/17/23 08:52 Dose: 40 mg Sacubitril/Valsartan (Valsartan/Sacubitril 26/24mg Tab) 0.5 tab PO BID [facility] Stop: 02/15/23 09:29 Spironolactone (Spironolactone 12.5 Mg Tab) 12.5 mg PO DAILY LIN Stop: 02/10/23 10:29 Last Admin: 01/11/23 10:50 Dose: 12.5 mg Torsemide (Torsemide 10 Mg Tab) 20 mg PO BID17 LIN Stop: 02/14/23 16:59 Last Admin: 01/17/23 08:52 Dose: 20 mg Triamcinolone Acetonide (Triamcinolone Acet 0.1% Cr 80 Gm Tube) 1 appln EXT BID [facility] Stop: 02/10/23 20:59 Last Admin: 01/17/23 08:53 Dose: 1 appln Warfarin Sodium (Warfarin Sod 10 Mg Tab) 10 mg PO DAILY@1600 [facility] Stop: 02/10/23 15:59 Last Admin: 01/11/23 16:58 Dose: 10 mg
[2023-01-17 11:08] LABS: C Reactive Protein 1.93 mg/dl (0-0.5)
--- NOTE | 2023-01-17 13:45 | XRay Report ---
XR toe(s) LT min 2V CLINICAL HISTORY: toe wound, r/o osteo COMPARISON: None FINDINGS: Alignment of the left first toe is chronic. A skin defect distal aspect of the left first toe suggests a wound. There is no bony erosion within the left first toe to suggest osteomyelitis. Th ere is no fracture. No radiopaque foreign bodies are present. There is left first toe soft tissue swe lling. Mild osteoarthritis of the interphalangeal joint of the left first toe is present. IMPRESSION: Left first toe wound and soft tissue swelling. No evidence for acute osteomyelitis. ACT 112: Negative or not required by law. Electronically signed by: Hong Delong M.D. 01/17/2023 1:44 PM
[2023-01-17] MEDS: DIGOXIN 0.125 MG TAB PO SCH (16:04)
--- NOTE | 2023-01-17 16:04 | Orthopedic Consultation ---
Date of Consultation January 17, 2023 Assessment & Plan (1) Skin ulcer of left great toe: Patient seen, evaluated, and treated. Reviewed x-ray images and x-ray findings. Left hallux wound appears stable and dry. Discussed need for discontinue use of slippers which are likely causation of left hallux wound. Surgical shoe ordered for left foot. Will continue to follow while Patient remains in house. Thank you for allowing me to participate in the care of this Patient. History of Present Illness Attending Physician: Cipriano Segura MD History of Present Illness Patient is a 72 year old male seen at bedside for a left great toe wound. Patient has a past medical history DM type II, ischemic cardiomyopathy EF 20%, AICD in place, hypothyroidism, chronic cholecystitis with percutaneous drain in place, atrial fibrillation on Coumadin, chronic thrombocytopenia, and other problems listed below. History obtained from patient and review of records. Patient presented to the [facility] ED for evaluation of rash on 01/11/23 and admitted to floor. Patient notes rash had started on right lower leg about 1 week prior and then began to worsen to left leg, abdomen, arms. Punch biopsy was obtained on 01/12/23. Allergies Allergy/AdvReac Type Severity Reaction Status Date / Time lisinopril AdvReac Intermediate COUGH Verified 02/20/22 22:26 atorvastatin AdvReac Muscle Pain Verified 02/20/22 22:26 Home Medications Medication Instructions Recorded Confirmed Type insulin glargine 100 unit/mL (3 20 unit subcut QAM 12/18/20 01/11/23 History mL) subcutaneous pen (Lantus Solostar U-100 Insulin) nitroglycerin 0.4 mg sublingual 0.4 mg sublingual UD PRN Chest Pain 12/18/20 01/11/23 History tablet (Nitrostat) warfarin 5 mg tablet 10 mg PO QPM 12/18/20 01/11/23 History torsemide 20 mg tablet 20 mg PO BID 02/20/22 01/11/23 History clopidogrel 75 mg tablet (Plavix) 75 mg PO DAILY 11/01/22 01/11/23 History empagliflozin 10 mg tablet 10 mg PO DAILY 11/01/22 01/11/23 History (Jardiance) levothyroxine 100 mcg tablet 100 mcg PO DAILY 11/01/22 01/11/23 History metoprolol succinate 100 mg 100 mg PO DAILY 11/01/22 01/11/23 History tablet,extended release 24 hr pantoprazole 20 mg tablet,delayed 20 mg PO DAILY 11/01/22 01/11/23 History release (Protonix) sacubitril 24 mg-valsartan 26 mg 1 tab PO BID 11/01/22 01/11/23 History tablet (Entresto) spironolactone 25 mg tablet 12.5 mg PO DAILY 11/01/22 01/11/23 History ezetimibe 10 mg tablet 10 mg PO DAILY 01/11/23 01/11/23 History tizanidine 2 mg capsule 2 mg PO Q8H PRN Muscle Spasm 01/11/23 01/11/23 History Patient History Medical History Biventricular ICD (implantable cardioverter-defibrillator) in place CAD (coronary artery disease) 03/2009 - STEMI, s/p PTCA and stenting RCA, chronic LAD occlusion, 40% left main lesion 2018 he had an abnormal stress test followed by coronary angiogram revealing patent stent in RCA, 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 Chronic cholecystitis CKD (chronic kidney disease) stage 3, GFR 30-59 ml/min CVA (cerebral vascular accident) DM type 2 (diabetes mellitus, type 2) Dyslipidemia HTN (hypertension) Hypothyroidism Ischemic cardiomyopathy Persistent atrial fibrillation STEMI (ST elevation myocardial infarction) Thrombocytopenia Surgical History H/O colonoscopy 06/2018 - diverticulosis - Dr Samreen Suárez Hx of cardiac cath 2008 - multivessel disease s/p stent RCA with residual chronic occlusion LAD with collaterals and 40% narrowing left main Family History Other Coronary heart disease Diabetes Social History Smoking Status: Never smoker Second Hand Exposure: No; Do You Dip or Chew Tobacco: No; Tobacco Cessation Education Requested by Patient: No Hx Alcohol Use: No Hx Substance Use: No Preferred Language: Romanian Communication Ability: Effective Vegetable Washer Required: No Beliefs That Will Affect Care: None marital status: Single Current Living Situation: Alone Current Living Situation Comment: Lives w/ six friends w/ no relations. Other Information That Helps Us Care for You: No Feels Safe at Home: Yes Safety Concerns: Feels Safe At This Time Assistive Devices: Cane and Walker Review of Systems Review of Systems: All systems reviewed & are unremarkable except as noted in HPI & below Physical Exam Constitutional: cooperative and comfortable Respiratory: normal respiratory effort Cardiovascular: Rate/Rhythm: regular rate and regular rhythm Skin: Left distal hallux dry eschar noted. Wound measures roughtly 1 x 1 cm. Hyperkeratotic rim noted periwound. Atrophic skin changes noted secondary to lower extremity edema. Neurologic: Decreased epicritic sensation Psychiatric: Orientation: alert and oriented x 3 Results & Data Vital Signs (Past 12 Hours) Vital Signs Temp Pulse Resp BP Pulse Ox O2 Del Method 01/17/23 15:19 36.4 C L 78 16 121/95 98 Room Air 01/17/23 10:53 36.3 C L 73 16 126/87 96 Room Air 01/17/23 07:11 36.4 C L 77 16 144/96 H 99 Room Air Diagnostic Findings XR toe(s) LT min 2V CLINICAL HISTORY: toe wound, r/o osteo COMPARISON: None FINDINGS: Alignment of the left first toe is chronic. A skin defect distal aspect of the left first toe suggests a wound. There is no bony erosion within the left first toe to suggest osteomyelitis. There is no fracture. No radiopaque foreign bodies are present. There is left first toe soft tissue swelling. Mild osteoarthritis of the interphalangeal joint of the left first toe is present. IMPRESSION: Left first toe wound and soft tissue swelling. No evidence for acute osteomyelitis. ACT 112: Negative or not required by law. Electronically signed by: Hong Delong M.D. 01/17/2023 1:44 PM
[2023-01-17] MEDS ORDERED: MELATONIN 3 MG TAB PO SCH (21:00)
[2023-01-18] MEDS: LEVOTHYROXINE SODIUM 100 MCG TABLET PO SCH (05:56)
[2023-01-18 07:02] LABS: Hematocrit (blood only) 40.6 % (42.0-52.0); Hemoglobin 13.5 g/dl (14.0-18.0); Mean Corpuscular Hgb Conc 33.3 g/dL (32.0-36.0); Mean Corpuscular Volume 87.3 fL (80.0-100.0); Platelet Count 80 K/uL (130-400); RDW Coefficient of Variation 17.2 % (11.5-14.5); RDW Standard Deviation 53.3 fL (36.4-46.3); Red Blood Count 4.65 M/uL (4.70-6.10); White Blood Count 7.73 K/ul (4.8-10.8)
[2023-01-18 07:17] LABS: BUN Creatinine Ratio 28.9 (10-20); Calcium 9.5 mg/dl (8.5-10.1); Creatinine Clr Calc Pharmacy 48.1 ml/min; Est GFR (African American) 46.4 ml/min; Magnesium 1.9 mg/dl (1.7-2.4); Phosphorus 3.8 mg/dl (2.5-4.9); Potassium 3.6 mmol/L (3.5-5.1)
[2023-01-18] MEDS: INSULIN ASPART PER UNIT CHARGE SC SCH ×3 (08:04→17:13)
[2023-01-18] MEDS: METOPROLOL SUCC 50MG EXT REL TAB PO SCH (08:56)
[2023-01-18] MEDS: TORSEMIDE 10 MG TAB PO SCH ×2 (08:57→17:14)
[2023-01-18] MEDS: VALSARTAN/SACUBITRIL 26/24MG TAB PO SCH (08:57)
[2023-01-18] MEDS: PANTOprazole 40 MG TAB PO SCH (08:57)
[2023-01-18] MEDS: EMPAGLIFLOZIN 10 MG TAB PO SCH (08:57)
[2023-01-18] MEDS: DOXYCYCLINE HYCLATE 100 MG CAP PO SCH (09:03)
[2023-01-18] MEDS: NYSTATIN POWDER 15GM BTL EXT SCH (09:04)
[2023-01-18] MEDS: CLOPIDOGREL BISULFATE 75 MG TAB PO SCH (09:04)
[2023-01-18] MEDS: TRIAMCINOLONE ACET 0.1% CR 80 GM TUBE EXT SCH (09:05)
--- NOTE | 2023-01-18 10:36 | Cardiology Progress Note ---
Date of Service January 18, 2023 Assessment & Plan (1) Rash: (2) Heart failure, systolic, with acute decompensation: (3) Chronic atrial fibrillation: (4) Ischemic cardiomyopathy: Plan Rash. Contact dermatitis versus drug reaction/vasculitis versus other. Stop ezetimibe. Biopsy performed, results pending Chronic systolic heart failure, HFrEF, severe ischemic cardiomyopathy, EF less than 20%, chronic left bundle branch block, status post biventricular pacemaker defibrillator implantation on October 16, 2022. Most recent device interrogation on 12/29/2022 with only 56.8% effective BiV pacing. No symptomatic benefit perceived by the patient post device implantation. Current rhythm nearly predominantly paced by telemetry Plan: 01/18/2023 Can Entresto at one half dose, 1/2 tablet (26/24 mg) twice per day Resume spironolactone at 12.5 mg daily Admission and Anticipated Discharge Date Admission Date: January 12, 2023 Subjective Patient seen and examined, chart, medications, telemetry reviewed. Drowsy but answering questions appropriately. Notes was up frequent urination overnight. Leg edema and rash improving per patient. No fevers or chills. Telemetry yesterday with 10 beat run of atrial fibrillation with ventricular pacing (Not ventricular tachycardia) No further arrhythmias with predominantly paced rhythm Review of Systems Review of Systems: All systems reviewed & are unremarkable except as noted in Subjective Physical Exam Constitutional: well nourished and + frail appearing; no acute distress Neck: trachea midline, no thyromegaly Respiratory: no respiratory distress, no labored breathing and no retractions Auscultation: lungs clear to auscultation bilaterally and + crackles (Scant, bases bilateral); no rhonchi and no wheezes Cardiovascular: Rate/Rhythm: regular rhythm (Paced) and + irregularly irregular Heart Sounds: normal S1, normal S2 and + murmur (1/6 systolic murmur heard best at the apex) Vessels: radial pulses present; no JVD Extremities: + edema (2+ bilateral pretibial edema, diffuse rash) Gastrointestinal (Abdomen): Inspection/Auscultation: abdomen normal to inspection and normal bowel sounds; abdomen not distended Percussion/Palpation: abdomen soft; abdomen nontender, no guarding and abdomen not rigid Neurologic: CN's II-XI intact bilaterally and moves all extremities; no focal motor deficits Results & Data Vital Signs (Past 12 Hours) Vital Signs Temp Pulse Resp BP Pulse Ox O2 Del Method 01/18/23 07:30 36.4 C L 74 20 129/86 92 Room Air 01/18/23 03:29 36.9 C 66 18 130/68 97 Room Air 01/17/23 23:11 37 C 69 18 127/68 96 Room Air Laboratory Results Laboratory Results - last 24 hr 01/11/23 01/17/23 01/17/23 Unknown 08:25 08:25 WBC RBC Hgb Hct MCV MCH MCHC RDW Std Deviation RDW Coeff of Erik Plt Count ESR 4 Sodium Potassium Chloride Carbon Dioxide Anion Gap BUN Creatinine Est Cr Clr Drug Dosing Est GFR ( Amer) Est GFR (Non-Af Amer) BUN/Creatinine Ratio Glucose POC Glucose Calcium Phosphorus Magnesium C-Reactive Protein 1.93 H Procalcitonin Ref Lab Test Result 01/17/23 01/17/23 01/17/23 08:25 11:18 11:28 WBC RBC Hgb Hct MCV MCH MCHC RDW Std Deviation RDW Coeff of Erik Plt Count ESR Sodium Potassium Chloride Carbon Dioxide Anion Gap BUN Creatinine Est Cr Clr Drug Dosing Est GFR ( Amer) Est GFR (Non-Af Amer) BUN/Creatinine Ratio Glucose POC Glucose 191 H Calcium Phosphorus Magnesium C-Reactive Protein Cancelled Procalcitonin 0.19 Ref Lab Test Result 01/17/23 01/17/23 01/18/23 16:30 20:20 06:19 WBC 7.73 RBC 4.65 L Hgb 13.5 L Hct 40.6 L MCV 87.3 MCH 29.0 MCHC 33.3 RDW Std Deviation 53.3 H RDW Coeff of Erik 17.2 H Plt Count 80 L ESR Sodium Potassium Chloride Carbon Dioxide Anion Gap BUN Creatinine Est Cr Clr Drug Dosing Est GFR ( Amer) Est GFR (Non-Af Amer) BUN/Creatinine Ratio Glucose POC Glucose 187 H 134 H Calcium Phosphorus Magnesium C-Reactive Protein Procalcitonin Ref Lab Test Result 01/18/23 01/18/23 06:19 07:48 WBC RBC Hgb Hct MCV MCH MCHC RDW Std Deviation RDW Coeff of Erik Plt Count ESR Sodium 139 Potassium 3.6 Chloride 99 Carbon Dioxide 31 Anion Gap 9 BUN 48 H Creatinine 1.66 H Est Cr Clr Drug Dosing 48.1 Est GFR ( Amer) 46.4 Est GFR (Non-Af Amer) 40.0 BUN/Creatinine Ratio 28.9 H Glucose 145 H POC Glucose 132 H Calcium 9.5 Phosphorus 3.8 Magnesium 1.9 C-Reactive Protein Procalcitonin Ref Lab Test Result
--- NOTE | 2023-01-18 10:39 | Hospitalist Progress Note ---
Date of Service January 18, 2023 Assessment & Plan (1) Heart failure, systolic, with acute decompensation: (2) Rash: Plan 72 yo M w/ T2DM, ischemic CM with EF 20%, AICD in place, hypothyroidism, chronic cholecystitis with percutaneous drain in place, atrial fibrillation on Coumadin, chronic thrombocytopenia presented to the ED 01/11 with complaint of lower extremity rash spreading throughout the body. Rash started on RLE about a week ago [employer]IGENCE [employer]LYST and then acutely worsened/ spread to LLE and abdomen and arms since 1 day ago [employer]PER[employer]TELLIGENCE A[employer]LYST. It is only slightly pruritic per pt. Only new meds is Zetia at the end of Nov. Denied new detergents or food or travel or fever or sick contacts. Also reported slight worsening of chronic exertional SOB. He is being managed for the following: Rash: Left great toe wound infection: small, wound care evaled, squeezed pus out. Cultx - likely skin nat Good distal pulse. Added doxy 01/16 XR of foot/toe obtained - IMPRESSION: Left first toe wound and soft tissue swelling. No evidence for acute osteomyelitis. Podiatry consulted - Left hallux wound appears stable and dry. Discussed need for discontinue use of slippers which are likely causation of left hallux wound. Surgical shoe ordered for left foot. Will Dc on augmentin Pt will need outpt follow up to ensure healing. Patient presenting from home with reports of lower extremity rash that has sp read to the abdomen and arms - see above. Ddx: contact dermatitis/cellulitis (bacterial or fungal)/vasculitis Groin rash differs from what is present on legs and likely represents a fungal infection from soiled undergarments -- maintain hygiene and apply Nystatin powder Admitting: WBC wnl; ESR and CRP mildly elevated. Chronic thrombocytopenia at baseline. Admitting team reached out to Derm Dr. Haven Hung at [facility] via [employer] -- recs for eval for vasculitis/punch biopsy, triamcinolone 0.1% cream bid. [place] Text her for setting up f/u on DC. DC Zetia. c/w rocephin 01/11, c/w steroid cream. f/u on 01/11 Rt upper leg punch biopsy (called lab - sent out - pending) Rash improving, no new/fresh rash noticed. Acute on chronic systolic CHF (congestive heart failure): H/o Ischemic cardiomyopathy: Biventricular ICD (implantable cardioverter-defibrillator) in place: Patient with increased lower extremity edema and JANSEN. At presentation - saturating well on room air , BNP elevated and CXR w/ congestive changes. Echo 10/2022-EF 20%. S/p BiV ICD 10/2022. Cardio on board, managing diuresis. Patient on digoxin MWF. Resumed Entresto at half dose of 26/24 mg BID on discharge. Spironolactone 12.5 mg daily resumed. Baseline creatinine appears around mid 1s, monitor BMP and electrolytes. Follow up w/ PCP and cardiology needed and scheduled. Chronic cholecystitis: Has percutaneous drain in place. Follows with [facility] general surgery, tentatively planning for cholecystectomy April 2023 pending cardiac status. Persistent atrial fibrillation: Rate controlled on metoprolol, anticoagulated with Coumadin. F/u w/ coumadin clinic closely on dc. Hypothyroidism: Home levo dose 100, admitting TSH 14.2, pt reported noncompliance to levo. c/w home dose. TFT in 6 weeks. DM type 2 (diabetes mellitus, type 2): Hgb A1c 7.8 08/2022. Patient reports self stopping Lantus about 1 month ago. A1c of 9.4% this admission. Resumed lantus 10 units daily; c/w SSI; c/w home jardiance. Thrombocytopenia: Chronic, around baseline. CVA (cerebral vascular accident): History of, continue Plavix. Zetia stopped due to concern of allergic skin reaction. History of statin intolerance. Outpatient follow up for monoclonal antibody therapy for hld. DVT prophylaxis: therapeutic inr Dispo: Plan to DC home w/ HH Admission and Anticipated Discharge Date Admission Date: January 12, 2023 Subjective Patient seen and examined at bedside as a follow-up of skin rash, acute on chronic systolic CHF, toe wound, and chronic cholecystitis with percutaneous drain in place. Patient is currently sitting up in chair, on room air, NAD. Pt's brother at the bedside. Pt seen ambulating from the bathroom independently. Pt was ambulating yesterday - was informed that plan is for DC home and no longer [facility]. Pt reports feeling well, says he has support at home and would like to be discharged. Reports skin rash is improving. denies chest pain, palpitations, shortness of breath. No abd. pain, n/v Review of Systems Review of Systems: All systems reviewed & are unremarkable except as noted in Subjective Physical Exam Physical Exam: GENERAL: Alert and oriented x3. NAD, on RA. HEENT: NC/AT. Pupils equal, round and reactive to light. Oral mucosa moist. NECK: No JVD, no neck masses. HEART: S1 and S2 heard. Regular rate and rhythm. No murmur, no gallop. RESPIRATORY: Normal AP diameter. No accessory muscle use. No wheezing, bb crackles. ABDOMEN: Soft, bowel sounds present, nontender, no distention. SKIN: Erythematous maculopapular rash scattered x ble w/ some scratch wood/non tender; more sparse rash over abd wall and bue. None on the back. --> No new or fresh rashes noticed. Appears improving. Black eschar on tip of L big toe NEURO: alert and oriented, answering questions appropriately. No facial droop. Speech is clear. Obeys simple commands. Moves extremities. EXTREMITIES: 1+ BLE edema (improved) Results & Data Results & Data Vital Signs (Past 12 Hours) Vital Signs Temp Pulse Resp BP Pulse Ox O2 Del Method 01/18/23 07:30 36.4 C L 74 20 129/86 92 Room Air 01/18/23 03:29 36.9 C 66 18 130/68 97 Room Air 01/17/23 23:11 37 C 69 18 127/68 96 Room Air Laboratory Results 01/18/23 01/18/23 01/18/23 Range/Units 07:48 06:19 06:19 WBC 7.73 (4.8-10.8) K/ul RBC 4.65 L (4.70-6.10) M/uL Hgb 13.5 L (14.0-18.0) g/dl Hct 40.6 L (42.0-52.0) % MCV 87.3 (80.0-100.0) fL MCH 29.0 (25.0-34.0) pg MCHC 33.3 (32.0-36.0) g/dL RDW Std Deviation 53.3 H (36.4-46.3) fL RDW Coeff of Erik 17.2 H (11.5-14.5) % Plt Count 80 L (130-400) K/uL ESR (0-20) mm/hr Sodium 139 (136-145) mmol/L Potassium 3.6 (3.5-5.1) mmol/L Chloride 99 (98-107) mmol/L Carbon Dioxide 31 (21-32) mmol/L Anion Gap 9 (3-11) BUN 48 H (6-23) mg/dl Creatinine 1.66 H (0.6-1.4) mg/dl Est Cr Clr Drug Dosing 48.1 ml/min Est GFR ( Amer) 46.4 ml/min Est GFR (Non-Af Amer) 40.0 ml/min BUN/Creatinine Ratio 28.9 H (10-20) Glucose 145 H (70-99(Fasting)) mg/dl POC Glucose 132 H (70-99) mg/dl Calcium 9.5 (8.5-10.1) mg/dl Phosphorus 3.8 (2.5-4.9) mg/dl Magnesium 1.9 (1.7-2.4) mg/dl C-Reactive Protein (0-0.5) mg/dl Procalcitonin (0-0.5) ng/ml Ref Lab Test Result 01/17/23 01/17/23 01/17/23 Range/Units 20:20 16:30 11:28 WBC (4.8-10.8) K/ul RBC (4.70-6.10) M/uL Hgb (14.0-18.0) g/dl Hct (42.0-52.0) % MCV (80.0-100.0) fL MCH (25.0-34.0) pg MCHC (32.0-36.0) g/dL RDW Std Deviation (36.4-46.3) fL RDW Coeff of Erik (11.5-14.5) % Plt Count (130-400) K/uL ESR (0-20) mm/hr Sodium (136-145) mmol/L Potassium (3.5-5.1) mmol/L Chloride (98-107) mmol/L Carbon Dioxide (21-32) mmol/L Anion Gap (3-11) BUN (6-23) mg/dl Creatinine (0.6-1.4) mg/dl Est Cr Clr Drug Dosing ml/min Est GFR ( Amer) ml/min Est GFR (Non-Af Amer) ml/min BUN/Creatinine Ratio (10-20) Glucose (70-99(Fasting)) mg/dl POC Glucose 134 H 187 H 191 H (70-99) mg/dl Calcium (8.5-10.1) mg/dl Phosphorus (2.5-4.9) mg/dl Magnesium (1.7-2.4) mg/dl C-Reactive Protein (0-0.5) mg/dl Procalcitonin (0-0.5) ng/ml Ref Lab Test Result 01/17/23 01/17/23 01/17/23 Range/Units 11:18 08:25 08:25 WBC (4.8-10.8) K/ul RBC (4.70-6.10) M/uL Hgb (14.0-18.0) g/dl Hct (42.0-52.0) % MCV (80.0-100.0) fL MCH (25.0-34.0) pg MCHC (32.0-36.0) g/dL RDW Std Deviation (36.4-46.3) fL RDW Coeff of Erik (11.5-14.5) % Plt Count (130-400) K/uL ESR 4 (0-20) mm/hr Sodium (136-145) mmol/L Potassium (3.5-5.1) mmol/L Chloride (98-107) mmol/L Carbon Dioxide (21-32) mmol/L Anion Gap (3-11) BUN (6-23) mg/dl Creatinine (0.6-1.4) mg/dl Est Cr Clr Drug Dosing ml/min Est GFR ( Amer) ml/min Est GFR (Non-Af Amer) ml/min BUN/Creatinine Ratio (10-20) Glucose (70-99(Fasting)) mg/dl POC Glucose (70-99) mg/dl Calcium (8.5-10.1) mg/dl Phosphorus (2.5-4.9) mg/dl Magnesium (1.7-2.4) mg/dl C-Reactive Protein Cancelled (0-0.5) mg/dl Procalcitonin 0.19 (0-0.5) ng/ml Ref Lab Test Result 01/17/23 01/11/23 Range/Units 08:25 Unknown WBC (4.8-10.8) K/ul RBC (4.70-6.10) M/uL Hgb (14.0-18.0) g/dl Hct (42.0-52.0) % MCV (80.0-100.0) fL MCH (25.0-34.0) pg MCHC (32.0-36.0) g/dL RDW Std Deviation (36.4-46.3) fL RDW Coeff of Erik (11.5-14.5) % Plt Count (130-400) K/uL ESR (0-20) mm/hr Sodium (136-145) mmol/L Potassium (3.5-5.1) mmol/L Chloride (98-107) mmol/L Carbon Dioxide (21-32) mmol/L Anion Gap (3-11) BUN (6-23) mg/dl Creatinine (0.6-1.4) mg/dl Est Cr Clr Drug Dosing ml/min Est GFR ( Amer) ml/min Est GFR (Non-Af Amer) ml/min BUN/Creatinine Ratio (10-20) Glucose (70-99(Fasting)) mg/dl POC Glucose (70-99) mg/dl Calcium (8.5-10.1) mg/dl Phosphorus (2.5-4.9) mg/dl Magnesium (1.7-2.4) mg/dl C-Reactive Protein 1.93 H (0-0.5) mg/dl Procalcitonin (0-0.5) ng/ml Ref Lab Test Result Medications Administered Current Inpatient Medications Acetaminophen (Acetaminophen 325 Mg Tab) 650 mg PO Q4H PRN PRN Reason: Pain or Fever Stop: 02/10/23 10:10 Clopidogrel Bisulfate (Clopidogrel Bisulfate 75 Mg Tab) 75 mg PO DAILY LIN Stop: 02/10/23 10:10 Last Admin: 01/18/23 09:04 Dose: 75 mg Dextrose (Dextrose 50% 50 Ml Syringe) 25 - 50 ml IV UD PRN; Protocol PRN Reason: Hypoglycemia Protocol Stop: 02/10/23 10:10 Digoxin (Digoxin 0.125 Mg Tab) 0.125 mg PO MoWeFr@1600 [facility] Stop: 02/13/23 15:59 Last Admin: 01/17/23 16:04 Dose: 0.125 mg Doxycycline Hyclate (Doxycycline Hyclate 100 Mg Cap) 100 mg PO BID [facility] Stop: 01/23/23 20:59 Last Admin: 01/18/23 09:03 Dose: 100 mg Empagliflozin (Empagliflozin 10 Mg Tab) 10 mg PO DAILY LIN Stop: 02/10/23 10:29 Last Admin: 01/18/23 08:57 Dose: 10 mg Glucagon (Glucagon For Inj 1 Mg Vial) 1 mg SQ UD PRN; Protocol PRN Reason: Hypoglycemia Protocol Stop: 02/10/23 10:10 Glucose (Glucose 10 Tab/Tube) 4 - 8 tab PO UD PRN; Protocol PRN Reason: Hypoglycemia Treatment Stop: 02/10/23 10:10 Glucose (Glucose 40% Gel 15 Gm Tube) 15 - 30 gm PO UD PRN; Protocol PRN Reason: Hypoglycemia Protocol Stop: 02/10/23 10:10 Insulin Aspart (Insulin Aspart Per Unit) 0 units SC ACHS LIN Stop: 02/10/23 11:29 Last Admin: 01/18/23 08:04 Dose: 3 units Levothyroxine Sodium (Levothyroxine Sodium 100 Mcg Tablet) 100 mcg PO DAILYBB LIN Stop: 02/10/23 10:29 Last Admin: 01/18/23 05:56 Dose: 100 mcg Melatonin (Melatonin 3 Mg Tab) 3 mg PO HS [facility] Stop: 02/16/23 20:59 Last Admin: 01/17/23 21:10 Dose: 3 mg Metoprolol Succinate (Metoprolol Succ 50mg Ext Rel Tab) 100 mg PO DAILY LIN Stop: 02/10/23 10:29 Last Admin: 01/18/23 08:56 Dose: 100 mg Miscellaneous (Carbohydrates For Hypoglycemia ) 15 - 30 gm PO UD PRN PRN Reason: Hypoglycemia Protocol Stop: 02/10/23 10:10 Nystatin (Nystatin Powder 15gm Btl) 1 appln EXT BID [facility] Stop: 02/10/23 10:10 Last Admin: 01/18/23 09:04 Dose: 1 appln Ondansetron HCl (Ondansetron Inj 2 Mg/Ml 2 Ml Vial) 4 mg IV Q6H PRN PRN Reason: Nausea And Vomiting Stop: 02/10/23 14:39 Pantoprazole Sodium (Pantoprazole 40 Mg Tab) 40 mg PO DAILY LIN Stop: 02/11/23 08:59 Last Admin: 01/18/23 08:57 Dose: 40 mg Sacubitril/Valsartan (Valsartan/Sacubitril 26/24mg Tab) 0.5 tab PO BID [facility] Stop: 02/15/23 09:29 Last Admin: 01/18/23 08:57 Dose: 0.5 tab Spironolactone (Spironolactone 12.5 Mg Tab) 12.5 mg PO DAILY [facility] Stop: 02/10/23 10:29 Last Admin: 01/11/23 10:50 Dose: 12.5 mg Torsemide (Torsemide 10 Mg Tab) 20 mg PO BID17 [facility] Stop: 02/14/23 16:59 Last Admin: 01/18/23 08:57 Dose: 20 mg Triamcinolone Acetonide (Triamcinolone Acet 0.1% Cr 80 Gm Tube) 1 appln EXT BID [facility] Stop: 02/10/23 20:59 Last Admin: 01/18/23 09:05 Dose: 1 appln Warfarin Sodium (Warfarin Sod 10 Mg Tab) 10 mg PO DAILY@1600 [facility] Stop: 02/10/23 15:59 Last Admin: 01/11/23 16:58 Dose: 10 mg
[2023-01-18] MEDS ORDERED: ADVANCED PROBIOTIC 1250 MG CAPSULE PO SCH (12:30)
--- NOTE | 2023-01-18 14:18 | Discharge Summary ---
Date of Service January 18, 2023 Admission HPI Per Admitting Provider 72-year-old male with PMH DM type II, ischemic cardiomyopathy EF 20%, AICD in place, hypothyroidism, chronic cholecystitis with percutaneous drain in place, atrial fibrillation on Coumadin, chronic thrombocytopenia, and other problems listed below who presents to the ED for evaluation of rash. History obtained from patient and review of outpatient records including primary care, cardiology, general surgery. Patient states rash started on right lower leg about 1 week ago and then acutely worsened and spread yesterday to left leg, abdomen, arms. Patient states rash is only slightly pruritic. Only new medication is starting Zetia at the end of November. Patient denies new detergents or foods. No recent travel. Does not spend time outside. Does have a dog in the home. No fever.no sick contacts. Increased lower extremity edema along with testicular swelling and pain. Has chronic exertional shortness of breath which is slightly worse from baseline. Also reports a chronic cough that seems to have worsened recently. Had one episode of lightheadedness and dizziness with over exertion that resolved quickly. Denies chest pain. Has chronic cholecystitis with percutaneous drain in place, no acute issues. Denies abdominal pain, nausea, vomiting, or diarrhea. No urinary symptoms. In the ED, patient is hemodynamically stable. Labs are unremarkable/at patient's baseline. CXR is suggesting volume overload. Admission Exam Per Admitting Provider On exam, General: Obese man in no distress Eyes: PERRL, conjunctivae normal, not pale, anicteric sclerae, EOM intact bilaterally ENMT: External ear and nose normal, oropharynx normal Respiratory: Normal respiratory effort, no respiratory distress, lungs clear to auscultation, no crackles and no wheezes Cardiovascular: RRR S1 S2 Gastrointestinal (Abdomen): Abdomen is not distended, soft, non-tender to palpation, no guarding, normal bowel sounds Musculoskeletal: Bilateral pitting pedal edema, some scab on tip of left big toe (reported he sustained a wound when he hit his foot some days ago) Genitourinary: Scrotal edema Skin: Candidal rash on left groin. some mild tenderness over groin rash Patient has generalized, red maculopapular rash all over both legs with some scratch wood, areas of erythema, non tender. Rash is most pronounced in the legs but extends into thigh. Scattered rash over abdominal wall. Few on chest wall. Some on upper arms. Did not appreciate any on the back Neurologic: Alert and oriented x 3, No focal weakness, sensation grossly intact Psychiatric: Alert and oriented x 3, euthymic affect Principal Diagnosis Rash Heart failure, systolic, with acute decompensation Ischemic cardiomyopathy Left toe wound Discharge Exam GENERAL: Alert and oriented x3. NAD, on RA. HEENT: NC/AT. Pupils equal, round and reactive to light. Oral mucosa moist. NECK: No JVD, no neck masses. HEART: S1 and S2 heard. Regular rate and rhythm. No murmur, no gallop. RESPIRATORY: Normal AP diameter. No accessory muscle use. No wheezing, bb crackles. ABDOMEN: Soft, bowel sounds present, nontender, no distention. SKIN: Erythematous maculopapular rash scattered x ble w/ some scratch wood/non tender; more sparse rash over abd wall and bue. None on the back. --> No new or fresh rashes noticed. Appears improving. Black eschar on tip of L big toe NEURO: alert and oriented, answering questions appropriately. No facial droop. Speech is clear. Obeys simple commands. Moves extremities. EXTREMITIES: 1+ BLE edema (improved) Discharge Data Allergies Allergy/AdvReac Type Severity Reaction Status Date / Time lisinopril AdvReac Intermediate COUGH Verified 02/20/22 22:26 atorvastatin AdvReac Muscle Pain Verified 02/20/22 22:26 Consultations 01/11/23 08:21 ED Decision to Admit Stat 01/11/23 14:44 Consult General Surgery Routine 01/12/23 10:56 Consult Cardiology Routine 01/12/23 12:25 Consult Behavioral Health Liaison Routine 01/17/23 12:05 Consult Podiatry Routine Diabetes Follow up Diabetes Follow-up Needed for HgbA1c >9% Hospital Course (1) Heart failure, systolic, with acute decompensation: (2) Rash: Plan 72 yo M w/ T2DM, ischemic CM with EF 20%, AICD in place, hypothyroidism, chronic cholecystitis with percutaneous drain in place, atrial fibrillation on Coumadin, chronic thrombocytopenia presented to the ED 01/11 with complaint of lower extremity rash spreading throughout the body. 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 It is only slightly pruritic per pt. Only new meds is Zetia at the end of Nov. Denied new detergents or food or travel or fever or sick contacts. Also reported slight worsening of chronic exertional SOB. He is being managed for the following: Rash: Left great toe wound infection: small, wound care evaled, squeezed pus out. Cultx - likely skin nat Good distal pulse. Added doxy 01/16 XR of foot/toe obtained - IMPRESSION: Left first toe wound and soft tissue swelling. No evidence for acute osteomyelitis. Podiatry consulted - Left hallux wound appears stable and dry. Discussed need for discontinue use of slippers which are likely causation of left hallux wound. Surgical shoe ordered for left foot. Will Dc on augmentin Pt will need outpt follow up to ensure healing. Patient presenting from home with reports of lower extremity rash that has spread to the abdomen and arms - see above. Ddx: contact dermatitis/cellulitis (bacterial or fungal)/vasculitis Groin rash differs from what is present on legs and likely represents a fungal infection from soiled undergarments -- maintain hygiene and apply Nystatin powder Admitting: WBC wnl; ESR and CRP mildly elevated. Chronic thrombocytopenia at baseline. Admitting team reached out to Derm Dr. Haven Hung at [facility] via [employer] -- recs for eval for vasculitis/punch biopsy, triamcinolone 0.1% cream bid. [employer] Text her for setting up f/u on DC. DC Zetia. c/w rocephin 01/11, c/w steroid cream. f/u on 01/11 Rt upper leg punch biopsy (called lab - sent out - pending) Rash improving, no new/fresh rash noticed. Acute on chronic systolic CHF (congestive heart failure): H/o Ischemic cardiomyopathy: Biventricular ICD (implantable cardioverter-defibrillator) in place: Patient with increased lower extremity edema and JANSEN. At presentation - saturating well on room air , BNP elevated and CXR w/ congestive changes. Echo 10/2022-EF 20%. S/p BiV ICD 10/2022. Cardio on board, managing diuresis. Patient on digoxin MWF. Resumed Entresto at half dose of 26/24 mg BID on discharge. Spironolactone 12.5 mg daily resumed. Baseline creatinine appears around mid 1s, monitor BMP and electrolytes. Follow up w/ PCP and cardiology needed and scheduled. Chronic cholecystitis: Has percutaneous drain in place. Follows with [facility] surgery, tentatively planning for cholecystectomy April 2023 pending cardiac status. Persistent atrial fibrillation: Rate controlled on metoprolol, anticoagulated with Coumadin. F/u w/ coumadin clinic closely on dc. Hypothyroidism: Home levo dose 100, admitting TSH 14.2, pt reported noncompliance to levo. c/w home dose. TFT in 6 weeks. DM type 2 (diabetes mellitus, type 2): Hgb A1c 7.8 08/2022. Patient reports self stopping Lantus about 1 month ago. A1c of 9.4% this admission. Resumed lantus 10 units daily; c/w SSI; c/w home jardiance. Thrombocytopenia: Chronic, around baseline. CVA (cerebral vascular accident): History of, continue Plavix. Zetia stopped due to concern of allergic skin reaction. History of statin intolerance. Outpatient follow up for monoclonal antibody therapy for hld. DVT prophylaxis: therapeutic inr Dispo: Plan to DC home. Pt declined home health services. Total Time Total Time Spent Total Time Spent (In Minutes): 40 Discharge Plan Discharge Items Patient Disposition: Home - Self-Care Reason For Visit: RASH, CHF Discharge Diagnosis: Rash Heart failure, systolic, with acute decompensation Ischemic cardiomyopathy Left toe wound Activity: Per Instructions section Non-emergency contact: Primary Care Provider, Specialist and Medical Terminologist Call non-emergency contact if: you have any medication questions and your symptoms worsen Follow-up/Referrals: Dali Cordon MD [Outside Practitioners] - 01/26/23 2:30 pm () Regis Ayala MD [Primary Care Provider] - (Date & Time 01/22/2023 1:40 PM Provider Regis Ayala DO Department Family [facility] ) Marcelle Quezada CRNP [Outside Practitioners] - (Date & Time 03/05/2023 11:30 AM Provider ELOY Gonzalez Department Cardiology [facility] ) Diet: Carb Consistent or DM2, Heart Healthy and Low Sodium (2gm) Fluids: 1800ml (7 cups) Addtl Attending Provider Instructions: Follow-up with your primary care doctor, flagger, and credit review manager. The appointment with your primary care doctor was scheduled for you for January 22. Primary care provider will need to review events of this admission, also you nee d to follow-up with them for your diabetes. You were seen by cardiology in the hospital, and you were started on a new medication digoxin, take it as prescribed, on Sunday. Continue torsemide 20 mg twice a day. Continue taking metoprolol succinate 100 mg daily. Continue taking spironolactone 12.5 mg daily. Your Entresto dose was currently decreased to half a tablet twice a day. You will also need to follow-up on your INR and warfarin dose may need further adjustment. Finish antibiotic treatment with Augmentin, as prescribed. Use nystatin powder for groin rash. Use triamcinolone cream for leg rash. Follow-up with your credit review manager, as scheduled on March 05. You will also need to follow-up with flagger, and review the results of your skin biopsies. The appointment was scheduled for you for January 26. Lastly, you were seen by a benzol still operator, it was recommended that you use a surgical shoe, to allow for your toe to heal. You may need to follow-up with podiatry as outpatient, to ensure proper healing. Addtl Flagger Provider Instructions: Call your Primary Care doctor if any of the following symptoms or problems start or get worse: * Shortness of breath or difficulty breathing * Wake up at night short of breath * Chest pain * Cough * Swelling of your hands, feet, or legs * More fatigued or tired with your normal activity * Palpitations - sudden fast heart beats WEIGHT * Weigh yourself every morning after using the bathroom. * Use the same scale. * Wear the same amount of clothing. * Write your weight down on a chart. * Call your Primary Care doctor if you gain more than 2-3 pounds in 1-2 days. MEDICATIONS * Use this discharge instruction sheet for medication instructions. * Take your medications at the time your doctor ordered. * Do not skip a dose of your medicines. * If you miss a dose of medicine, take it as soon as possible, but DO NOT DOUBLE A DOSE. * Read your medicine information when you get home. * Know all of the side effects of your medicine. If in doubt, ask your pharmacist * Call your Primary Care doctor's office if you have any side effects. * Be sure all of your doctors know what medicine and herbs you take (including cold, flu, and herbal medicine). Take the following with you to your follow-up doctor appointments: * Weight Chart * Medication List * List of questions Do not drink excessive alcohol, beer or wine. Pending Studies at Discharge: Yes Studies:: skin biopsy results Stand-Alone Forms: My [facility], Smoking Cessation Medications and DC Order Prescriptions: New digoxin [Digitek] 125 mcg (0.125 mg) Tablet 0.125 mg PO UD 30 Days Qty: 30 0RF Rx Instructions: Take 1 tab on Sunday, Sunday, Sunday nystatin [Nystop] 100,000 unit/gram Powder 1 applic EXT BID Qty: 30 0RF triamcinolone acetonide 0.1 % Cream 1 applic EXT BID Qty: 30 0RF amoxicillin-pot clavulanate 875-125 mg tablet 1 tab PO BID 7 Days Qty: 14 0RF Continued warfarin 5 mg Tablet 10 mg PO QPM nitroglycerin [Nitrostat] 0.4 mg Tablet, Sublingual 0.4 mg sublingual UD PRN (Reason: Chest Pain) insulin glargine [Lantus Solostar U-100 Insulin] 100 unit/mL (3 mL) insulin pen 20 unit SUBCUT QAM torsemide 20 mg tablet 20 mg PO BID metoprolol succinate 100 mg Tablet Extended Release 24 Hr 100 mg PO DAILY clopidogrel [Plavix] 75 mg Tablet 75 mg PO DAILY spironolactone 25 mg Tablet 12.5 mg PO DAILY pantoprazole [Protonix] 20 mg Tablet,Delayed Release (Dr/Ec) 20 mg PO DAILY levothyroxine 100 mcg Tablet 100 mcg PO DAILY Jardiance 10 mg Tablet 10 mg PO DAILY tizanidine 2 mg capsule 2 mg PO Q8H PRN (Reason: Muscle Spasm) Changed Entresto 24-26 mg Tablet 0.5 tab PO BID Qty: 14 0RF Discontinued ezetimibe 10 mg tablet 10 mg PO DAILY Discharge Orders: Discharge Order- CHF (Routine); Ordered 01/18/23 Ordered By: Cipriano Ybarra/Other Patient Handouts: Managing Type 2 Diabetes Admission Data Admit Date/Time: 01/12/23 11:21 Attending Provider: Cipriano Segura Admit Provider: Valerie Tran I. Primary Care Provider: Regis Ayala Other Providers: Valerie Tran I. ; Hussain Wheeler ; Nathalie Stevens ; Diogenes Yarbrough ; Last Carranza ; Mark Gonzalez ; Jozef Flores ; Morgan Nelson ; Robert Arguelles ; Nati Muro ; Dang Woodruff ; Nathalie Reynoso ; Jimenez Russell ; [facility] ; Freeman Morales ; Vivek Barreto
--- NOTE | 2023-01-25 06:06 | Coding Query ---
PATHOLOGY To promote full compliance with coding requirements relating to patient care, physician participation is requested in all cases of ammunition components inspector uncertainty. Please assist us with the question(s) below: Please review the Pathology report and please document any relevant diagnosis(es) below. Patient admitted with rash. Skin punch biopsy sent 01/11 to an Outside Lab. Results now available. Thanks for your help! ANNABELLA Lopez [facility] Diagnosis(es): Biopsy results - Leukocytoclastic vasculitis. PCP and dermatology notified. MD Imelda [facility]
== END 2023-01-18 20:43 | disposition home or self-care (01) | DRG 545 ==
LOC: 2W 06:05 → ED 06:05 → SUATTDRO 09:07 → 2W 09:52 → SUATTDRO 01-12 11:21 → 2W 01-13 01:13